=== PATIENT | male | born 1985 | race Caucasian/White ===

== ENCOUNTER 2018-07-01 16:31 | Inpatient (IN) | payer MEDICARE, MEDICAID ==
[~2018-07-01] VITALS: Ht 185.4 cm; Wt 93.9 kg
[~2018-07-01 16:31] MED LIST: /QUET10TA PO; ABIL300I IM; AMOX500T PO; CLON0.5T8 PO; DEPA500T2 OR; GEOD40CA13 PO; INVE234I IM; No Home Medications; RISP1TAB42 PO; RISP2TAB32 PO; TRAZ-160 PO; TRIL600T PO; VITA400T2 PO
[2018-07-01 16:52] LABS: HEMATOCRIT 44.1 % (42.0-52.0); HEMOGLOBIN 15.8 g/dl (13.5-17.5); MEAN CORPUSCULAR HGB CONC 35.8 g/dl (32.0-36.5); MEAN CORPUSCULAR VOLUME 89.3 fl (80.0-96.0); PLATELET COUNT, AUTOMATED 270 10^3/uL (150-450); RED BLOOD COUNT 4.94 10^6/uL (4.30-6.10); WHITE BLOOD COUNT 11.5 10^3/uL (4.0-10.0)
[2018-07-01] MEDS ORDERED: LORazepam 1 MG TAB PO ONE (17:15)
[2018-07-01 17:33] LABS: ACETAMINOPHEN LEVEL < 2.0 UG/ML (10.0-30.0); ALBUMIN 4.3 GM/DL (3.2-5.2); ALT/SGPT 45 U/L (12-78); BILIRUBIN,DIRECT 0.1 MG/DL (0.0-0.2); BILIRUBIN,TOTAL 0.6 MG/DL (0.2-1.0); BLOOD UREA NITROGEN 13 MG/DL (7-18); CALCIUM LEVEL 9.9 MG/DL (8.5-10.1); CARBON DIOXIDE LEVEL 23 MEQ/L (21-32); CHLORIDE LEVEL 104 MEQ/L (98-107); CREATININE FOR GFR 1.02 MG/DL (0.70-1.30); ETHYL ALCOHOL (ETHANOL) < 0.003 % (0.000-0.010); GLOMERULAR FILTRATION RATE > 60.0 (>60); GLUCOSE, FASTING 111 MG/DL (70-100); POTASSIUM SERUM 3.9 MEQ/L (3.5-5.1); SALICYLATE LEVEL < 1.7 MG/DL (5.0-30.0); SODIUM LEVEL 137 MEQ/L (136-145); TOTAL PROTEIN 7.3 GM/DL (6.4-8.2)
[2018-07-01 17:33] LABS: AMPHETAMINES LEVEL URINE NEGATIVE (NEGATIVE); BARBITURATES URINE NEGATIVE (NEGATIVE); BENZODIAZEPINES URINE NEGATIVE (NEGATIVE); CANNABINOIDS URINE NEGATIVE (NEGATIVE); COCAINE METABOLITE URINE NEGATIVE (NEGATIVE); METHADONE URINE NEGATIVE (NEGATIVE); OPIATES URINE NEGATIVE (NEGATIVE); PHENCYCLIDINE URINE NEGATIVE (NEGATIVE)
[2018-07-01] MEDS ORDERED: chlorproMAZINE 25 MG TAB (Q0161) PO ONE (19:30)
[2018-07-01] MEDS ORDERED: HALOPERIDOL 5 MG/ML VIAL (J1630) IM STA (20:44)
[2018-07-01] MEDS ORDERED: diphenhydrAMINE INJ 50MG/ML VIAL (J1200) IM STA (20:44)
[2018-07-01] MEDS ORDERED: HALOPERIDOL 5 MG/ML VIAL (J1630) As Ordered ONE (20:46)
--- NOTE | 2018-07-02 08:39 | ECGEPIP ---
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
[2018-07-02] MEDS ORDERED: ACETAMINOPHEN TAB 650MG DOSE (2X325MG) PO PRN (09:30)
[2018-07-02] MEDS ORDERED: MOM 30ML SUSPENSION UDC PO PRN (09:30)
[2018-07-02] MEDS ORDERED: MAALOX 30 ML SUSP *UDC PO PRN (09:30)
[2018-07-02] MEDS: clonazePAM 1 MG TAB PO SCH ×2 (11:43→21:00)
[2018-07-02] MEDS: OLANZapine ORAL DISINTEGRATING TAB 5MG PO SCH ×2 (11:44→21:00)
--- NOTE | 2018-07-02 13:37 | MHHPEPDOC ---
[facility] History & Physical History and Physical DATE OF ADMISSION: Jul 02, 2018 at 09:20 LEGAL STATUS AT ADMISSION: 9.39 CHIEF COMPLAINT: Patient presented to the ED with NYSP after family reported he was threatening family members HISTORY OF PRESENT ILLNESS: Patient is a 32-year-old male, who has a long standing of psychiatric illness, who was las hospitalized at [facility] in September 2015. he has ah/o bipolar disorder but the initial evaluation mentioned there were questions as of whether he was in the spectrum of ASD. As per ED report: " Pt presented with NYSP on after family called police to the home. Pt was reportedly threatening family members. Pt was found to be manic, highly delusional. Hx of schizophrenia and has been hospitalized here before, last visit was September 2015. Family says pt has been not taking his medication for an unkown amount of time and has become increasingly disorganized, tangential, delusional. Pt says he "Just got back from [place] where I met 11 hot girls and what's a man supposed to do?" Pt saying he got new tatoos in [place] and shows them to staff. Pt's speech is rapid and loud, pressured with FOI. Significant hesitations during interview whenever a question is asked. 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 He is psychotic at this time Personality: To be assessed during his hospital stay PAST PSYCHIATRIC HISTORY: Prior Psychiatric Disorder: History of bipolar disorder Outpatient Treatment: Patient is a poor historian, he is psychotic and at this time, can't provide this information. Suicidal/Self injurious: Denies Psychotropic Medication History: apparently in hte past he received Invega sustenna, that was started in September 2015 but he can't tell me when did he stop using this medication or he is taking other medications "According to his last admission record, September 2015: "The patient had a hospital admission to [facility] 03/08/2014 to 2014, June 14 to 2013, May 22, 2015 to June 09, 2013, May [id number], December [id number]. The patient has [facility]. Previous diagnosis indicated bipolar disorder, as well as cannabis use" ALLERGIES: Please see below. FAMILY PSYCHIATRIC HISTORY: According to previous history (september 2015), his mother has a mood disorder SOCIAL HISTORY: the patient is a poor historian at this time, he is psychotic and very irritable. Apparently he doesn't live with his parents. He receives SSI SUBSTANCE ABUSE HISTORY: Cannabis PAST MEDICAL/SURGICAL HISTORY: Gastric bypass and appendectomy according to previous records (september 2015) VITAL SIGNS: Please see below. MENTAL STATUS EXAMINATION: The patient is a 32 year old male who was seen in his room. This blurb writer asked him to come to the office to be evaluated but he was fixated and angry because he didn't have a shirt. A staff member came in at that oment with the shirt and he put it on. He said he came to the Hospital because "my mother is crazy, she probably has Munchausen's syndrome, she has no business in doing and saying what she says. 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 He goes on and on about his music preferences, and then says "my mother says that I wanted to kill my father but I was not trying to kill my father, I just wanted to punch him in the face". At that moment he makes clear that he wants to punch someone, he comes in front of me with tight fists as if he wants to hit me, I move back and he wants to see my name in my ID BADGE. * Patient is extremely paranoid, he is delusional. His speech is tangential and circumstantial. His mood is irritable/angry. His thought process is disorganized,incoherent. His thought content is positive for delusional thoughts, paranoid type. he denies AV hallucinations but I think he might be responding to internal stimuli. He is restless, agitated, paces up and down in his room. His impulse control, judgment and insight are poor at this time. DIAGNOSES: 1. R/O Schizoaffective disorder bipolar type versus bipolar 1 disorder 2. r/O ASD ASSESSMENT: patient is extremely irritable, labile, angry. He is dangerous to self and others. TW has ordered Zyprexa Zydis 10 mgs PO BID and the same medication, 5 mgs PO TIDP for anxiety, agitation and psychosis. PROBLEM LIST: 1. Poor impulse control 2. Altered thoughts 3. Altered perceptions 4. Anger 5. Risk for harming other people INITIAL TREATMENT PLAN: 1. Patient was admitted on a 9.39 2. Complete history was obtained. 3. With patients permission, family will be contacted and database will be expanded. 4. Patients medication regimen will be reviewed and changed accordingly. 5. Patient will be provided with protected environment. 6. Patient will be treated with individual, group, and milieu therapies. 7. Patient will receive supportive psych-education. 8. Discharge planning will commence immediately. 9. Outpatient follow-up treatment will be strongly recommended. 10. The initial treatment plan will focus initially on: * Depression. * Risk for suicide. * Substance abuse. ESTIMATED LENGTH OF STAY: 5-7 DAYS. TIME SPENT COUNSELING AND COORDINATING INITIAL CARE: 35 minutes. Vital Signs Vital Signs Date Time Temp Pulse Resp B/P (MAP) Pulse Ox O2 Delivery O2 Flow Rate FiO2 07/02/18 09:09 98.3 77 18 110/71 (84) 97 07/02/18 07:50 Room Air Laboratory Data 24H Labs Laboratory Tests 2 07/01/18 16:38: Nucleated Red Blood Cells % (auto) 0.0, Anion Gap 10, Glomerular Filtration Rate > 60.0, Calcium Level 9.9, Aspartate Amino Transf (AST/SGOT) 23, Alanine Aminotransferase (ALT/SGPT) 45, Alkaline Phosphatase 90, Total Bilirubin 0.6, Direct Bilirubin 0.1, Total Protein 7.3, Albumin 4.3, Albumin/Globulin Ratio 1.43, Thyroid Stimulating Hormone (TSH) 1.930, Salicylates Level < 1.7L, Acetaminophen Level < 2.0L, Ethyl Alcohol Level < 0.003 07/01/18 16:56: Urine Amphetamines Screen NEGATIVE, Urine Benzodiazepines Screen NEGATIVE, Urine Opiates Screen NEGATIVE, Urine Methadone Screen NEGATIVE, Urine Barbiturates Screen NEGATIVE, Urine Phencyclidine Screen NEGATIVE, Urine Cocaine Metabolite Screen NEGATIVE, Urine Cannabinoids Screen NEGATIVE CBC/BMP Laboratory Tests 07/01/18 16:38 Red Blood Count 4.94, Mean Corpuscular Volume 89.3, Mean Corpuscular Hemoglobin 32.0, Mean Corpuscular Hemoglobin Concent 35.8, Red Cell Distribution Width 12.6 Medications Unable to Obtain Active Prescriptions or Reported Meds Allergies Coded Allergies: No Known Drug Allergy (Verified Allergy, Unknown, 08/31/12) SANTA CESAR MD Jul 02, 2018 12:48
--- NOTE | 2018-07-02 14:02 | HPEPDOC ---
[facility] Medical History & Physical Date of Admission Jul 02, 2018 History and Physical PCP: [facility] ATTENDING: Dr. Eddie Dean HPI: 32yoM admitted to [facility] for Schizoaffective disorder, being medically examined today. The pt had apparently been brought to the ED as per [facility] after threatening to kill his father and himself. The family had reported he had been off his medication for an unknown amount of time. The pt was noted to be agitated in the ED, pacing, unable to answer questions. The pt states "I feel fine", Pt refuses to participate with history or exam. History is taken from chart. PMHx: Bipolar Disorder Schizophrenia H/O SI/HI psychosis hx of possible seizure. EEG 2012 reported at [facility]. Pt is not on anti convulsant per outpt med list. PSHX: Appendectomy Hx Obesity S/p gastric bypass 2015. BMI 25.4. wisdom teeth extraction SOCHX: Resides in: [facility] Marital Status: Single Kids: none Employment: Unemployed Tobacco use: Denies. ETOH: Denies Illicit Drugs: Denies IV Drug Use: Denies Tattoos done unprofessionally: Denies FAMHX: Pt is unable to provide history at this time. ROS: Pt declines to provide history. PE: Pt declines exam. EKG SINUS RHYTHM WITH MARKED SINUS ARRHYTHMIA INCREASED RATE 10/25/15 Electronically Signed On 07-02-2018 7:21:29 EST by Yamilet Talamantes A&P: 32yoM admitted to [facility] for Schizoaffective disorder 1. Psych. Plan per Psychiatry. EKG on file. 2. Follow up with [facility] at discharge. 3. Leukocytosis. Pt is afebrile. Asymptomatic. Recheck CBC in AM. Possible stress response. 4. Staff member Jose Guadalupe assisted in attempting exam. Vital Signs Vital Signs Date Time Temp Pulse Resp B/P (MAP) Pulse Ox O2 Delivery O2 Flow Rate FiO2 07/02/18 09:09 98.3 77 18 110/71 (84) 97 07/02/18 07:50 Room Air Laboratory Data Labs 24H Laboratory Tests 2 07/01/18 16:38: Nucleated Red Blood Cells % (auto) 0.0, Anion Gap 10, Glomerular Filtration Rate > 60.0, Calcium Level 9.9, Aspartate Amino Transf (AST/SGOT) 23, Alanine Aminotransferase (ALT/SGPT) 45, Alkaline Phosphatase 90, Total Bilirubin 0.6, Direct Bilirubin 0.1, Total Protein 7.3, Albumin 4.3, Albumin/Globulin Ratio 1.43, Thyroid Stimulating Hormone (TSH) 1.930, Salicylates Level < 1.7L, Acetaminophen Level < 2.0L, Ethyl Alcohol Level < 0.003 07/01/18 16:56: Urine Amphetamines Screen NEGATIVE, Urine Benzodiazepines Screen NEGATIVE, Urine Opiates Screen NEGATIVE, Urine Methadone Screen NEGATIVE, Urine Barbiturates Screen NEGATIVE, Urine Phencyclidine Screen NEGATIVE, Urine Cocaine Metabolite Screen NEGATIVE, Urine Cannabinoids Screen NEGATIVE CBC/BMP Laboratory Tests 07/01/18 16:38 Red Blood Count 4.94, Mean Corpuscular Volume 89.3, Mean Corpuscular Hemoglobin 32.0, Mean Corpuscular Hemoglobin Concent 35.8, Red Cell Distribution Width 12.6 Home Medications Unable to Obtain Active Prescriptions or Reported Meds Allergies Coded Allergies: No Known Drug Allergy (Verified Allergy, Unknown, 08/31/12) Slime White Jul 02, 2018 14:02
[2018-07-02 18:00] VITALS: BP 136/82
[2018-07-03 06:43] VITALS: BP 107/57
[2018-07-03] MEDS: clonazePAM 1 MG TAB PO SCH ×2 (10:13→21:39)
[2018-07-03] MEDS: OLANZapine ORAL DISINTEGRATING TAB 5MG PO SCH ×2 (10:14→21:39)
--- NOTE | 2018-07-03 10:52 | MHIPNPDOC ---
[facility] Progress Note Progress Note DATE OF SERVICE: 07/03/18 HISTORY: Per Dr. Buckner: "Patient is a 32-year-old male, who has a long standing of psychiatric illness, who was las hospitalized at [facility] in September 2015. he h as ah/o bipolar disorder but the initial evaluation mentioned there were questions as of whether he was in the spectrum of ASD. As per ED report: "Pt presented with NYSP on . after family called police to the home. Pt was reportedly threatening family members. Pt was found to be manic, highly delusional. Hx of schizophrenia and has been hospitalized here before, last visit was September 2015. Family says pt has been not taking his medication for an unkown amount of time and has become increasingly disorganized, tangential, delusional. Pt says he "Just got back from [place] where I met 11 hot girls and what's a man supposed to do?" Pt saying he got new tatoos in [place] and shows them to staff. Pt's speech is rapid and loud, pressured with FOI. Significant hesitations during interview whenever a question is asked. 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 NEW TEST RESULTS: See below. CURRENT MEDICATIONS: See below. MENTAL STATUS EXAMINATION: Patient is a 32-year old male, who is of stated age, clean, in hospital scrubs Speech: Is impoverished, reg volume Language skills are good Thought processes including: linear/logical, concrete Thought content: denies SI/HI, denies AVH Abstract reasoning, and computation: intact. Description of associations: appropriate Description of abnormal or psychotic thoughts: denies hallucinations, delusions Judgment: poor Insight: poor Orientation: x3 Recent and remote memory: intact Attention span and concentration: fair Language: appropriate, limited Fund of knowledge: average Mood: "ok" Affect: constricted, flat, reactive irritability. DIAGNOSES: 1. R/O Schizoaffective disorder bipolar type versus bipolar 1 disorder 2. r/O ASD ASSESSMENT:Pt seen and states that he's feeling a bit better just tired. States irritability, anxiety, anger is improved. States he slept well last night. Feels he is tolerating his medications and they're beneficial. He denies insomnia, SI/HI, hallucinations, delusions. Pt feels safe here MANAGEMENT PLAN: Continue Dr. Buckner's plan. TIME SPENT: 30 minutes. Vital Signs Vital Signs Date Time Temp Pulse Resp B/P (MAP) Pulse Ox O2 Delivery O2 Flow Rate FiO2 07/03/18 06:43 97.3 56 12 107/57 (74) 07/02/18 09:09 97 07/02/18 07:50 Room Air Current Medications Current Medications Acetaminophen (Tylenol Tab) 650 mg Q6HP PRN PO HEADACHE or DISCOMFORT; Start 07/02/18 at 09:30 Al Hydrox/Mg Hydrox/Simethicone (Mylanta) 30 ml Q4HP PRN PO HEARTBURN/INDIGESTION; Start 07/02/18 at 09:30 Clonazepam (KlonoPIN) 1 mg BID PO Last administered on 07/03/18at 10:13; Start 07/02/18 at 11:30 Diphenhydramine HCl (Benadryl) 25 mg STAT STAT IM Last administered on 07/01/18at 20:53; Start 07/01/18 at 20:44; Stop 07/01/18 at 20:45; Status DC Haloperidol (Haldol) 5 mg STAT STAT IM Last administered on 07/01/18at 20:53; Start 07/01/18 at 20:44; Stop 07/01/18 at 20:51; Status DC Home Med (Med Rec Complete!) ASDIRECTED XX ; Start 07/02/18 at 10:00; Stop 07/02/18 at 10:00; Status DC Magnesium Hydroxide (Milk Of Magnesia) 30 ml DAILYPRN PRN PO CONSTIPATION; Start 07/02/18 at 09:30 Olanzapine (ZyPREXA ZYDIS) 5 mg TIDP PRN PO ANXIETY/AGITATION; Start 07/02/18 at 11:30 Olanzapine (ZyPREXA ZYDIS) 10 mg BID PO Last administered on 07/03/18at 10:14; Start 07/02/18 at 11:30 Trazodone HCl (Desyrel) 50 mg QHSP PRN PO INSOMNIA; Start 07/02/18 at 09:30 Allergies Coded Allergies: No Known Drug Allergy (Verified Allergy, Unknown, 08/31/12) JERE GIBBS DO Jul 03, 2018 10:52 am
[2018-07-03 18:00] VITALS: BP 142/79
[2018-07-04 06:32] VITALS: BP 114/73
--- NOTE | 2018-07-04 09:00 | MHIPNPDOC ---
[facility] Progress Note Progress Note DATE OF SERVICE: 07/04/18 HISTORY: Per Dr. Buckner: "Patient is a 32-year-old male, who has a long standing of psychiatric illness, who was las hospitalized at [facility] in September 2015. he h as ah/o bipolar disorder but the initial evaluation mentioned there were questions as of whether he was in the spectrum of ASD. As per ED report: "Pt presented with NYSP on . after family called police to the home. Pt was reportedly threatening family members. Pt was found to be manic, highly delusional. Hx of schizophrenia and has been hospitalized here before, last visit was September 2015. Family says pt has been not taking his medication for an unkown amount of time and has become increasingly disorganized, tangential, delusional. Pt says he "Just got back from [place] where I met 11 hot girls and what's a man supposed to do?" Pt saying he got new [place]atoos in [place] and shows them to staff. Pt's speech is rapid and loud, pressured with FOI. Significant hesitations during interview whenever a question is asked. 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 NEW TEST RESULTS: See below. CURRENT MEDICATIONS: See below. MENTAL STATUS EXAMINATION: Patient is a 32-year old male, who is of stated age, clean, in hospital scrubs Speech: Is reg rate/rhythm/volume Language skills are good Thought processes including: linear/logical, concrete Thought content: denies SI/HI, denies AVH Abstract reasoning, and computation: intact. Description of associations: appropriate Description of abnormal or psychotic thoughts: denies hallucinations, delusions Judgment: fair Insight: fair Orientation: x3 Recent and remote memory: intact Attention span and concentration: fair Language: appropriate, limited Fund of knowledge: average Mood: "ok" Affect: less constricted, flat, no longer experiencing reactive irritability. DIAGNOSES: 1. R/O Schizoaffective disorder bipolar type versus bipolar 1 disorder 2. r/O ASD ASSESSMENT:Pt seen and states that he's feeling a better and less depressed. States his anxiety is improved and he's find he not "dwelling" on his worrisome thoughts but try be more present and active during the day "move on from them." States he's looking forward to watching the superbowl tonight.. Denies anger and irritability. States he slept well last night. Feels he is tolerating his medications and they're beneficial. He denies insomnia, SI/HI, hallucinations, delusions. Pt feels safe here MANAGEMENT PLAN: Continue Dr. Buckner's plan. TIME SPENT: 30 minutes. Vital Signs Vital Signs Date Time Temp Pulse Resp B/P (MAP) Pulse Ox O2 Delivery O2 Flow Rate FiO2 07/04/18 06:32 97.2 54 12 114/73 (87) 07/02/18 09:09 97 07/02/18 07:50 Room Air Current Medications Current Medications Acetaminophen (Tylenol Tab) 650 mg Q6HP PRN PO HEADACHE or DISCOMFORT; Start 07/02/18 at 09:30 Al Hydrox/Mg Hydrox/Simethicone (Mylanta) 30 ml Q4HP PRN PO HEARTBURN/INDIGESTION; Start 07/02/18 at 09:30 Clonazepam (KlonoPIN) 1 mg BID PO Last administered on 07/03/18at 21:39; Start 07/02/18 at 11:30 Diphenhydramine HCl (Benadryl) 25 mg STAT STAT IM Last administered on 07/01/18at 20:53; Start 07/01/18 at 20:44; Stop 07/01/18 at 20:45; Status DC Haloperidol (Haldol) 5 mg STAT STAT IM Last administered on 07/01/18at 20:53; Start 07/01/18 at 20:44; Stop 07/01/18 at 20:51; Status DC Home Med (Med Rec Complete!) ASDIRECTED XX ; Start 07/02/18 at 10:00; Stop 07/02/18 at 10:00; Status DC Magnesium Hydroxide (Milk Of Magnesia) 30 ml DAILYPRN PRN PO CONSTIPATION; Start 07/02/18 at 09:30 Olanzapine (ZyPREXA ZYDIS) 5 mg TIDP PRN PO ANXIETY/AGITATION; Start 07/02/18 at 11:30 Olanzapine (ZyPREXA ZYDIS) 10 mg BID PO Last administered on 07/03/18at 21:39; Start 07/02/18 at 11:30 Trazodone HCl (Desyrel) 50 mg QHSP PRN PO INSOMNIA; Start 07/02/18 at 09:30 Allergies Coded Allergies: No Known Drug Allergy (Verified Allergy, Unknown, 08/31/12) JERE GIBBS DO Jul 04, 2018 09:00
[2018-07-04] MEDS: clonazePAM 1 MG TAB PO SCH ×2 (09:58→21:02)
[2018-07-04] MEDS: OLANZapine ORAL DISINTEGRATING TAB 5MG PO SCH ×2 (10:01→21:03)
[2018-07-04 18:00] VITALS: BP 112/59
[2018-07-04] MEDS: traZODone 50 MG TAB PO PRN (21:02)
[2018-07-05] MEDS: clonazePAM 1 MG TAB PO SCH ×2 (10:31→22:00)
[2018-07-05] MEDS: OLANZapine ORAL DISINTEGRATING TAB 5MG PO SCH ×2 (10:31→22:01)
--- NOTE | 2018-07-05 15:19 | MHIPNPDOC ---
[facility] Progress Note Progress Note DATE OF SERVICE: 07/05/18 HISTORY: Per Dr. Cesar: "Patient is a 32-year-old male, who has a long standing of psychiatric illness, who was las hospitalized at [facility] [place]. he h as ah/o bipolar disorder but the initial evaluation mentioned there were questions as of whether he was in the spectrum of ASD. As per ED report: "Pt presented with NYSP on 9.41 after family called police to the home. Pt was reportedly threatening family members. Pt was found to be manic, highly delusional. Hx of schizophrenia and has been hospitalized here before, last visit was September 2015. Family says pt has been not taking his medication for an unkown amount of time and has become increasingly disorganized, tangential, delusional. Pt says he "Just got back from [place] where I met 11 hot girls and what's a man supposed to do?" Pt saying he got new tatoos in [place] and shows them to staff. Pt's speech is rapid and loud, pressured with FOI. Significant hesitations during interview whenever a question is asked. 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 NEW TEST RESULTS: See below. CURRENT MEDICATIONS: See below. MENTAL STATUS EXAMINATION: Patient is a 32-year old male, who is of stated age, clean, in hospital scrubs Speech: Is reg rate/rhythm/volume Language skills are good Thought processes including: linear/logical, concrete Thought content: denies SI/HI, denies AVH Abstract reasoning, and computation: intact. Description of associations: appropriate Description of abnormal or psychotic thoughts: denies hallucinations, delusions Judgment: fair Insight: limited, he still blames his parents for his emotional problems Orientation: x3 Recent and remote memory: intact Attention span and concentration: fair Language: appropriate, limited Fund of knowledge: average Mood: "ok" Affect: less constricted, flat, no longer experiencing reactive irritability. DIAGNOSES: 1. R/O Schizoaffective disorder bipolar type versus bipolar 1 disorder 2. r/O ASD ASSESSMENT: patient is feeling better, he is less angry, less irritable. he has been compliant with medications, it was only on 07/02/18 at night that he didn't take his Zyprexa but since 07/03/18 he has been taking it as scheduled. He is still paranoid about his parents, he says both of them want to hurt him. He reports feeling tired, sleepy and he says it's probably getting adjusted again to medications what is making him feel tired. He denies SI?HI, denies AV hallucinations MANAGEMENT PLAN: Continue with the same treatment plan TIME SPENT: 30 minutes. Vital Signs Vital Signs Date Time Temp Pulse Resp B/P (MAP) Pulse Ox O2 Delivery O2 Flow Rate FiO2 07/04/18 18:00 98.0 63 18 112/59 (76) 94 07/02/18 07:50 Room Air Current Medications Current Medications Acetaminophen (Tylenol Tab) 650 mg Q6HP PRN PO HEADACHE or DISCOMFORT; Start 07/02/18 at 09:30 Al Hydrox/Mg Hydrox/Simethicone (Mylanta) 30 ml Q4HP PRN PO HEARTBURN/INDIGESTION; Start 07/02/18 at 09:30 Clonazepam (KlonoPIN) 1 mg BID PO Last administered on 07/05/18at 10:31; Start 07/02/18 at 11:30 Diphenhydramine HCl (Benadryl) 25 mg STAT STAT IM Last administered on 07/01/18at 20:53; Start 07/01/18 at 20:44; Stop 07/01/18 at 20:45; Status DC Haloperidol (Haldol) 5 mg STAT STAT IM Last administered on 07/01/18at 20:53; Start 07/01/18 at 20:44; Stop 07/01/18 at 20:51; Status DC Home Med (Med Rec Complete!) ASDIRECTED XX ; Start 07/02/18 at 10:00; Stop 07/02/18 at 10:00; Status DC Magnesium Hydroxide (Milk Of Magnesia) 30 ml DAILYPRN PRN PO CONSTIPATION; Start 07/02/18 at 09:30 Olanzapine (ZyPREXA ZYDIS) 5 mg TIDP PRN PO ANXIETY/AGITATION; Start 07/02/18 at 11:30 Olanzapine (ZyPREXA ZYDIS) 10 mg BID PO Last administered on 07/05/18at 10:31; Start 07/02/18 at 11:30 Trazodone HCl (Desyrel) 50 mg QHSP PRN PO INSOMNIA Last administered on 07/04/18at 21:02; Start 07/02/18 at 09:30 Allergies Coded Allergies: No Known Drug Allergy (Verified Allergy, Unknown, 08/31/12) SANTA CESAR MD Jul 05, 2018 15:00
[2018-07-05 18:00] VITALS: BP 100/58
[2018-07-05] MEDS: traZODone 50 MG TAB PO PRN (22:00)
[2018-07-06 06:31] VITALS: BP 119/56
[2018-07-06] MEDS: OLANZapine ORAL DISINTEGRATING TAB 5MG PO SCH (12:12)
[2018-07-06] MEDS: clonazePAM 1 MG TAB PO SCH (12:12)
[2018-07-06] MEDS ORDERED: OLANZapine ORAL DISINTEGRATING TAB 5MG PO SCH (21:00)
--- NOTE | 2018-07-06 22:25 | MHIPNPDOC ---
[facility] Progress Note Progress Note DATE OF SERVICE: 07/06/18 HISTORY: Per Dr. Cesar: "Patient is a 32-year-old male, who has a long standing of psychiatric illness, who was las hospitalized at [facility] [place] in September 2015. he h as ah/o bipolar disorder but the initial evaluation mentioned there were questions as of whether he was in the spectrum of ASD. As per ED report: "Pt presented with NYSP on after family called police to the home. Pt was reportedly threatening family members. Pt was found to be manic, highly delusional. Hx of schizophrenia and has been hospitalized here before, last visit was September 2015. Family says pt has been not taking his medication for an unkown amount of time and has become increasingly disorganized, tangential, delusional. Pt says he "Just got back from [place] where I met 11 hot girls and what's a man supposed to do?" Pt saying he got new tatoos in [place] and shows them to staff. Pt's speech is rapid and loud, pressured with FOI. Significant hesitations during interview whenever a question is asked. 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 NEW TEST RESULTS: See below. CURRENT MEDICATIONS: See below. MENTAL STATUS EXAMINATION: Patient is a 32-year old male, who is of stated age, laying in bed, sleeping Speech: Not able to assess, patient was sleeping in his bed, difficult to arouse Language skills they were good when he was evaluated previously but today he was not possible to speak to him because he was very sleepy Thought processes including: Unable to assess Thought content: Unable to assess, please read the above Description of abnormal or psychotic thoughts: Unable to assess, please read above Judgment: Unable to assess Insight: Unable to assess Orientation: Unable to assess Recent and remote memory: Unable to assess Attention span and concentration: Unable to assess Language: Unable to assess Fund of knowledge: Unable to assess Mood: Unable to assess Affect: Unable to assess DIAGNOSES: 1. R/O Schizoaffective disorder bipolar type versus bipolar 1 disorder 2. r/O ASD ASSESSMENT: This principal technical writer attempted to meet with the patient today but he was extremely sleepy and he then wake up when I called his name from his bedroom door. The patient was later seen walking in his underwear to get a shower without any concern for the rest of the patients or staff. Patient is very sleepy, very sedated, I will decrease some of his medications. MANAGEMENT PLAN: We will decrease Zyprexa from 10 mg to 5 mg in the morning but he will continue to take 10 mg by mouth daily at bedtime. Will decrease Klonopin as well TIME SPENT: 30 minutes. Vital Signs Vital Signs Date Time Temp Pulse Resp B/P (MAP) Pulse Ox O2 Delivery O2 Flow Rate FiO2 07/06/18 06:31 96.9 51 14 119/56 (77) 07/04/18 18:00 94 07/02/18 07:50 Room Air Current Medications Current Medications Acetaminophen (Tylenol Tab) 650 mg Q6HP PRN PO HEADACHE or DISCOMFORT; Start 07/02/18 at 09:30 Al Hydrox/Mg Hydrox/Simethicone (Mylanta) 30 ml Q4HP PRN PO HEARTBURN/INDIGESTION; Start 07/02/18 at 09:30 Clonazepam (KlonoPIN) 1 mg BID PO Last administered on 07/06/18at 12:12; Start 07/02/18 at 11:30 Diphenhydramine HCl (Benadryl) 25 mg STAT STAT IM Last administered on 07/01/18at 20:53; Start 07/01/18 at 20:44; Stop 07/01/18 at 20:45; Status DC Haloperidol (Haldol) 5 mg STAT STAT IM Last administered on 07/01/18at 20:53; Start 07/01/18 at 20:44; Stop 07/01/18 at 20:51; Status DC Home Med (Med Rec Complete!) ASDIRECTED XX ; Start 07/02/18 at 10:00; Stop 07/02/18 at 10:00; Status DC Magnesium Hydroxide (Milk Of Magnesia) 30 ml DAILYPRN PRN PO CONSTIPATION; Start 07/02/18 at 09:30 Olanzapine (ZyPREXA ZYDIS) 5 mg TIDP PRN PO ANXIETY/AGITATION; Start 07/02/18 at 11:30 Olanzapine (ZyPREXA ZYDIS) 10 mg BID PO Last administered on 07/06/18at 12:12; Start 07/02/18 at 11:30 Trazodone HCl (Desyrel) 50 mg QHSP PRN PO INSOMNIA Last administered on 07/05/18at 22:00; Start 07/02/18 at 09:30 Allergies Coded Allergies: No Known Drug Allergy (Verified Allergy, Unknown, 08/31/12) SANTA CESAR MD Jul 06, 2018 22:25
[2018-07-06] MEDS ORDERED: PILL CRUSHER/CUTTER 1 EACH XX PRN (22:45)
[2018-07-06] MEDS: clonazePAM 0.5 MG TAB PO SCH (22:46)
[2018-07-07 06:18] VITALS: BP 137/65
[2018-07-07] MEDS ORDERED: OLANZapine 5 MG TAB PO SCH (09:00)
[2018-07-07] MEDS: clonazePAM 0.5 MG TAB PO SCH (09:16)
[2018-07-07 18:00] VITALS: BP 134/84
[2018-07-07] MEDS: traZODone 50 MG TAB PO PRN (21:38)
[2018-07-07] MEDS: clonazePAM 1 MG TAB PO SCH (21:38)
[2018-07-07] MEDS: OLANZapine ORAL DISINTEGRATING TAB 5MG PO SCH (21:39)
[2018-07-08 06:22] VITALS: BP 126/58
[2018-07-08] MEDS ORDERED: QUEtiapine FUMARATE 25 MG TAB PO SCH (09:00)
[2018-07-08] MEDS: OLANZapine ORAL DISINTEGRATING TAB 5MG PO SCH ×2 (09:37→13:12)
[2018-07-08] MEDS: clonazePAM 1 MG TAB PO SCH ×3 (09:37→21:28)
[2018-07-08] MEDS: PALIPERIDONE 6 MG ER TAB (INVEGA) PO SCH (15:05)
[2018-07-08] MEDS: DIVALPROEX 500MG *ER* TAB PO SCH ×2 (15:05→21:28)
[2018-07-08 18:00] VITALS: BP 108/77
--- NOTE | 2018-07-08 18:36 | MHIPNPDOC ---
[facility] Progress Note Progress Note DATE OF SERVICE: 07/07/18 HISTORY: Per Dr. Cesar: "Patient is a 32-year-old male, who has a long standing of psychiatric illness, who was las hospitalized at [facility] [place] in September 2015. he h as ah/o bipolar disorder but the initial evaluation mentioned there were questions as of whether he was in the spectrum of ASD. As per ED report: "Pt presented with NYSP on after family called police to the home. Pt was reportedly threatening family members. Pt was found to be manic, highly delusional. Hx of schizophrenia and has been hospitalized here before, last visit was September 2015. Family says pt has been not taking his medication for an unkown amount of time and has become increasingly disorganized, tangential, delusional. Pt says he "Just got back from [place] where I met 11 hot girls and what's a man supposed to do?" Pt saying he got new tatoos in [place] and shows them to staff. Pt's speech is rapid and loud, pressured with FOI. Significant hesitations during interview whenever a question is asked. 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 NEW TEST RESULTS: See below. CURRENT MEDICATIONS: See below. MENTAL STATUS EXAMINATION: Patient is a 32-year old male, who is of stated age, laying in bed, sleeping Speech: Not able to assess, patient was sleeping in his bed, difficult to arouse Language skills they were good when he was evaluated previously but today he was not possible to speak to him because he was very sleepy Thought processes including: Unable to assess Thought content: Unable to assess, please read the above Description of abnormal or psychotic thoughts: Unable to assess, please read above Judgment: Unable to assess Insight: Unable to assess Orientation: Unable to assess Recent and remote memory: Unable to assess Attention span and concentration: Unable to assess Language: Unable to assess Fund of knowledge: Unable to assess Mood: Unable to assess Affect: Unable to assess DIAGNOSES: 1. R/O Schizoaffective disorder bipolar type versus bipolar 1 disorder 2. 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 He is angry while he talks to me, he seems to be responding to internal stimuli, he rolls his sleeves up and looks at me in an intimidating way, as if he would like to hit me. He seems to be unwilling to involve his family in his discharge and expanding information about him. I'm changing her Zyprexa to 5 mgs PO QID plus Abilify twice/day MANAGEMENT PLAN: We will decrease Zyprexa from 10 mg to 5 mg in the morning but he will continue to take 10 mg by mouth daily at bedtime. Will decrease Klonopin as well TIME SPENT: 30 minutes. Vital Signs Vital Signs Date Time Temp Pulse Resp B/P (MAP) Pulse Ox O2 Delivery O2 Flow Rate FiO2 07/07/18 06:18 97.0 50 14 137/65 (89) 07/04/18 18:00 94 07/02/18 07:50 Room Air Current Medications Current Medications Acetaminophen (Tylenol Tab) 650 mg Q6HP PRN PO HEADACHE or DISCOMFORT; Start 07/02/18 at 09:30 Al Hydrox/Mg Hydrox/Simethicone (Mylanta) 30 ml Q4HP PRN PO HEARTBURN/INDIGESTION; Start 07/02/18 at 09:30 Aripiprazole (AbiLIFY) 2.5 mg QHS PO ; Start 07/07/18 at 21:00 Clonazepam (KlonoPIN) 0.5 mg BID PO Last administered on 07/07/18at 09:16; Start 07/06/18 at 21:00 Clonazepam (KlonoPIN) 1 mg BID PO Last administered on 07/06/18at 12:12; Start 07/02/18 at 11:30; Stop 07/06/18 at 22:29; Status DC Diphenhydramine HCl (Benadryl) 25 mg STAT STAT IM Last administered on 07/01/18at 20:53; Start 07/01/18 at 20:44; Stop 07/01/18 at 20:45; Status DC Haloperidol (Haldol) 5 mg STAT STAT IM Last administered on 07/01/18at 20:53; Start 07/01/18 at 20:44; Stop 07/01/18 at 20:51; Status DC Home Med (Med Rec Complete!) ASDIRECTED XX ; Start 07/02/18 at 10:00; Stop 07/02/18 at 10:00; Status DC Magnesium Hydroxide (Milk Of Magnesia) 30 ml DAILYPRN PRN PO CONSTIPATION; Sta rt 07/02/18 at 09:30 Olanzapine (ZyPREXA ZYDIS) 5 mg TIDP PRN PO ANXIETY/AGITATION; Start 07/02/18 at 11:30 Olanzapine (ZyPREXA ZYDIS) 10 mg BID PO Last administered on 07/06/18at 12:12; Start 07/02/18 at 11:30; Stop 07/06/18 at 22:28; Status DC Olanzapine (ZyPREXA ZYDIS) 10 mg QHS PO Last administered on 07/06/18at 22:46; Start 07/06/18 at 21:00 Olanzapine (ZyPREXA) 5 mg QAM PO Last administered on 07/07/18at 09:16; Start 07/07/18 at 09:00 Trazodone HCl (Desyrel) 50 mg QHSP PRN PO INSOMNIA Last administered on 07/05/18at 22:00; Start 07/02/18 at 09:30 Allergies Coded Allergies: No Known Drug Allergy (Verified Allergy, Unknown, 08/31/12) SANTA CESAR MD Jul 07, 2018 17:24
--- NOTE | 2018-07-08 19:02 | MHIPNPDOC ---
[facility] Progress Note Progress Note DATE OF SERVICE: 07/08/18 HISTORY: Per Dr. Cesar: "Patient is a 32-year-old male, who has a long standing of psychiatric illness, who was las hospitalized at [facility] [place] in September 2015. he h as ah/o bipolar disorder but the initial evaluation mentioned there were questions as of whether he was in the spectrum of ASD. As per ED report: "Pt presented with NYSP on .41 after family called police to the home. Pt was reportedly threatening family members. Pt was found to be manic, highly delusional. Hx of schizophrenia and has been hospitalized here before, last visit was September 2015. Family says pt has been not taking his medication for an unkown amount of time and has become increasingly disorganized, tangential, delusional. Pt says he "Just got back from [place] where I met 11 hot girls and what's a man supposed to do?" Pt saying he got new tatoos in [place] and shows them to staff. Pt's speech is rapid and loud, pressured with FOI. Significant hesitations during interview whenever a question is asked. 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 NEW TEST RESULTS: See below. CURRENT MEDICATIONS: See below. MENTAL STATUS EXAMINATION: Patient is a 32-year old male, who is of laying in bed, half asleep ( he woke up shortly after I came to speak to him), dressed in hospital clothes Speech: spontaneous and fluent, normal rate, tone and volume Language skills fair Thought processes including: irrational Thought content: Focused on being discharged, going back home. 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 R/O Schizoaffective disorder bipolar type versus bipolar 1 disorder 2. r/O ASD 3. R/O Major Depressive disorder secondary to other medical condition ASSESSMENT: The patient is very talkative with liaison planner. When this inspector automatic typewriter went to see him in his room, he was difficult to arouse, he would not tur n around to talk to me, his eyes were semi closed but then, he turned around, opened his eyes and the first thing he did was to ask me when was he going to be leaving, because he doesn't know what ht is doing at the Hospital. I told him I had to wait to see if the medications he was on were working or not but he thinks he is ready to go home. He doesn't realize how angry he becomes. His demeanor is threatening, angry and he shows it in his face. Account Information Clerk says he spoke with patient's mother and she told him that she doesn't feel patient is ready to go back with her (he doesn't live with her but he is spending some time in there for now). She said that she was very concerned about his angry behavior. The patient has no insight, has extremely poor judgement, he is in denial of having a mental illness. His medications will be changed. I will discontinue Abilify and will start him on Invega 6 mgs PO BID, he will continue on Klonopin 1 mg PO BID. I will discontinue Seroquel and he will be taking Depakote 500 mgs PO BID as a mood stabilizer. I will discontinue Zyprexa but he will remain on Zyprexa 5 mgs PO q6hp for anxiety/agitation MANAGEMENT PLAN: -Discontinue Zyprexa 5 mgs PO qid -Continue Zyprexa 5 mgs PO tidp for anxiety/agitation -Discontinue Abilify -Continue Zyprexa 5 mgs Po q6hp for anxiety/agitation -Discontinue Seroquel -Start Depakote 500 mgs PO BID -Increase Klonopin to 1 mg PO TID -Start Inveta, 6 mgs PO qam and 3 mgs PO QHS TIME SPENT: 30 minutes. Vital Signs Vital Signs Date Time Temp Pulse Resp B/P (MAP) Pulse Ox O2 Delivery O2 Flow Rate FiO2 07/08/18 06:22 97.2 63 14 126/58 (80) 07/04/18 18:00 94 07/02/18 07:50 Room Air Current Medications Current Medications Acetaminophen (Tylenol Tab) 650 mg Q6HP PRN PO HEADACHE or DISCOMFORT; Start 07/02/18 at 09:30 Al Hydrox/Mg Hydrox/Simethicone (Mylanta) 30 ml Q4HP PRN PO HEARTBURN/INDIGESTION Last administered on 07/08/18at 00:03; Start 07/02/18 at 09:30 Aripiprazole (AbiLIFY) 2.5 mg BID PO Last administered on 07/08/18at 09:37; Start 07/07/18 at 21:00; Stop 07/08/18 at 14:49; Status DC Aripiprazole (AbiLIFY) 2.5 mg QHS PO ; Start 07/07/18 at 21:00; Stop 07/07/18 at 21:00; Status DC Clonazepam (KlonoPIN) 0.5 mg BID PO Last administered on 07/07/18at 09:16; Start 07/06/18 at 21:00; Stop 07/07/18 at 17:35; Status DC Clonazepam (KlonoPIN) 1 mg BID PO Last administered on 07/06/18at 12:12; Start 07/02/18 at 11:30; Stop 07/06/18 at 22:29; Status DC Clonazepam (KlonoPIN) 1 mg BID PO Last administered on 07/08/18at 09:37; Start 07/07/18 at 21:00; Stop 07/08/18 at 14:53; Status DC Clonazepam (KlonoPIN) 1 mg TID PO Last administered on 07/08/18at 15:05; Start 07/08/18 at 16:00 Diphenhydramine HCl (Benadryl) 25 mg STAT STAT IM Last administered on 07/01/18at 20:53; Start 07/01/18 at 20:44; Stop 07/01/18 at 20:45; Status DC Divalproex Sodium (Depakote Er) 500 mg BID PO Last administered on 07/08/18at 15:05; Start 07/08/18 at 15:00 Haloperidol (Haldol) 5 mg STAT STAT IM Last administered on 07/01/18at 20:53; Start 07/01/18 at 20:44; Stop 07/01/18 at 20:51; Status DC Home Med (Med Rec Complete!) ASDIRECTED XX ; Start 07/02/18 at 10:00; Stop 07/02/18 at 10:00; Status DC Magnesium Hydroxide (Milk Of Magnesia) 30 ml DAILYPRN PRN PO CONSTIPATION; Start 07/02/18 at 09:30 Olanzapine (ZyPREXA ZYDIS) 5 mg QID PO Last administered on 07/08/18at 13:12; Start 07/07/18 at 21:00; Stop 07/08/18 at 14:53; Status DC Olanzapine (ZyPREXA ZYDIS) 5 mg TIDP PRN PO ANXIETY/AGITATION; Start 07/02/18 at 11:30 Olanzapine (ZyPREXA ZYDIS) 10 mg BID PO Last administered on 07/06/18at 12:12; Start 07/02/18 at 11:30; Stop 07/06/18 at 22:28; Status DC Olanzapine (ZyPREXA ZYDIS) 10 mg QHS PO Last administered on 07/06/18at 22:46; Start 07/06/18 at 21:00; Stop 07/07/18 at 17:25; Status DC Olanzapine (ZyPREXA) 5 mg QAM PO Last administered on 07/07/18at 09:16; Start 07/07/18 at 09:00; Stop 07/07/18 at 17:25; Status DC Paliperidone (Invega) 6 mg DAILY PO Last administered on 07/08/18at 15:05; Start 07/08/18 at 15:00 Paliperidone (Invega) 6 mg QHS PO ; Start 07/08/18 at 21:00 Quetiapine Fumarate (SEROquel) 75 mg BID PO Last administered on 07/08/18at 11:53; Start 07/08/18 at 09:00; Stop 07/08/18 at 14:50; Status DC Trazodone HCl (Desyrel) 50 mg QHSP PRN PO INSOMNIA Last administered on 07/07/18at 21:38; Start 07/02/18 at 09:30 Allergies Coded Allergies: No Known Drug Allergy (Verified Allergy, Unknown, 08/31/12) SANTA CESAR MD Jul 08, 2018 18:52
[2018-07-08] MEDS ORDERED: PALIPERIDONE 3 MG ER TAB (INVEGA) PO SCH (21:00)
[2018-07-08] MEDS: PALIPERIDONE 3 MG ER TAB (INVEGA) PO SCH (21:28)
[2018-07-09 06:41] VITALS: BP 128/58
[2018-07-09] MEDS: PALIPERIDONE 6 MG ER TAB (INVEGA) PO SCH (09:07)
[2018-07-09] MEDS: clonazePAM 1 MG TAB PO SCH ×3 (09:07→20:48)
[2018-07-09] MEDS: DIVALPROEX 500MG *ER* TAB PO SCH ×2 (09:07→20:48)
[2018-07-09 18:00] VITALS: BP 120/80
--- NOTE | 2018-07-09 18:57 | MHIPNPDOC ---
[facility] Progress Note Progress Note DATE OF SERVICE: 07/09/18 HISTORY: Per Dr. Cesar: "Patient is a 32-year-old male, who has a long standing of psychiatric illness, who was las hospitalized at [facility] [place] in September 2015. he h as ah/o bipolar disorder but the initial evaluation mentioned there were questions as of whether he was in the spectrum of ASD. As per ED report: "Pt presented with NYSP on after family called police to the home. Pt was reportedly threatening family members. Pt was found to be manic, highly delusional. Hx of schizophrenia and has been hospitalized here before, last visit was September 2015. Family says pt has been not taking his medication for an unkown amount of time and has become increasingly disorganized, tangential, delusional. Pt says he "Just got back from [place] where I met 11 hot girls and what's a man supposed to do?" Pt saying he got new tatoos in [place] and shows them to staff. Pt's speech is rapid and loud, pressured with FOI. Significant hesitations during interview whenever a question is asked. 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 NEW TEST RESULTS: See below. CURRENT MEDICATIONS: See below. MENTAL STATUS EXAMINATION: Patient was sleeping when i walked inside of his room. He didn't respond to me, he got out of the room, got his lunch tray, came inside of his room and slammed the door behind him. Patient seems to be responding to internal stimuli and seems very paranoid. he doesn't engage with other patients, doesn't come out of his room. DIAGNOSES: 1. R/O Schizoaffective disorder bipolar type versus bipolar 1 disorder 2. r/O ASD 3. R/O Major Depressive disorder secondary to other medical condition ASSESSMENT: The patient has not changed his hostile demeanor towards tw. I walked inside his bedroom and woke him up. His breakfast tray was on the floor. He was dressed in his hospital [facility]. he didn't respond to me. I asked him if that was his breakfast or lunch tray, if had something to eat. Next, he picked up his tray and walked out of his room. Brusher Machine Del, was with me, we moved to the hallway where he went to drop his breakfast tray and got his lunch tray. He didn't talk to me and slammed the door when he went back into his room. Patient's mood and affect are angry/irritable, he continues to be paranoid. MANAGEMENT PLAN: -Discontinue Zyprexa 5 mgs PO qid -Continue Zyprexa 5 mgs PO tidp for anxiety/agitation -Discontinue Abilify -Continue Zyprexa 5 mgs Po q6hp for anxiety/agitation -Discontinue Seroquel -Start Depakote 500 mgs PO BID -Increase Klonopin to 1 mg PO TID -Start Inveta, 6 mgs PO qam and 3 mgs PO QHS TIME SPENT: 15 minutes. Vital Signs Vital Signs Date Time Temp Pulse Resp B/P (MAP) Pulse Ox O2 Delivery O2 Flow Rate FiO2 07/09/18 06:41 97.6 79 16 128/58 (81) 07/04/18 18:00 94 Current Medications Current Medications Acetaminophen (Tylenol Tab) 650 mg Q6HP PRN PO HEADACHE or DISCOMFORT; Start 07/02/18 at 09:30 Al Hydrox/Mg Hydrox/Simethicone (Mylanta) 30 ml Q4HP PRN PO HEARTBURN/INDIGESTION Last administered on 07/08/18at 00:03; Start 07/02/18 at 09:30 Aripiprazole (AbiLIFY) 2.5 mg BID PO Last administered on 07/08/18at 09:37; Start 07/07/18 at 21:00; Stop 07/08/18 at 14:49; Status DC Aripiprazole (AbiLIFY) 2.5 mg QHS PO ; Start 07/07/18 at 21:00; Stop 07/07/18 at 21:00; Status DC Clonazepam (KlonoPIN) 0.5 mg BID PO Last administered on 07/07/18at 09:16; Start 07/06/18 at 21:00; Stop 07/07/18 at 17:35; Status DC Clonazepam (KlonoPIN) 1 mg BID PO Last administered on 07/06/18at 12:12; Start 07/02/18 at 11:30; Stop 07/06/18 at 22:29; Status DC Clonazepam (KlonoPIN) 1 mg BID PO Last administered on 07/08/18at 09:37; Start 07/07/18 at 21:00; Stop 07/08/18 at 14:53; Status DC Clonazepam (KlonoPIN) 1 mg TID PO Last administered on 07/09/18at 15:09; Start 07/08/18 at 16:00 Diphenhydramine HCl (Benadryl) 25 mg STAT STAT IM Last administered on 07/01/18at 20:53; Start 07/01/18 at 20:44; Stop 07/01/18 at 20:45; Status DC Divalproex Sodium (Depakote Er) 500 mg BID PO Last administered on 07/09/18at 09:07; Start 07/08/18 at 15:00 Haloperidol (Haldol) 5 mg STAT STAT IM Last administered on 07/01/18at 20:53; Start 07/01/18 at 20:44; Stop 07/01/18 at 20:51; Status DC Home Med (Med Rec Complete!) ASDIRECTED XX ; Start 07/02/18 at 10:00; Stop 07/02/18 at 10:00; Status DC Magnesium Hydroxide (Milk Of Magnesia) 30 ml DAILYPRN PRN PO CONSTIPATION; Start 07/02/18 at 09:30 Olanzapine (ZyPREXA ZYDIS) 5 mg QID PO Last administered on 07/08/18at 13:12; Start 07/07/18 at 21:00; Stop 07/08/18 at 14:53; Status DC Olanzapine (ZyPREXA ZYDIS) 5 mg TIDP PRN PO ANXIETY/AGITATION; Start 07/02/18 at 11:30 Olanzapine (ZyPREXA ZYDIS) 10 mg BID PO Last administered on 07/06/18at 12:12; Start 07/02/18 at 11:30; Stop 07/06/18 at 22:28; Status DC Olanzapine (ZyPREXA ZYDIS) 10 mg QHS PO Last administered on 07/06/18at 22:46; Start 07/06/18 at 21:00; Stop 07/07/18 at 17:25; Status DC Olanzapine (ZyPREXA) 5 mg QAM PO Last administered on 07/07/18 09:16; Start 07/07/18 at 09:00; Stop 07/07/18 at 17:25; Status DC Paliperidone (Invega) 3 mg QHS PO Last administered on 07/08/18 21:28; Start 07/08/18 at 21:00 Paliperidone (Invega) 6 mg DAILY PO Last administered on 07/09/18at 09:07; Start 07/08/18 at 15:00 Paliperidone (Invega) 6 mg QHS PO ; Start 07/08/18 at 21:00; Stop 07/08/18 at 21:00; Status DC Quetiapine Fumarate (SEROquel) 75 mg BID PO Last administered on 07/08/18at 11:53; Start 07/08/18 at 09:00; Stop 07/08/18 at 14:50; Status DC Trazodone HCl (Desyrel) 50 mg QHSP PRN PO INSOMNIA Last administered on 07/07/18at 21:38; Start 07/02/18 at 09:30 Allergies Coded Allergies: No Known Drug Allergy (Verified Allergy, Unknown, 08/31/12) SANTA CESAR MD Jul 09, 2018 18:57
[2018-07-09] MEDS: PALIPERIDONE 3 MG ER TAB (INVEGA) PO SCH (20:48)
[2018-07-09] MEDS: traZODone 50 MG TAB PO PRN (20:48)
[2018-07-10 06:00] VITALS: BP 130/61
[2018-07-10] MEDS: PALIPERIDONE 6 MG ER TAB (INVEGA) PO SCH (08:59)
[2018-07-10] MEDS: clonazePAM 1 MG TAB PO SCH ×3 (08:59→21:21)
[2018-07-10] MEDS: DIVALPROEX 500MG *ER* TAB PO SCH ×2 (08:59→21:21)
[2018-07-10 18:00] VITALS: BP 112/56
[2018-07-10] MEDS: PALIPERIDONE 3 MG ER TAB (INVEGA) PO SCH (21:21)
[2018-07-10] MEDS: traZODone 50 MG TAB PO PRN (22:35)
[2018-07-10] MEDS: OLANZapine ORAL DISINTEGRATING TAB 5MG PO PRN (22:36)
[2018-07-11 06:00] VITALS: BP 119/56
[2018-07-11] MEDS: clonazePAM 1 MG TAB PO SCH ×3 (09:18→21:12)
[2018-07-11] MEDS: DIVALPROEX 500MG *ER* TAB PO SCH ×2 (09:18→21:12)
[2018-07-11] MEDS: PALIPERIDONE 6 MG ER TAB (INVEGA) PO SCH (09:18)
[2018-07-11 18:00] VITALS: BP 121/75
[2018-07-11] MEDS: traZODone 50 MG TAB PO PRN (21:12)
[2018-07-11] MEDS: PALIPERIDONE 3 MG ER TAB (INVEGA) PO SCH (21:12)
[2018-07-11] MEDS: OLANZapine ORAL DISINTEGRATING TAB 5MG PO PRN (21:12)
[2018-07-12] MEDS ORDERED: traZODone 50 MG TAB PO ONE (01:00)
[2018-07-12 06:25] VITALS: BP 131/61
[2018-07-12] MEDS: DIVALPROEX 500MG *ER* TAB PO SCH ×2 (09:42→20:53)
[2018-07-12] MEDS: clonazePAM 1 MG TAB PO SCH ×3 (09:42→20:53)
[2018-07-12] MEDS: PALIPERIDONE 6 MG ER TAB (INVEGA) PO SCH (09:42)
[2018-07-12 18:00] VITALS: BP 122/66
--- NOTE | 2018-07-12 20:23 | MHIPNPDOC ---
[facility] Progress Note Progress Note DATE OF SERVICE: 07/12/18 HISTORY: "Patient is a 32-year-old male, who has a long standing of psychiatric illness, who was las hospitalized at [facility] in September 2015. he has ah/o bipolar disorder but the initial evaluation mentioned there were questions as of whether he was in the spectrum of ASD. As per ED report: "Pt presented with NYSP on . after family called police to the home. Pt was reportedly threatening family mem bers. Pt was found to be manic, highly delusional. Hx of schizophrenia and has been hospitalized here before, last visit was September 2015. Family says pt has been not taking his medication for an unkown amount of time and has become increasingly disorganized, tangential, delusional. Pt says he "Just got back from [place] where I met 11 hot girls and what's a man supposed to do?" Pt saying he got new tatoos in [place] and shows them to staff. Pt's speech is rapid and loud, pressured with FOI. Significant hesitations during interview whenever a question is asked. 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 NEW TEST RESULTS: See below. CURRENT MEDICATIONS: See below. MENTAL STATUS EXAMINATION: Patient was sleepy, laying in bed, covered with his blankets as I walked inside of his room to speak with him but he answered several of my questions without getting agitated or angry. The patient speech was impoverished, he gave short, brief responses. Tone and volume were normal. His mood is not irritable, not angry today. His affect is constricted. He denies feeling suicidal or homicidal. Denies thoughts of harming himself. Denies auditory/visual hallucinations and denies thought delusions but patient has been very paranoid when he has met with me previously, he has been seen responding to internal stimuli, while he was in my office and has made intimidating gestures almost indicating that he could beat me up. 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 Patient's insight and judgment are very poor. DIAGNOSES: 1. R/O Schizoaffective disorder bipolar type versus bipolar 1 disorder 2. r/O ASD 3. R/O Major Depressive disorder secondary to other medical condition ASSESSMENT:The patient's medications were increased last Thursday because he is paranoid, he responds to internal stimuli, he is angry, he is impulsive, he has poor judgment, poor insight and seems he would be physically aggressive. Will continue to monitor patient. MANAGEMENT PLAN: -Continue Zyprexa 5 mgs PO tidp for anxiety/agitation -Start Depakote 500 mgs PO BID -Increase Klonopin to 1 mg PO TID -Start Invega, 6 mgs PO qam and 3 mgs PO QHS TIME SPENT: 15 minutes. Vital Signs Vital Signs Date Time Temp Pulse Resp B/P (MAP) Pulse Ox O2 Delivery O2 Flow Rate FiO2 07/12/18 18:00 98.1 104 18 122/66 (84) Current Medications Current Medications Acetaminophen (Tylenol Tab) 650 mg Q6HP PRN PO HEADACHE or DISCOMFORT; Start 07/02/18 at 09:30 Al Hydrox/Mg Hydrox/Simethicone (Mylanta) 30 ml Q4HP PRN PO HEARTBURN/INDIGESTION Last administered on 07/08/18at 00:03; Start 07/02/18 at 09:30 Aripiprazole (AbiLIFY) 2.5 mg BID PO Last administered on 07/08/18at 09:37; Start 07/07/18 at 21:00; Stop 07/08/18 at 14:49; Status DC Aripiprazole (AbiLIFY) 2.5 mg QHS PO ; Start 07/07/18 at 21:00; Stop 07/07/18 at 21:00; Status DC Clonazepam (KlonoPIN) 0.5 mg BID PO Last administered on 07/07/18at 09:16; Start 07/06/18 at 21:00; Stop 07/07/18 at 17:35; Status DC Clonazepam (KlonoPIN) 1 mg BID PO Last administered on 07/06/18at 12:12; Start 07/02/18 at 11:30; Stop 07/06/18 at 22:29; Status DC Clonazepam (KlonoPIN) 1 mg BID PO Last administered on 07/08/18at 09:37; Start 07/07/18 at 21:00; Stop 07/08/18 at 14:53; Status DC Clonazepam (KlonoPIN) 1 mg TID PO Last administered on 07/12/18at 16:27; Start 07/08/18 at 16:00 Diphenhydramine HCl (Benadryl) 25 mg STAT STAT IM Last administered on 07/01/18at 20:53; Start 07/01/18 at 20:44; Stop 07/01/18 at 20:45; Status DC Divalproex Sodium (Depakote Er) 500 mg BID PO Last administered on 07/12/18at 09:42; Start 07/08/18 at 15:00 Haloperidol (Haldol) 5 mg STAT STAT IM Last administered on 07/01/18at 20:53; Start 07/01/18 at 20:44; Stop 07/01/18 at 20:51; Status DC Home Med (Med Rec Complete!) ASDIRECTED XX ; Start 07/02/18 at 10:00; Stop 07/02/18 at 10:00; Status DC Magnesium Hydroxide (Milk Of Magnesia) 30 ml DAILYPRN PRN PO CONSTIPATION; Start 07/02/18 at 09:30 Olanzapine (ZyPREXA ZYDIS) 5 mg QID PO Last administered on 07/08/18at 13:12; Start 07/07/18 at 21:00; Stop 07/08/18 at 14:53; Status DC Olanzapine (ZyPREXA ZYDIS) 5 mg TIDP PRN PO ANXIETY/AGITATION Last administered on 07/11/18at 21:12; Start 07/02/18 at 11:30 Olanzapine (ZyPREXA ZYDIS) 10 mg BID PO Last administered on 07/06/18at 12:12; Start 07/02/18 at 11:30; Stop 07/06/18 at 22:28; Status DC Olanzapine (ZyPREXA ZYDIS) 10 mg QHS PO Last administered on 07/06/18at 22:46; Start 07/06/18 at 21:00; Stop 07/07/18 at 17:25; Status DC Olanzapine (ZyPREXA) 5 mg QAM PO Last administered on 2/6/19at 09:16; Start 07/07/18 at 09:00; Stop 07/07/18 at 17:25; Status DC Paliperidone (Invega) 3 mg QHS PO Last administered on 07/11/18at 21:12; Start 07/08/18 at 21:00 Paliperidone (Invega) 6 mg DAILY PO Last administered on 07/12/18at 09:42; Start 07/08/18 at 15:00 Paliperidone (Invega) 6 mg QHS PO ; Start 07/08/18 at 21:00; Stop 07/08/18 at 21:00; Status DC Quetiapine Fumarate (SEROquel) 75 mg BID PO Last administered on 07/08/18at 11:53; Start 07/08/18 at 09:00; Stop 07/08/18 at 14:50; Status DC Trazodone HCl (Desyrel) 50 mg QHSP PRN PO INSOMNIA Last administered on 07/11/18at 21:12; Start 07/02/18 at 09:30 Allergies Coded Allergies: No Known Drug Allergy (Verified Allergy, Unknown, 08/31/12) SANTA CESAR MD Jul 12, 2018 20:02
[2018-07-12] MEDS: PALIPERIDONE 3 MG ER TAB (INVEGA) PO SCH (20:53)
[2018-07-12] MEDS: traZODone 50 MG TAB PO PRN (22:48)
[2018-07-13 06:45] VITALS: BP 122/62
[2018-07-13] MEDS ORDERED: PALIPERIDONE PALMITATE 234 MG/1.5 ML INJ (INVEGA SUSTENNA)(J2426) IM SCH (09:00)
[2018-07-13] MEDS: DIVALPROEX 500MG *ER* TAB PO SCH ×3 (09:30→22:37)
[2018-07-13] MEDS: clonazePAM 1 MG TAB PO SCH ×3 (09:31→22:37)
[2018-07-13] MEDS: PALIPERIDONE 6 MG ER TAB (INVEGA) PO SCH (09:31)
[2018-07-13 18:00] VITALS: BP 132/93
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
[2018-07-13] MEDS ORDERED: OLANZapine 10 MG TAB PO SCH (21:00)
[2018-07-14 06:45] VITALS: BP 117/65
[2018-07-14] MEDS: clonazePAM 1 MG TAB PO SCH (10:24)
[2018-07-14] MEDS: DIVALPROEX 500MG *ER* TAB PO SCH (10:24)
[2018-07-14] MEDS ORDERED: TRAZO50TA PO (13:33)
[2018-07-14] MEDS ORDERED: INVE234I IM ×2 (13:33→13:35)
[2018-07-14] MEDS ORDERED: DEPA500T2 PO (13:33)
[2018-07-14] MEDS ORDERED: BENA25CA4 PO (13:33)
[2018-07-14] MEDS ORDERED: CLON1TAB8 PO (13:33)
[2018-07-14] MEDS ORDERED: OLAN10TA2 PO (13:33)
[2018-07-14] MEDS ORDERED: CLON0.25 PO (13:55)
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
== END 2018-07-14 14:30 | disposition home or self-care (01) | DRG 885 ==
LOC: M ED 16:31 → M ED INP 07-02 09:20 → M PSY 07-02 10:25
PROVIDERS: ADMIT Psychiatry & Neurology Psychiatry; ATTEND Psychiatry & Neurology Psychiatry
DX: F25.0 Schizoaffective disorder, bipolar type (principal); Z98.84 Bariatric surgery status; F84.0 Autistic disorder; Z87.820 Personal history of traumatic brain injury

== ENCOUNTER 2018-07-22 14:12 | Inpatient (IN) | payer MEDICARE, MEDICAID ==
[~2018-07-22] VITALS: Ht 182.9 cm; Wt 95.2 kg
[~2018-07-22 14:12] MED LIST changes: +BENA25CA4 PO; +CLON0.25 PO; +CLON1TAB8 PO; +DEPA500T2 PO; +OLAN10TA2 PO; +TRAZO50TA PO
[2018-07-22] MEDS ORDERED: LORazepam 1 MG TAB PO STA (14:57)
[2018-07-22 15:30] LABS: HEMATOCRIT 40.1 % (42.0-52.0); HEMOGLOBIN 13.8 g/dl (13.5-17.5); MEAN CORPUSCULAR HEMOGLOBIN 31.3 pg (27.0-33.0); MEAN CORPUSCULAR HGB CONC 34.4 g/dl (32.0-36.5); MEAN CORPUSCULAR VOLUME 90.9 fl (80.0-96.0); PLATELET COUNT, AUTOMATED 237 10^3/uL (150-450); RED BLOOD COUNT 4.41 10^6/uL (4.30-6.10); WHITE BLOOD COUNT 7.8 10^3/uL (4.0-10.0)
[2018-07-22 15:53] LABS: AMPHETAMINES LEVEL URINE NEGATIVE (NEGATIVE); BARBITURATES URINE NEGATIVE (NEGATIVE); BENZODIAZEPINES URINE NEGATIVE (NEGATIVE); CANNABINOIDS URINE NEGATIVE (NEGATIVE); COCAINE METABOLITE URINE NEGATIVE (NEGATIVE); METHADONE URINE NEGATIVE (NEGATIVE); OPIATES URINE NEGATIVE (NEGATIVE); PHENCYCLIDINE URINE NEGATIVE (NEGATIVE)
[2018-07-22 16:06] LABS: ALBUMIN 4.3 GM/DL (3.2-5.2); ALT/SGPT 31 U/L (12-78); BILIRUBIN,DIRECT 0.1 MG/DL (0.0-0.2); BILIRUBIN,TOTAL 0.4 MG/DL (0.2-1.0); BLOOD UREA NITROGEN 12 MG/DL (7-18); CALCIUM LEVEL 9.2 MG/DL (8.5-10.1); CARBON DIOXIDE LEVEL 25 MEQ/L (21-32); CHLORIDE LEVEL 107 MEQ/L (98-107); CREATININE FOR GFR 0.92 MG/DL (0.70-1.30); ETHYL ALCOHOL (ETHANOL) < 0.003 % (0.000-0.010); GLOMERULAR FILTRATION RATE > 60.0 (>60); GLUCOSE, FASTING 102 MG/DL (70-100); POTASSIUM SERUM 3.9 MEQ/L (3.5-5.1); SALICYLATE LEVEL < 1.7 MG/DL (5.0-30.0); SODIUM LEVEL 140 MEQ/L (136-145); TOTAL PROTEIN 7.4 GM/DL (6.4-8.2)
[2018-07-22 16:07] LABS: ACETAMINOPHEN LEVEL < 2.0 UG/ML (10.0-30.0); VALPROIC ACID (DEPAKOTE) 7.2 UG/ML (50.0-100.0)
[2018-07-22] MEDS ORDERED: MAALOX 30 ML SUSP *UDC PO PRN (17:15)
[2018-07-22] MEDS ORDERED: ACETAMINOPHEN TAB 650MG DOSE (2X325MG) PO PRN (17:15)
[2018-07-22] MEDS ORDERED: MOM 30ML SUSPENSION UDC PO PRN (17:15)
[2018-07-22] MEDS ORDERED: OLANZapine ORAL DISINTEGRATING TAB 5MG PO PRN (17:15)
[2018-07-22] MEDS ORDERED: INVE234I IM (18:44)
[2018-07-22] MEDS ORDERED: BENA25CA4 PO (18:44)
[2018-07-22] MEDS ORDERED: TRAZ-186 PO (18:44)
[2018-07-22] MEDS ORDERED: DEPA500T2 PO (18:44)
[2018-07-22] MEDS ORDERED: CLON0.25 PO (18:44)
[2018-07-22] MEDS ORDERED: OLAN10TA2 PO (18:44)
[2018-07-22] MEDS ORDERED: PATIENT COMMENTS (18:48)
[2018-07-23 06:45] VITALS: BP 139/87
[2018-07-23] MEDS ORDERED: clonazePAM 1 MG TAB PO STA (15:41)
[2018-07-23] MEDS ORDERED: OLANZapine ORAL DISINTEGRATING TAB 5MG PO STA (15:41)
[2018-07-23] MEDS: DIVALPROEX 500 MG TAB PO SCH ×2 (16:00→21:00)
[2018-07-23] MEDS: clonazePAM 1 MG TAB PO SCH (21:00)
[2018-07-23] MEDS: OLANZapine ORAL DISINTEGRATING TAB 5MG PO SCH (21:00)
--- NOTE | 2018-07-23 21:25 | MHHPEPDOC ---
[facility] History & Physical History and Physical DATE OF ADMISSION: Jul 22, 2018 at 17:01 LEGAL STATUS AT ADMISSION: 9.39 CHIEF COMPLAINT: Pt was staying in the [facility] and his stay had . Pt would not leave or answer the door. Police were called and transported to [facility] for MHE. HISTORY OF PRESENT ILLNESS: Pt was tranported to [facility] per [facility]. Pt was staying at the [facility] where his stay had . Pt would not vacate the room or answer the door. Pt was transported to [facility] for MHE. Upon interview pt began talking about how he "accidently flew to [place] and got 9 girlfriends." Pt also stated he has ran all the way to [place] and got involved with "some wackass dangerous welfare women". When asked what day it was pt would not answer. Pt does not know why he is here and begins talking about irrelevant subjects." PSYCHIATRIC REVIEW OF SYSTEMS: Patient is psychotic at this time, it's not possible to obtain more information because he is angry, paranoid, circumstantial, tangential Affective: Patient is angry Anxiety: He says he is anxious because "I don't know why my crazy mother sent me here" Trauma: Denies Psychosis: Patient has a history of bipolar disorder. He is psychotic at this time Personality: To be assessed during his hospital stay PAST PSYCHIATRIC HISTORY: Prior Psychiatric Disorder: History of bipolar disorder Outpatient Treatment: Patient is a poor historian, he is psychotic and at this time, can't provide this information. Suicidal/Self injurious: Denies Psychotropic Medication History: apparently in the past he received Invega Sustenna, that was started in September 2015 but he can't tell me when did he stop using this medication or he is taking other medications "According to his last admission record, September 2015: "The patient had a hospital admission to [facility] 03/08/2014 to 2014, June 14 to 2013, May 22, 2015 to June 09, 2013, May [id number], December [id number]. The patient has been [facility] psychiatric center before. Previous diagnosis indicated bipolar disorder, as well as cannabis use" Patient was discharged one week ago and he didn't take any medications ALLERGIES: Please see below. FAMILY PSYCHIATRIC HISTORY: According to previous history (september 2015), his mother has a mood disorder SOCIAL HISTORY: Patient is a poor historian, he has a hard time to keep on track with one subject. He gets easily irritated. He didn't sign a TAMELA for his parents (last hospitalization, one week ago, he did). Patient's parents are supportive. His mother recently paid for his stay at the [facility] and his father is backing him up. His parents are scared of his anger. Apparently he doesn't live with his parents. He receives SSI SUBSTANCE ABUSE HISTORY: Cannabis PAST MEDICAL/SURGICAL HISTORY: Gastric bypass and appendectomy according to previous records (september 2015) VITAL SIGNS: Please see below. MENTAL STATUS EXAMINATION: The patient is a 32 year old male who was seen in his room while he was speaking to his Recapper, Ajith Beckford. Patient is a 32 year old male, who is alert, sitting on his bed, dressed in personal clothes, guarded and very irritable. Speech: Is loud, normal tone, normal rate, spontaneous and fluent but nonsensica l, tangential and circumstantial Language skills are poor, as a result of his mental illness Thought processes including: tangential, circumstantial, disorganized, concrete Thought content: delusional, he is paranoid and is he is redundant about some 5 girls that he met in a plane when he was going to [facility] and then, he says that he was recently involved with three girls from [place] and speaks very poorly of them. He expresses paranoid thoughts about his mother and says she is crazy and she sent him to the hospital.. Abstract reasoning, and computation:impaired. Description of associations: loose. Description of abnormal or psychotic thoughts: paranoid delusions, bizarre delusions. Judgment: Very poor Insight: very poor. Orientation: place, person, situation but not oriented to date and time. Recent and remote memory: poor, he couldn't remember me and he was just discharged last week Attention span and concentration: very poor Language: impoverished. Fund of knowledge: below average. Mood: irritable, angryAffect: congruent with mood DIAGNOSES: 1. Schizoaffective disorder bipolar type 2. r/O ASD ASSESSMENT: Patient is extremely irritable and he is refusing to take medications. He didn't take medications recently, when he was on his own. He is psychotic. He was brought to the hospital by the police because he refused to vacte the room in the [facility], that his mother had paid for him to stay bu t it was time for him to leave and he didn't. In his delusional mind, he thinks it was his mother who called the Police to pick him up. He has not signed TAMELA's for his parents. PROBLEM LIST: 1. Poor impulse control 2. Altered thoughts 3. Altered perceptions 4. Anger 5. Risk for harming other people INITIAL TREATMENT PLAN: 1. Patient was admitted on a 2. Complete history was obtained. 3. With patients permission, family will be contacted and database will be expanded. 4. Patients medication regimen will be reviewed and changed accordingly. 5. Patient will be provided with protected environment. 6. Patient will be treated with individual, group, and milieu therapies. 7. Patient will receive supportive psych-education. 8. Discharge planning will commence immediately. 9. Outpatient follow-up treatment will be strongly recommended. 10. The initial treatment plan will focus initially on: * Depression. * Risk for suicide. * Substance abuse. ESTIMATED LENGTH OF STAY: 5-7 DAYS. TIME SPENT COUNSELING AND COORDINATING INITIAL CARE: 45 minutes.. Vital Signs Vital Signs Date Time Temp Pulse Resp B/P (MAP) Pulse Ox O2 Delivery O2 Flow Rate FiO2 07/23/18 08:50 Room Air 07/23/18 06:45 98.1 67 18 139/87 (104) 07/22/18 18:29 99 Medications Scheduled Diphenhydramine HCl (Benadryl Allergy) 25 Mg Cap, 50 MG PO BID, (Reported) Divalproex Sodium (Depakote ER) 500 Mg Tab, 500 MG PO TID, (Reported) Olanzapine (Olanzapine) 10 Mg Tab, 10 MG PO QHS, (Reported) Paliperidone Palmitate (Invega Sustenna) 234 Mg/1.5 Ml Inj, 234 MG IM Q30D, (Reported) NEXT INJECTION DUE 08/10/2018 Scheduled PRN Clonazepam (Clonazepam Odt) 0.25 Mg Tab, 0.25 MG PO BID PRN for ANXIETY/AGITATION, (Reported) Trazodone HCl (Trazodone Hydrochloride) 50 Mg Tab, 50 MG PO QHS PRN for INSOMNIA, (Reported) Miscellaneous Medications [Patient Comments] , (Reported) PATIENT STATES HE IS ONLY TAKING HIS INVEGA INJECTIONS Allergies Coded Allergies: No Known Drug Allergy (Verified Allergy, Unknown, 08/31/12) SANTA CESAR MD Jul 23, 2018 15:37
[2018-07-24] MEDS: OLANZapine ORAL DISINTEGRATING TAB 5MG PO SCH ×2 (09:00→21:00)
[2018-07-24] MEDS: clonazePAM 1 MG TAB PO SCH ×3 (09:00→21:00)
[2018-07-24] MEDS: DIVALPROEX 500 MG TAB PO SCH ×3 (09:00→21:00)
--- NOTE | 2018-07-24 09:36 | MHIPNPDOC ---
[facility] Progress Note Progress Note DATE OF SERVICE: 07/24/18 HISTORY: Per Dr. Buckner "Pt was staying in the [facility] and his stay had . Pt would not leave or answer the door. Police were called and transported to [facility] for MHE. Pt was transported to [facility] per [facility]. Pt was staying at the [facility] where his stay had . Pt would not vacate the room or answer the door. Pt was transported to [facility] for MHE. Upon interview pt began talking about how he "accidently flew to [facility] and got 9 girlfriends." Pt also stated he has ran all the way to [place] and got involved with "some jackass dangerous welfare women". When asked what day it was pt would not answer. Pt does not know why he is here and begins talking about irrelevant subjects." VITAL SIGNS: See below. NEW TEST RESULTS:See below. CURRENT MEDICATIONS: See below. MENTAL STATUS EXAMINATION: The patient is a 32 year old male who was seen in his room while he was speaking to his Live In Housekeeper, Ajith Beckford. Patient is a 32 year old male, who is in bed head in covers refusing to get up, irritable Speech: Is normal tone, normal rate, spontaneous and fluent but nonsensical, tangential and circumstantial Language skills are poor, as a result of his mental illness Thought processes including: tangential, circumstantial, disorganized, concrete Thought content: delusional, he is paranoid and is he is redundant about some 5 girls that he met in a plane when he was going to [facility] and then, he says that he was recently involved with three girls from [place] and speaks very poorly of them. He expresses paranoid thoughts about his mother and says she is crazy and she sent him to the hospital. Also states today "I'm trying to figure out how to get to [place]." Abstract reasoning, and computation:impaired. Description of associations: loose. Description of abnormal or psychotic thoughts: paranoid delusions, bizarre delusions. Judgment: Very poor Insight: very poor. Orientation: place, person, situation but not oriented to date and time. Recent and remote memory: poor, he couldn't remember me and he was just discharged last week Attention span and concentration: very poor Language: impoverished. Fund of knowledge: below average. Mood: irritable, angryAffect: congruent with mood DIAGNOSES: 1. Schizoaffective disorder bipolar type 2. r/O ASD ASSESSMENT: Patient is irritable and refusing the participate with interview, get out of bed. States he's fine and trying to figure out how to get to [place]. States he took his medication today but per med rec he refused them all. Denies SI "fuck no." MANAGEMENT PLAN: Continue per Dr. Buckner. TIME SPENT: 30 minutes. Vital Signs Vital Signs Date Time Temp Pulse Resp B/P (MAP) Pulse Ox O2 Delivery O2 Flow Rate FiO2 07/23/18 08:50 Room Air 07/23/18 06:45 98.1 67 18 139/87 (104) 07/22/18 18:29 99 Current Medications Current Medications Acetaminophen (Tylenol Tab) 650 mg Q6HP PRN PO HEADACHE or DISCOMFORT; Start 07/22/18 at 17:15 Al Hydrox/Mg Hydrox/Simethicone (Mylanta) 30 ml Q4HP PRN PO HEARTBURN/INDIGESTION; Start 07/22/18 at 17:15 Clonazepam (KlonoPIN) 1 mg STAT STAT PO ; Start 07/23/18 at 15:41; Stop 07/23/18 at 15:47; Status DC Clonazepam (KlonoPIN) 1 mg TID PO ; Start 07/23/18 at 21:00 Divalproex Sodium (Depakote) 500 mg TID PO ; Start 07/23/18 at 16:00 Home Med (Med Rec Complete!) ASDIRECTED XX ; Start 07/22/18 at 19:00; Stop 07/22/18 at 19:00; Status DC Lorazepam (Ativan) 1 mg STAT STAT PO Last administered on 07/22/18at 16:05; Start 07/22/18 at 14:57; Stop 07/22/18 at 14:59; Status DC Magnesium Hydroxide (Milk Of Magnesia) 30 ml DAILYPRN PRN PO CONSTIPATION; Start 07/22/18 at 17:15 Olanzapine (ZyPREXA ZYDIS) 5 mg Q4HP PRN PO AGITATION/ANXIETY; Start 07/22/18 at 17:15 Olanzapine (ZyPREXA ZYDIS) 10 mg BID PO ; Start 07/23/18 at 21:00 Olanzapine (ZyPREXA ZYDIS) 10 mg STAT STAT PO ; Start 07/23/18 at 15:41; Stop 07/23/18 at 15:43; Status DC Trazodone HCl (Desyrel) 50 mg QHSP PRN PO INSOMNIA; Start 07/22/18 at 17:15 Allergies Coded Allergies: No Known Drug Allergy (Verified Allergy, Unknown, 08/31/12) JERE GIBBS DO Jul 24, 2018 09:36
--- NOTE | 2018-07-24 11:39 | HPE ---
DATE OF ADMISSION: 07/22/2018 HISTORY OF PRESENT ILLNESS: Please refer to the psychiatric history and evaluation for further details on this admission. This examination and history is intended for medical issues which may need treatment, followup or consultation on this 32-year-old male. PRIMARY CARE PROVIDER: [facility]. ALLERGIES: No known allergies. SOCIAL HISTORY: Gotten from the older record. He has recently been discharged on the 14 of July. He resides in [facility]. Marital status: Single. He does not smoke cigarettes. He does not drink alcohol. He does not use recreational drugs. PAST MEDICAL HISTORY: Bipolar disorder. Schizophrenia. Suicidal ideation. Homicidal ideation. Psychosis. History of possible seizures. EEG 2004, 2012. Reported as within normal limits. PAST SURGICAL HISTORY: Appendectomy. History of obesity, status post gastric bypass 2015. Teeth extraction. FAMILY HISTORY: Noncontributory. Patient declines exam. Patient declines to provide history. Patient declines to participate in review of systems. LABORATORY DATA: White count 7.8, hemoglobin 13.8, hematocrit 40.1. Platelets 237. Electrolytes are normal. BUN 12, creatinine 0.92. Urine for toxicology: Valproic acid was 7.2. MEDICATIONS: - Benadryl 50 mg by mouth twice a day - Depakote ER 500 mg by mouth three times a day - olanzapine 10 mg by mouth at bedtime - Invega Sustenna 234 mg IM every 30 days - trazodone 50 mg by mouth at bedtime - clonazepam 0.25 mg by mouth twice a day as needed for anxiety or agitation PHYSICAL EXAMINATION: Height 72 inches, weight 91.8, BMI 27.4. Vital signs noted in the record. Blood pressure 139/87, pulse 67, respirations 18, temperature 98.1. Oxygen saturation 99% on room air. Patient declines exam. EKG on file shows sinus rhythm with marked sinus arhythmia. IMPRESSION AND PLAN: 1. Psychiatric: Plan per psychiatry. 2. Followup with [facility] at discharge. 3. Patient is afebrile. 4. Declined exam. Unable to provide history.
[2018-07-25 06:11] VITALS: BP 115/61
[2018-07-25] MEDS: DIVALPROEX 500 MG TAB PO SCH ×3 (09:00→21:00)
[2018-07-25] MEDS: clonazePAM 1 MG TAB PO SCH ×3 (09:00→21:00)
[2018-07-25] MEDS: OLANZapine ORAL DISINTEGRATING TAB 5MG PO SCH ×2 (09:00→21:00)
--- NOTE | 2018-07-25 09:41 | MHIPNPDOC ---
[facility] Progress Note Progress Note DATE OF SERVICE: 07/25/18 HISTORY: Per Dr. Buckner "Pt was staying in the [facility] and his stay had . Pt would not leave or answer the door. Police were called and transported to [facility] for MHE. Pt was transported to [facility] per [facility]. Pt was staying at the [facility] where his stay had . Pt would not vacate the room or answer the door. Pt was transported to [facility] for MHE. Upon interview pt began talking about how he "accidently flew to [facility] and got 9 girlfriends." Pt also stated he has ran all the way to [place] and got involved with "some jackass dangerous welfare women". When asked what day it was pt would not answer. Pt does not know why he is here and begins talking about irrelevant subjects." VITAL SIGNS: See below. NEW TEST RESULTS:See below. CURRENT MEDICATIONS: See below. MENTAL STATUS EXAMINATION: The patient is a 32 year old male who was seen in his room while he was speaking to his Sort Line, Ajith Beckford. Patient is a 32 year old male, who is in bed head in covers refusing to get up, irritable Speech: mute Language skills are poor, as a result of his mental illness Thought processes including: unable to assess Thought content: unable to asses. Per Dr. Buckner "delusional, he is paranoid and is he is redundant about some 5 girls that he met in a plane when he was going to [facility] and then, he says that he was recently involved with three girls from [place] and speaks very poorly of them. He expresses paranoid thoughts about his mother and says she is crazy and she sent him to the [facility]." Also states today "I'm trying to figure out how to get to [place]." Abstract reasoning, and computation:impaired. Description of associations: unable to assess Description of abnormal or psychotic thoughts: unable to assess. Per Dr. Buckner "paranoid delusions, bizarre delusions." Judgment: Very poor Insight: very poor. Orientation: place, person, situation but not oriented to date and time. Recent and remote memory: poor, he couldn't remember me and he was just discharged last week Attention span and concentration: very poor Language: impoverished. Fund of knowledge: below average. Mood: ignoring everyone Affect: flat, constricted DIAGNOSES: 1. Schizoaffective disorder bipolar type 2. r/O ASD ASSESSMENT: Patient is ignoring me, refusing to open his eyes or talk, just nodded his head stating he was ok. Continues to refuse to participate with treatment or take meds. Denies SI. MANAGEMENT PLAN: Continue per Dr. Buckner. TIME SPENT: 30 minutes. Vital Signs Vital Signs Date Time Temp Pulse Resp B/P (MAP) Pulse Ox O2 Delivery O2 Flow Rate FiO2 07/25/18 06:11 99.0 63 20 115/61 (79) 07/23/18 08:50 Room Air 07/22/18 18:29 99 Current Medications Current Medications Acetaminophen (Tylenol Tab) 650 mg Q6HP PRN PO HEADACHE or DISCOMFORT; Start 07/22/18 at 17:15 Al Hydrox/Mg Hydrox/Simethicone (Mylanta) 30 ml Q4HP PRN PO HEARTBURN/INDIGESTION; Start 07/22/18 at 17:15 Clonazepam (KlonoPIN) 1 mg STAT STAT PO ; Start 07/23/18 at 15:41; Stop 07/23/18 at 15:47; Status DC Clonazepam (KlonoPIN) 1 mg TID PO ; Start 07/23/18 at 21:00 Divalproex Sodium (Depakote) 500 mg TID PO ; Start 07/23/18 at 16:00 Home Med (Med Rec Complete!) ASDIRECTED XX ; Start 07/22/18 at 19:00; Stop 07/22/18 at 19:00; Status DC Lorazepam (Ativan) 1 mg STAT STAT PO Last administered on 07/22/18at 16:05; Start 07/22/18 at 14:57; Stop 07/22/18 at 14:59; Status DC Magnesium Hydroxide (Milk Of Magnesia) 30 ml DAILYPRN PRN PO CONSTIPATION; Start 07/22/18 at 17:15 Olanzapine (ZyPREXA ZYDIS) 5 mg Q4HP PRN PO AGITATION/ANXIETY; Start 07/22/18 at 17:15 Olanzapine (ZyPREXA ZYDIS) 10 mg BID PO ; Start 07/23/18 at 21:00 Olanzapine (ZyPREXA ZYDIS) 10 mg STAT STAT PO ; Start 07/23/18 at 15:41; Stop 07/23/18 at 15:43; Status DC Trazodone HCl (Desyrel) 50 mg QHSP PRN PO INSOMNIA; Start 07/22/18 at 17:15 Allergies Coded Allergies: No Known Drug Allergy (Verified Allergy, Unknown, 08/31/12) JERE GIBBS DO Jul 25, 2018 09:41
[2018-07-26 06:00] VITALS: BP 148/88
[2018-07-26] MEDS: clonazePAM 1 MG TAB PO SCH ×3 (09:00→21:00)
[2018-07-26] MEDS: OLANZapine ORAL DISINTEGRATING TAB 5MG PO SCH ×2 (09:00→21:00)
[2018-07-26] MEDS: DIVALPROEX 500 MG TAB PO SCH ×3 (09:00→21:00)
[2018-07-26 18:10] VITALS: BP 141/86
--- NOTE | 2018-07-26 19:38 | MHIPNPDOC ---
[facility] Progress Note Progress Note DATE OF SERVICE: 07/26/18 HISTORY: As per ED report: "Pt was tranported to [facility] per [facility]. Pt was staying at the [facility] where his stay had . Pt would not vacate the room or answer the door. Pt was transported to [facility] for MHE. Upon interview pt began talking about how he "accidently flew to [place] and got 9 girlfriends." Pt also stated he has ran all the way to [place] and got involved with "some wackass dangerous welfare women". When asked what day it was pt would not answer. Pt does not know why he is here and begins talking about irrelevant subjects". VITAL SIGNS: See below. NEW TEST RESULTS:See below. CURRENT MEDICATIONS: See below. MENTAL STATUS EXAMINATION: The patient is a 32 year old male who was seen sleeping initially. TW tried to wake him up but he didn't until I came later Patient is a 32 year old male, who was laying in bed, angry, irritable Speech: mute Language skills are poor, as a result of his mental illness Thought processes including: unable to assess Thought content: continues to exhibit paranoid delusions, he seems to be responding to internal stimuli Abstract reasoning, and computation: unable to assess, patient became angry and exasperated Description of associations: loose Description of abnormal or psychotic thoughts: paranoid and bizarre delusions, he might be responding to internal stimuli Judgment: Very poor Insight: very poor. Orientation: place, person, situation but not oriented to date and time. Recent and remote memory: poor, he couldn't remember me and he was just discharged last week Attention span and concentration: very poor Language: impoverished. Fund of knowledge: below average. Mood: angry/irritable Affect: congruent with mood, irritable DIAGNOSES: 1. Schizoaffective disorder bipolar type 2. r/O ASD ASSESSMENT: Patient continues to refuse medications, he says there's no reason for him to be at the hospital. He is not a bit insightful, continues to deny brothers ving a psychiatric problem, blames it all on his parents. Fixated on going [place] playing [place]. MANAGEMENT PLAN: Will encourage him to take medications, telling him it is the only way he can leave the hospital. TIME SPENT: 30 minutes. Vital Signs Vital Signs Date Time Temp Pulse Resp B/P (MAP) Pulse Ox O2 Delivery O2 Flow Rate FiO2 07/26/18 18:10 98.0 71 18 141/86 (104) 07/23/18 08:50 Room Air 07/22/18 18:29 99 Laboratory Data 24H Labs Laboratory Tests 2 07/26/18 08:22: HIV Antigen/Antibody Combo Qual NEGATIVE Current Medications Current Medications Acetaminophen (Tylenol Tab) 650 mg Q6HP PRN PO HEADACHE or DISCOMFORT; Start 07/22/18 at 17:15 Al Hydrox/Mg Hydrox/Simethicone (Mylanta) 30 ml Q4HP PRN PO HEARTBURN/INDIGESTION; Start 07/22/18 at 17:15 Clonazepam (KlonoPIN) 1 mg STAT STAT PO ; Start 07/23/18 at 15:41; Stop at 15:47; Status DC Clonazepam (KlonoPIN) 1 mg TID PO ; Start 07/23/18 at 21:00 Divalproex Sodium (Depakote) 500 mg TID PO ; Start 07/23/18 at 16:00 Home Med (Med Rec Complete!) ASDIRECTED XX ; Start 07/22/18 at 19:00; Stop 07/22/18 at 19:00; Status DC Lorazepam (Ativan) 1 mg STAT STAT PO Last administered on 07/22/18at 16:05; Start 07/22/18 at 14:57; Stop 07/22/18 at 14:59; Status DC Magnesium Hydroxide (Milk Of Magnesia) 30 ml DAILYPRN PRN PO CONSTIPATION; Start 07/22/18 at 17:15 Olanzapine (ZyPREXA ZYDIS) 5 mg Q4HP PRN PO AGITATION/ANXIETY; Start 07/22/18 at 17:15 Olanzapine (ZyPREXA ZYDIS) 10 mg BID PO ; Start 07/23/18 at 21:00 Olanzapine (ZyPREXA ZYDIS) 10 mg STAT STAT PO ; Start 07/23/18 at 15:41; Stop 07/23/18 at 15:43; Status DC Trazodone HCl (Desyrel) 50 mg QHSP PRN PO INSOMNIA; Start 07/22/18 at 17:15 Allergies Coded Allergies: No Known Drug Allergy (Verified Allergy, Unknown, 08/31/12) SANTA CESAR MD Jul 26, 2018 19:38
[2018-07-27] MEDS: OLANZapine ORAL DISINTEGRATING TAB 5MG PO SCH ×2 (09:00→21:00)
[2018-07-27] MEDS: clonazePAM 1 MG TAB PO SCH ×3 (09:00→21:00)
[2018-07-27] MEDS: DIVALPROEX 500 MG TAB PO SCH ×3 (09:00→21:00)
[2018-07-27] MEDS ORDERED: OLANZapine ORAL DISINTEGRATING TAB 5MG PO STA (14:28)
[2018-07-27] MEDS ORDERED: clonazePAM 1 MG TAB PO STA (14:28)
--- NOTE | 2018-07-27 22:01 | MHIPNPDOC ---
[facility] Progress Note Progress Note DATE OF SERVICE: 07/27/18 HISTORY: As per ED report: "Pt was tranported to [facility] per [facility]. Pt was staying at the [facility] where his stay had . Pt would not vacate the room or answer the door. Pt was transported to [facility] for MHE. Upon interview pt began talking about how he "accidently flew to [place] and got 9 girlfriends." Pt also stated he has ran all the way to [place] and got involved with "some wackass dangerous welfare women". When asked what day it was pt would not answer. Pt does not know why he is here and begins talking about irrelevant subjects". VITAL SIGNS: See below. NEW TEST RESULTS:See below. CURRENT MEDICATIONS: See below. MENTAL STATUS EXAMINATION: The patient is a 32 year old male who was seen sleeping initially. TW tried to wake him up but he didn't until I came later Patient is a 32 year old male, who was laying in bed, angry, irritable Speech: mute Language skills are poor, as a result of his mental illness Thought processes including: unable to assess Thought content: continues to exhibit paranoid delusions, he seems to be responding to internal stimuli Description of associations: loose Description of abnormal or psychotic thoughts: paranoid and bizarre delusions, he might be responding to internal stimuli Judgment: Very poor Insight: very poor. Orientation: place, person, situation but not oriented to date and time. Recent and remote memory: poor, he couldn't remember me and he was just discharged last week Attention span and concentration: very poor Language: impoverished. Fund of knowledge: below average. Mood: angry/irritable Affect: congruent with mood, irritable DIAGNOSES: 1. Schizoaffective disorder bipolar type 2. r/O ASD ASSESSMENT: Patient is extremely irritable, exhibits verbally abusive/aggressive behavior, he is not insightful about his mental illness not about the need to comply with medications. he tries to justify not taking his medications with some bizarre delusional statements, he looks at Medication Nurse, Security Aides and me with rage and at times he makes movements with his arms and his legs and he looks as if he is boxing, trying to intimidate us, but the truth is, he is delusional and he is responding to internal stimuli, even when he denies it, because he says theres's nothing wrong with him. He accepted a STAT order of Zyprexa and Klonopin because I told him that if he doesn't take his medications, he won't be able to leave the hospital. He refused his medications at night. MANAGEMENT PLAN: Will encourage him to take medications, telling him it is the only way he can leave the hospital. TIME SPENT: 30 minutes. Vital Signs Vital Signs Date Time Temp Pulse Resp B/P (MAP) Pulse Ox O2 Delivery O2 Flow Rate FiO2 07/26/18 18:10 98.0 71 18 141/86 (104) 07/23/18 08:50 Room Air 07/22/18 18:29 99 Current Medications Current Medications Acetaminophen (Tylenol Tab) 650 mg Q6HP PRN PO HEADACHE or DISCOMFORT; Start 07/22/18 at 17:15 Al Hydrox/Mg Hydrox/Simethicone (Mylanta) 30 ml Q4HP PRN PO HEARTBURN/INDIGESTION; Start 07/22/18 at 17:15 Clonazepam (KlonoPIN) 1 mg STAT STAT PO ; Start 07/23/18 at 15:41; Stop 07/23/18 at 15:47; Status DC Clonazepam (KlonoPIN) 1 mg STAT STAT PO Last administered on 07/27/18at 14:40; Start 07/27/18 at 14:28; Stop 07/27/18 at 14:30; Status DC Clonazepam (KlonoPIN) 1 mg TID PO ; Start 07/23/18 at 21:00 Divalproex Sodium (Depakote) 500 mg TID PO ; Start 07/23/18 at 16:00 Home Med (Med Rec Complete!) ASDIRECTED XX ; Start 07/22/18 at 19:00; Stop 07/22/18 at 19:00; Status DC Lorazepam (Ativan) 1 mg STAT STAT PO Last administered on 07/22/18at 16:05; Start 07/22/18 at 14:57; Stop 07/22/18 at 14:59; Status DC Magnesium Hydroxide (Milk Of Magnesia) 30 ml DAILYPRN PRN PO CONSTIPATION; Start 07/22/18 at 17:15 Olanzapine (ZyPREXA ZYDIS) 5 mg Q4HP PRN PO AGITATION/ANXIETY; Start 07/22/18 at 17:15 Olanzapine (ZyPREXA ZYDIS) 10 mg BID PO ; Start 07/23/18 at 21:00 Olanzapine (ZyPREXA ZYDIS) 10 mg STAT STAT PO ; Start 07/23/18 at 15:41; S top 07/23/18 at 15:43; Status DC Olanzapine (ZyPREXA ZYDIS) 10 mg STAT STAT PO Last administered on 07/27/18at 14:40; Start 07/27/18 at 14:28; Stop 07/27/18 at 14:30; Status DC Trazodone HCl (Desyrel) 50 mg QHSP PRN PO INSOMNIA; Start 07/22/18 at 17:15 Allergies Coded Allergies: No Known Drug Allergy (Verified Allergy, Unknown, 08/31/12) SANTA CESAR MD Jul 27, 2018 22:01
[2018-07-28 06:00] VITALS: BP 140/74
[2018-07-28] MEDS: DIVALPROEX 500 MG TAB PO SCH ×3 (09:00→21:00)
[2018-07-28] MEDS: clonazePAM 1 MG TAB PO SCH ×3 (09:29→21:00)
[2018-07-28] MEDS: OLANZapine ORAL DISINTEGRATING TAB 5MG PO SCH ×2 (09:30→21:00)
[2018-07-29] MEDS: DIVALPROEX 500 MG TAB PO SCH ×2 (10:08→16:22)
[2018-07-29] MEDS: clonazePAM 1 MG TAB PO SCH ×2 (10:08→16:21)
[2018-07-29] MEDS: OLANZapine ORAL DISINTEGRATING TAB 5MG PO SCH (10:08)
[2018-07-29 18:00] VITALS: BP 121/70
[2018-07-30] MEDS: clonazePAM 1 MG TAB PO SCH ×4 (00:01→22:37)
[2018-07-30] MEDS: OLANZapine ORAL DISINTEGRATING TAB 5MG PO SCH ×3 (00:02→22:38)
[2018-07-30] MEDS: DIVALPROEX 500 MG TAB PO SCH ×4 (00:03→22:38)
--- NOTE | 2018-07-30 13:08 | MHIPNPDOC ---
[facility] Progress Note Progress Note DATE OF SERVICE: 07/28/18 HISTORY: As per ED report: "Pt was tranported to [facility] per [facility]. Pt was staying at the [facility] where his stay had . Pt would not vacate the room or answer the door. Pt was transported to [facility] for MHE. Upon interview pt began talking about how he "accidently flew to [place] and got 9 girlfriends." Pt also stated he has ran all the way to [place] and got involved with "some wackass dangerous welfare women". When asked what day it was pt would not answer. Pt does not know why he is here and begins talking about irrelevant subjects". VITAL SIGNS: See below. NEW TEST RESULTS:See below. CURRENT MEDICATIONS: See below. MENTAL STATUS EXAMINATION: The patient is a 32 year old male who was seen sleeping initially. TW tried to wake him up but he didn't until I came later Patient is a 32 year old male, who was laying in bed, angry, irritable Speech: mute Language skills are poor, as a result of his mental illness Thought processes including: unable to assess Thought content: continues to exhibit paranoid delusions, he seems to be responding to internal stimuli Description of associations: loose Description of abnormal or psychotic thoughts: paranoid and bizarre delusions, he might be responding to internal stimuli Judgment: Very poor Insight: very poor. Orientation: place, person, situation but not oriented to date and time. Recent and remote memory: poor, he couldn't remember me and he was just discharged last week Attention span and concentration: very poor Language: impoverished. Fund of knowledge: below average. Mood: angry/irritable Affect: congruent with mood, irritable DIAGNOSES: 1. Schizoaffective disorder bipolar type 2. r/O ASD ASSESSMENT: Patient was seen today and he was demanding to be discharged, very angry, with a threatening demeanor, has no insight, he is erratically [id number] medications MANAGEMENT PLAN: Will encourage him to take medications, telling him it is the only way he can leave the hospital. Vital Signs Vital Signs Date Time Temp Pulse Resp B/P (MAP) Pulse Ox O2 Delivery O2 Flow Rate FiO2 07/28/18 06:00 97.3 54 16 140/74 (96) 07/23/18 08:50 Room Air 07/22/18 18:29 99 Current Medications Current Medications Acetaminophen (Tylenol Tab) 650 mg Q6HP PRN PO HEADACHE or DISCOMFORT; Start 07/22/18 at 17:15 Al Hydrox/Mg Hydrox/Simethicone (Mylanta) 30 ml Q4HP PRN PO HEARTBURN/INDIGESTION; Start 07/22/18 at 17:15 Clonazepam (KlonoPIN) 1 mg STAT STAT PO ; Start 07/23/18 at 15:41; Stop 07/23/18 at 15:47; Status DC Clonazepam (KlonoPIN) 1 mg STAT STAT PO Last administered on 07/27/18at 14:40; Start 07/27/18 at 14:28; Stop 07/27/18 at 14:30; Status DC Clonazepam (KlonoPIN) 1 mg TID PO Last administered on 07/28/18at 15:14; Start 07/23/18 at 21:00 Divalproex Sodium (Depakote) 500 mg TID PO ; Start 07/23/18 at 16:00 Home Med (Med Rec Complete!) ASDIRECTED XX ; Start 07/22/18 at 19:00; Stop 07/22/18 at 19:00; Status DC Lorazepam (Ativan) 1 mg STAT STAT PO Last administered on 07/22/18at 16:05; Start 07/22/18 at 14:57; Stop 07/22/18 at 14:59; Status DC Magnesium Hydroxide (Milk Of Magnesia) 30 ml DAILYPRN PRN PO CONSTIPATION; Start 07/22/18 at 17:15 Olanzapine (ZyPREXA ZYDIS) 5 mg Q4HP PRN PO AGITATION/ANXIETY; Start 07/22/18 at 17:15 Olanzapine (ZyPREXA ZYDIS) 10 mg BID PO Last administered on 07/28/18at 09:30; Start 07/23/18 at 21:00 Olanzapine (ZyPREXA ZYDIS) 10 mg STAT STAT PO ; Start 07/23/18 at 15:41; Stop 07/23/18 at 15:43; Status DC Olanzapine (ZyPREXA ZYDIS) 10 mg STAT STAT PO Last administered on 07/27/18at 14:40; Start 07/27/18 at 14:28; Stop 07/27/18 at 14:30; Status DC Trazodone HCl (Desyrel) 50 mg QHSP PRN PO INSOMNIA; Start 07/22/18 at 17:15 Allergies Coded Allergies: No Known Drug Allergy (Verified Allergy, Unknown, 08/31/12) SANTA CESAR MD Jul 28, 2018 15:24
[2018-07-30] MEDS ORDERED: TUBERCULIN PPD 5 UNITS/0.1 ML ID ONE (13:15)
[2018-07-30] MEDS: **PENDING PPD ENTRY XX SCH (15:20)
[2018-07-30] MEDS ORDERED: clonazePAM 1 MG TAB PO STA (15:30)
[2018-07-30] MEDS ORDERED: diphenhydrAMINE 50 MG CAP PO STA ×2 (15:30→15:39)
[2018-07-30] MEDS ORDERED: OLANZapine ORAL DISINTEGRATING TAB 5MG PO STA (15:30)
--- NOTE | 2018-07-30 15:48 | MHIPNPDOC ---
[facility] Progress Note Progress Note DATE OF SERVICE: 07/30/18 HISTORY: As per ED report: "Pt was tranported to [facility] per [facility]. Pt was staying at the [facility] where his stay had . Pt would not vacate the room or answer the door. Pt was transported to [facility] for MHE. Upon interview pt began talking about how he "accidently flew to [place] and got 9 girlfriends." Pt also stated he has ran all the way to [place] and got involved with "some wackass dangerous welfare women". When asked what day it was pt would not answer. Pt does not know why he is here and begins talking about irrelevant subjects". VITAL SIGNS: See below. NEW TEST RESULTS:See below. CURRENT MEDICATIONS: See below. MENTAL STATUS EXAMINATION: The patient is a 32 year old male who was agitated, pacing the hallways asking about the color artist and this person to discuss his discharge Patient is a 32 year old male, who was pacing the hallways, angry, irritable, de manding to be discharged, loud Speech: loud, rapid, normal tone. Thought processes including: tangential, circumstantial, irrational, disorganized Thought content: continues to exhibit paranoid delusions, angry, aggressive, threatening behavior Description of associations: loose Description of abnormal or psychotic thoughts: paranoid and bizarre delusions. he might be responding to internal stimuli Judgment: Very poor Insight: very poor. Orientation: place, person, situation but not oriented to date and time. Recent and remote memory: short term memory is limited because of the psychotic episode Attention span and concentration: very poor Language: impoverished. Fund of knowledge: below average. Mood: angry/irritable Affect: congruent with mood, irritable DIAGNOSES: 1. Schizoaffective disorder bipolar type 2. r/O ASD ASSESSMENT: He is very angry, demanding to see vacation planner or myself, while I was seeing another patient. he is demanding to be discharged. he can't comprehend why he is at the Hospital and immediately he says he has 6 months of college ahead of him. He denies being psychotic, repeatedly he says "there's nothing wrong with me". TW told him he is not going anywhere until he takes his medications and he immediately says he has been taking them, when he only has taken them 2 or 3 times because he doesn't think he needs them. He is loud, he yells in the middle of the hallway. Other staff members are present while we talk and I had to tell him to keep his distance from me because he usually comes up very close in a very intimidating way. TW told him that he has a different way of thinking of perceiving things, that he is very paranoid and needs to be treated. He was told that he was brought in here because he failed to vacate the motel where he was staying, he over extended his stay and his mother had paid only for a couple of nights for him to stay there, since he could not go back home because they feel threatened by him. He knows he is going to [facility], this proposal lead writer told him about it. He said he was going to call his lawye and he did several phone calls. Contacted Dr. marshall to run a consult of him to r/o other possible medical condition. MANAGEMENT PLAN: Will keep encouraging him to take his medications. Vital Signs Vital Signs Date Time Temp Pulse Resp B/P (MAP) Pulse Ox O2 Delivery O2 Flow Rate FiO2 07/29/18 18:00 98.4 89 16 121/70 (87) Current Medications Current Medications Acetaminophen (Tylenol Tab) 650 mg Q6HP PRN PO HEADACHE or DISCOMFORT; Start 07/22/18 at 17:15 Al Hydrox/Mg Hydrox/Simethicone (Mylanta) 30 ml Q4HP PRN PO HEARTBURN/INDIGESTION; Start 07/22/18 at 17:15 Clonazepam (KlonoPIN) 1 mg STAT STAT PO ; Start 07/23/18 at 15:41; Stop 07/23/18 at 15:47; Status DC Clonazepam (KlonoPIN) 1 mg STAT STAT PO Last administered on 07/27/18at 14:40; Start 07/27/18 at 14:28; Stop 07/27/18 at 14:30; Status DC Clonazepam (KlonoPIN) 1 mg TID PO Last administered on 07/30/18at 00:01; Start 07/23/18 at 21:00 Divalproex Sodium (Depakote) 500 mg TID PO Last administered on 07/30/18at 00:03; Start 07/23/18 at 16:00 Home Med (Med Rec Complete!) ASDIRECTED XX ; Start 07/22/18 at 19:00; Stop 07/22/18 at 19:00; Status DC Lorazepam (Ativan) 1 mg STAT STAT PO Last administered on 07/22/18at 16:05; Start 07/22/18 at 14:57; Stop 07/22/18 at 14:59; Status DC Magnesium Hydroxide (Milk Of Magnesia) 30 ml DAILYPRN PRN PO CONSTIPATION; Start 07/22/18 at 17:15 Miscellaneous (Unresolved Clarification Entry) SEE LABEL COMMENTS DAILY XX ; Start 07/30/18 at 09:00 Non-Formulary Medication ( See Comment Field Below ) SEE COMMENTS SECTION 1T@10 XX ; Start 08/01/18 at 10:00; Stop 08/02/18 at 09:59; Status UNV Olanzapine (ZyPREXA ZYDIS) 5 mg Q4HP PRN PO AGITATION/ANXIETY; Start 07/22/18 at 17:15 Olanzapine (ZyPREXA ZYDIS) 10 mg BID PO Last administered on 07/30/18at 00:02; Start 07/23/18 at 21:00 Olanzapine (ZyPREXA ZYDIS) 10 mg STAT STAT PO ; Start 07/23/18 at 15:41; Stop 07/23/18 at 15:43; Status DC Olanzapine (ZyPREXA ZYDIS) 10 mg STAT STAT PO Last administered on 07/27/18at 14:40; Start 07/27/18 at 14:28; Stop 07/27/18 at 14:30; Status DC Trazodone HCl (Desyrel) 50 mg QHSP PRN PO INSOMNIA; Start 07/22/18 at 17:15 Allergies Coded Allergies: No Known Drug Allergy (Verified Allergy, Unknown, 08/31/12) SANTA CESAR MD Jul 30, 2018 13:13
[2018-07-30 18:00] VITALS: BP 126/58
[2018-07-31 06:00] VITALS: BP 124/64
[2018-07-31] MEDS: DIVALPROEX 500 MG TAB PO SCH ×3 (08:25→21:49)
[2018-07-31] MEDS: clonazePAM 1 MG TAB PO SCH ×3 (08:25→21:49)
[2018-07-31] MEDS: OLANZapine ORAL DISINTEGRATING TAB 5MG PO SCH ×2 (08:34→21:49)
[2018-07-31] MEDS: **PENDING PPD ENTRY XX SCH (09:00)
[2018-07-31 18:11] VITALS: BP 128/74
[2018-07-31] MEDS: traZODone 50 MG TAB PO PRN (21:51)
[2018-08-01 06:51] VITALS: BP 103/59
[2018-08-01] MEDS: **PENDING PPD ENTRY XX SCH (09:00)
[2018-08-01] MEDS ORDERED: PPD DOCUMENTATION ENTRY MISC XX SCH (10:00)
[2018-08-01] MEDS: clonazePAM 1 MG TAB PO SCH ×3 (11:32→20:42)
[2018-08-01] MEDS: DIVALPROEX 500 MG TAB PO SCH ×3 (11:32→20:42)
[2018-08-01] MEDS: OLANZapine ORAL DISINTEGRATING TAB 5MG PO SCH ×2 (11:32→20:43)
[2018-08-01 18:11] VITALS: BP 110/64
[2018-08-02] MEDS: clonazePAM 1 MG TAB PO SCH ×3 (09:00→21:51)
[2018-08-02] MEDS: **PENDING PPD ENTRY XX SCH (09:00)
[2018-08-02] MEDS: DIVALPROEX 500 MG TAB PO SCH ×3 (09:00→21:52)
[2018-08-02] MEDS: OLANZapine ORAL DISINTEGRATING TAB 5MG PO SCH ×2 (09:00→21:52)
--- NOTE | 2018-08-02 15:09 | REP ---
MRI brain without contrast: History: Personality changes. . Comparison study: Comparison brain MRI study is from June 03, 2013. Technique: Axial and sagittal imaging planes are utilized for T1 and T2-weighted scans. Sequences include spin-echo, fast spin echo, FLAIR, and diffusion weighted sequences. MRI findings: No bony calvarial lesion is seen. Craniocervical junction and upper cervical cord are normal in appearance. There is no MR evidence of significant paranasal sinus disease. No intraorbital abnormality is seen. The lateral, third, and fourth ventricles are normal in size and position. Henriquez-white differentiation pattern is intact above and below the tentorium. There is no evidence of intracranial hemorrhage. No mass, infarction, extra-axial fluid collection or midline shift is seen. No abnormal white matter lesion is seen. Impression: Negative noncontrast brain MRI study. Electronically Signed by Medhat Aggarwal MD 08/02/2018 03:00 P
--- NOTE | 2018-08-02 16:57 | MHIPNPDOC ---
[facility] Progress Note Progress Note DATE OF SERVICE: 08/02/18 HISTORY: As per ED report: "Pt was tranported to [facility] per [facility]. Pt was staying at the [facility] where his stay had . Pt would not vacate the room or answer the door. Pt was transported to [facility] for MHE. Upon interview pt began talking about how he "accidently flew to [place] and got 9 girlfriends." Pt also stated he has ran all the way to [place] and got involved with "some wackass dangerous welfare women". When asked what day it was pt would not answer. Pt does not know why he is here and begins talking about irrelevant subjects". VITAL SIGNS: See below. NEW TEST RESULTS:See below. CURRENT MEDICATIONS: See below. MENTAL STATUS EXAMINATION: The patient is a 32 year old male who was agitated, pacing the hallways asking about the victims advocate clerk/specialist and this person to discuss his discharge Patient is a 32 year old male, who was pacing the hallways, angry, irritable, d emanding to be discharged, loud Speech: loud, rapid, normal tone. Thought processes including: tangential, circumstantial, irrational, disorganized Thought content: continues to exhibit paranoid delusions, angry, aggressive, threatening behavior Description of associations: loose Description of abnormal or psychotic thoughts: paranoid and bizarre delusions. he might be responding to internal stimuli Judgment: Very poor Insight: very poor. Orientation: place, person, situation but not oriented to date and time. Recent and remote memory: short term memory is limited because of the psychotic episode Attention span and concentration: very poor Language: impoverished. Fund of knowledge: below average. Mood: angry/irritable Affect: congruent with mood, irritable DIAGNOSES: 1. Schizoaffective disorder bipolar type 2. r/O ASD ASSESSMENT: He continues to say that he doesn't want to go to [place], but he told his victims advocate clerk/specialist that if he would have not stayed at that room at the [facility], he probably wouldn't have being brought here. he continues to be psychotic, he is still very paranoid, he becomes easily irritated. MANAGEMENT PLAN: Will keep encouraging him to take his medications. Planning for him being transferred to [facility]. Possibly will have an Administrative hearing this week. Vital Signs Vital Signs Date Time Temp Pulse Resp B/P (MAP) Pulse Ox O2 Delivery O2 Flow Rate FiO2 08/01/18 18:11 98.7 60 18 110/64 (79) Current Medications Current Medications Acetaminophen (Tylenol Tab) 650 mg Q6HP PRN PO HEADACHE or DISCOMFORT Last administered on 07/31/18 15:57; Start 07/22/18 at 17:15 Al Hydrox/Mg Hydrox/Simethicone (Mylanta) 30 ml Q4HP PRN PO HEARTBURN/INDIGESTION Last administered on 07/31/18 15:57; Start 07/22/18 at 17:15 Clonazepam (KlonoPIN) 1 mg STAT STAT PO ; Start 07/23/18 at 15:41; Stop 07/23/18 at 15:47; Status DC Clonazepam (KlonoPIN) 1 mg STAT STAT PO Last administered on 07/27/18at 14:40; Start 07/27/18 at 14:28; Stop 07/27/18 at 14:30; Status DC Clonazepam (KlonoPIN) 1 mg STAT STAT PO Last administered on 07/30/18at 15:41; Start 07/30/18 at 15:30; Stop 07/30/18 at 15:33; Status DC Clonazepam (KlonoPIN) 1 mg TID PO Last administered on 08/01/18 20:42; Start 07/23/18 at 21:00 Diphenhydramine HCl (Benadryl) 50 mg STAT STAT PO Last administered on 07/30/18 15:43; Start 07/30/18 at 15:39; Stop 07/30/18 at 15:41; Status DC Diphenhydramine HCl (Benadryl) 75 mg STAT STAT PO ; Start 07/30/18 at 15:30; Stop 07/30/18 at 15:40; Status DC Divalproex Sodium (Depakote) 500 mg TID PO Last administered on 08/01/18at 20:42; Start 07/23/18 at 16:00 Home Med (Med Rec Complete!) ASDIRECTED XX ; Start 07/22/18 at 19:00; Stop 07/22/18 at 19:00; Status DC Lorazepam (Ativan) 1 mg STAT STAT PO Last administered on 07/22/18at 16:05; Start 07/22/18 at 14:57; Stop 07/22/18 at 14:59; Status DC Magnesium Hydroxide (Milk Of Magnesia) 30 ml DAILYPRN PRN PO CONSTIPATION; Start 07/22/18 at 17:15 Miscellaneous (Unresolved Clarification Entry) SEE LABEL COMMENTS DAILY XX ; Start 07/30/18 at 09:00; Stop 07/30/18 at 15:24; Status DC Non-Formulary Medication ( See Comment Field Below ) SEE COMMENTS SECTION 1T@10 XX ; Start 08/01/18 at 10:00; Stop 08/01/18 at 10:00; Status DC Non-Formulary Medication ( See Comment Field Below ) SEE LABEL COMMENTS DAILY XX ; Start 07/30/18 at 09:00 Olanzapine (ZyPREXA ZYDIS) 5 mg Q4HP PRN PO AGITATION/ANXIETY; Start 07/22/18 at 17:15 Olanzapine (ZyPREXA ZYDIS) 10 mg BID PO Last administered on 08/01/18at 20:43; Start 07/23/18 at 21:00 Olanzapine (ZyPREXA ZYDIS) 10 mg STAT STAT PO ; Start 07/23/18 at 15:41; Stop 07/23/18 at 15:43; Status DC Olanzapine (ZyPREXA ZYDIS) 10 mg STAT STAT PO Last administered on 07/27/18at 14:40; Start 07/27/18 at 14:28; Stop 07/27/18 at 14:30; Status DC Olanzapine (ZyPREXA ZYDIS) 10 mg STAT STAT PO Last administered on 07/30/18at 15:41; Start 07/30/18 at 15:30; Stop 07/30/18 at 15:33; Status DC Trazodone HCl (Desyrel) 50 mg QHSP PRN PO INSOMNIA Last administered on 07/31/18 t 21:51; Start 07/22/18 at 17:15 Allergies Coded Allergies: No Known Drug Allergy (Verified Allergy, Unknown, 08/31/12) SANTA CESAR MD Aug 02, 2018 12:56
[2018-08-02 18:00] VITALS: BP 138/81
[2018-08-02] MEDS: traZODone 50 MG TAB PO PRN (21:53)
[2018-08-03 06:36] VITALS: BP 93/56
[2018-08-03] MEDS: **PENDING PPD ENTRY XX SCH (09:00)
[2018-08-03] MEDS: OLANZapine ORAL DISINTEGRATING TAB 5MG PO SCH ×2 (09:27→20:12)
[2018-08-03] MEDS: clonazePAM 1 MG TAB PO SCH ×3 (09:27→20:12)
[2018-08-03] MEDS: DIVALPROEX 500 MG TAB PO SCH ×3 (09:28→20:12)
[2018-08-04] MEDS: traZODone 50 MG TAB PO PRN (00:22)
[2018-08-04 06:15] VITALS: BP 114/56
[2018-08-04] MEDS: **PENDING PPD ENTRY XX SCH (09:00)
[2018-08-04] MEDS: clonazePAM 1 MG TAB PO SCH ×3 (09:29→20:51)
[2018-08-04] MEDS: OLANZapine ORAL DISINTEGRATING TAB 5MG PO SCH ×2 (09:30→20:52)
[2018-08-04] MEDS: DIVALPROEX 500 MG TAB PO SCH ×3 (09:30→20:51)
--- NOTE | 2018-08-04 13:54 | MHIPNPDOC ---
[facility] Progress Note Progress Note DATE OF SERVICE: 08/03/18 HISTORY: As per ED report: "Pt was tranported to [facility] per [facility]. Pt was staying at the [facility] where his stay had . Pt would not vacate the room or answer the door. Pt was transported to [facility] for MHE. Upon interview pt began talking about how he "accidently flew to [place] and got 9 girlfriends." Pt also stated he has ran all the way to [place] and got involved with "some wackass dangerous welfare women". When asked what day it was pt would not answer. Pt does not know why he is here and begins talking about irrelevant subjects". VITAL SIGNS: See below. NEW TEST RESULTS:See below. CURRENT MEDICATIONS: See below. MENTAL STATUS EXAMINATION: The patient is a 32 year old male who was agitated, pacing the hallways asking about the astrobiologist and this person to discuss his discharge Patient is a 32 year old male, who was pacing the hallways, angry, irritable, de manding to be discharged, loud Speech: loud, rapid, normal tone. Thought processes including: tangential, circumstantial, irrational, disorganized Thought content: continues to exhibit paranoid delusions, angry, aggressive, threatening behavior Description of associations: loose Description of abnormal or psychotic thoughts: paranoid and bizarre delusions. he might be responding to internal stimuli Judgment: Very poor Insight: very poor. Orientation: place, person, situation but not oriented to date and time. Recent and remote memory: short term memory is limited because of the psychotic episode Attention span and concentration: very poor Language: impoverished. Fund of knowledge: below average. Mood: angry/irritable Affect: congruent with mood, irritable DIAGNOSES: 1. Schizoaffective disorder bipolar type 2. r/O ASD ASSESSMENT: Patient briefly met with me, he refuses to go to [place]. He says that he has a plan to go to [place] and then, to go to [place], where he will be able to pay for an apartment and he has the money to pay for four months of rent. He is not insightful, continues to be in denial. He says he is sleeping well, he eats well. He continues to report angry thoughts against his parents, especially his mother because he still thinks she was the person who sent her over here with the Police. Once again I tell him that she had nothing to do with it, that he stayed in his room and refused to vacate and the hotel office manager called the Police who brought him here. At that time he looks a little bit sad and as if he is trying to process this (it's not the first time he hears that from me or from his Reading Intervention Teacher). I tell him he will have a chance to s peak his mind during the Administrative Hearing, where he can explain his side of the story and I get to explain why I think he needs to go to [facility]. Administrative hearing procedure was explained to him. MANAGEMENT PLAN: Will keep encouraging him to take his medications. Planning for him being transferred to [facility]. Possibly will have an Administrative hearing this week. Vital Signs Vital Signs Date Time Temp Pulse Resp B/P (MAP) Pulse Ox O2 Delivery O2 Flow Rate FiO2 08/03/18 06:36 97.1 56 12 93/56 (68) Current Medications Current Medications Acetaminophen (Tylenol Tab) 650 mg Q6HP PRN PO HEADACHE or DISCOMFORT Last administered on 07/31/18 15:57; Start 07/22/18 at 17:15 Al Hydrox/Mg Hydrox/Simethicone (Mylanta) 30 ml Q4HP PRN PO HEARTBURN/INDIGESTION Last administered on 07/31/18 15:57; Start 07/22/18 at 17:15 Clonazepam (KlonoPIN) 1 mg STAT STAT PO ; Start 07/23/18 at 15:41; Stop 07/23/18 at 15:47; Status DC Clonazepam (KlonoPIN) 1 mg STAT STAT PO Last administered on 07/27/18at 14:40; Start 07/27/18 at 14:28; Stop 07/27/18 at 14:30; Status DC Clonazepam (KlonoPIN) 1 mg STAT STAT PO Last administered on 07/30/18 15:41; Start 07/30/18 at 15:30; Stop 07/30/18 at 15:33; Status DC Clonazepam (KlonoPIN) 1 mg TID PO Last administered on 08/03/18 15:21; Start 07/23/18 at 21:00 Diphenhydramine HCl (Benadryl) 50 mg STAT STAT PO Last administered on 3/1/19at 15:43; Start 07/30/18 at 15:39; Stop 07/30/18 at 15:41; Status DC Diphenhydramine HCl (Benadryl) 75 mg STAT STAT PO ; Start 07/30/18 at 15:30; Stop 07/30/18 at 15:40; Status DC Divalproex Sodium (Depakote) 500 mg TID PO Last administered on 08/03/18at 15:21; Start 07/23/18 at 16:00 Home Med (Med Rec Complete!) ASDIRECTED XX ; Start 07/22/18 at 19:00; Stop 07/22/18 at 19:00; Status DC Lorazepam (Ativan) 1 mg STAT STAT PO Last administered on 07/22/18at 16:05; Start 07/22/18 at 14:57; Stop 07/22/18 at 14:59; Status DC Magnesium Hydroxide (Milk Of Magnesia) 30 ml DAILYPRN PRN PO CONSTIPATION; Start 07/22/18 at 17:15 Miscellaneous (Unresolved Clarification Entry) SEE LABEL COMMENTS DAILY XX ; Start 07/30/18 at 09:00; Stop 07/30/18 at 15:24; Status DC Non-Formulary Medication ( See Comment Field Below ) SEE COMMENTS SECTION 1T@10 XX ; Start 08/01/18 at 10:00; Stop 08/01/18 at 10:00; Status DC Non-Formulary Medication ( See Comment Field Below ) SEE LABEL COMMENTS DAILY XX ; Start 07/30/18 at 09:00 Olanzapine (ZyPREXA ZYDIS) 5 mg Q4HP PRN PO AGITATION/ANXIETY; Start 07/22/18 at 17:15 Olanzapine (ZyPREXA ZYDIS) 10 mg BID PO Last administered on 08/03/18at 09:27; Start 07/23/18 at 21:00 Olanzapine (ZyPREXA ZYDIS) 10 mg STAT STAT PO ; Start 07/23/18 at 15:41; Stop 07/23/18 at 15:43; Status DC Olanzapine (ZyPREXA ZYDIS) 10 mg STAT STAT PO Last administered on 07/27/18at 14:40; Start 2/26/19 at 14:28; Stop 07/27/18 at 14:30; Status DC Olanzapine (ZyPREXA ZYDIS) 10 mg STAT STAT PO Last administered on 07/30/18at 15:41; Start 07/30/18 at 15:30; Stop 07/30/18 at 15:33; Status DC Trazodone HCl (Desyrel) 50 mg QHSP PRN PO INSOMNIA Last administered on 08/02/18at 21:53; Start 07/22/18 at 17:15 Allergies Coded Allergies: No Known Drug Allergy (Verified Allergy, Unknown, 08/31/12) SANTA CESAR MD Aug 03, 2018 16:59
--- NOTE | 2018-08-04 17:09 | MHIPNPDOC ---
[facility] Progress Note Progress Note DATE OF SERVICE: 08/04/18 HISTORY: As per ED report: "Pt was tranported to [facility] per [facility]. Pt was staying at the [place] [facility] where his stay had . Pt would not vacate the room or answer the door. Pt was transported to [facility] for MHE. Upon interview pt began talking about how he "accidently flew to [place] and got 9 girlfriends." Pt also stated he has ran all the way to [place] and got involved with "some wackass dangerous welfare women". When asked what day it was pt would not answer. Pt does not know why he is here and begins talking about irrelevant subjects". VITAL SIGNS: See below. NEW TEST RESULTS:See below. CURRENT MEDICATIONS: See below. MENTAL STATUS EXAMINATION: The patient is a 32 year old male who was agitated, pacing the hallways asking about the food technician and this person to discuss his discharge Patient is a 32 year old male, who was pacing the hallways, angry, irritable, de manding to be discharged, loud Speech: loud, rapid, normal tone. Thought processes including: tangential, circumstantial, irrational, disorganized Thought content: continues to exhibit paranoid delusions, angry, aggressive, threatening behavior Description of associations: loose Description of abnormal or psychotic thoughts: paranoid and bizarre delusions. he might be responding to internal stimuli Judgment: Very poor Insight: very poor. Orientation: place, person, situation but not oriented to date and time. Recent and remote memory: short term memory is limited because of the psychotic episode Attention span and concentration: very poor Language: impoverished. Fund of knowledge: below average. Mood: angry/irritable Affect: congruent with mood, irritable DIAGNOSES: 1. Schizoaffective disorder bipolar type 2. r/O ASD ASSESSMENT: Patient spent most of the day sleeping and we met by the end of the dy. He continues to express his frustration regarding his transfer to [facility]. He is still paranoid and he seems to be responding to internal stimuli. His mental status exam has not changed much. MANAGEMENT PLAN: Will keep encouraging him to take his medications. Planning for him being transferred to [facility]. Possibly will have an Administrative hearing this week. Vital Signs Vital Signs Date Time Temp Pulse Resp B/P (MAP) Pulse Ox O2 Delivery O2 Flow Rate FiO2 08/04/18 06:15 97.2 77 18 114/56 (75) Current Medications Current Medications Acetaminophen (Tylenol Tab) 650 mg Q6HP PRN PO HEADACHE or DISCOMFORT Last administered on 07/31/18 15:57; Start 07/22/18 at 17:15 Al Hydrox/Mg Hydrox/Simethicone (Mylanta) 30 ml Q4HP PRN PO HEARTBURN/INDIGESTION Last administered on 07/31/18 15:57; Start 07/22/18 at 17:15 Clonazepam (KlonoPIN) 1 mg STAT STAT PO ; Start 07/23/18 at 15:41; Stop 07/23/18 at 15:47; Status DC Clonazepam (KlonoPIN) 1 mg STAT STAT PO Last administered on 07/27/18at 14:40; Start 07/27/18 at 14:28; Stop 07/27/18 at 14:30; Status DC Clonazepam (KlonoPIN) 1 mg STAT STAT PO Last administered on 07/30/18at 15:41; Start 07/30/18 at 15:30; Stop 07/30/18 at 15:33; Status DC Clonazepam (KlonoPIN) 1 mg TID PO Last administered on 08/04/18at 09:29; Start 07/23/18 at 21:00 Diphenhydramine HCl (Benadryl) 50 mg STAT STAT PO Last administered on 07/30/18at 15:43; Start 07/30/18 at 15:39; Stop 07/30/18 at 15:41; Status DC Diphenhydramine HCl (Benadryl) 75 mg STAT STAT PO ; Start 07/30/18 at 15:30; Stop 07/30/18 at 15:40; Status DC Divalproex Sodium (Depakote) 500 mg TID PO Last administered on 08/04/18at 09:30; Start 07/23/18 at 16:00 Home Med (Med Rec Complete!) ASDIRECTED XX ; Start 07/22/18 at 19:00; Stop 07/22/18 at 19:00; Status DC Lorazepam (Ativan) 1 mg STAT STAT PO Last administered on 07/22/18at 16:05; Start 07/22/18 at 14:57; Stop 07/22/18 at 14:59; Status DC Magnesium Hydroxide (Milk Of Magnesia) 30 ml DAILYPRN PRN PO CONSTIPATION; Start 07/22/18 at 17:15 Miscellaneous (Unresolved Clarification Entry) SEE LABEL COMMENTS DAILY XX ; Start 07/30/18 at 09:00; Stop 07/30/18 at 15:24; Status DC Non-Formulary Medication ( See Comment Field Below ) SEE COMMENTS SECTION 1T@10 XX ; Start 08/01/18 at 10:00; Stop 08/01/18 at 10:00; Status DC Non-Formulary Medication ( See Comment Field Below ) SEE LABEL COMMENTS DAILY XX ; Start 07/30/18 at 09:00 Olanzapine (ZyPREXA ZYDIS) 5 mg Q4HP PRN PO AGITATION/ANXIETY; Start 07/22/18 at 17:15 Olanzapine (ZyPREXA ZYDIS) 10 mg BID PO Last administered on 08/04/18at 09:30; Start 07/23/18 at 21:00 Olanzapine (ZyPREXA ZYDIS) 10 mg STAT STAT PO ; Start 07/23/18 at 15:41; Stop 07/23/18 at 15:43; Status DC Olanzapine (ZyPREXA ZYDIS) 10 mg STAT STAT PO Last administered on 07/27/18at 14:40; Start 07/27/18 at 14:28; Stop 07/27/18 at 14:30; Status DC Olanzapine (ZyPREXA ZYDIS) 10 mg STAT STAT PO Last administered on 07/30/18at 15:41; Start 07/30/18 at 15:30; Stop 07/30/18 at 15:33; Status DC Trazodone HCl (Desyrel) 50 mg QHSP PRN PO INSOMNIA Last administered on 08/04/18at 00:22; Start 07/22/18 at 17:15 Allergies Coded Allergies: No Known Drug Allergy (Verified Allergy, Unknown, 08/31/12) SANTA CESAR MD Aug 04, 2018 14:08
[2018-08-05 06:45] VITALS: BP 113/63
[2018-08-05] MEDS: **PENDING PPD ENTRY XX SCH (09:00)
[2018-08-05] MEDS: DIVALPROEX 500 MG TAB PO SCH ×3 (09:34→20:33)
[2018-08-05] MEDS: clonazePAM 1 MG TAB PO SCH ×3 (09:34→20:33)
[2018-08-05] MEDS: OLANZapine ORAL DISINTEGRATING TAB 5MG PO SCH ×2 (09:34→20:34)
--- NOTE | 2018-08-05 17:58 | MHIPNPDOC ---
[facility] Progress Note Progress Note DATE OF SERVICE: 08/05/18 HISTORY: As per ED report: "Pt was tranported to [facility] per [facility]. [facility] . Pt would not vacate the room or answer the door. Pt was transported to [facility] for MHE. Upon interview pt began talking about how he "accidently flew to [place] and got 9 girlfriends." Pt also stated he has ran all the way to [place] and got involved with "some wackass dangerous welfare women". When asked what day it was pt would not answer. Pt does not know why he is here and begins talking about irrelevant subjects". VITAL SIGNS: See below. NEW TEST RESULTS:See below. CURRENT MEDICATIONS: See below. MENTAL STATUS EXAMINATION: I went to speak with the patient several times but he was asleep. the last time I went inside of his room and woke him up, was 2:30 p.m. He woke up but he didn't speak to me, he looked sleepy. His expression had changed, he didn't look angry, he had shaved, he looked younger. He didn't yell at me, which might point towards a mood improvement. I couldn't assess other aspects of the MSE because we couldn't have a conversation. DIAGNOSES: 1. Schizoaffective disorder bipolar type 2. r/O ASD ASSESSMENT: Patient has been compliant with his medications but unfortunately he is not compliant when he is out of the hospital and that puts him and other people at risk because he can be very violent and aggressive. I couldn't fully evaluate the patient today because I woke him up at 2:30 pm, he was very sleepy and didn't answer my questions. MANAGEMENT PLAN: Will keep encouraging him to take his medications. Planning for him being transferred to [facility]. Possibly will have an Administrative hearing this week. Vital Signs Vital Signs Date Time Temp Pulse Resp B/P (MAP) Pulse Ox O2 Delivery O2 Flow Rate FiO2 08/05/18 06:45 97.2 54 12 113/63 (80) Current Medications Current Medications Acetaminophen (Tylenol Tab) 650 mg Q6HP PRN PO HEADACHE or DISCOMFORT Last administered on 07/31/18at 15:57; Start 07/22/18 at 17:15 Al Hydrox/Mg Hydrox/Simethicone (Mylanta) 30 ml Q4HP PRN PO HEARTBURN/INDIGESTION Last administered on 07/31/18at 15:57; Start 07/22/18 at 17:15 Clonazepam (KlonoPIN) 1 mg STAT STAT PO ; Start 07/23/18 at 15:41; Stop 07/23/18 at 15:47; Status DC Clonazepam (KlonoPIN) 1 mg STAT STAT PO Last administered on 07/27/18at 14:40; Start 07/27/18 at 14:28; Stop 07/27/18 at 14:30; Status DC Clonazepam (KlonoPIN) 1 mg STAT STAT PO Last administered on 07/30/18at 15:41; Start 07/30/18 at 15:30; Stop 07/30/18 at 15:33; Status DC Clonazepam (KlonoPIN) 1 mg TID PO Last administered on 08/05/18at 15:05; Start 07/23/18 at 21:00 Diphenhydramine HCl (Benadryl) 50 mg STAT STAT PO Last administered on 07/30/18at 15:43; Start 07/30/18 at 15:39; Stop 07/30/18 at 15:41; Status DC Diphenhydramine HCl (Benadryl) 75 mg STAT STAT PO ; Start 07/30/18 at 15:30; Stop 07/30/18 at 15:40; Status DC Divalproex Sodium (Depakote) 500 mg TID PO Last administered on 08/05/18at 15:05; Start 07/23/18 at 16:00 Home Med (Med Rec Complete!) ASDIRECTED XX ; Start 07/22/18 at 19:00; Stop 07/22/18 at 19:00; Status DC Lorazepam (Ativan) 1 mg STAT STAT PO Last administered on 07/22/18at 16:05; Start 07/22/18 at 14:57; Stop 07/22/18 at 14:59; Status DC Magnesium Hydroxide (Milk Of Magnesia) 30 ml DAILYPRN PRN PO CONSTIPATION; Start 07/22/18 at 17:15 Miscellaneous (Unresolved Clarification Entry) SEE LABEL COMMENTS DAILY XX ; Start 07/30/18 at 09:00; Stop 07/30/18 at 15:24; Status DC Miscellaneous (Unresolved Clarification Entry) SEE LABEL COMMENTS DAILY XX ; Start 08/05/18 at 09:00 Non-Formulary Medication ( See Comment Field Below ) SEE COMMENTS SECTION 1T@10 XX ; Start 08/01/18 at 10:00; Stop 08/01/18 at 10:00; Status DC Non-Formulary Medication ( See Comment Field Below ) SEE LABEL COMMENTS DAILY XX ; Start 07/30/18 at 09:00 Olanzapine (ZyPREXA ZYDIS) 5 mg Q4HP PRN PO AGITATION/ANXIETY; Start 07/22/18 at 17:15 Olanzapine (ZyPREXA ZYDIS) 10 mg BID PO Last administered on 08/05/18at 09:34; Start 07/23/18 at 21:00 Olanzapine (ZyPREXA ZYDIS) 10 mg STAT STAT PO ; Start 07/23/18 at 15:41; Stop 07/23/18 at 15:43; Status DC Olanzapine (ZyPREXA ZYDIS) 10 mg STAT STAT PO Last administered on 07/27/18at 14:40; Start 07/27/18 at 14:28; Stop 07/27/18 at 14:30; Status DC Olanzapine (ZyPREXA ZYDIS) 10 mg STAT STAT PO Last administered on 07/30/18at 15:41; Start 07/30/18 at 15:30; Stop 07/30/18 at 15:33; Status DC Trazodone HCl (Desyrel) 50 mg QHSP PRN PO INSOMNIA Last administered on 08/04/18at 00:22; Start 07/22/18 at 17:15 Allergies Coded Allergies: No Known Drug Allergy (Verified Allergy, Unknown, 08/31/12) SANTA CESAR MD Aug 05, 2018 17:58
[2018-08-06 06:00] VITALS: BP 117/63
[2018-08-06 07:39] LABS: CHOLESTEROL RISK RATIO 3.272 (<5)
[2018-08-06] MEDS: OLANZapine ORAL DISINTEGRATING TAB 5MG PO SCH ×2 (08:50→21:26)
[2018-08-06] MEDS: clonazePAM 1 MG TAB PO SCH ×2 (08:50→21:25)
[2018-08-06] MEDS: DIVALPROEX 500 MG TAB PO SCH ×3 (08:51→21:25)
[2018-08-06] MEDS: **PENDING PPD ENTRY XX SCH (08:56)
--- NOTE | 2018-08-06 21:09 | MHIPNPDOC ---
[facility] Progress Note Progress Note DATE OF SERVICE: 08/06/18 HISTORY: As per ED report: "Pt was tranported to [facility] per [facility]. Pt was staying at the [facility] where his stay had . Pt would not vacate the room or answer the door. Pt was transported to [facility] for MHE. Upon interview pt began talking about how he "accidently flew to [place] and got 9 girlfriends." Pt also stated he has ran all the way to [place] and got involved with "some wackass dangerous welfare women". When asked what day it was pt would not answer. Pt does not know why he is here and begins talking about irrelevant subjects". VITAL SIGNS: See below. NEW TEST RESULTS:See below. CURRENT MEDICATIONS: See below. 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 He might be responding to internal stimuli Judgment: Very poor Insight: very poor. Orientation: place, person, situation but not oriented to date and time. Recent and remote memory: short term memory is limited because of the psychotic episode Attention span and concentration: very poor Language: impoverished. Fund of knowledge: below average. Mood: anxious, mildly irritable Affect: anxious, mildly irritable DIAGNOSES: 1. Schizoaffective disorder bipolar type 2. r/O ASD ASSESSMENT: Patient was seen this morning during the administrative hearing. He seemed less irritable but there are times, when he gives people very angry looks and if he is standing up, he starts making movements as if he would be boxing, with his fists tight, in a menacing and intimidating fashion. The Administrative Hearing took place and the Journeyman Pressman suggested that cnc machine setter do a research about him being able to go back to school, inquire if he has to pay for his Education thousands of dollars as he just said, inquire if his father would receive him at home or not (I understand not his father, not his mother will receive him because he is threatening to them and they are afraid of him). We will get together once again on 08/12/18 MANAGEMENT PLAN: Will keep encouraging him to take his medications. Planning for him being transferred to [facility]. Next administrative meeting on 08/12/2018 Vital Signs Vital Signs Date Time Temp Pulse Resp B/P (MAP) Pulse Ox O2 Delivery O2 Flow Rate FiO2 08/06/18 06:00 97.3 55 16 117/63 (81) Laboratory Data [facility] Labs Laboratory Tests 2 08/06/18 06:52: Triglycerides Level 51, LDL Cholesterol 65, Total Cholesterol 108, Non-HDL Cholesterol (LDL + VLDL) 75, Total HDL Cholesterol 33L, Cholesterol/HDL Ratio 3.272 Current Medications Current Medications Acetaminophen (Tylenol Tab) 650 mg Q6HP PRN PO HEADACHE or DISCOMFORT Last admi nistered on 07/31/18 15:57; Start 07/22/18 at 17:15 Al Hydrox/Mg Hydrox/Simethicone (Mylanta) 30 ml Q4HP PRN PO HEARTBURN/INDIG ESTION Last administered on 07/31/18 15:57; Start 07/22/18 at 17:15 Clonazepam (KlonoPIN) 1 mg BID PO ; Start 08/06/18 at 21:00 Clonazepam (KlonoPIN) 1 mg STAT STAT PO ; Start 07/23/18 at 15:41; Stop 07/23/18 at 15:47; Status DC Clonazepam (KlonoPIN) 1 mg STAT STAT PO Last administered on 07/27/18at 14:40; Start 07/27/18 at 14:28; Stop 07/27/18 at 14:30; Status DC Clonazepam (KlonoPIN) 1 mg STAT STAT PO Last administered on 07/30/18at 15:41; Start 07/30/18 at 15:30; Stop 07/30/18 at 15:33; Status DC Clonazepam (KlonoPIN) 1 mg TID PO Last administered on 08/06/18at 08:50; Start 07/23/18 at 21:00; Stop 08/06/18 at 10:21; Status DC Diphenhydramine HCl (Benadryl) 50 mg STAT STAT PO Last administered on 07/30/18at 15:43; Start 07/30/18 at 15:39; Stop 07/30/18 at 15:41; Status DC Diphenhydramine HCl (Benadryl) 75 mg STAT STAT PO ; Start 07/30/18 at 15:30; Stop 07/30/18 at 15:40; Status DC Divalproex Sodium (Depakote) 500 mg TID PO Last administered on 08/06/18at 15:01; Start 07/23/18 at 16:00 Home Med (Med Rec Complete!) ASDIRECTED XX ; Start 07/22/18 at 19:00; Stop 07/22/18 at 19:00; Status DC Lorazepam (Ativan) 1 mg STAT STAT PO Last administered on 07/22/18at 16:05; Start 07/22/18 at 14:57; Stop 07/22/18 at 14:59; Status DC Magnesium Hydroxide (Milk Of Magnesia) 30 ml DAILYPRN PRN PO CONSTIPATION; Start 07/22/18 at 17:15 Miscellaneous (Unresolved Clarification Entry) SEE LABEL COMMENTS DAILY XX ; Start 07/30/18 at 09:00; Stop 07/30/18 at 15:24; Status DC Miscellaneous (Unresolved Clarification Entry) SEE LABEL COMMENTS DAILY XX ; Start 08/05/18 at 09:00; Stop 08/06/18 at 07:05; Status DC Miscellaneous (Unresolved Clarification Entry) SEE LABEL COMMENTS DAILY XX ; Start 08/06/18 at 09:00 Non-Formulary Medication ( See Comment Field Below ) SEE COMMENTS SECTION 1T@10 XX ; Start 08/01/18 at 10:00; Stop 08/01/18 at 10:00; Status DC Non-Formulary Medication ( See Comment Field Below ) SEE LABEL COMMENTS DAILY XX ; Start 07/30/18 at 09:00 Olanzapine (ZyPREXA ZYDIS) 5 mg Q4HP PRN PO AGITATION/ANXIETY; Start at 17:15 Olanzapine (ZyPREXA ZYDIS) 10 mg BID PO Last administered on 08/06/18at 08:50; Start 07/23/18 at 21:00 Olanzapine (ZyPREXA ZYDIS) 10 mg STAT STAT PO ; Start 07/23/18 at 15:41; Stop 07/23/18 at 15:43; Status DC Olanzapine (ZyPREXA ZYDIS) 10 mg STAT STAT PO Last administered on 07/27/18at 14:40; Start 07/27/18 at 14:28; Stop 07/27/18 at 14:30; Status DC Olanzapine (ZyPREXA ZYDIS) 10 mg STAT STAT PO Last administered on 07/30/18at 15:41; Start 07/30/18 at 15:30; Stop 07/30/18 at 15:33; Status DC Trazodone HCl (Desyrel) 50 mg QHSP PRN PO INSOMNIA Last administered on 08/04/18at 00:22; Start 07/22/18 at 17:15 Allergies Coded Allergies: No Known Drug Allergy (Verified Allergy, Unknown, 08/31/12) SANTA CESAR MD Aug 06, 2018 21:09
[2018-08-07] MEDS: traZODone 50 MG TAB PO PRN ×2 (02:30→23:35)
[2018-08-07 06:18] VITALS: BP 128/80
[2018-08-07] MEDS: **PENDING PPD ENTRY XX SCH (09:00)
[2018-08-07] MEDS: clonazePAM 1 MG TAB PO SCH ×2 (09:18→23:35)
[2018-08-07] MEDS: OLANZapine ORAL DISINTEGRATING TAB 5MG PO SCH ×2 (09:18→23:37)
[2018-08-07] MEDS: DIVALPROEX 500 MG TAB PO SCH ×3 (09:18→23:35)
[2018-08-08 06:12] VITALS: BP 140/78
[2018-08-08] MEDS: OLANZapine ORAL DISINTEGRATING TAB 5MG PO SCH ×2 (08:33→21:00)
[2018-08-08] MEDS: clonazePAM 1 MG TAB PO SCH ×2 (08:33→21:00)
[2018-08-08] MEDS: **PENDING PPD ENTRY XX SCH (08:34)
[2018-08-08] MEDS: DIVALPROEX 500 MG TAB PO SCH ×3 (08:34→21:00)
[2018-08-08 18:00] VITALS: BP 139/90
[2018-08-09 06:22] VITALS: BP 134/86
[2018-08-09] MEDS: DIVALPROEX 500 MG TAB PO SCH ×3 (08:46→21:37)
[2018-08-09] MEDS: clonazePAM 1 MG TAB PO SCH ×2 (08:46→21:37)
[2018-08-09] MEDS: OLANZapine ORAL DISINTEGRATING TAB 5MG PO SCH ×2 (08:46→21:36)
[2018-08-09] MEDS: **PENDING PPD ENTRY XX SCH (09:00)
[2018-08-09] MEDS ORDERED: TUBERCULIN PPD 5 UNITS/0.1 ML ID ONE (11:00)
--- NOTE | 2018-08-09 22:00 | MHIPNPDOC ---
[facility] Progress Note Progress Note DATE OF SERVICE: 08/09/18 HISTORY: As per ED report: "Pt was tranported to [facility] per [facility]. Pt was staying at the [facility] where his stay had . Pt would not vacate the room or answer the door. Pt was transported to [facility] for MHE. Upon interview pt began talking about how he "accidently flew to [place] and got 9 girlfriends." Pt also stated he has ran all the way to [place] and got involved with "some wackass dangerous welfare women". When asked what day it was pt would not answer. Pt does not know why he is here and begins talking about irrelevant subjects". VITAL SIGNS: See below. NEW TEST RESULTS:See below. CURRENT MEDICATIONS: See below. MENTAL STATUS EXAMINATION: The patient is a 32 year old male who was calmer, a little receptive, dressed in hospital clothes Speech: loud, normal in tone, slow, spontaneous and fluent Thought processes including: tangential, circumstantial, repetitive Thought content: continues to exhibit paranoid thoughts, bizarre thoughts Description of associations: loose Description of abnormal or psychotic thoughts: paranoid and bizarre delusions. He might be responding to internal stimuli Judgment: Very poor Insight: very poor. Orientation: place, person, situation but not oriented to date and time. Recent and remote memory: short term memory is limited because of the psychotic episode Attention span and concentration: very poor Language: impoverished. Fund of knowledge: below average. Mood: anxious, mildly irritable Affect: anxious, mildly irritable DIAGNOSES: 1. Schizoaffective disorder bipolar type 2. r/O ASD ASSESSMENT: Patient was still irritable, although he is less than last week. He says he will go to [place] ( he had said initially that he would go to [place], then to [place], where he would be able to stay for 4 months in an apartment). He still has FOI, he continues to be tangential, circumstantial, his judgement and insight are extremely poor. Patient has been compliant with medications, he is going to receive Invega Sustenna 234 mgs IM tomorrow. MANAGEMENT PLAN: Will keep encouraging him to take his medications. Planning for him being transferred to [facility]. Next administrative meeting on 08/12/2018 Vital Signs Vital Signs Date Time Temp Pulse Resp B/P (MAP) Pulse Ox O2 Delivery O2 Flow Rate FiO2 08/09/18 06:22 97.8 78 20 134/86 (102) Current Medications Current Medications Acetaminophen (Tylenol Tab) 650 mg Q6HP PRN PO HEADACHE or DISCOMFORT Last administered on 07/31/18 15:57; Start 07/22/18 at 17:15 Al Hydrox/Mg Hydrox/Simethicone (Mylanta) 30 ml Q4HP PRN PO HEARTBURN/INDIGESTION Last administered on 07/31/18 15:57; Start 07/22/18 at 17:15 Clonazepam (KlonoPIN) 1 mg BID PO Last administered on 08/09/18 21:37; Start 08/06/18 at 21:00 Clonazepam (KlonoPIN) 1 mg STAT STAT PO ; Start 07/23/18 at 15:41; Stop 07/23/18 at 15:47; Status DC Clonazepam (KlonoPIN) 1 mg STAT STAT PO Last administered on 07/27/18at 14:40; Start 07/27/18 at 14:28; Stop 07/27/18 at 14:30; Status DC Clonazepam (KlonoPIN) 1 mg STAT STAT PO Last administered on 07/30/18at 15:41; Start 07/30/18 at 15:30; Stop 07/30/18 at 15:33; Status DC Clonazepam (KlonoPIN) 1 mg TID PO Last administered on 08/06/18at 08:50; Start 07/23/18 at 21:00; Stop 08/06/18 at 10:21; Status DC Diphenhydramine HCl (Benadryl) 50 mg STAT STAT PO Last administered on 07/30/18at 15:43; Start 07/30/18 at 15:39; Stop 07/30/18 at 15:41; Status DC Diphenhydramine HCl (Benadryl) 75 mg STAT STAT PO ; Start 07/30/18 at 15:30; Stop 07/30/18 at 15:40; Status DC Divalproex Sodium (Depakote) 500 mg TID PO Last administered on 08/09/18at 21:37; Start 07/23/18 at 16:00 Home Med (Med Rec Complete!) ASDIRECTED XX ; Start 07/22/18 at 19:00; Stop 07/22/18 at 19:00; Status DC Lorazepam (Ativan) 1 mg STAT STAT PO Last administered on 07/22/18at 16:05; Start 07/22/18 at 14:57; Stop 07/22/18 at 14:59; Status DC Magnesium Hydroxide (Milk Of Magnesia) 30 ml DAILYPRN PRN PO CONSTIPATION; Start 07/22/18 at 17:15 Miscellaneous (Unresolved Clarification Entry) SEE LABEL COMMENTS DAILY XX ; Start 07/30/18 at 09:00; Stop 07/30/18 at 15:24; Status DC Miscellaneous (Unresolved Clarification Entry) SEE LABEL COMMENTS DAILY XX ; Start 08/05/18 at 09:00; Stop 08/06/18 at 07:05; Status DC Miscellaneous (Unresolved Clarification Entry) SEE LABEL COMMENTS DAILY XX ; Start 08/06/18 at 09:00; Stop 08/07/18 at 10:42; Status DC Non-Formulary Medication ( See Comment Field Below ) SEE COMMENTS SECTION 1T@10 XX ; Start 08/01/18 at 10:00; Stop 08/01/18 at 10:00; Status DC Non-Formulary Medication ( See Comment Field Below ) SEE LABEL COMMENTS DAILY XX ; Start 07/30/18 at 09:00; Stop 08/09/18 at 09:59; Status DC Olanzapine (ZyPREXA ZYDIS) 5 mg Q4HP PRN PO AGITATION/ANXIETY; Start 07/22/18 at 17:15 Olanzapine (ZyPREXA ZYDIS) 10 mg BID PO Last administered on 08/09/18at 21:36; Start 07/23/18 at 21:00 Olanzapine (ZyPREXA ZYDIS) 10 mg STAT STAT PO ; Start 07/23/18 at 15:41; Stop 07/23/18 at 15:43; Status DC Olanzapine (ZyPREXA ZYDIS) 10 mg STAT STAT PO Last administered on 07/27/18at 14:40; Start 07/27/18 at 14:28; Stop 07/27/18 at 14:30; Status DC Olanzapine (ZyPREXA ZYDIS) 10 mg STAT STAT PO Last administered on 07/30/18at 15:41; Start 07/30/18 at 15:30; Stop 07/30/18 at 15:33; Status DC Trazodone HCl (Desyrel) 50 mg QHSP PRN PO INSOMNIA Last administered on 08/07/18at 23:35; Start 07/22/18 at 17:15 Allergies Coded Allergies: No Known Drug Allergy (Verified Allergy, Unknown, 08/31/12) SANTA CESAR MD Aug 09, 2018 21:54
[2018-08-10 06:46] VITALS: BP 137/70
[2018-08-10] MEDS ORDERED: PALIPERIDONE PALMITATE 234 MG/1.5 ML INJ (INVEGA SUSTENNA)(J2426) IM SCH (09:00)
[2018-08-10] MEDS: DIVALPROEX 500 MG TAB PO SCH ×3 (09:27→21:57)
[2018-08-10] MEDS: OLANZapine ORAL DISINTEGRATING TAB 5MG PO SCH ×2 (09:27→21:57)
[2018-08-10] MEDS: clonazePAM 1 MG TAB PO SCH ×2 (09:27→21:56)
[2018-08-10 18:00] VITALS: BP 114/71
--- NOTE | 2018-08-10 21:05 | MHIPNPDOC ---
[facility] Progress Note Progress Note DATE OF SERVICE: 08/10/18 HISTORY: As per ED report: "Pt was tranported to [facility] per [facility]. Pt was staying at the [facility] where his stay had . Pt would not vacate the room or answer the door. Pt was transported to [facility] for MHE. Upon interview pt began talking about how he "accidently flew to [place] and got 9 girlfriends." Pt also stated he has ran all the way to [place] and got involved with "some wackass dangerous welfare women". When asked what day it was pt would not answer. Pt does not know why he is here and begins talking about irrelevant subjects". VITAL SIGNS: See below. NEW TEST RESULTS:See below. CURRENT MEDICATIONS: See below. MENTAL STATUS EXAMINATION: The patient is a 32 year old male who was calmer, a little receptive, dressed in hospital clothes Speech: loud, normal in tone, slow, spontaneous and fluent Thought processes including: tangential, circumstantial, repetitive Thought content: continues to exhibit some FOI, bizarre and paranoid thoughts Description of associations: loose Description of abnormal or psychotic thoughts: he still has some bizarre delusions but he is less paranoid Judgment: poor Insight: poor Orientation: place, person, situation but not oriented to date and time. Recent and remote memory: short term memory is limited because of the psychotic episode Attention span and concentration: improving Language: impoverished. Fund of knowledge: below average. Mood: euthymic Affect: congruent with mood DIAGNOSES: 1. Schizoaffective disorder bipolar type 2. r/O ASD ASSESSMENT: Patient was pleasant, cooperative today. He had a rational conversation with me about his compliance with medications and about having a safety discharge for him. He says he has $3,000.00 and he will be able to pay for a hotel like the [facility] that would be a little bit nicer than the place he stayed previously. He says that he could also rent an apartment for $400.00/month. 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 The patient agreed to have his Invega Sustenna injection (234 mgs) IM today. The patient has been improving, he has been compliant with medications and he is showing obvious improvement, his hygiene has improved, he has shaved, he is goal orientated. MANAGEMENT PLAN: Will keep encouraging him to take his medications. Planning for him being transferred to [facility]. Next administrative meeting on 08/12/2018 Vital Signs Vital Signs Date Time Temp Pulse Resp B/P (MAP) Pulse Ox O2 Delivery O2 Flow Rate FiO2 08/10/18 18:00 97.9 101 18 114/71 (85) Current Medications Current Medications Acetaminophen (Tylenol Tab) 650 mg Q6HP PRN PO HEADACHE or DISCOMFORT Last administered on 07/31/18 15:57; Start 07/22/18 at 17:15 Al Hydrox/Mg Hydrox/Simethicone (Mylanta) 30 ml Q4HP PRN PO HEARTBURN /INDIGESTION Last administered on 07/31/18 15:57; Start 07/22/18 at 17:15 Clonazepam (KlonoPIN) 1 mg BID PO Last administered on 08/10/18at 09:27; Start 08/06/18 at 21:00 Clonazepam (KlonoPIN) 1 mg STAT STAT PO ; Start 07/23/18 at 15:41; Stop 07/23/18 at 15:47; Status DC Clonazepam (KlonoPIN) 1 mg STAT STAT PO Last administered on 07/27/18at 14:40; Start 07/27/18 at 14:28; Stop 07/27/18 at 14:30; Status DC Clonazepam (KlonoPIN) 1 mg STAT STAT PO Last administered on 07/30/18at 15:41; Start 07/30/18 at 15:30; Stop 07/30/18 at 15:33; Status DC Clonazepam (KlonoPIN) 1 mg TID PO Last administered on 08/06/18at 08:50; Start 07/23/18 at 21:00; Stop 08/06/18 at 10:21; Status DC Diphenhydramine HCl (Benadryl) 50 mg STAT STAT PO Last administered on 07/30/18at 15:43; Start 07/30/18 at 15:39; Stop 07/30/18 at 15:41; Status DC Diphenhydramine HCl (Benadryl) 75 mg STAT STAT PO ; Start 07/30/18 at 15:30; Stop 07/30/18 at 15:40; Status DC Divalproex Sodium (Depakote) 500 mg TID PO Last administered on 08/10/18at 15:09; Start 07/23/18 at 16:00 Home Med (Med Rec Complete!) ASDIRECTED XX ; Start 07/22/18 at 19:00; Stop 07/22/18 at 19:00; Status DC Lorazepam (Ativan) 1 mg STAT STAT PO Last administered on 07/22/18at 16:05; Start 07/22/18 at 14:57; Stop 07/22/18 at 14:59; Status DC Magnesium Hydroxide (Milk Of Magnesia) 30 ml DAILYPRN PRN PO CONSTIPATION; Start 07/22/18 at 17:15 Miscellaneous (Unresolved Clarification Entry) SEE LABEL COMMENTS DAILY XX ; Start 07/30/18 at 09:00; Stop 07/30/18 at 15:24; Status DC Miscellaneous (Unresolved Clarification Entry) SEE LABEL COMMENTS DAILY XX ; Start 08/05/18 at 09:00; Stop 08/06/18 at 07:05; Status DC Miscellaneous (Unresolved Clarification Entry) SEE LABEL COMMENTS DAILY XX ; Start 08/06/18 at 09:00; Stop 08/07/18 at 10:42; Status DC Non-Formulary Medication ( See Comment Field Below ) SEE COMMENTS SECTION 1T@10 XX ; Start 08/01/18 at 10:00; Stop 08/01/18 at 10:00; Status DC Non-Formulary Medication ( See Comment Field Below ) SEE LABEL COMMENTS DAILY XX ; Start 07/30/18 at 09:00; Stop 08/09/18 at 09:59; Status DC Olanzapine (ZyPREXA ZYDIS) 5 mg Q4HP PRN PO AGITATION/ANXIETY; Start 07/22/18 at 17:15 Olanzapine (ZyPREXA ZYDIS) 10 mg BID PO Last administered on 08/10/18at 09:27; Start 07/23/18 at 21:00 Olanzapine (ZyPREXA ZYDIS) 10 mg STAT STAT PO ; Start 07/23/18 at 15:41; Stop 07/23/18 at 15:43; Status DC Olanzapine (ZyPREXA ZYDIS) 10 mg STAT STAT PO Last administered on 07/27/18at 14:40; Start 07/27/18 at 14:28; Stop 07/27/18 at 14:30; Status DC Olanzapine (ZyPREXA ZYDIS) 10 mg STAT STAT PO Last administered on 07/30/18at 15:41; Start 07/30/18 at 15:30; Stop 07/30/18 at 15:33; Status DC Paliperidone Palmitate (Invega Sustenna) 234 mg Q30D IM Last administered on 08/10/18at 14:39; Start 08/10/18 at 09:00 Trazodone HCl (Desyrel) 50 mg QHSP PRN PO INSOMNIA Last administered on 08/07/18at 23:35; Start 07/22/18 at 17:15 Allergies Coded Allergies: No Known Drug Allergy (Verified Allergy, Unknown, 08/31/12) SANTA CESAR MD Aug 10, 2018 21:05
[2018-08-10] MEDS: traZODone 50 MG TAB PO PRN (21:57)
[2018-08-11 06:00] VITALS: BP 101/53
[2018-08-11] MEDS: OLANZapine ORAL DISINTEGRATING TAB 5MG PO SCH (08:48)
[2018-08-11] MEDS: clonazePAM 1 MG TAB PO SCH (08:48)
[2018-08-11] MEDS: DIVALPROEX 500 MG TAB PO SCH ×3 (08:48→21:00)
[2018-08-11] MEDS ORDERED: PPD DOCUMENTATION ENTRY MISC XX ONE (11:00)
[2018-08-11 18:19] VITALS: BP 136/90
--- NOTE | 2018-08-11 21:01 | MHIPNPDOC ---
[facility] Progress Note Progress Note DATE OF SERVICE: 08/11/18 HISTORY: As per ED report: "Pt was tranported to [facility] per [facility]. Pt was staying at the [facility] where his stay had . Pt would not vacate the room or answer the door. Pt was transported to [facility] for MHE. Upon interview pt began talking about how he "accidently flew to [place] and got 9 girlfriends." Pt also stated he has ran all the way to [place] and got involved with "some wackass dangerous welfare women". When asked what day it was pt would not answer. Pt does not know why he is here and begins talking about irrelevant subjects". VITAL SIGNS: See below. NEW TEST RESULTS:See below. CURRENT MEDICATIONS: See below. MENTAL STATUS EXAMINATION: The patient is a 32 year old male who was calmer, a little receptive, dressed in hospital clothes Speech: loud, normal in tone, slow, spontaneous and fluent Thought processes including: tangential, circumstantial, repetitive Thought content: continues to exhibit some FOI, bizarre and paranoid thoughts Description of associations: loose Description of abnormal or psychotic thoughts: he still has some bizarre delusions but he is less paranoid Judgment: poor Insight: poor Orientation: place, person, situation but not oriented to date and time. Recent and remote memory: short term memory is limited because of the psychotic episode Attention span and concentration: improving Language: impoverished. Fund of knowledge: below average. Mood: euthymic Affect: congruent with mood DIAGNOSES: 1. Schizoaffective disorder bipolar type 2. r/O ASD ASSESSMENT: Patient was pleasant, cooperative today too. His MSE has not changed from yesterday, he is happy because he is not going to [facility]. He is future orientated, he wants to rent an apartment, he said he found one in [place] that is in a nice area. MANAGEMENT PLAN: Will keep encouraging him to take his medications. He is being discharged , not going to [facility] Vital Signs Vital Signs Date Time Temp Pulse Resp B/P (MAP) Pulse Ox O2 Delivery O2 Flow Rate FiO2 08/11/18 18:19 98.5 96 18 136/90 (105) Current Medications Current Medications Acetaminophen (Tylenol Tab) 650 mg Q6HP PRN PO HEADACHE or DISCOMFORT Last administered on 07/31/18at 15:57; Start 07/22/18 at 17:15 Al Hydrox/Mg Hydrox/Simethicone (Mylanta) 30 ml Q4HP PRN PO HEARTBURN/INDIGESTION Last administered on 07/31/18at 15:57; Start 07/22/18 at 17:15 Clonazepam (KlonoPIN) 1 mg BID PO Last administered on 08/11/18at 08:48; Start 08/06/18 at 21:00 Clonazepam (KlonoPIN) 1 mg STAT STAT PO ; Start 07/23/18 at 15:41; Stop 07/23/18 at 15:47; Status DC Clonazepam (KlonoPIN) 1 mg STAT STAT PO Last administered on 07/27/18at 14:40; Start 07/27/18 at 14:28; Stop 07/27/18 at 14:30; Status DC Clonazepam (KlonoPIN) 1 mg STAT STAT PO Last administered on 07/30/18at 15:41; Start 07/30/18 at 15:30; Stop 07/30/18 at 15:33; Status DC Clonazepam (KlonoPIN) 1 mg TID PO Last administered on 08/06/18at 08:50; Start 07/23/18 at 21:00; Stop 08/06/18 at 10:21; Status DC Diphenhydramine HCl (Benadryl) 50 mg STAT STAT PO Last administered on 07/30/18at 15:43; Start 07/30/18 at 15:39; Stop 07/30/18 at 15:41; Status DC Diphenhydramine HCl (Benadryl) 75 mg STAT STAT PO ; Start 07/30/18 at 15:30; Stop 07/30/18 at 15:40; Status DC Divalproex Sodium (Depakote) 500 mg TID PO Last administered on 08/11/18at 15:07; Start 07/23/18 at 16:00 Home Med (Med Rec Complete!) ASDIRECTED XX ; Start 07/22/18 at 19:00; Stop 07/22/18 at 19:00; Status DC Lorazepam (Ativan) 1 mg STAT STAT PO Last administered on 07/22/18at 16:05; Start 07/22/18 at 14:57; Stop 07/22/18 at 14:59; Status DC Magnesium Hydroxide (Milk Of Magnesia) 30 ml DAILYPRN PRN PO CONSTIPATION; Start 07/22/18 at 17:15 Miscellaneous (Unresolved Clarification Entry) SEE LABEL COMMENTS DAILY XX ; Start 07/30/18 at 09:00; Stop 07/30/18 at 15:24; Status DC Miscellaneous (Unresolved Clarification Entry) SEE LABEL COMMENTS DAILY XX ; Start 08/05/18 at 09:00; Stop 08/06/18 at 07:05; Status DC Miscellaneous (Unresolved Clarification Entry) SEE LABEL COMMENTS DAILY XX ; Start 08/06/18 at 09:00; Stop 08/07/18 at 10:42; Status DC Non-Formulary Medication ( See Comment Field Below ) SEE COMMENTS SECTION 1T@10 XX ; Start 08/01/18 at 10:00; Stop 08/01/18 at 10:00; Status DC Non-Formulary Medication ( See Comment Field Below ) SEE LABEL COMMENTS DAILY XX ; Start 07/30/18 at 09:00; Stop 08/09/18 at 09:59; Status DC Olanzapine (ZyPREXA ZYDIS) 5 mg Q4HP PRN PO AGITATION/ANXIETY; Start 07/22/18 at 17:15 Olanzapine (ZyPREXA ZYDIS) 10 mg BID PO Last administered on 08/11/18at 08:48; Start 07/23/18 at 21:00 Olanzapine (ZyPREXA ZYDIS) 10 mg STAT STAT PO ; Start 07/23/18 at 15:41; Stop 07/23/18 at 15:43; Status DC Olanzapine (ZyPREXA ZYDIS) 10 mg STAT STAT PO Last administered on 07/27/18at 14:40; Start 07/27/18 at 14:28; Stop 07/27/18 at 14:30; Status DC Olanzapine (ZyPREXA ZYDIS) 10 mg STAT STAT PO Last administered on 07/30/18at 15:41; Start 07/30/18 at 15:30; Stop 07/30/18 at 15:33; Status DC Paliperidone Palmitate (Invega Sustenna) 234 mg Q30D IM Last administered on 08/10/18at 14:39; Start 08/10/18 at 09:00 Trazodone HCl (Desyrel) 50 mg QHSP PRN PO INSOMNIA Last administered on 08/10/18at 21:57; Start 07/22/18 at 17:15 Allergies Coded Allergies: No Known Drug Allergy (Verified Allergy, Unknown, 08/31/12) SANTA CESAR MD Aug 11, 2018 21:01
[2018-08-12] MEDS: traZODone 50 MG TAB PO PRN (02:20)
[2018-08-12] MEDS: clonazePAM 1 MG TAB PO SCH ×2 (02:20→09:06)
[2018-08-12] MEDS: OLANZapine ORAL DISINTEGRATING TAB 5MG PO SCH ×2 (02:21→09:06)
[2018-08-12] MEDS: DIVALPROEX 500 MG TAB PO SCH (09:06)
[2018-08-12] MEDS ORDERED: OLAN10TA2 PO (09:16)
[2018-08-12] MEDS ORDERED: BENA25CA4 PO (09:16)
[2018-08-12] MEDS ORDERED: DEPA500T2 PO (09:16)
[2018-08-12] MEDS ORDERED: INVE234I IM (09:16)
[2018-08-12] MEDS ORDERED: CLON1TAB8 PO (09:16)
[2018-08-12] MEDS ORDERED: TRAZ-186 PO (09:16)
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
== END 2018-08-12 10:55 | disposition home or self-care (01) | DRG 885 ==
LOC: M ED 14:12 → M ED INP 17:01 → M PSY 19:30
PROVIDERS: ADMIT Psychiatry & Neurology Psychiatry; ATTEND Psychiatry & Neurology Psychiatry
DX: F25.0 Schizoaffective disorder, bipolar type (principal); Z98.84 Bariatric surgery status; Z90.49 Acquired absence of other specified parts of digestive tract; Z91.14 Patient's other noncompliance with medication regimen; Z79.899 Other long term (current) drug therapy

== ENCOUNTER 2020-07-08 13:05 | Inpatient (IN) | payer MEDICAID, MEDICARE ==
[~2020-07-08] VITALS: Ht 182.9 cm; Wt 110.0 kg
[2020-07-08] MEDS: NICOTINE 21MG/24HR 1 EA TRANSDERMAL TD SCH (09:00)
[~2020-07-08 13:05] MED LIST changes: -/QUET10TA PO; +CLON0.5T2 PO; -CLON0.5T8 PO; +PATIENT COMMENTS; +SERO1TAB PO; -TRAZ-160 PO; +TRAZ-186 PO; +TRAZ-252 PO; +TRAZ1TAB10 PO; -TRAZO50TA PO
[2020-07-08 14:10] LABS: HEMATOCRIT 38.8 % (42.0-52.0); MEAN CORPUSCULAR HEMOGLOBIN 30.4 pg (27.0-33.0); MEAN CORPUSCULAR HGB CONC 33.5 g/dl (32.0-36.5); MEAN CORPUSCULAR VOLUME 90.7 fl (80.0-96.0); PLATELET COUNT, AUTOMATED 185 10^3/uL (150-450); RED BLOOD COUNT 4.28 10^6/uL (4.30-6.10); WHITE BLOOD COUNT 6.3 10^3/uL (4.0-10.0)
[2020-07-08 14:33] LABS: AMPHETAMINES LEVEL URINE NEGATIVE (NEGATIVE); BARBITURATES URINE NEGATIVE (NEGATIVE); BENZODIAZEPINES URINE NEGATIVE (NEGATIVE); CANNABINOIDS URINE NEGATIVE (NEGATIVE); COCAINE METABOLITE URINE NEGATIVE (NEGATIVE); METHADONE URINE NEGATIVE (NEGATIVE); OPIATES URINE NEGATIVE (NEGATIVE); PHENCYCLIDINE URINE NEGATIVE (NEGATIVE)
[2020-07-08 14:50] LABS: ACETAMINOPHEN LEVEL < 2.0 UG/ML (10.0-30.0); ALBUMIN 3.7 GM/DL (3.2-5.2); ALT/SGPT 26 U/L (12-78); BILIRUBIN,DIRECT 0.1 MG/DL (0.0-0.2); BILIRUBIN,TOTAL 0.4 MG/DL (0.2-1.0); BLOOD UREA NITROGEN 9 MG/DL (7-18); CALCIUM LEVEL 9.3 MG/DL (8.5-10.1); CARBON DIOXIDE LEVEL 29 MEQ/L (21-32); CHLORIDE LEVEL 107 MEQ/L (98-107); CREATININE FOR GFR 0.95 MG/DL (0.70-1.30); ETHYL ALCOHOL (ETHANOL) < 0.003 % (0.000-0.010); GLOMERULAR FILTRATION RATE > 60.0 (>60); GLUCOSE, FASTING 90 MG/DL (70-100); POTASSIUM SERUM 4.8 MEQ/L (3.5-5.1); SALICYLATE LEVEL < 1.7 MG/DL (5.0-30.0); SODIUM LEVEL 142 MEQ/L (136-145); TOTAL PROTEIN 6.5 GM/DL (6.4-8.2)
[2020-07-08 16:59] LABS: RSV AMPLIFICATION NEGATIVE (NEGATIVE)
[2020-07-08] MEDS ORDERED: MOM 30ML SUSPENSION UDC PO PRN (17:15)
[2020-07-08] MEDS ORDERED: traZODone 50 MG TAB PO PRN (17:15)
[2020-07-08] MEDS ORDERED: MAALOX 30 ML SUSP *UDC PO PRN (17:15)
[2020-07-08] MEDS ORDERED: OLANZapine 5 MG TAB PO PRN (17:15)
[2020-07-08 20:16] VITALS: BP 113/74
[2020-07-09 06:39] VITALS: BP 156/86
[2020-07-09] MEDS: NICOTINE 21MG/24HR 1 EA TRANSDERMAL TD SCH (09:00)
[2020-07-09] MEDS ORDERED: hydrOXYzine 50 MG TAB PO PRN (15:00)
--- NOTE | 2020-07-09 16:30 | HPEPDOC ---
[facility] Medical History & Physical Date of Admission Jul 08, 2020 Date of Service: Jul 09, 2020 History and Physical Chief complaint: Patient presented to the hospital with suicidal ideation History of present illness: Patient is a 34-year-old male with no significant past medical history who presented to the hospital with complaints of suicidal ideation. Patient has recently [place] from out of state and presented to the emergency room directly. .Patient was admitted to the inpatient mental health unit under the care of psychiatry and hospitalist service was consulted for medical screening evaluation. Currently patient denies any headache, nausea, vomiting, chest pain, short of breath, palpitations, abdominal pain consultation, diarrhea, or urinary discomfort. Patient reports that his appetite is fairly normal and denies any changes in his weight. Past Medical History: Denies any prior medical history Past Surgical History: Denies any prior surgical history Allergies: See below Medications: Family History: - No history of malignancies Social History: - Denies the use of alcohol, tobacco or illicit drugs - Denies recent travel or sick contacts - Lives with friend - Occupation; currently on SSI Review of Systems: 10 point review of systems complete, all negative otherwise stated in HPI Physical exam: - Vitals: BP [113/74], HR [70], RR [18], Sat [99%RA], Temp [97.7F] - General: Lying in bed, No acute distress, Speaking in full sentences, AAOx3 - HEENT: NC, AT, EOMI - CVS: RRR, +S1S2 - Lungs: Fair air entry bilaterally, No wheezing / rales / rhonchi - Abdomen: Soft, Non-distended, Non-tender - Extremities: No lower extremity edema, No calf tenderness - Neuro: No focal motor or sensory deficit - Skin: No visible rashes Labs: Imaging: EKG: Assessment and Plan: Suicidal ideation - Patient has been admitted to the inpatient mental health unit under the care of psychiatry - Currently being managed by psychiatry No significant past medical history DVT prophylaxis - Will continue with early ambulation Female clam bed laborer was present throughout the duration of his history and physical examination Thank you for this consultation; hospitalist service will now sign off, please reconsult as needed Vital Signs Vital Signs Date Time Temp Pulse Resp B/P (MAP) Pulse Ox O2 Delivery O2 Flow Rate FiO2 07/09/20 06:39 97.1 68 18 156/86 (109) 99 07/08/20 16:50 Room Air Home Medications No Active Prescriptions or Reported Meds Allergies Coded Allergies: No Known Allergies (Verified Allergy, Unknown, 07/08/20) A-FIB/CHADSVASC A-FIB History Current/History of A-Fib/PAF?: No EDEN MENDENHALL MD Jul 09, 2020 16:30
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
[2020-07-09] MEDS: OLANZapine 5 MG TAB PO SCH (21:13)
[2020-07-10] MEDS: NICOTINE 21MG/24HR 1 EA TRANSDERMAL TD SCH (08:43)
[2020-07-10] MEDS: OLANZapine 5 MG TAB PO SCH ×2 (08:43→22:19)
[2020-07-11] MEDS: OLANZapine 5 MG TAB PO SCH ×2 (08:26→21:50)
[2020-07-11] MEDS: NICOTINE 21MG/24HR 1 EA TRANSDERMAL TD SCH (08:27)
--- NOTE | 2020-07-11 15:46 | MHIPN ---
[facility] PROGRESS NOTE DATE: 07/10/2020 I am assigned to his care today. Staff informed me that he has declined to see me, and he suggested that he may do so perhaps tomorrow. Meanwhile, we will continue with current care.
[2020-07-11 18:20] VITALS: BP 144/78
[2020-07-12 06:12] VITALS: BP 131/73
[2020-07-12] MEDS: NICOTINE 21MG/24HR 1 EA TRANSDERMAL TD SCH (08:43)
[2020-07-12] MEDS: OLANZapine 5 MG TAB PO SCH ×2 (08:43→21:00)
[2020-07-12 16:23] VITALS: BP 139/67
[2020-07-13 06:40] VITALS: BP 127/59
[2020-07-13] MEDS: NICOTINE 21MG/24HR 1 EA TRANSDERMAL TD SCH (08:42)
[2020-07-13] MEDS: OLANZapine 5 MG TAB PO SCH ×2 (08:42→21:00)
--- NOTE | 2020-07-13 15:52 | MHIPN ---
[facility] PROGRESS NOTE DATE: 07/11/2020 VITAL SIGNS: Blood pressure 156/86, pulse 68, temperature 97. This has not been updated. We will inquire about that. CHIEF COMPLAINT: Says feels tired. SUBJECTIVE: He did not initially want to see me. Indicated felt tired. He had been seen on video because of the pandemic, and then the video was taken to him. He agreed to talk to me for a brief while. Was lying down. Says felt tired and that he had slept at night. Had eaten lunch. Wanted his medicines adjusted so he could leave. He says was in hospital in [place] for a short while before he came here. Says when he came to [place] had felt tired. When he leaves, plans to go to a friend's place in [place], [place], and says friend is aware. When he left [place] says they did not give him a prescription. He suggested they forgot to do so. Says was put on Abilify and Zoloft. He was in [place] in a hospital there for about a week, from what we understand. MENTAL STATUS EXAMINATION: He is lying in bed, cooperative but somewhat reluctantly so. No agitation. Gives brief, 1-word answers. Denies any thoughts of harming himself or anyone else. Affect is restricted in range. He is alert, oriented to place and person but not fully to time. He thought it was 07/05/2020. Attention and concentration good. Judgment and insight are impaired. ASSESSMENT: Schizoaffective disorder, bipolar type. PLAN: Continue olanzapine at 5 mg twice a day. Encourage participation in activities as indicated. We will look at obtaining collateral information as well. Further recommendations will need to be made depending on the clinical picture.
[2020-07-13 19:20] VITALS: BP 140/83
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
[2020-07-14 06:47] VITALS: BP 142/72
[2020-07-14] MEDS: OLANZapine 5 MG TAB PO SCH ×2 (08:56→20:47)
[2020-07-14] MEDS: NICOTINE 21MG/24HR 1 EA TRANSDERMAL TD SCH (08:58)
[2020-07-14 18:42] VITALS: BP 140/80
[2020-07-15 06:34] VITALS: BP 118/59
[2020-07-15] MEDS: NICOTINE 21MG/24HR 1 EA TRANSDERMAL TD SCH (08:15)
[2020-07-15] MEDS: OLANZapine 5 MG TAB PO SCH ×2 (08:57→20:49)
[2020-07-15 17:14] VITALS: BP 125/78
--- NOTE | 2020-07-15 20:34 | MHIPN ---
[facility] PROGRESS NOTE DATE: 07/12/2020 VITAL SIGNS: Blood pressure 139/67, pulse 79, temperature 97.9. This is a video assessment, he is aware of it, we are doing this because of the pandemic. CHIEF COMPLAINT: Says feels okay. SUBJECTIVE: He is seen for followup. He is lying in bed, says feels okay, indicates did not get out of bed much, but that he was up for breakfast and lunch. Says had acute pain, but is vague on this. MENTAL STATUS EXAMINATION: He is lying in bed, cooperative, but somewhat superficially so. He is coherent, in that he answers questions briefly, logically. Affect restricted in range. Denies any thoughts of harming himself or anyone else. Cognition grossly intact. Judgment and insight remain compromised. ASSESSMENT: Schizoaffective disorder. PLAN: Continue current care, will look at increasing the olanzapine, gradually, to help address his current state. He is to be encouraged to participate in activities in the unit. Further recommendations will be made depending on the clinical picture.
[2020-07-16] MEDS: NICOTINE 21MG/24HR 1 EA TRANSDERMAL TD SCH (09:00)
[2020-07-16] MEDS: OLANZapine 5 MG TAB PO SCH (09:06)
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
[2020-07-16 16:59] VITALS: BP 125/82
[2020-07-16] MEDS: IBUPROFEN 400MG TAB PO PRN (17:09)
[2020-07-16] MEDS: OLANZapine 10 MG TAB PO SCH (21:00)
[2020-07-17] MEDS: IBUPROFEN 400MG TAB PO PRN (08:30)
[2020-07-17] MEDS: OLANZapine 5 MG TAB PO SCH (08:30)
[2020-07-17] MEDS: NICOTINE 21MG/24HR 1 EA TRANSDERMAL TD SCH (09:00)
[2020-07-17 16:28] VITALS: BP 134/88
[2020-07-17] MEDS: OLANZapine 10 MG TAB PO SCH (21:00)
[2020-07-18 06:39] VITALS: BP 146/89
[2020-07-18] MEDS: OLANZapine 5 MG TAB PO SCH (08:52)
[2020-07-18] MEDS: NICOTINE 21MG/24HR 1 EA TRANSDERMAL TD SCH (08:53)
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
[2020-07-18] MEDS: IBUPROFEN 400MG TAB PO PRN (16:35)
[2020-07-18] MEDS: OLANZapine 10 MG TAB PO SCH (21:18)
[2020-07-19 06:42] VITALS: BP 108/60
[2020-07-19] MEDS: NICOTINE 21MG/24HR 1 EA TRANSDERMAL TD SCH (08:37)
[2020-07-19] MEDS: OLANZapine 5 MG TAB PO SCH (08:40)
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
[2020-07-19 19:16] VITALS: BP 139/79
[2020-07-19] MEDS: OLANZapine 10 MG TAB PO SCH (21:02)
[2020-07-20 06:43] VITALS: BP 118/77
[2020-07-20] MEDS: NICOTINE 21MG/24HR 1 EA TRANSDERMAL TD SCH (09:00)
[2020-07-20] MEDS: OLANZapine 10 MG TAB PO SCH ×2 (09:09→20:28)
--- NOTE | 2020-07-20 15:11 | MHIPNPDOC ---
[facility] Progress Note Progress Note DATE OF SERVICE: 07/20/20 HISTORY: 34-year-old with apparent chronic schizophrenia who was well traveled but admitted himself. Numerous grandiose and paranoid delusions plans to live in [place], or nearby area. VITAL SIGNS: See below. NEW TEST RESULTS: None . CURRENT MEDICATIONS: See below. MENTAL STATUS EXAMINATION: Patient is a 34-year old male, who is improved state today. Speech: Is normal. Language skills are. No disturbance. Thought processes including: Focused on discharge. Thought content: Focused on discharge. Abstract reasoning, and computation:. Poor abstraction able to compute. Description of associations: No loose association. Description of abnormal or psychotic thoughts:, Grandiose and paranoid delusions. Judgment:, Poor. Insight:, Poor. Orientation: 3. Recent and remote memory: Intact. Attention span and concentration: Intact. Language:. No disturbance. Fund of knowledge: Full Mood: Irritable. Affect: Neutral. DIAGNOSES: 1. Chronic schizophrenia. 2. None. 3. None . ASSESSMENT: 34-year-old male with planning chronic schizophrenia. Today agreed that follow-up was part of the condition of his discharge. He agreed to follow- up appointments with possible Medicaid transportation MANAGEMENT PLAN: Discharge is possible, but I am pessimistic that this young man looked proper follow-up and will continue his pattern of moving from place to place without proper care. TIME SPENT: 35 minutes. Vital Signs Vital Signs Date Time Temp Pulse Resp B/P (MAP) Pulse Ox O2 Delivery O2 Flow Rate FiO2 07/20/20 06:43 97.7 60 14 118/77 (91) 98 Room Air Current Medications Current Medications Medications (Trade) Dose Ordered Sig/Aleksey Route PRN Reason Start Time Stop Time Status Last Admin Dose Admin Al Hydrox/Mg Hydrox/Simethicone (Mylanta) 30 ml Q4HP PRN PO HEARTBURN/INDIGESTION 07/08/20 17:15 Home Med (Med Rec Complete!) ASDIRECTED XX 07/08/20 17:15 07/08/20 17:42 DC Hydroxyzine HCl (Atarax) 50 mg Q6HP PRN PO ANXIETY 07/09/20 15:00 Ibuprofen (Advil) 400 mg Q6HP PRN PO PAIN 07/08/20 17:15 07/18/20 16:35 Magnesium Hydroxide (Milk Of Magnesia) 30 ml DAILYPRN PRN PO CONSTIPATION 07/08/20 17:15 Nicotine (Nicoderm Cq 21mg) 1 patch DAILY TD 07/08/20 09:00 Olanzapine (ZyPREXA) 5 mg BID PO 07/09/20 21:00 07/16/20 16:51 DC 07/16/20 09:06 Olanzapine (ZyPREXA) 5 mg Q4HP PRN PO ANXIETY/AGITATION 07/08/20 17:15 Olanzapine (ZyPREXA) 5 mg QAM PO 07/17/20 09:00 07/19/20 15:29 DC 07/19/20 08:40 Olanzapine (ZyPREXA) 10 mg BID PO 07/19/20 21:00 07/20/20 09:09 Olanzapine (ZyPREXA) 10 mg QHS PO 07/16/20 21:00 07/19/20 15:29 DC 07/18/20 21:18 Trazodone HCl (Desyrel) 50 mg QHSP PRN PO INSOMNIA 07/08/20 17:15 Allergies Coded Allergies: No Known Allergies (Verified Allergy, Unknown, 07/08/20) TYLER GIRON MD Jul 20, 2020 15:11
[2020-07-21 07:11] VITALS: BP 121/57
[2020-07-21] MEDS: OLANZapine 10 MG TAB PO SCH ×2 (08:05→20:50)
[2020-07-21] MEDS: NICOTINE 21MG/24HR 1 EA TRANSDERMAL TD SCH (08:06)
[2020-07-21] MEDS: IBUPROFEN 400MG TAB PO PRN (16:34)
[2020-07-22] MEDS: OLANZapine 10 MG TAB PO SCH ×2 (08:55→19:58)
[2020-07-22] MEDS: NICOTINE 21MG/24HR 1 EA TRANSDERMAL TD SCH (09:00)
[2020-07-22] MEDS: IBUPROFEN 400MG TAB PO PRN (19:58)
[2020-07-23] MEDS: NICOTINE 21MG/24HR 1 EA TRANSDERMAL TD SCH (08:26)
[2020-07-23] MEDS: OLANZapine 10 MG TAB PO SCH ×2 (09:50→21:00)
--- NOTE | 2020-07-23 13:12 | MHIPNPDOC ---
[facility] Progress Note Progress Note DATE OF SERVICE: 07/23/20 HISTORY: 34-year-old with chronic schizoaffective disorder. VITAL SIGNS: See below. NEW TEST RESULTS:. No new test results. CURRENT MEDICATIONS: See below. MENTAL STATUS EXAMINATION: Patient is a 34-year old male, who is, well traveled with grandiose ideas and plans. Discharge was delayed until patient came up with realistic outpatient treatment plan. Speech: Is. Normal. Language skills are normal. Thought processes including: Wanting to be discharged. Thought content: Focused on discharge. Abstract reasoning, and computation: Limited. Description of associations:. No loose association. Description of abnormal or psychotic thoughts: Grandiose and paranoid delusions. Judgment:, Poor. Insight:, Limited. Orientation: 3. Recent and remote memory: Intact. Attention span and concentration: Intact. Language:. No disturbance. Fund of knowledge: Full Mood: Euthymic. Affect:, Congruent. DIAGNOSES: 1., Chronic schizoaffective disorder. 2. None. 3. None. ASSESSMENT: Patient has grandiose and unrealistic plans. In addition to plans to use legal system. None of these are realistic and may result in more difficulties for this patient in the community MANAGEMENT PLAN:. He plans to live with a friend and outpatient treatment will be planned, but I am suspicious. The patient will not be compliant. TIME SPENT: 35 minutes. Vital Signs Vital Signs Date Time Temp Pulse Resp B/P (MAP) Pulse Ox O2 Delivery O2 Flow Rate FiO2 07/21/20 07:11 97.4 51 20 121/57 (78) 97 Room Air Current Medications Current Medications Medications (Trade) Dose Ordered Sig/Aleksey Route PRN Reason Start Time Stop Time Status Last Admin Dose Admin Al Hydrox/Mg Hydrox/Simethicone (Mylanta) 30 ml Q4HP PRN PO HEARTBURN/INDIGESTION 07/08/20 17:15 Home Med (Med Rec Complete!) ASDIRECTED XX 07/08/20 17:15 07/08/20 17:42 DC Hydroxyzine HCl (Atarax) 50 mg Q6HP PRN PO ANXIETY 07/09/20 15:00 Ibuprofen (Advil) 400 mg Q6HP PRN PO PAIN 07/08/20 17:15 07/22/20 19:58 Magnesium Hydroxide (Milk Of Magnesia) 30 ml DAILYPRN PRN PO CONSTIPATION 07/08/20 17:15 Nicotine (Nicoderm Cq 21mg) 1 patch DAILY TD 07/08/20 09:00 Olanzapine (ZyPREXA) 5 mg BID PO 07/09/20 21:00 07/16/20 16:51 DC 07/16/20 09:06 Olanzapine (ZyPREXA) 5 mg Q4HP PRN PO ANXIETY/AGITATION 07/08/20 17:15 Olanzapine (ZyPREXA) 5 mg QAM PO 07/17/20 09:00 07/19/20 15:29 DC 07/19/20 08:40 Olanzapine (ZyPREXA) 10 mg BID PO 07/19/20 21:00 07/23/20 09:50 Olanzapine (ZyPREXA) 10 mg QHS PO 07/16/20 21:00 07/19/20 15:29 DC 07/18/20 21:18 Trazodone HCl (Desyrel) 50 mg QHSP PRN PO INSOMNIA 07/08/20 17:15 Allergies Coded Allergies: No Known Allergies (Verified Allergy, Unknown, 07/08/20) TYLER GIRON MD Jul 23, 2020 13:12
[2020-07-23] MEDS: IBUPROFEN 400MG TAB PO PRN (16:54)
[2020-07-23 18:19] VITALS: BP 139/63
[2020-07-24] MEDS: NICOTINE 21MG/24HR 1 EA TRANSDERMAL TD SCH (09:00)
[2020-07-24] MEDS: OLANZapine 10 MG TAB PO SCH (09:39)
[2020-07-24] MEDS ORDERED: OLAN10TA2 PO (10:45)
--- NOTE | 2020-07-24 11:28 | MHIPNPDOC ---
[facility] Progress Note Progress Note DATE OF SERVICE: 07/24/20 HISTORY: 34-year-old male with long history of psychosis who has done extensive traveling, but chooses to live with a friend here in [place]. He has a tende ncy to self admit. When he goes to different towns. He has had sporadic to No follow-up. VITAL SIGNS: See below. NEW TEST RESULTS: None. CURRENT MEDICATIONS: See below. MENTAL STATUS EXAMINATION: Patient is a 34-year old male, who is planning to build a bus and travel, Planning to start extensive lawsuits in [place]. Speech: Is choppy. Language skills are attack. Thought processes including: Grandiose and paranoid ideation. Thought content:, Grandiose and paranoid ideation. Apparently of a chronic nature. Abstract reasoning, and computation: Able to abstract. Description of associations: Loose association. Description of abnormal or psychotic thoughts:. Chronic delusional, grandiose and paranoid. Thought. Judgment: Poor. Insight:, Poor. Orientation: 3. Recent and remote memory: Intact. Attention span and concentration: Intact. Language:. No disturbance. Fund of knowledge:. Full. Mood: Euthymic. Affect:, Suspicious. DIAGNOSES: 1. Chronic paranoid schizophrenia. .. ASSESSMENT: This 34-year-old most likely has repetitive admissions where he self admits he. He has chronic paranoid and grandiose delusions, and has been seen repetitively. He will be referred to outpatient care., But based on his past history and behavior. Most likely he will be noncompliant and did not follow-up MANAGEMENT PLAN: Referred to outpatient care. Prognosis poor, but patient is not a danger to self or others TIME SPENT:, 35 minutes. Vital Signs Vital Signs Date Time Temp Pulse Resp B/P (MAP) Pulse Ox O2 Delivery O2 Flow Rate FiO2 07/23/20 18:19 97.1 94 18 139/63 (88) 07/21/20 07:11 97 Room Air Current Medications Current Medications Medications (Trade) Dose Ordered Sig/Aleksey Route PRN Reason Start Time Stop Time Status Last Admin Dose Admin Al Hydrox/Mg Hydrox/Simethicone (Mylanta) 30 ml Q4HP PRN PO HEARTBURN/INDIGESTION 07/08/20 17:15 Home Med (Med Rec Complete!) ASDIRECTED XX 07/08/20 17:15 2/7/21 17:42 DC Hydroxyzine HCl (Atarax) 50 mg Q6HP PRN PO ANXIETY 07/09/20 15:00 Ibuprofen (Advil) 400 mg Q6HP PRN PO PAIN 07/08/20 17:15 07/23/20 16:54 Magnesium Hydroxide (Milk Of Magnesia) 30 ml DAILYPRN PRN PO CONSTIPATION 07/08/20 17:15 Nicotine (Nicoderm Cq 21mg) 1 patch DAILY TD 07/08/20 09:00 Olanzapine (ZyPREXA) 5 mg BID PO 07/09/20 21:00 07/16/20 16:51 DC 07/16/20 09:06 Olanzapine (ZyPREXA) 5 mg Q4HP PRN PO ANXIETY/AGITATION 07/08/20 17:15 Olanzapine (ZyPREXA) 5 mg QAM PO 07/17/20 09:00 07/19/20 15:29 DC 07/19/20 08:40 Olanzapine (ZyPREXA) 10 mg BID PO 07/19/20 21:00 07/24/20 09:39 Olanzapine (ZyPREXA) 10 mg QHS PO 07/16/20 21:00 07/19/20 15:29 DC 07/18/20 21:18 Trazodone HCl (Desyrel) 50 mg QHSP PRN PO INSOMNIA 07/08/20 17:15 Allergies Coded Allergies: No Known Allergies (Verified Allergy, Unknown, 07/08/20) TYLER GIRON MD Jul 24, 2020 11:28
--- NOTE | 2020-07-24 11:46 | MHIPNPDOC ---
[facility] Progress Note Progress Note DATE OF SERVICE: 07/24/20 HISTORY: Note that last progress note was a discharge note VITAL SIGNS: See below. NEW TEST RESULTS: . CURRENT MEDICATIONS: See below. MENTAL STATUS EXAMINATION: Patient is a -year old male, who is . Speech: Is . Language skills are . Thought processes including: . Thought content: . Abstract reasoning, and computation: . Description of associations: . Description of abnormal or psychotic thoughts: . Judgment: . Insight: [very limited, good, fair. poor]. Orientation: . Recent and remote memory: . Attention span and concentration: . Language: . Fund of knowledge: . Mood: . Affect: . DIAGNOSES: 1. . 2. . 3. . ASSESSMENT: MANAGEMENT PLAN: . TIME SPENT: minutes. Vital Signs Vital Signs Date Time Temp Pulse Resp B/P (MAP) Pulse Ox O2 Delivery O2 Flow Rate FiO2 07/23/20 18:19 97.1 94 18 139/63 (88) 07/21/20 07:11 97 Room Air Current Medications Current Medications Medications (Trade) Dose Ordered Sig/Aleksey Route PRN Reason Start Time Stop Time Status Last Admin Dose Admin Al Hydrox/Mg Hydrox/Simethicone (Mylanta) 30 ml Q4HP PRN PO HEARTBURN/INDIGESTION 07/08/20 17:15 Home Med (Med Rec Complete!) ASDIRECTED XX 07/08/20 17:15 07/08/20 17:42 DC Hydroxyzine HCl (Atarax) 50 mg Q6HP PRN PO ANXIETY 07/09/20 15:00 Ibuprofen (Advil) 400 mg Q6HP PRN PO PAIN 07/08/20 17:15 07/23/20 16:54 Magnesium Hydroxide (Milk Of Magnesia) 30 ml DAILYPRN PRN PO CONSTIPATION 07/08/20 17:15 Nicotine (Nicoderm Cq 21mg) 1 patch DAILY TD 07/08/20 09:00 Olanzapine (ZyPREXA) 5 mg BID PO 07/09/20 21:00 07/16/20 16:51 DC 07/16/20 09:06 Olanzapine (ZyPREXA) 5 mg Q4HP PRN PO ANXIETY/AGITATION 07/08/20 17:15 Olanzapine (ZyPREXA) 5 mg QAM PO 07/17/20 09:00 07/19/20 15:29 DC 07/19/20 08:40 Olanzapine (ZyPREXA) 10 mg BID PO 07/19/20 21:00 07/24/20 09:39 Olanzapine (ZyPREXA) 10 mg QHS PO 07/16/20 21:00 07/19/20 15:29 DC 07/18/20 21:18 Trazodone HCl (Desyrel) 50 mg QHSP PRN PO INSOMNIA 07/08/20 17:15 Allergies Coded Allergies: No Known Allergies (Verified Allergy, Unknown, 07/08/20) TYLER GIRON MD Jul 24, 2020 11:46
== END 2020-07-24 12:15 | disposition home or self-care (01) | DRG 885 ==
LOC: M ED 13:05 → M ED INP 17:02 → M PSY 20:14
PROVIDERS: ADMIT Psychiatry & Neurology Psychiatry; ATTEND Psychiatry & Neurology Child & Adolescent Psychiatry
DX: F20.0 Paranoid schizophrenia (principal)

== ENCOUNTER 2020-07-26 01:46 | Inpatient (IN) | payer MEDICARE ==
[~2020-07-26] VITALS: Ht 182.9 cm; Wt 111.9 kg
--- OUTSIDE RECORDS SUMMARY | 2020-07-26 01:51 | CCD ---
Author Author [facility] Organization [facility] Address Unknown Phone Unavailable Support Name Relationship Address Phone DISABLED Next Of Kin Unknown Unavailable LEONARDO KEENE Next Of Kin [address] [place] [address] UNEMPLOYED Next Of Kin Unknown Unavailable GENI KEENE Next Of Kin [address] [facility] [address] [place] [id number] UE Next Of Kin Unknown Unavailable IVON KEENE Next Of Kin [address] [place] [address] KEENEKODI RAMACHANDRAN ECON [address] [place] [address] Unavailable Re-disclosure Warning The records that you are about to access may contain information from federally-assisted alcohol or drug abuse programs. If such information is present, then the following federally mandated warning applies: This information has been disclosed to you from records protected by federal confidentiality rules (42 CFR part 2). The federal rules prohibit you from making any further disclosure of this information unless further disclosure is expressly permitted by the written consent of the person to whom it pertains or as otherwise permitted by 42 CFR part 2. A general authorization for the release of medical or other information is NOT sufficient for this purpose. The Federal rules restrict any use of the information to criminally investigate or prosecute any alcohol or drug abuse patient.The records that you are about to access may contain highly sensitive health information, the redisclosure of which is protected by Article 27-F of the [place] Public Health law. If you continue you may have access to information: Regarding HIV / AIDS; Provided by facilities licensed or operated by the [place] Office of Mental Health; or Provided by the [place] Office for People With Developmental Disabilities. If such information is present, then the following [place] mandated warning applies: This information has been disclosed to you from confidential records which are protected by state law. State law prohibits you from making any further disclosure of this information without the specific written consent of the person to whom it pertains, or as otherwise permitted by law. Any unauthorized further disclosure in violation of state law may result in a fine or nursing home sentence or both. A general authorization for the release of medical or other information is NOT sufficient authorization for further disc losure. Family History Family Member Name Family Member Gender Family Member Status Date o f Status Description Data Source(s) Unknown Unknown Problem [facility] ([facility] Insurance Providers Payer name Policy type / Coverage type Policy ID Covered alliance party ID Covered alliance party's relationship to olson Policy Olson Plan Information MEDICARE [id number] SP [id number] [id number] EMEDNY [id number] SP [id number] MEDICARE [id number] SP [id number] A MEDICARE A [id number] Self [id number] A MEDICAID M [id number] Self [id number] MEDICAID [id number] SP [id number] BCBS [place] HMO [id number] SP [id number] SELF PAY UNAVAILABLE FA2 UNAVAILA BLE Medicare P [id number] S [id number] Medicaid S [id number] S [id number] Medicaid Medicaid [id number] Self [id number] Medicare Medicare Primary [id number] Self 12 [id number] MEDICAID [id number] SP [id number] BLUE CROSS HERNANDEZ PLAN [id number] SP [id number] MEDICARE -CLINIC [id number] 18 [id number] MEDICAID -CLINIC [id number] 18 [id number] MEDICAID -O/P [id number] 18 [id number] MEDICARE -O/P [id number] 18 [id number] [facility] I [id number] Self [id number] MEDICAID CLINIC-PHYSICIAN [id number] 18 [id number] MEDICAID M [id number] Self [id number] [facility] I [id number] Self [id number] COMMERCIAL GENERIC U [id number] Self [id number] [facility] O [id number] S [id number] MEDICAID W [id number] S [id number] BLUE CHOICE OPTION O [id number] S [id number] BLUE CROSS HERNANDEZ PLAN [id number] SP [id number] BLUE CHOICE OPTIONS 7 [id number] 1 [id number] BLUE CHOICE OPTIONS 7 [id number] 1 [id number] SELFPAY 5 UNAVAILABLE 1 UNAVAILA BLE MEDICAID 3 [id number] 1 [id number] [facility] -CLINIC [id number] 18 [id number] EXCELLUS BCBS P [id number] C VYT [id number] W UNAVAILABLE UNAVAILA BLE Results ID Date Data Source [id number] 07/08/2020 04:15:00 PM EST [facility] Name Value Range Interpretation Code Description Data Mayra rce(s) Supporting Document(s) SARS coronavirus 2 RNA [Presence] in Res piratory specimen by ALMA with probe detection NEGATIVE [facility] This lab was ordered by [facility] a nd reported by [facility]. ID Date Data Source [id number] 04/25/2020 07:10:00 PM EST [facility] Name Value Range Interpretation Code Description Data Mayra rce(s) Supporting Document(s) SARS-COV-2 [facility] This lab was ordered by Pete rodriguez and reported by [facility]. ID Date Data Source [id number] 04/17/2020 08:54:00 PM EST [facility] Name Value Range Interpretation Code Description Data Mayra rce(s) Supporting Document(s) SARS-COV-2 [facility] This lab was ordered by Pete rodriguez and reported by [facility]. ID Date Data Source [id number] 04/17/2020 12:00:00 AM EST [facility] Name Value Range Interpretation Code Description Data Mayra rce(s) Supporting Document(s) SARS-CoV-2 (COVID-19) [facility] This lab was ordered by [facility] and reported by [employer]. ID Date Data Source [id number] 04/10/2020 06:03:00 PM EST [facility] Name Value Range Interpretation Code Description Data Mayra rce(s) Supporting Document(s) SARS-CoV-2 (COVID-19) RNA panel - Unspec ified specimen by ALMA with probe detection [facility] This lab was ordered by [facility] COLL[facility] and reported by [facility]. ID Date Data Source [id number] 04/10/2020 12:00:00 AM EST [facility] Name Value Range Interpretation Code Description Data Mayra rce(s) Supporting Document(s) 2019-nCoV RNA XXX ALMA+probe-Imp [facility] This lab was ordered by [facility] and reported by [facility] Public [facility] Lab. Procedure
[2020-07-26] MEDS ORDERED: HALOPERIDOL 5MG/ML VIAL (J1630 PER 1) IM ONE (01:55)
[2020-07-26] MEDS ORDERED: diphenhydrAMINE 50MG/ML VIAL (J1200) IM ONE (01:55)
[2020-07-26] MEDS ORDERED: LORazepam 2 MG/ML VIAL IM ONE (01:55)
[2020-07-26 02:44] LABS: HEMATOCRIT 42.1 % (42.0-52.0); HEMOGLOBIN 13.7 g/dl (13.5-17.5); MEAN CORPUSCULAR HEMOGLOBIN 29.7 pg (27.0-33.0); MEAN CORPUSCULAR HGB CONC 32.5 g/dl (32.0-36.5); MEAN CORPUSCULAR VOLUME 91.3 fl (80.0-96.0); PLATELET COUNT, AUTOMATED 221 10^3/uL (150-450); RED BLOOD COUNT 4.61 10^6/uL (4.30-6.10); WHITE BLOOD COUNT 17.4 10^3/uL (4.0-10.0)
[2020-07-26 03:25] LABS: ACETAMINOPHEN LEVEL < 2.0 UG/ML (10.0-30.0); ALT/SGPT 56 U/L (12-78); BILIRUBIN,DIRECT < 0.1 MG/DL (0.0-0.2); BILIRUBIN,TOTAL 0.3 MG/DL (0.2-1.0); BLOOD UREA NITROGEN 17 MG/DL (7-18); CALCIUM LEVEL 8.9 MG/DL (8.5-10.1); CARBON DIOXIDE LEVEL 25 MEQ/L (21-32); CHLORIDE LEVEL 104 MEQ/L (98-107); CPK CREATINE PHOSPHOKINASE 495 U/L (39-308); CREATININE FOR GFR 1.13 MG/DL (0.70-1.30); ETHYL ALCOHOL (ETHANOL) < 0.003 % (0.000-0.010); GLOMERULAR FILTRATION RATE > 60.0 (>60); GLUCOSE, FASTING 256 MG/DL (70-100); POTASSIUM SERUM 3.2 MEQ/L (3.5-5.1); SALICYLATE LEVEL < 1.7 MG/DL (5.0-30.0); SODIUM LEVEL 139 MEQ/L (136-145)
--- OUTSIDE RECORDS SUMMARY | 2020-07-26 04:04 | CCD ---
Author Author [facility] Organization [facility] Address Unknown Phone Unavailable Support Name Relationship Address Phone DISABLED Next Of Kin Unknown Unavailable LEONARDO KEENE Next Of Kin [address] [place] [address] UNEMPLOYED Next Of Kin Unknown Unavailable GENI KEENE Next Of Kin [address] [facility] [address] [place] [id number] UE Next Of Kin Unknown Unavailable IVON KEENE Next Of Kin [address] [place] [address] KEENEKODI RAMACHANDRAN ECON [address] [place] [address] Unavailable Re-disclosure Warning The records that you [...] is protected by Article 27-F of the [facility] Public Health law. If you continue you may have access to information: Regarding HIV / AIDS; Provided by facilities licensed or operated by the [facility] Office of Mental Health; or Provided by the [facility] Office for People With Developmental Disabilities. If such information is present, then the following [facility] mandated warning applies: This information has been [...] law may result in a fine or snf sentence or both. A general authorization for [...] to olson Policy Olson Plan Information MEDICARE [id number] SP [id number] H85 EMEDNY [id number] SP [id number] MEDICARE [id number] SP [id number] A MEDICARE A [id number] Self [id number] A MEDICAID M [id number] Self [id number] MEDICAID [id number] SP [id number] BCBS [place] H[place] [id number] SP [id number] SELF PAY UNAVAILABLE FA2 UNAVAILA BLE Medicare P [id number] S [id number] Medicaid S [id number] S [id number] Medicaid Medicaid [id number] Self [id number] Medicare Medicare Primary [id number] Self 12 [id number] MEDICAID [id number] SP [id number] BLUE CROSS HERNANDEZ PLAN [id number] SP [id number] MEDICARE -CLINIC [id number] 18 [id number] MEDICAID -CLINIC [id number] 18 [id number] MEDICAID -O/P [id number] 18 [id number] MEDICARE -O/P [id number] 18 [id number] [facility] I [id number] Self [id number] MEDICAID CLINIC-PHYSICIAN [id number] 18 [id number] MEDICAID M [id number] Self [id number] [facility] I [id number] Self [id number] COMMERCIAL GENERIC U [id number] Self [id number] [facility] O [id number] S [id number] MEDICAID W [id number] S [id number] BLUE CHOICE OPTION O [id number] S [id number] BLUE CROSS HERNANDEZ PLAN [id number] SP [id number] BLUE CHOICE OPTIONS 7 [id number] 1 [id number] BLUE CHOICE OPTIONS 7 [id number] 1 [id number] SELFPAY 5 UNAVAILABLE 1 UNAVAILA BLE MEDICAID 3 [id number] 1 [id number] [facility]IC [id number] 18 [id number] EXCELLUS BCBS P [id number] C VYT [id number] W UNAVAILABLE UNAVAILA BLE Results ID Date Data Source [id number] 07/08/2020 04:15:00 PM EST [facility] Name Value Range Interpretation Code Description Data Mayra rce(s) Supporting Document(s) SARS coronavirus 2 RNA [Presence] in Res piratory specimen by ALMA with probe detection NEGATIVE [facility] This lab was ordered by [facility] a nd reported by [facility]. ID Date Data Source [id number] 04/25/2020 07:10:00 PM EST [facility] Name Value Range Interpretation Code Description Data Mayra rce(s) Supporting Document(s) SARS-COV-2 [facility] This lab was ordered by Pete rodriguez and reported by [facility]. ID Date Data Source [id number] 04/17/2020 08:54:00 PM EST [facility] Name Value Range Interpretation Code Description Data Mayra rce(s) Supporting Document(s) SARS-COV-2 [facility] This lab was ordered by Pete rodriguez and reported by [facility]. ID Date Data Source [id number] 04/17/2020 12:00:00 AM EST [facility] Name Value Range Interpretation Code Description Data Mayra rce(s) Supporting Document(s) SARS-CoV-2 (COVID-19) [facility] This lab was ordered by [facility] and reported by [employer]. ID Date Data Source [id number] 04/10/2020 06:03:00 PM EST [facility] Name Value Range Interpretation Code Description Data Mayra rce(s) Supporting Document(s) SARS-CoV-2 (COVID-19) RNA panel - Unspec ified specimen by ALMA with probe detection [facility] This lab was ordered by [facility] COLL[facility] and reported by [facility]. ID Date Data Source [id number] 04/10/2020 12:00:00 AM EST [facility] Name Value Range Interpretation Code Description Data Mayra rce(s) Supporting Document(s) 2019-nCoV RNA XXX ALMA+probe-Imp [facility] This lab was ordered by Department of [facility] and reported by [facility] Public Health Lab. Procedure
[2020-07-26] MEDS ORDERED: LORazepam 2 MG/ML VIAL IV STA (04:50)
--- NOTE | 2020-07-26 06:57 | REPVR ---
PROCEDURE INFORMATION: Exam: XR Chest Exam date and time: 07/26/2020 3:43 AM Age: 34 years old Clinical indication: Other: Hypothermia TECHNIQUE: Imaging protocol: XR of the chest Views: 1 view. COMPARISON: No relevant prior studies available. FINDINGS: Lungs: No consolidation. Pleural spaces: No pleural effusion. No pneumothorax. Heart/Mediastinum: No cardiomegaly. Bones/joints: Unremarkable. IMPRESSION: 1. No evidence of active pulmonary disease. 2. A followup PA and lateral radiograph is recommended when the patient is clinically able. Electronically signed by: Shaun Ospina On 07/26/2020 06:57:36 AM
[2020-07-26 08:37] LABS: AMPHETAMINES LEVEL URINE NEGATIVE (NEGATIVE); BARBITURATES URINE NEGATIVE (NEGATIVE); BENZODIAZEPINES URINE NEGATIVE (NEGATIVE); CANNABINOIDS URINE POSITIVE (NEGATIVE); COCAINE METABOLITE URINE NEGATIVE (NEGATIVE); METHADONE URINE NEGATIVE (NEGATIVE); OPIATES URINE NEGATIVE (NEGATIVE); PHENCYCLIDINE URINE NEGATIVE (NEGATIVE)
[2020-07-26 09:26] LABS: RSV AMPLIFICATION NEGATIVE (NEGATIVE)
[2020-07-26] MEDS ORDERED: MAALOX 30 ML SUSP *UDC PO PRN (12:20)
[2020-07-26] MEDS ORDERED: MOM 30ML SUSPENSION UDC PO PRN (12:20)
[2020-07-26] MEDS ORDERED: ACETAMINOPHEN TAB 650MG DOSE (2X325MG) PO PRN (12:20)
--- OUTSIDE RECORDS SUMMARY | 2020-07-26 13:20 | CCD ---
Author Author [facility] Organization [facility] Address Unknown Phone Unavailable Support Name Relationship Address Phone DISABLED Next Of Kin Unknown Unavailable LEONARDO KEENE Next Of Kin [address] [place] [address] UNEMPLOYED Next Of Kin Unknown Unavailable GENI KEENE Next Of Kin [address] [facility] [address] [place] [id number] UE Next Of Kin Unknown Unavailable IVON KEENE Next Of Kin [address] [place] [address] KEENEKODI RAMACHANDRAN ECON [address] [place] [address] Unavailable Re-disclosure Warning The records that you [...] is protected by Article 27-F of the [facility] Public Health law. If you continue you may have access to information: Regarding HIV / AIDS; Provided by facilities licensed or operated by the [facility] Office of Mental Health; or Provided by the [facility] Office for People With Developmental Disabilities. If such information is present, then the following [facility] mandated warning applies: This information has been [...] law may result in a fine or skilled nursing sentence or both. A general authorization for [...] to olson Policy Olson Plan Information MEDICARE [id number] SP [id number] H85 EMEDNY [id number] SP [id number] MEDICARE [id number] SP [id number] A MEDICARE A [id number] Self [id number] A MEDICAID M [id number] Self [id number] MEDICAID [id number] SP [id number] BCBS [place] H[place] [id number] SP [id number] SELF PAY UNAVAILABLE FA2 UNAVAILA BLE Medicare P [id number] S [id number] Medicaid S [id number] S [id number] Medicaid Medicaid [id number] Self [id number] Medicare Medicare Primary [id number] Self 12 [id number] MEDICAID [id number] SP [id number] BLUE CROSS HERNANDEZ PLAN [id number] SP [id number] MEDICARE -CLINIC [id number] 18 [id number] MEDICAID -CLINIC [id number] 18 [id number] MEDICAID -O/P [id number] MEDICARE -O/P [id number] 18 [id number] [facility] I [id number] Self [id number] MEDICAID CLINIC-PHYSICIAN [id number] 18 [id number] MEDICAID M [id number] Self [id number] [facility] I [id number] Self [id number] COMMERCIAL GENERIC U [id number] Self [id number] [facility] O [id number] S [id number] MEDICAID W [id number] S [id number] BLUE CHOICE OPTION O [id number] S [id number] BLUE CROSS HERNANDEZ PLAN [id number] SP [id number] BLUE CHOICE OPTIONS 7 [id number] 1 [id number] BLUE CHOICE OPTIONS 7 [id number] 1 [id number] SELFPAY 5 UNAVAILABLE 1 UNAVAILA BLE MEDICAID 3 [id number] [facility]INIC [id number] 18 [id number] EXCELLUS BCBS P [id number] C VYT [id number] W UNAVAILABLE UNAVAILA BLE Results ID Date Data Source [id number] 07/08/2020 04:15:00 PM EST [facility] Name Value Range Interpretation Code Description Data Mayra rce(s) Supporting Document(s) SARS coronavirus 2 RNA [Presence] in Res piratory specimen by ALMA with probe detection NEGATIVE [facility] This lab was ordered by [facility] a nd reported by [facility]. ID Date Data Source [id number] 04/25/2020 07:10:00 PM EST [facility] Name Value Range Interpretation Code Description Data Mayra rce(s) Supporting Document(s) SARS-COV-2 [facility] This lab was ordered by Pete rodriguez and reported by [facility]. ID Date Data Source [id number] 04/17/2020 08:54:00 PM EST [facility] Name Value Range Interpretation Code Description Data Mayra rce(s) Supporting Document(s) SARS-COV-2 [facility] This lab was ordered by Pete rodriguez and reported by [facility]. ID Date Data Source [id number] 04/17/2020 12:00:00 AM EST [facility] Name Value Range Interpretation Code Description Data Mayra rce(s) Supporting Document(s) SARS-CoV-2 (COVID-19) [facility] This lab was ordered by [facility] and reported by [employer]. ID Date Data Source [id number] 04/10/2020 06:03:00 PM EST [facility] Name Value Range Interpretation Code Description Data Mayra rce(s) Supporting Document(s) SARS-CoV-2 (COVID-19) RNA panel - Unspec ified specimen by ALMA with probe detection [facility] This lab was ordered by [facility] COLLINS and reported by [facility]. ID Date Data Source [id number] 04/10/2020 12:00:00 AM EST [facility] Name Value Range Interpretation Code Description Data Mayra rce(s) Supporting Document(s) 2019-nCoV RNA XXX [facility]-Imp [facility] This lab was ordered by [facility] of [facility] and reported by [facility] Public Health Lab. Procedure
[2020-07-26] MEDS: traZODone 50 MG TAB PO PRN (20:32)
[2020-07-27 06:15] VITALS: BP 105/57
[2020-07-27] MEDS: OLANZapine 5 MG TAB PO SCH ×2 (09:48→21:11)
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
[2020-07-27 17:28] VITALS: BP 140/75
[2020-07-28] MEDS: OLANZapine 5 MG TAB PO SCH ×2 (09:46→21:20)
[2020-07-28 10:04] LABS: BASO % 0.4 % (0.0-1.0); EOS # 0.3 10^3/uL (0.0-0.5); EOS % 5.6 % (0.0-3.0); HEMATOCRIT 38.7 % (42.0-52.0); HEMOGLOBIN 12.5 g/dl (13.5-17.5); LYMPH # 1.7 10^3/uL (1.5-5.0); LYMPH % 32.1 % (24.0-44.0); MEAN CORPUSCULAR HEMOGLOBIN 30.1 pg (27.0-33.0); MEAN CORPUSCULAR HGB CONC 32.3 g/dl (32.0-36.5); MEAN CORPUSCULAR VOLUME 93.3 fl (80.0-96.0); MONO # 0.4 10^3/uL (0.0-0.8); MONO % 7.1 % (2.0-8.0); NEUTROPHILS # 2.8 10^3/uL (1.5-8.5); NEUTROPHILS % 54.6 % (36.0-66.0); PLATELET COUNT, AUTOMATED 165 10^3/uL (150-450); RED BLOOD COUNT 4.15 10^6/uL (4.30-6.10); WHITE BLOOD COUNT 5.2 10^3/uL (4.0-10.0)
[2020-07-28 13:08] LABS: BLOOD UREA NITROGEN 10 MG/DL (7-18); CALCIUM LEVEL 8.9 MG/DL (8.5-10.1); CARBON DIOXIDE LEVEL 31 MEQ/L (21-32); CHLORIDE LEVEL 109 MEQ/L (98-107); CREATININE FOR GFR 1.09 MG/DL (0.70-1.30); GLOMERULAR FILTRATION RATE > 60.0 (>60); GLUCOSE, FASTING 117 MG/DL (70-100); POTASSIUM SERUM 4.1 MEQ/L (3.5-5.1); SODIUM LEVEL 144 MEQ/L (136-145)
--- NOTE | 2020-07-28 14:51 | HPEPDOC ---
General Date of Admission Jul 26, 2020 at 12:18 Date of Service: Jul 28, 2020 Chief Complaint The patient is a 34-year-old male admitted with a reason for visit of Unspecified Psychotic Disorder. Source: Patient, RN/MD History of Present Illness 34 year old male admitted to [facility] for unspecified Psychosis. He is being medically examined today. Today he complained of left great toe pain. denied any other complains . Pain was about 4/10 and dull aching in nature no radiation and no difficulty in moving the toe. Home Medications No Active Prescriptions or Reported Meds Allergies Coded Allergies: No Known Allergies (Verified Allergy, Unknown, 07/08/20) Past Medical History Medical History Substance abuse Bipolar Disorder Schizophrenia psychosis Depression with suicidal ideas Head trauma x 4 Surgical History Appendectomy Hx Obesity S/p gastric bypass 2015. wisdom teeth extraction Family History Discussed with shwetha does not know about any family medical history Social History * Smoker: Denies Alcohol: Denies Drugs: marijuana A-FIB/CHADSVASC A-FIB History Current/History of A-Fib/PAF?: No Review of Systems Constitutional: Denies: Chills, Fever, Night Sweats Eyes: Denies: Pain, Vision change ENT: Denies: Head Aches, Ear Pain, Dysphagia Skin: Denies: Rash, Lesions, Breakdown Pulmonary: Denies: Dyspnea, Cough Cardiovascular: Denies: Chest Pain, Palpitations, Orthopnea, Paroxysmal Noc. Dyspnea, Lt Headedness Gastrointestinal: Denies: Nausea, Vomiting, Abdominal Pain, Diarrhea Genitourinary: Denies: Dysuria, Frequency, Incontinence, Retention Hematologic: Denies: Bruising, Bleeding Excessively Musculoskeletal: Denies: Neck Pain, Back Pain, Muscle Pain, Spasms Neurological: Denies: Weakness, Numbness, Change in speech, Confusion Physical Examination General Exam: Positive: Alert, Cooperative, No Acute Distress Eye Exam: Positive: PERRLA, Conjunctiva & lids normal, EOMI; Negative: Sclera icteric ENT Exam: Positive: Atraumatic, Mucous membr. moist/pink, Pharynx Normal Neck Exam: Positive: Supple; Negative: JVD, thyromegaly Chest Exam: Positive: Clear to auscultation, Normal air movement Heart Exam: Positive: Rate Normal, Regular Rhythm, Normal S1, Normal S2; Negative: Murmurs, Rubs Telemetry: Positive: No significant arrhythmia Abdomen Exam: Positive: Normal bowel sounds, Soft; Negative: Tenderness, Hepatospenomegaly Extremity Exam: Positive: Normal pulses; Negative: Clubbing, Cyanosis, Edema Skin Exam: Positive: Nl turgor and temperature; Negative: Breakdown, Lesion Neuro Exam: Positive: Normal Gait, Normal Speech, Cranial Nerves 3-12 NL, Reflexes 2+ Psych Exam: Positive: Oriented x 3 Vital Signs Vital Signs Date Time Temp Pulse Resp B/P (MAP) Pulse Ox O2 Delivery O2 Flow Rate FiO2 07/27/20 17:28 98.4 97 16 140/75 (96) 07/27/20 10:30 Room Air 07/27/20 06:15 96 Assessment/Plan 34 year old male admitted to [facility] for unspecified Psychosis. He is being medically examined today. Toe pain no swelling, or inflammation, no difficulty in active or passive movements tylenol prn Psychiatric issues As per psychiatry. Plan / VTE VTE Prophylaxis Ordered?: No YARI ROBISON MD Jul 28, 2020 08:58
[2020-07-28 16:50] VITALS: BP 126/61
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
[2020-07-29] MEDS: OLANZapine 5 MG TAB PO SCH ×2 (09:37→21:50)
--- NOTE | 2020-07-29 16:50 | MHIPNPDOC ---
[facility] Progress Note Progress Note DATE OF SERVICE: 07/29/20 HISTORY: 34-year-old extensively traveled male with schizophrenia. Recently discharged to pursue medication ended up being picked up by police when he was laying in the snow VITAL SIGNS: See below. NEW TEST RESULTS: None. CURRENT MEDICATIONS: See below. MENTAL STATUS EXAMINATION: Patient is a 34-year old male, who is, significantly clearer today. Speech: Is intact. Language skills are. No gross abnormalities. Thought processes including: Realistic possibility of going back to school. Thought content:. No gross abnormality. Abstract reasoning, and computation: Able to abstract. Description of associations:. No loose associations. Description of abnormal or psychotic thoughts: No psychotic thought. Today. Judgment:, Improved. Insight: Fair. Orientation: 3. Recent and remote memory: Intact. Attention span and concentration: Intact. Language: No gross abnormality. Fund of knowledge: Reasonable. Mood: Euthymic. Affect:, Congruent. DIAGNOSES: 1. Chronic schizophrenia. 2. Drug abuse 3. None. ASSESSMENT:, Significantly improved, even over the last admission MANAGEMENT PLAN:. Will discuss with staff and once again try an outpatient plan. TIME SPENT: 30 minutes. Vital Signs Vital Signs Date Time Temp Pulse Resp B/P (MAP) Pulse Ox O2 Delivery O2 Flow Rate FiO2 07/29/20 09:00 Room Air 07/28/20 16:50 98.0 64 20 126/61 (82) 07/27/20 06:15 96 Current Medications Current Medications Medications (Trade) Dose Ordered Sig/Aleksey Route PRN Reason Start Time Stop Time Status Last Admin Dose Admin Acetaminophen (Tylenol Tab) 650 mg Q6HP PRN PO HEADACHE or DISCOMFORT 07/26/20 12:20 07/26/20 20:32 Al Hydrox/Mg Hydrox/Simethicone (Mylanta) 30 ml Q4HP PRN PO HEARTBURN/INDIGESTION 07/26/20 12:20 Home Med (Med Rec Complete!) ASDIRECTED XX 07/26/20 12:25 07/26/20 12:27 DC Lorazepam (Ativan) 2 mg STAT STAT IV 07/26/20 04:50 07/26/20 04:51 DC 07/26/20 05:26 Magnesium Hydroxide (Milk Of Magnesia) 30 ml DAILYPRN PRN PO CONSTIPATION 07/26/20 12:20 Olanzapine (ZyPREXA) 5 mg BID PO 07/27/20 09:00 07/29/20 09:37 Trazodone HCl (Desyrel) 50 mg QHSP PRN PO INSOMNIA 07/26/20 12:20 07/26/20 20:32 Allergies Coded Allergies: No Known Allergies (Verified Allergy, Unknown, 07/08/20) TYLER GIRON MD Jul 29, 2020 16:50
[2020-07-29 18:38] VITALS: BP 145/89
[2020-07-30 06:52] VITALS: BP 102/51
[2020-07-30] MEDS: OLANZapine 5 MG TAB PO SCH ×2 (09:38→21:56)
--- NOTE | 2020-07-30 14:46 | MHIPNPDOC ---
[facility] Progress Note Progress Note DATE OF SERVICE: 07/30/20 HISTORY: Recently discharged with schizophrenia and numerous paranoid and grandiose delusions readmitted 2 days later after found wandering in the snow. Post drug use. VITAL SIGNS: See below. NEW TEST RESULTS:. None. CURRENT MEDICATIONS: See below. MENTAL STATUS EXAMINATION: Patient is a 34-year old male, who is stating he is sick today, has a sore throat and is not getting out of bed. Speech: Is. Speech as of yesterday was improved with a smoother rhythm. Language skills are. No gross disturbances. Thought processes including: Continue changing of discharge plans by patient. Thought content: As above. Abstract reasoning, and computation: Able to abstract. Description of associations:. No loose association. Description of abnormal or psychotic thoughts: Continued grandiose delusions and unrealistic plans. Always changing. Judgment: Poor Insight:., Poor Orientation: 3. Recent and remote memory: Variable. Attention span and concentration: Intact. Language:. No gross disturbance. Fund of knowledge: Full. Mood:, Euthymic. Affect:, Serious at times suspicious. DIAGNOSES: 1., Schizophrenia. 2., Drug abuse. 3., None. ASSESSMENT: As above MANAGEMENT PLAN:. Continue to observe prior to any possibility of discharge. prognosis continues poor. TIME SPENT: 30 minutes. Vital Signs Vital Signs Date Time Temp Pulse Resp B/P (MAP) Pulse Ox O2 Delivery O2 Flow Rate FiO2 07/30/20 06:52 97.5 51 20 102/51 (68) 07/29/20 09:00 Room Air 07/27/20 06:15 96 Current Medications Current Medications Medications (Trade) Dose Ordered Sig/Aleksey Route PRN Reason Start Time Stop Time Status Last Admin Dose Admin Acetaminophen (Tylenol Tab) 650 mg Q6HP PRN PO HEADACHE or DISCOMFORT 07/26/20 12:20 07/26/20 20:32 Al Hydrox/Mg Hydrox/Simethicone (Mylanta) 30 ml Q4HP PRN PO HEARTBURN/INDIGESTION 07/26/20 12:20 Home Med (Med Rec Complete!) ASDIRECTED XX 07/26/20 12:25 07/26/20 12:27 DC Lorazepam (Ativan) 2 mg STAT STAT IV 07/26/20 04:50 07/26/20 04:51 DC 07/26/20 05:26 Magnesium Hydroxide (Milk Of Magnesia) 30 ml DAILYPRN PRN PO CONSTIPATION 07/26/20 12:20 Olanzapine (ZyPREXA) 5 mg BID PO 07/27/20 09:00 07/30/20 09:38 Trazodone HCl (Desyrel) 50 mg QHSP PRN PO INSOMNIA 07/26/20 12:20 07/26/20 20:32 Allergies Coded Allergies: No Known Allergies (Verified Allergy, Unknown, 07/08/20) TYLER GIRON MD Jul 30, 2020 14:46
[2020-07-31] MEDS: OLANZapine 5 MG TAB PO SCH ×2 (10:01→21:11)
--- NOTE | 2020-07-31 15:10 | MHIPNPDOC ---
[facility] Progress Note Progress Note DATE OF SERVICE: 07/31/20 HISTORY: 34-year-old male, [place], though he seemed to still have paranoid and grandiose some grandiose delusions and was then readmitted after using drugs and being found laying in the snow. VITAL SIGNS: See below. NEW TEST RESULTS: None. CURRENT MEDICATIONS: See below. 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 He states he will take his medication but states he will now get restraining orders against 13 people including grandfather, stepmother and others. He is no longer worried about the lawsuits he was planning. His plans change daily. Speech: Is characterized by sudden stops and hesitation of answers which may be thought blocking, though he does not seem to be responding to internal stimuli but might be. Language skills are no gross disturbance. Thought processes including: Include paranoia and grandiose delusions Thought content: As above. Abstract reasoning, and computation: [place]. D escription of associations: O loose association. Description of abnormal or psychotic thoughts:. Paranoid delusions and grandiose delusions. Judgment: Poor Insight:, Poor. Orientation: 3. Recent and remote memory: Intact. Attention span and concentration: Intact. Language: No gross disturbance. Fund of knowledge: Full. Mood:, Euthymic. Affect: Flat. DIAGNOSES: 1. Paranoid schizophrenia. 2., Drug abuse. 3., None. ASSESSMENT: As above MANAGEMENT PLAN: Continue to observe and plan for discharge. Again. TIME SPENT:, 35 minutes. Vital Signs Vital Signs Date Time Temp Pulse Resp B/P (MAP) Pulse Ox O2 Delivery O2 Flow Rate FiO2 07/30/20 06:52 97.5 51 20 102/51 (68) 07/29/20 09:00 Room Air 07/27/20 06:15 96 Current Medications Current Medications Medications (Trade) Dose Ordered Sig/Aleksey Route PRN Reason Start Time Stop Time Status Last Admin Dose Admin Acetaminophen (Tylenol Tab) 650 mg Q6HP PRN PO HEADACHE or DISCOMFORT 07/26/20 12:20 07/26/20 20:32 Al Hydrox/Mg Hydrox/Simethicone (Mylanta) 30 ml Q4HP PRN PO HEARTBURN/INDIGESTION 2/25/21 12:20 Home Med (Med Rec Complete!) ASDIRECTED XX 07/26/20 12:25 07/26/20 12:27 DC Lorazepam (Ativan) 2 mg STAT STAT IV 07/26/20 04:50 07/26/20 04:51 DC 07/26/20 05:26 Magnesium Hydroxide (Milk Of Magnesia) 30 ml DAILYPRN PRN PO CONSTIPATION 07/26/20 12:20 Olanzapine (ZyPREXA) 5 mg BID PO 07/27/20 09:00 07/31/20 10:01 Trazodone HCl (Desyrel) 50 mg QHSP PRN PO INSOMNIA 07/26/20 12:20 07/26/20 20:32 Allergies Coded Allergies: No Known Allergies (Verified Allergy, Unknown, 07/08/20) TYLER GIRON MD Jul 31, 2020 15:10
[2020-07-31 16:48] VITALS: BP 134/87
[2020-07-31] MEDS: traZODone 50 MG TAB PO PRN (21:11)
[2020-08-01] MEDS: OLANZapine 5 MG TAB PO SCH ×2 (09:25→22:08)
[2020-08-02] MEDS: OLANZapine 5 MG TAB PO SCH ×2 (09:10→21:38)
--- NOTE | 2020-08-02 16:19 | MHIPNPDOC ---
[facility] Progress Note Progress Note DATE OF SERVICE: 08/02/20 HISTORY: 34-year-old male with schizoaffective disorder readmitted after using drugs significantly improved in affect, but certainly indications that he still responding to internal stimuli. 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 VITAL SIGNS: See below. NEW TEST RESULTS: None. CURRENT MEDICATIONS: See below. MENTAL STATUS EXAMINATION: Patient is a 34-year old male, who is feeling well and appears less suspicious, still plans to put restraining orders on 13 people and is previously plans to take them to court and represent himself. Speech: Is normal. Language skills are. No gross disturbance. Thought processes including: As far as he expresses himself. There is no disturbance in his thought process, but his facial expressions, and hesitation in his speech at times makes this concerned that he is having internal stimuli. Thought content:. No gross disturbance. Abstract reasoning, and computation: [place]. Description of associations:. No loose association. Description of abnormal or psychotic thoughts:. No obvious psychotic thought much grandiosity in his history. Judgment:, Poor. Insight:, Limited. Orientation: 3. Recent and remote memory: Intact. Attention span and concentration: Poor. Language: No gross disturbance. Fund of knowledge: Full. Mood:, Euthymic. Affect:, Congruent. DIAGNOSES: 1. Schizoaffective disorder. 2.. Drug abuse. 3. None. ASSESSMENT: As above MANAGEMENT PLAN: Plan. Discharge. TIME SPENT: 35 minutes. Vital Signs Vital Signs Date Time Temp Pulse Resp B/P (MAP) Pulse Ox O2 Delivery O2 Flow Rate FiO2 07/31/20 16:48 97.5 84 18 134/87 (103) 98 Room Air Current Medications Current Medications Medications (Trade) Dose Ordered Sig/Aleksey Route PRN Reason Start Time Stop Time Status Last Admin Dose Admin Acetaminophen (Tylenol Tab) 650 mg Q6HP PRN PO HEADACHE or DISCOMFORT 07/26/20 12:20 07/26/20 20:32 Al Hydrox/Mg Hydrox/Simethicone (Mylanta) 30 ml Q4HP PRN PO HEARTBURN/INDIGESTION 07/26/20 12:20 Home Med (Med Rec Complete!) ASDIRECTED XX 07/26/20 12:25 07/26/20 12:27 DC Lorazepam (Ativan) 2 mg STAT STAT IV 07/26/20 04:50 07/26/20 04:51 DC 07/26/20 05:26 Magnesium Hydroxide (Milk Of Magnesia) 30 ml DAILYPRN PRN PO CONSTIPATION 07/26/20 12:20 Olanzapine (ZyPREXA) 5 mg BID PO 07/27/20 09:00 08/02/20 09:10 Trazodone HCl (Desyrel) 50 mg QHSP PRN PO INSOMNIA 07/26/20 12:20 07/31/20 21:11 Allergies Coded Allergies: No Known Allergies (Verified Allergy, Unknown, 07/08/20) TYLER GIRON MD Aug 02, 2020 16:19
[2020-08-02 17:21] VITALS: BP 151/82
[2020-08-03] MEDS: OLANZapine 5 MG TAB PO SCH ×2 (09:16→21:28)
--- NOTE | 2020-08-03 16:16 | MHIPNPDOC ---
[facility] Progress Note Progress Note DATE OF SERVICE: 08/03/20 HISTORY: 34-year-old with chronic schizophrenia, VITAL SIGNS: See below. NEW TEST RESULTS: None. CURRENT MEDICATIONS: See below. MENTAL STATUS EXAMINATION: Patient is a 33-year old male, who is, still delusional. Speech: Is, intact. Language skills are intact Thought processes including: Desired to file restraining orders and 13 people. Thought content: As above. Abstract reasoning, and computation: Able to abstract. Description of associations: Looseness associations. Description of abnormal or psychotic thoughts: Continues to have quiet psychotic thoughts. Judgment:, Poor. Insight:, Poor. Orientation: 3. Recent and remote memory: Poor. Memory. Attention span and concentration: No difficulties. Language:. No gross abnormalities. Fund of knowledge:, Reasonable. Mood: Euthymic. Affect:, Flat. DIAGNOSES: 1. Chronic schizophrenia. 2., Drug abuse. 3., None. ASSESSMENT: As above MANAGEMENT PLAN: May need intramuscular injection. TIME SPENT: 35 minutes. Vital Signs Vital Signs Date Time Temp Pulse Resp B/P (MAP) Pulse Ox O2 Delivery O2 Flow Rate FiO2 08/02/20 17:21 98.1 85 18 151/82 (105) 07/31/20 16:48 98 Room Air Current Medications Current Medications Medications (Trade) Dose Ordered Sig/Aleksey Route PRN Reason Start Time Stop Time Status Last Admin Dose Admin Acetaminophen (Tylenol Tab) 650 mg Q6HP PRN PO HEADACHE or DISCOMFORT 07/26/20 12:20 07/26/20 20:32 Al Hydrox/Mg Hydrox/Simethicone (Mylanta) 30 ml Q4HP PRN PO HEARTBURN/INDIGESTION 07/26/20 12:20 Home Med (Med Rec Complete!) ASDIRECTED XX 07/26/20 12:25 07/26/20 12:27 DC Lorazepam (Ativan) 2 mg STAT STAT IV 07/26/20 04:50 07/26/20 04:51 DC 07/26/20 05:26 Magnesium Hydroxide (Milk Of Magnesia) 30 ml DAILYPRN PRN PO CONSTIPATION 07/26/20 12:20 Olanzapine (ZyPREXA) 5 mg BID PO 07/27/20 09:00 08/03/20 09:16 Trazodone HCl (Desyrel) 50 mg QHSP PRN PO INSOMNIA 07/26/20 12:20 07/31/20 21:11 Allergies Coded Allergies: No Known Allergies (Verified Allergy, Unknown, 07/08/20) TYLER GIRON MD Aug 03, 2020 16:16
[2020-08-03] MEDS: traZODone 50 MG TAB PO PRN (23:11)
[2020-08-04 06:34] VITALS: BP 121/58
[2020-08-04] MEDS: OLANZapine 5 MG TAB PO SCH ×2 (09:46→21:38)
[2020-08-05] MEDS: OLANZapine 5 MG TAB PO SCH ×2 (09:11→21:41)
[2020-08-05] MEDS: traZODone 50 MG TAB PO PRN (22:33)
[2020-08-06] MEDS ORDERED: OLAN5TAB PO (08:04)
[2020-08-06] MEDS ORDERED: TRAZ-252 PO (08:04)
[2020-08-06] MEDS: OLANZapine 5 MG TAB PO SCH (09:00)
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
== END 2020-08-06 14:57 | disposition home or self-care (01) | DRG 885 ==
LOC: M ED 01:46 → M ED INP 12:18 → M PSY 14:44
PROVIDERS: ADMIT Psychiatry & Neurology Child & Adolescent Psychiatry; ATTEND Psychiatry & Neurology Child & Adolescent Psychiatry
DX: F25.9 Schizoaffective disorder, unspecified (principal); Z98.84 Bariatric surgery status; F16.10 Hallucinogen abuse, uncomplicated

== ENCOUNTER 2020-08-14 01:00 | Emergency (ER) | payer MEDICARE ==
[~2020-08-14] VITALS: Ht 182.9 cm; Wt 112.0 kg
[~2020-08-14 01:00] MED LIST changes: +OLAN5TAB PO
--- NOTE | 2020-08-14 08:03 | REP ---
INDICATION: Left lower leg pain. COMPARISON: None. TECHNIQUE: Four views of the left calf are provided. FINDINGS: Four views of the left tib fib demonstrate 2 dystrophic calcifications in the anterior calf soft tissues. Bones, joints and soft tissues are otherwise unremarkable. There is Achilles calcaneal spurring.. No fracture or subluxation is seen. No opaque foreign body noted. IMPRESSION: No acute bony abnormality. Achilles heel spur. Soft tissue calcifications.. <Electronically signed by Serg Aggarwal > 08/14/20 0752
[2020-08-14] MEDS ORDERED: ACETAMINOPHEN 500 MG TAB PO ONE (08:05)
--- NOTE | 2020-08-14 08:48 | REP ---
INDICATION: left lower leg lateral area, tender nodule noted. COMPARISON: None. TECHNIQUE: Multiple ultrasonographic images of the left lower leg are performed over the area of the palpable lump anterolaterally. FINDINGS: In the location of the palpable lump there is an echogenic structure with stromal acoustic shadowing suggesting this is a solid structure. It is approximately 1.4 mm deep to the skin surface underlying the transducer. There is compression of the soft tissues by the transducer. The echogenic structure measures 6 x 6 x 5 mm. IMPRESSION: Focal 6 x 6 x 5 mm echogenic structure corresponding to the palpable nodule, approximately 1.4 mm from the skin surface with strong acoustic shadowing. This could represent a foreign body or a calcification. <Electronically signed by Yasmany Jacob > 08/14/20 2109
[2020-08-14 09:28] VITALS: BP 111/59
[2020-08-14] MEDS ORDERED: ZYPR10TA PO (23:34)
[2020-08-14] MEDS ORDERED: TRAZ-186 PO (23:34)
== END 2020-08-14 09:30 | disposition home or self-care (01) ==
LOC: M ED 01:00
DX: R22.42 Localized swelling, mass and lump, left lower limb (principal); I10 Essential (primary) hypertension; F31.9 Bipolar disorder, unspecified; Z79.899 Other long term (current) drug therapy; Z98.84 Bariatric surgery status; F17.210 Nicotine dependence, cigarettes, uncomplicated

== ENCOUNTER 2020-08-14 20:20 | Inpatient (IN) | payer MEDICARE ==
[~2020-08-14] VITALS: Ht 182.9 cm; Wt 114.7 kg
[2020-08-14 21:33] LABS: HEMATOCRIT 39.4 % (42.0-52.0); HEMOGLOBIN 13.2 g/dl (13.5-17.5); MEAN CORPUSCULAR HEMOGLOBIN 30.4 pg (27.0-33.0); MEAN CORPUSCULAR HGB CONC 33.5 g/dl (32.0-36.5); MEAN CORPUSCULAR VOLUME 90.8 fl (80.0-96.0); PLATELET COUNT, AUTOMATED 202 10^3/uL (150-450); RED BLOOD COUNT 4.34 10^6/uL (4.30-6.10); WHITE BLOOD COUNT 4.6 10^3/uL (4.0-10.0)
[2020-08-14 22:09] LABS: AMPHETAMINES LEVEL URINE NEGATIVE (NEGATIVE); BARBITURATES URINE NEGATIVE (NEGATIVE); BENZODIAZEPINES URINE NEGATIVE (NEGATIVE); CANNABINOIDS URINE POSITIVE (NEGATIVE); COCAINE METABOLITE URINE NEGATIVE (NEGATIVE); METHADONE URINE NEGATIVE (NEGATIVE); OPIATES URINE NEGATIVE (NEGATIVE); PHENCYCLIDINE URINE NEGATIVE (NEGATIVE)
[2020-08-14 22:20] LABS: ACETAMINOPHEN LEVEL < 2.0 UG/ML (10.0-30.0); ALBUMIN 3.7 GM/DL (3.2-5.2); ALT/SGPT 26 U/L (12-78); BILIRUBIN,DIRECT 0.1 MG/DL (0.0-0.2); BILIRUBIN,TOTAL 0.3 MG/DL (0.2-1.0); BLOOD UREA NITROGEN 7 MG/DL (7-18); CALCIUM LEVEL 8.8 MG/DL (8.5-10.1); CARBON DIOXIDE LEVEL 30 MEQ/L (21-32); CHLORIDE LEVEL 109 MEQ/L (98-107); CREATININE FOR GFR 0.98 MG/DL (0.70-1.30); ETHYL ALCOHOL (ETHANOL) < 0.003 % (0.000-0.010); GLOMERULAR FILTRATION RATE > 60.0 (>60); GLUCOSE, FASTING 123 MG/DL (70-100); POTASSIUM SERUM 4.1 MEQ/L (3.5-5.1); SALICYLATE LEVEL < 1.7 MG/DL (5.0-30.0); SODIUM LEVEL 141 MEQ/L (136-145); THYROID STIMULATING HORMONE 0.792 uIU/ML (0.358-3.740); TOTAL PROTEIN 6.3 GM/DL (6.4-8.2)
[2020-08-14 22:50] LABS: RSV AMPLIFICATION NEGATIVE (NEGATIVE)
[2020-08-14] MEDS ORDERED: MOM 30ML SUSPENSION UDC PO PRN (23:25)
[2020-08-14] MEDS ORDERED: MAALOX 30 ML SUSP *UDC PO PRN (23:25)
[2020-08-14] MEDS ORDERED: traZODone 50 MG TAB PO PRN (23:25)
[2020-08-14] MEDS ORDERED: ZYPR10TA PO (23:34)
[2020-08-14] MEDS ORDERED: TRAZ-186 PO (23:34)
[2020-08-14] MEDS ORDERED: OLANZapine 5 MG TAB PO PRN (23:35)
[2020-08-15 00:06] VITALS: BP 132/78
[2020-08-15 00:43] VITALS: BP 147/87
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
[2020-08-15] MEDS ORDERED: PALIPERIDONE PALMITATE 234MG/1.5ML INJ (INVEGA)(FREE PSY INPT ONLY) IM ONE (09:00)
--- NOTE | 2020-08-15 09:41 | ECGEPIP ---
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
[2020-08-15 16:42] VITALS: BP 127/90
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
[2020-08-16] MEDS ORDERED: DIVALPROEX 250 MG TAB PO SCH (09:00)
[2020-08-16] MEDS ORDERED: PALIPERIDONE PALMITATE 156MG/1ML INJ(INVEGA)(FREE PSY INPT ONLY) IM ONE (09:00)
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
[2020-08-16 18:48] VITALS: BP 142/75
[2020-08-16] MEDS ORDERED: DIVALPROEX 500 MG TAB PO SCH (21:00)
[2020-08-17 06:00] VITALS: BP 114/71
[2020-08-17 07:05] LABS: BASO % 0.5 % (0.0-1.0); EOS # 0.3 10^3/uL (0.0-0.5); EOS % 3.9 % (0.0-3.0); HEMATOCRIT 39.8 % (42.0-52.0); HEMOGLOBIN 13.4 g/dl (13.5-17.5); LYMPH % 30.8 % (24.0-44.0); MEAN CORPUSCULAR HEMOGLOBIN 30.9 pg (27.0-33.0); MEAN CORPUSCULAR HGB CONC 33.7 g/dl (32.0-36.5); MEAN CORPUSCULAR VOLUME 91.7 fl (80.0-96.0); MONO # 0.4 10^3/uL (0.0-0.8); MONO % 6.4 % (2.0-8.0); NEUTROPHILS # 3.7 10^3/uL (1.5-8.5); NEUTROPHILS % 58.1 % (36.0-66.0); PLATELET COUNT, AUTOMATED 192 10^3/uL (150-450); RED BLOOD COUNT 4.34 10^6/uL (4.30-6.10); WHITE BLOOD COUNT 6.4 10^3/uL (4.0-10.0)
[2020-08-17 07:51] LABS: PERCENT SATURATION 9.5 % (19.7-50.0)
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
[2020-08-17 09:41] LABS: FOLATE 11.3 NG/ML (>5.4)
[2020-08-17] MEDS ORDERED: TUBERCULIN PPD 5 UNITS/0.1 ML ID ONE ×3 (09:50→10:00)
[2020-08-18] MEDS ORDERED: PALIPERIDONE PALMITATE 156MG/1ML INJ(INVEGA)(FREE PSY INPT ONLY) IM ONE ×2 (09:00→11:20)
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
[2020-08-18] MEDS: ACETAMINOPHEN TAB 650MG DOSE (2X325MG) PO PRN (22:11)
[2020-08-19] MEDS ORDERED: PPD DOCUMENTATION ENTRY MISC XX ONE (10:00)
[2020-08-19] MEDS: ACETAMINOPHEN TAB 650MG DOSE (2X325MG) PO PRN (19:57)
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
[2020-08-20 18:23] VITALS: BP 123/58
[2020-08-20] MEDS: ACETAMINOPHEN TAB 650MG DOSE (2X325MG) PO PRN (18:51)
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
[2020-08-21 16:58] VITALS: BP 131/69
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
[2020-08-22 17:31] VITALS: BP 114/77
[2020-08-22] MEDS: ACETAMINOPHEN TAB 650MG DOSE (2X325MG) PO PRN (19:36)
[2020-08-23 06:49] VITALS: BP 113/63
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
[2020-08-23 18:29] VITALS: BP 150/72
[2020-08-23 18:30] VITALS: BP 148/72
[2020-08-23] MEDS: ACETAMINOPHEN TAB 650MG DOSE (2X325MG) PO PRN (19:51)
[2020-08-24 06:25] VITALS: BP 116/62
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
[2020-08-25 18:36] VITALS: BP 130/75
[2020-08-26] MEDS: ACETAMINOPHEN TAB 650MG DOSE (2X325MG) PO PRN (00:22)
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
[2020-08-26 17:31] VITALS: BP 147/90
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
[2020-08-28 06:35] VITALS: BP 106/53
--- NOTE | 2020-08-28 18:00 | MHIPN ---
[facility] PROGRESS NOTE DATE: 08/28/2020 SUBJECTIVE: "I want to go to [facility]. My medical social worker is working on it." OBJECTIVE: Patient was admitted because of bizarre behavior, making grandiose statements. Currently he is improving on mood stabilizers. The patient has a history of traumatic brain injury (TBI), has history of personality change, had multiple psychiatric hospitalizations. MENTAL STATUS EXAMINATION: He is casually dressed. Makes good eye contact. Cooperative. Speech, rate, rhythm, volume are good. Mood is euthymic, somewhat anxious. Affect is full range. Thought process goal directed. Thought content: Denied any suicidal or homicidal ideas. Patient denies any auditory or visual hallucinations. He is alert and oriented to time, place, and person. Memory remote and recent are good. Insight and judgment are fair. VITAL SIGNS: Temperature 97.4, pulse is 50, respiratory rate is 18, blood pressure is 106/53, pulse oximetry 97. ASSESSMENT: Schizoaffective disorder, bipolar type. PLAN: Continue current medications. Continue individual, group, and milieu therapy. ESTIMATED LENGTH OF STAY: 2-3 days. TIME SPENT: 25 minutes.
[2020-08-29 06:50] VITALS: BP 113/75
--- NOTE | 2020-08-29 16:25 | MHIPN ---
[facility] PROGRESS NOTE DATE: 08/29/2020 SUBJECTIVE: Insisting upon going to [place]. Reports he slept well. OBJECTIVE: Patient was admitted because of bizarre behavior. He is grandiose, making statements which are grandiose. Currently improving on mood stabilizer. Patient has a history of traumatic brain injury. He has multiple psychiatric hospitalizations. MENTAL STATUS EXAMINATION: Casually dressed. Cooperative. Seen walking in the hallway, interacting with peers and the staff. Speech rate, rhythm, volume are good. Mood is euthymic. Affect is full range. Thought process goal directed. Thought content: Denied suicidal or homicidal ideas. Patient denied any auditory or visual hallucinations. He is alert and oriented to time, place, and person. Memory, remote and recent, is good. Insight and judgment are good. VITAL SIGNS: Temperature 97.2, pulse 52, respiratory rate 18, blood pressure 113/75, pulse oximetry 98. DIAGNOSES: 1. Mood disorder, not otherwise specified. 2. Traumatic brain injury. PLAN: Continue current medication and plan on his discharge. TIME SPENT ON THE PATIENT: 25 minutes.
[2020-08-30 06:45] VITALS: BP 113/52
--- NOTE | 2020-08-30 13:04 | MHIPNPDOC ---
[facility] Progress Note Progress Note DATE OF SERVICE: 08/30/20 SUBJECTIVE: Insisting upon going to [place]. Reports he slept well.He is excited about it. OBJECTIVE: Patient was admitted because of bizarre behavior. He is grandiose, making statements which are grandiose. Currently improving on mood stabilizer. Patient has a history of traumatic brain injury. He has multiple psychiatric hospitalizations.Pt improving. MENTAL STATUS EXAMINATION: Casually dressed. Cooperative. Seen walking in the hallway, interacting with peers and the staff. Speech rate, rhythm, volume are good. Mood is euthymic. Affect is full range. Thought process goal directed. Thought content: Denied suicidal or homicidal ideas. Patient denied any auditory or visual hallucinations. He is alert and oriented to time, place, and person. Memory, remote and recent, is good. Insight and judgment are good. DIAGNOSES: 1. Mood disorder, not otherwise specified. 2. Traumatic brain injury. PLAN: Continue current medication and plan on his discharge. TIME SPENT ON THE PATIENT: 25 minutes. Vital Signs Vital Signs Date Time Temp Pulse Resp B/P (MAP) Pulse Ox O2 Delivery O2 Flow Rate FiO2 08/30/20 06:45 97.1 50 16 113/52 (72) 97 Room Air Current Medications Current Medications Medications (Trade) Dose Ordered Sig/Aleksey Route PRN Reason Start Time Stop Time Status Last Admin Dose Admin Acetaminophen (Tylenol Tab) 650 mg Q6HP PRN PO HEADACHE or DISCOMFORT 08/14/20 23:25 08/26/20 00:22 Al Hydrox/Mg Hydrox/Simethicone (Mylanta) 30 ml Q4HP PRN PO HEARTBURN/INDIGESTION 08/14/20 23:25 Divalproex Sodium (Depakote) 250 mg DAILY PO 08/16/20 09:00 08/17/20 08:17 DC Divalproex Sodium (Depakote) 500 mg QHS PO 08/16/20 21:00 08/17/20 08:17 DC Home Med (Med Rec Complete!) ASDIRECTED XX 08/14/20 23:35 08/15/20 00:23 DC Magnesium Hydroxide (Milk Of Magnesia) 30 ml DAILYPRN PRN PO CONSTIPATION 08/14/20 23:25 Olanzapine (ZyPREXA) 5 mg Q6HP PRN PO Anxiety/Agitation 08/14/20 23:35 Trazodone HCl (Desyrel) 50 mg QHSP PRN PO INSOMNIA 08/14/20 23:25 Allergies Coded Allergies: No Known Allergies (Verified Allergy, Unknown, 07/08/20) GARRICK MAYS MD Aug 30, 2020 13:04
[2020-08-30] MEDS: ACETAMINOPHEN TAB 650MG DOSE (2X325MG) PO PRN ×2 (15:01→22:43)
[2020-08-31 06:00] VITALS: BP 140/81
--- NOTE | 2020-08-31 15:14 | MHIPNPDOC ---
[facility] Progress Note Progress Note DATE OF SERVICE: 08/31/20 SUBJECTIVE: Insisting upon going to [place]. Reports he slept well.He is excited about it.Reports he slept well. OBJECTIVE: Patient was admitted because of bizarre behavior. He is grandiose, making statements which are grandiose. Currently improving on mood stabilizer. Patient has a history of traumatic brain injury. He has multiple psychiatric hospitalizations.Pt improving.interactig well with the staff. MENTAL STATUS EXAMINATION: Casually dressed. Cooperative. Seen walking in the hallway, interacting with peers and the staff. Speech rate, rhythm, volume are good. Mood is euthymic. Affect is full range. Thought process goal directed. Thought content: Denied suicidal or homicidal ideas. Patient denied any auditory or visual hallucinations. He is alert and oriented to time, place, and person. Memory, remote and recent, is good. Insight and judgment are good. DIAGNOSES: 1. Mood disorder, not otherwise specified. 2. Traumatic brain injury. PLAN: Continue current medication and plan on his discharge. TIME SPENT ON THE PATIENT: 25 minutes. Vital Signs Vital Signs Date Time Temp Pulse Resp B/P (MAP) Pulse Ox O2 Delivery O2 Flow Rate FiO2 08/31/20 06:00 98.4 51 18 140/81 (100) 98 08/30/20 06:45 Room Air Current Medications Current Medications Medications (Trade) Dose Ordered Sig/Aleksey Route PRN Reason Start Time Stop Time Status Last Admin Dose Admin Acetaminophen (Tylenol Tab) 650 mg Q6HP PRN PO HEADACHE or DISCOMFORT 08/14/20 23:25 08/30/20 22:43 Al Hydrox/Mg Hydrox/Simethicone (Mylanta) 30 ml Q4HP PRN PO HEARTBURN/INDIGESTION 08/14/20 23:25 Divalproex Sodium (Depakote) 250 mg DAILY PO 08/16/20 09:00 08/17/20 08:17 DC Divalproex Sodium (Depakote) 500 mg QHS PO 08/16/20 21:00 08/17/20 08:17 DC Home Med (Med Rec Complete!) ASDIRECTED XX 08/14/20 23:35 08/15/20 00:23 DC Magnesium Hydroxide (Milk Of Magnesia) 30 ml DAILYPRN PRN PO CONSTIPATION 08/14/20 23:25 Olanzapine (ZyPREXA) 5 mg Q6HP PRN PO Anxiety/Agitation 08/14/20 23:35 Trazodone HCl (Desyrel) 50 mg QHSP PRN PO INSOMNIA 08/14/20 23:25 Allergies Coded Allergies: No Known Allergies (Verified Allergy, Unknown, 07/08/20) GARRICK MAYS MD Aug 31, 2020 15:14
[2020-08-31] MEDS: ACETAMINOPHEN TAB 650MG DOSE (2X325MG) PO PRN (21:20)
[2020-09-01] MEDS: ACETAMINOPHEN TAB 650MG DOSE (2X325MG) PO PRN (21:38)
[2020-09-02] MEDS: ACETAMINOPHEN TAB 650MG DOSE (2X325MG) PO PRN (19:21)
[2020-09-03 06:00] VITALS: BP 130/84
--- NOTE | 2020-09-03 15:53 | MHIPNPDOC ---
[facility] Progress Note Progress Note DATE OF SERVICE: 09/03/20 SUBJECTIVE: Reports he slept well.He is excited about it.Reports he is planning to find a place. OBJECTIVE: Patient was admitted because of bizarre behavior. He is grandiose, making statements which are grandiose. Currently improving on mood stabilizer. Patient has a history of traumatic brain injury. He has multiple psychiatric hospitalizations.Pt improving.interacting well with the staff.Some times loud . No behavioral issues MENTAL STATUS EXAMINATION: Casually dressed. Cooperative. Seen walking in the hallway, interacting with peers and the staff. Speech rate, rhythm, volume are good. Mood is euthymic. Affect is full range. Thought process goal directed. Thought content: Denied suicidal or homicidal ideas. Patient denied any auditory or visual hallucinations. He is alert and oriented to time, place, and person. Memory, remote and recent, is good. Insight and judgment are good. DIAGNOSES: 1. Mood disorder, not otherwise specified. 2. Traumatic brain injury. PLAN: Continue current medication and plan on his discharge. TIME SPENT ON THE PATIENT: 25 minutes. Vital Signs Vital Signs Date Time Temp Pulse Resp B/P (MAP) Pulse Ox O2 Delivery O2 Flow Rate FiO2 09/03/20 06:00 97.8 64 20 130/84 (99) 98 08/30/20 06:45 Room Air Current Medications Current Medications Medications (Trade) Dose Ordered Sig/Aleksey Route PRN Reason Start Time Stop Time Status Last Admin Dose Admin Acetaminophen (Tylenol Tab) 650 mg Q6HP PRN PO HEADACHE or DISCOMFORT 08/14/20 23:25 09/02/20 19:21 Al Hydrox/Mg Hydrox/Simethicone (Mylanta) 30 ml Q4HP PRN PO HEARTBURN/INDIGESTION 08/14/20 23:25 Divalproex Sodium (Depakote) 250 mg DAILY PO 08/16/20 09:00 08/17/20 08:17 DC Divalproex Sodium (Depakote) 500 mg QHS PO 08/16/20 21:00 08/17/20 08:17 DC Home Med (Med Rec Complete!) ASDIRECTED XX 08/14/20 23:35 08/15/20 00:23 DC Magnesium Hydroxide (Milk Of Magnesia) 30 ml DAILYPRN PRN PO CONSTIPATION 08/14/20 23:25 Olanzapine (ZyPREXA) 5 mg Q6HP PRN PO Anxiety/Agitation 08/14/20 23:35 Trazodone HCl (Desyrel) 50 mg QHSP PRN PO INSOMNIA 08/14/20 23:25 Allergies Coded Allergies: No Known Allergies (Verified Allergy, Unknown, 07/08/20) GARRICK MAYS MD Sep 03, 2020 15:53
[2020-09-03 18:56] VITALS: BP 125/63
--- NOTE | 2020-09-04 16:08 | MHIPNPDOC ---
[facility] Progress Note Progress Note DATE OF SERVICE: 09/04/20 SUBJECTIVE: Reports he slept well.He is excited about it.Reports he is planning to find a place.I will go through [facility] for placement OBJECTIVE: Patient was admitted because of bizarre behavior. He is grandiose, making statements which are grandiose. Currently improving on mood stabilizer. Patient has a history of traumatic brain injury. He has multiple psychiatric hospitalizations.Pt improving.interacting well with the staff.Some times loud . No behavioral issues Can be discharged tomorrow. MENTAL STATUS EXAMINATION: Casually dressed. Cooperative. Seen walking in the hallway, interacting with peers and the staff. Speech rate, rhythm, volume are good. Mood is euthymic. Affect is full range. Thought process goal directed. Thought content: Denied suicidal or homicidal ideas. Patient denied any auditory or visual hallucinations. He is alert and oriented to time, place, and person. Memory, remote and recent, is good. Insight and judgment are good. DIAGNOSES: 1. Mood disorder, not otherwise specified. 2. Traumatic brain injury. PLAN: Continue current medication and plan on his discharge. TIME SPENT ON THE PATIENT: 25 minutes. Vital Signs Vital Signs Date Time Temp Pulse Resp B/P (MAP) Pulse Ox O2 Delivery O2 Flow Rate FiO2 09/03/20 18:56 98.3 67 18 125/63 (83) 09/03/20 06:00 98 08/30/20 06:45 Room Air Current Medications Current Medications Medications (Trade) Dose Ordered Sig/Aleksey Route PRN Reason Start Time Stop Time Status Last Admin Dose Admin Acetaminophen (Tylenol Tab) 650 mg Q6HP PRN PO HEADACHE or DISCOMFORT 08/14/20 23:25 09/02/20 19:21 Al Hydrox/Mg Hydrox/Simethicone (Mylanta) 30 ml Q4HP PRN PO HEARTBURN/INDIGESTION 08/14/20 23:25 Divalproex Sodium (Depakote) 250 mg DAILY PO 08/16/20 09:00 08/17/20 08:17 DC Divalproex Sodium (Depakote) 500 mg QHS PO 08/16/20 21:00 08/17/20 08:17 DC Home Med (Med Rec Complete!) ASDIRECTED XX 08/14/20 23:35 08/15/20 00:23 DC Magnesium Hydroxide (Milk Of Magnesia) 30 ml DAILYPRN PRN PO CONSTIPATION 08/14/20 23:25 Olanzapine (ZyPREXA) 5 mg Q6HP PRN PO Anxiety/Agitation 08/14/20 23:35 Trazodone HCl (Desyrel) 50 mg QHSP PRN PO INSOMNIA 08/14/20 23:25 Allergies Coded Allergies: No Known Allergies (Verified Allergy, Unknown, 07/08/20) GARRICK MAYS MD Sep 04, 2020 16:08
[2020-09-04] MEDS ORDERED: INVE156I IM (17:31)
[2020-09-04 18:10] VITALS: BP 148/88
--- NOTE | 2020-09-05 11:37 | MHDS ---
DISCHARGE SUMMARY DATE OF ADMISSION: 08/14/2020 DATE OF DISCHARGE: 09/05/2020 DIAGNOSES: 1. Mood disorder, unspecified. 2. Traumatic brain injury. IDENTIFYING DATA: This is a 34-year-old male who was admitted because of bazaar behaviors, grandiose, making bazaar statements. Currently on mood stabilizer getting stabilized. He has a history of multiple psychiatric hospitalizations. For details of HPI, past psychiatric history, personal history, substance abuse history and social history, please refer to the initial evaluation. HOSPITAL COURSE: The patient initially was bazaar and not compliant with the directions. He was placed on Invega Sustenna injection and he was continued with individual group and milieu therapy. The patient slowly started improving. His bazaar behavior became less; however, continued to have some of the personality issues that he has carried after the traumatic injury to his head. He had no behavioral issues on the unit. He has not been a danger to self or others. His sleep improved. He started interacting with peers and staff well. Denied any side effect of the medications. He denied any suicidal or homicidal ideas. VITAL SIGNS: Temperature 97.6, pulse 67, respiratory rate 18, blood pressure 148/88. LABORATORY DATA: CBC and CMP within normal limits. Toxicology positive for cannabis at the time of admission. DISCHARGE PLAN: Send him to [facility] for placement and he will be followed up at [facility]. DISCHARGE MEDICATION: Invega Sustenna 156 mg IM every four weeks.
== END 2020-09-05 12:39 | disposition home or self-care (01) | DRG 885 ==
LOC: M ED 20:20 → M ED INP 20:21 → M ED 23:53 → M PSY 08-15
PROVIDERS: ADMIT Psychiatry & Neurology Child & Adolescent Psychiatry; ATTEND Psychiatry & Neurology Psychiatry
DX: F39 Unspecified mood [affective] disorder (principal); F20.9 Schizophrenia, unspecified; Z20.822 Contact with and (suspected) exposure to COVID-19; Z79.899 Other long term (current) drug therapy; D64.9 Anemia, unspecified; Z98.84 Bariatric surgery status; Z91.19 Patient's noncompliance with other medical treatment and regimen; Z87.820 Personal history of traumatic brain injury; F12.10 Cannabis abuse, uncomplicated

== ENCOUNTER 2020-12-14 07:35 | Emergency (ER) | payer MEDICARE, BC, MEDICAID ==
[~2020-12-14 07:35] MED LIST changes: +INVE156I IM; -OLAN10TA2 PO; +OLAN1TAB16 PO; +OLAN1TAB20 PO; -OLAN5TAB PO; +ZYPR10TA PO
[2020-12-14 08:05] LABS: HEMATOCRIT 38.2 % (42.0-52.0); HEMOGLOBIN 13.1 g/dl (13.5-17.5); MEAN CORPUSCULAR HGB CONC 34.3 g/dl (32.0-36.5); MEAN CORPUSCULAR VOLUME 87.4 fl (80.0-96.0); PLATELET COUNT, AUTOMATED 213 10^3/uL (150-450); RED BLOOD COUNT 4.37 10^6/uL (4.30-6.10)
[2020-12-14 08:27] LABS: ACETAMINOPHEN LEVEL < 2.0 UG/ML (10.0-30.0); ALBUMIN 3.8 GM/DL (3.2-5.2); ALT/SGPT 43 U/L (12-78); AMPHETAMINES LEVEL URINE NEGATIVE (NEGATIVE); BARBITURATES URINE NEGATIVE (NEGATIVE); BENZODIAZEPINES URINE NEGATIVE (NEGATIVE); BILIRUBIN,DIRECT < 0.1 MG/DL (0.0-0.2); BILIRUBIN,TOTAL 0.2 MG/DL (0.2-1.0); BLOOD UREA NITROGEN 7 MG/DL (7-18); CANNABINOIDS URINE POSITIVE (NEGATIVE); CARBON DIOXIDE LEVEL 24 MEQ/L (21-32); CHLORIDE LEVEL 109 MEQ/L (98-107); COCAINE METABOLITE URINE NEGATIVE (NEGATIVE); CREATININE FOR GFR 0.88 MG/DL (0.70-1.30); ETHYL ALCOHOL (ETHANOL) 0.003 % (0.000-0.010); GLOMERULAR FILTRATION RATE > 60.0 (>60); GLUCOSE, FASTING 95 MG/DL (70-100); METHADONE URINE NEGATIVE (NEGATIVE); OPIATES URINE NEGATIVE (NEGATIVE); PHENCYCLIDINE URINE NEGATIVE (NEGATIVE); SALICYLATE LEVEL < 1.7 MG/DL (5.0-30.0); SODIUM LEVEL 141 MEQ/L (136-145); TOTAL PROTEIN 6.9 GM/DL (6.4-8.2)
[2020-12-14 20:52] LABS: RSV AMPLIFICATION NEGATIVE (NEGATIVE)
[2020-12-15] MEDS ORDERED: PENICILLIN V POTASSIUM 500 MG TAB PO ONE (09:00)
--- NOTE | 2020-12-15 10:56 | ECGEPIP ---
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
[2020-12-15 11:03] VITALS: BP 134/60
== END 2020-12-15 11:06 ==
LOC: M ED 07:35
DX: R45.851 Suicidal ideations (principal); F31.9 Bipolar disorder, unspecified; F20.9 Schizophrenia, unspecified; F15.10 Other stimulant abuse, uncomplicated; Z79.899 Other long term (current) drug therapy; Z98.84 Bariatric surgery status

== ENCOUNTER 2020-12-14 07:42 | Emergency (ER) | payer MEDICARE, BC, MEDICAID | END 2020-12-14 08:28 | disposition home or self-care (01) | LOC: M ED 07:42 | DX: Z53.29 Procedure and treatment not carried out because of patient's decision for other reasons (principal) ==

== ENCOUNTER 2021-01-08 09:08 | Emergency (ER) | payer MEDICARE, MEDICAID ==
[~2021-01-08] VITALS: Ht 180.3 cm; Wt 113.6 kg
[2021-01-08] MEDS ORDERED: OLAN1TAB20 PO (09:16)
[2021-01-08] MEDS ORDERED: SERT50TA29 PO (09:16)
[2021-01-08] MEDS ORDERED: TRAZ-252 PO (09:16)
[2021-01-08 09:33] LABS: HEMATOCRIT 40.3 % (42.0-52.0); HEMOGLOBIN 13.7 g/dl (13.5-17.5); MEAN CORPUSCULAR HEMOGLOBIN 29.6 pg (27.0-33.0); PLATELET COUNT, AUTOMATED 249 10^3/uL (150-450); RED BLOOD COUNT 4.63 10^6/uL (4.30-6.10); WHITE BLOOD COUNT 7.5 10^3/uL (4.0-10.0)
[2021-01-08 09:53] LABS: AMPHETAMINES LEVEL URINE NEGATIVE (NEGATIVE); BARBITURATES URINE NEGATIVE (NEGATIVE); BENZODIAZEPINES URINE NEGATIVE (NEGATIVE); CANNABINOIDS URINE POSITIVE (NEGATIVE); COCAINE METABOLITE URINE NEGATIVE (NEGATIVE); METHADONE URINE NEGATIVE (NEGATIVE); OPIATES URINE NEGATIVE (NEGATIVE); PHENCYCLIDINE URINE NEGATIVE (NEGATIVE)
[2021-01-08 09:58] LABS: ACETAMINOPHEN LEVEL < 2.0 UG/ML (10.0-30.0); ALBUMIN 4.1 GM/DL (3.2-5.2); ALT/SGPT 27 U/L (12-78); BILIRUBIN,DIRECT 0.1 MG/DL (0.0-0.2); BILIRUBIN,TOTAL 0.3 MG/DL (0.2-1.0); BLOOD UREA NITROGEN 9 MG/DL (7-18); CALCIUM LEVEL 9.3 MG/DL (8.5-10.1); CARBON DIOXIDE LEVEL 26 MEQ/L (21-32); CHLORIDE LEVEL 107 MEQ/L (98-107); CREATININE FOR GFR 0.91 MG/DL (0.70-1.30); ETHYL ALCOHOL (ETHANOL) < 0.003 % (0.000-0.010); GLOMERULAR FILTRATION RATE > 60.0 (>60); GLUCOSE, FASTING 97 MG/DL (70-100); POTASSIUM SERUM 4.2 MEQ/L (3.5-5.1); SALICYLATE LEVEL 2.6 MG/DL (5.0-30.0); SODIUM LEVEL 139 MEQ/L (136-145); TOTAL PROTEIN 7.4 GM/DL (6.4-8.2)
[2021-01-08] MEDS ORDERED: SERTRALINE HCL 50 MG TAB PO ONE (10:30)
[2021-01-08] MEDS ORDERED: OLANZapine 10 MG TAB PO ONE (10:30)
[2021-01-08] MEDS ORDERED: HOME MED LIST COMPLETE! XX SCH (10:55)
[2021-01-09 04:26] LABS: RSV AMPLIFICATION NEGATIVE (NEGATIVE)
--- NOTE | 2021-01-09 07:11 | ECGEPIP ---
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
[2021-01-09 11:00] VITALS: BP 123/73
== END 2021-01-09 11:03 ==
LOC: M ED 09:08
DX: R45.851 Suicidal ideations (principal); F31.9 Bipolar disorder, unspecified; F20.9 Schizophrenia, unspecified; F15.10 Other stimulant abuse, uncomplicated; Z98.84 Bariatric surgery status; Z79.899 Other long term (current) drug therapy

== ENCOUNTER 2021-01-23 13:37 | Inpatient (IN) | payer MEDICARE, MEDICAID ==
[~2021-01-23] VITALS: Ht 180.3 cm; Wt 119.1 kg
[~2021-01-23 13:37] MED LIST changes: +SERT50TA29 PO
[2021-01-23 14:15] LABS: HEMATOCRIT 39.8 % (42.0-52.0); HEMOGLOBIN 13.6 g/dl (13.5-17.5); MEAN CORPUSCULAR HGB CONC 34.2 g/dl (32.0-36.5); MEAN CORPUSCULAR VOLUME 87.7 fl (80.0-96.0); PLATELET COUNT, AUTOMATED 215 10^3/uL (150-450); RED BLOOD COUNT 4.54 10^6/uL (4.30-6.10); WHITE BLOOD COUNT 6.7 10^3/uL (4.0-10.0)
[2021-01-23 14:46] LABS: ACETAMINOPHEN LEVEL < 2.0 UG/ML (10.0-30.0); ALT/SGPT 29 U/L (12-78); BILIRUBIN,DIRECT 0.1 MG/DL (0.0-0.2); BILIRUBIN,TOTAL 0.4 MG/DL (0.2-1.0); BLOOD UREA NITROGEN 10 MG/DL (7-18); CALCIUM LEVEL 9.8 MG/DL (8.5-10.1); CARBON DIOXIDE LEVEL 24 MEQ/L (21-32); CHLORIDE LEVEL 111 MEQ/L (98-107); CREATININE FOR GFR 1.05 MG/DL (0.70-1.30); ETHYL ALCOHOL (ETHANOL) < 0.003 % (0.000-0.010); GLOMERULAR FILTRATION RATE > 60.0 (>60); GLUCOSE, FASTING 93 MG/DL (70-100); SODIUM LEVEL 141 MEQ/L (136-145); TOTAL PROTEIN 7.2 GM/DL (6.4-8.2)
[2021-01-23 14:55] LABS: AMPHETAMINES LEVEL URINE NEGATIVE (NEGATIVE); BARBITURATES URINE NEGATIVE (NEGATIVE); BENZODIAZEPINES URINE NEGATIVE (NEGATIVE); CANNABINOIDS URINE POSITIVE (NEGATIVE); COCAINE METABOLITE URINE NEGATIVE (NEGATIVE); METHADONE URINE NEGATIVE (NEGATIVE); OPIATES URINE NEGATIVE (NEGATIVE); PHENCYCLIDINE URINE NEGATIVE (NEGATIVE)
[2021-01-23] MEDS ORDERED: VITMTA PO (18:49)
[2021-01-23] MEDS ORDERED: SERT25TA21 PO (18:49)
[2021-01-23] MEDS ORDERED: OLAN1TAB16 PO (18:49)
[2021-01-23] MEDS ORDERED: HOME MED LIST COMPLETE! XX SCH (18:50)
[2021-01-23] MEDS ORDERED: OLANZapine 10 MG TAB PO ONE (19:55)
[2021-01-24 01:19] LABS: RSV AMPLIFICATION NEGATIVE (NEGATIVE)
[2021-01-24] MEDS ORDERED: MOM 30ML SUSPENSION UDC PO PRN (05:05)
[2021-01-24] MEDS ORDERED: ACETAMINOPHEN TAB 650MG DOSE (2X325MG) PO PRN (05:05)
[2021-01-24] MEDS ORDERED: traZODone 50 MG TAB PO PRN (05:05)
[2021-01-24 05:47] VITALS: BP 118/70
[2021-01-24] MEDS: SERTRALINE HCL 25 MG TABLET PO SCH (09:24)
[2021-01-24 17:13] VITALS: BP 127/70
[2021-01-24] MEDS: OLANZapine 5 MG TAB PO SCH (20:25)
[2021-01-25 05:33] VITALS: BP 143/77
[2021-01-25] MEDS: SERTRALINE HCL 25 MG TABLET PO SCH (09:53)
[2021-01-25 18:17] VITALS: BP 143/81
[2021-01-25] MEDS: OLANZapine 5 MG TAB PO SCH (21:22)
[2021-01-26 06:37] VITALS: BP 110/73
[2021-01-26] MEDS: SERTRALINE HCL 25 MG TABLET PO SCH (08:43)
[2021-01-26 16:19] VITALS: BP 141/65
[2021-01-26] MEDS: OLANZapine 5 MG TAB PO SCH (21:13)
[2021-01-27 06:45] VITALS: BP 108/68
[2021-01-27] MEDS: SERTRALINE HCL 25 MG TABLET PO SCH (09:28)
[2021-01-27 19:02] VITALS: BP 138/72
[2021-01-27] MEDS: OLANZapine 5 MG TAB PO SCH (20:59)
[2021-01-27] MEDS: PILL CUTTER 1 EACH XX PRN (20:59)
[2021-01-28 06:14] VITALS: BP 110/65
[2021-01-28] MEDS: SERTRALINE HCL 25 MG TABLET PO SCH (09:36)
[2021-01-28] MEDS: MAALOX 30 ML SUSP *UDC PO PRN (15:45)
[2021-01-28 16:29] VITALS: BP 118/78
[2021-01-28] MEDS: PILL CUTTER 1 EACH XX PRN (21:30)
[2021-01-28] MEDS: OLANZapine 5 MG TAB PO SCH (21:30)
[2021-01-29 05:47] VITALS: BP 109/60
[2021-01-29] MEDS: SERTRALINE HCL 25 MG TABLET PO SCH (10:11)
[2021-01-29] MEDS: MAALOX 30 ML SUSP *UDC PO PRN (13:37)
[2021-01-29 18:55] VITALS: BP 134/92
[2021-01-29] MEDS: OLANZapine 5 MG TAB PO SCH (20:39)
[2021-01-30 06:05] VITALS: BP 100/56
[2021-01-30] MEDS: SERTRALINE HCL 25 MG TABLET PO SCH (09:17)
[2021-01-30] MEDS ORDERED: OLAN1TAB16 PO (10:22)
[2021-01-30] MEDS ORDERED: SERT25TA21 PO (10:22)
== END 2021-01-30 11:42 | disposition home or self-care (01) | DRG 885 ==
LOC: EDBD 13:37 → M ED 13:37 → M ED INP 13:38 → M PSY 01-24 05:32
PROVIDERS: ADMIT Student in an Organized Health Care Education/Training Program; ATTEND Psychiatry & Neurology Psychiatry
DX: F39 Unspecified mood [affective] disorder (principal); R45.851 Suicidal ideations; F12.10 Cannabis abuse, uncomplicated; Z98.84 Bariatric surgery status; Z59.0 Homelessness; Z87.820 Personal history of traumatic brain injury; Z20.822 Contact with and (suspected) exposure to COVID-19; Z79.899 Other long term (current) drug therapy

== ENCOUNTER 2021-03-17 15:21 | Emergency (ER) | payer MEDICAID, MEDICARE ==
[~2021-03-17] VITALS: Ht 182.9 cm; Wt 115.9 kg
[~2021-03-17 15:21] MED LIST changes: +SERT25TA21 PO; +VITMTA PO
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
[2021-03-17] MEDS ORDERED: DIVA500T94 PO (15:34)
[2021-03-17] MEDS ORDERED: ARIP1TAB43 PO (15:34)
[2021-03-17 16:14] LABS: HEMATOCRIT 36.6 % (42.0-52.0); MEAN CORPUSCULAR HEMOGLOBIN 29.6 pg (27.0-33.0); MEAN CORPUSCULAR HGB CONC 32.8 g/dl (32.0-36.5); MEAN CORPUSCULAR VOLUME 90.4 fl (80.0-96.0); PLATELET COUNT, AUTOMATED 174 10^3/uL (150-450); RED BLOOD COUNT 4.05 10^6/uL (4.30-6.10); WHITE BLOOD COUNT 5.9 10^3/uL (4.0-10.0)
[2021-03-17 16:34] LABS: AMPHETAMINES LEVEL URINE NEGATIVE (NEGATIVE); BARBITURATES URINE NEGATIVE (NEGATIVE); BENZODIAZEPINES URINE NEGATIVE (NEGATIVE); CANNABINOIDS URINE NEGATIVE (NEGATIVE); COCAINE METABOLITE URINE NEGATIVE (NEGATIVE); METHADONE URINE NEGATIVE (NEGATIVE); OPIATES URINE NEGATIVE (NEGATIVE); PHENCYCLIDINE URINE NEGATIVE (NEGATIVE)
[2021-03-17 16:44] LABS: ACETAMINOPHEN LEVEL < 2.0 UG/ML (10.0-30.0); ALBUMIN 3.1 GM/DL (3.2-5.2); ALT/SGPT 25 U/L (12-78); BILIRUBIN,DIRECT < 0.1 MG/DL (0.0-0.2); BILIRUBIN,TOTAL 0.2 MG/DL (0.2-1.0); BLOOD UREA NITROGEN 9 MG/DL (7-18); CALCIUM LEVEL 8.4 MG/DL (8.5-10.1); CARBON DIOXIDE LEVEL 26 MEQ/L (21-32); CHLORIDE LEVEL 111 MEQ/L (98-107); CREATININE FOR GFR 0.77 MG/DL (0.70-1.30); ETHYL ALCOHOL (ETHANOL) 0.007 % (0.000-0.010); GLOMERULAR FILTRATION RATE > 60.0 (>60); GLUCOSE, FASTING 85 MG/DL (70-100); POTASSIUM SERUM 3.9 MEQ/L (3.5-5.1); SALICYLATE LEVEL 1.8 MG/DL (5.0-30.0); SODIUM LEVEL 141 MEQ/L (136-145); VALPROIC ACID (DEPAKOTE) < 3.0 UG/ML (50.0-100.0)
[2021-03-17] MEDS ORDERED: HOME MED LIST COMPLETE! XX SCH (19:00)
--- NOTE | 2021-03-17 20:08 | ECGEPIP ---
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
[2021-03-17 23:50] LABS: RSV AMPLIFICATION NEGATIVE (NEGATIVE)
[2021-03-18 09:13] VITALS: BP 107/60
== END 2021-03-18 09:15 ==
LOC: M ED 15:21
DX: R45.851 Suicidal ideations (principal); F31.9 Bipolar disorder, unspecified; F20.9 Schizophrenia, unspecified; F19.10 Other psychoactive substance abuse, uncomplicated; Z98.84 Bariatric surgery status; F17.210 Nicotine dependence, cigarettes, uncomplicated; Z79.899 Other long term (current) drug therapy

== ENCOUNTER 2021-04-10 01:16 | Inpatient (IN) | payer MEDICARE ==
[~2021-04-10] VITALS: Ht 182.9 cm; Wt 116.0 kg
[~2021-04-10 01:16] MED LIST changes: +ARIP1TAB43 PO; +DIVA500T94 PO
[2021-04-10 02:21] LABS: HEMATOCRIT 39.5 % (42.0-52.0); HEMOGLOBIN 12.9 g/dl (13.5-17.5); MEAN CORPUSCULAR HEMOGLOBIN 29.6 pg (27.0-33.0); MEAN CORPUSCULAR HGB CONC 32.7 g/dl (32.0-36.5); MEAN CORPUSCULAR VOLUME 90.6 fl (80.0-96.0); PLATELET COUNT, AUTOMATED 206 10^3/uL (150-450); RED BLOOD COUNT 4.36 10^6/uL (4.30-6.10); WHITE BLOOD COUNT 8.9 10^3/uL (4.0-10.0)
[2021-04-10 02:42] LABS: AMPHETAMINES LEVEL URINE NEGATIVE (NEGATIVE); BARBITURATES URINE NEGATIVE (NEGATIVE); BENZODIAZEPINES URINE NEGATIVE (NEGATIVE); CANNABINOIDS URINE POSITIVE (NEGATIVE); COCAINE METABOLITE URINE NEGATIVE (NEGATIVE); METHADONE URINE NEGATIVE (NEGATIVE); OPIATES URINE NEGATIVE (NEGATIVE); PHENCYCLIDINE URINE NEGATIVE (NEGATIVE)
[2021-04-10 02:49] LABS: ACETAMINOPHEN LEVEL < 2.0 UG/ML (10.0-30.0); ALBUMIN 3.4 GM/DL (3.2-5.2); ALT/SGPT 23 U/L (12-78); BILIRUBIN,DIRECT < 0.1 MG/DL (0.0-0.2); BILIRUBIN,TOTAL 0.2 MG/DL (0.2-1.0); BLOOD UREA NITROGEN 15 MG/DL (7-18); CALCIUM LEVEL 8.6 MG/DL (8.5-10.1); CARBON DIOXIDE LEVEL 23 MEQ/L (21-32); CHLORIDE LEVEL 111 MEQ/L (98-107); CREATININE FOR GFR 1.01 MG/DL (0.70-1.30); ETHYL ALCOHOL (ETHANOL) < 0.003 % (0.000-0.010); GLOMERULAR FILTRATION RATE > 60.0 (>60); GLUCOSE, FASTING 149 MG/DL (70-100); POTASSIUM SERUM 3.5 MEQ/L (3.5-5.1); SALICYLATE LEVEL 2.7 MG/DL (5.0-30.0); SODIUM LEVEL 143 MEQ/L (136-145); TOTAL PROTEIN 6.5 GM/DL (6.4-8.2)
[2021-04-10] MEDS ORDERED: LORazepam 1 MG TAB PO PRN (03:55)
[2021-04-10] MEDS ORDERED: MOM 30ML SUSPENSION UDC PO PRN (03:55)
[2021-04-10] MEDS ORDERED: NICOTINE 21MG/24HR 1 EA TRANSDERMAL TD PRN (03:55)
[2021-04-10] MEDS ORDERED: traZODone 50 MG TAB PO PRN (03:55)
[2021-04-10] MEDS ORDERED: ZYPR5TAB2 PO (04:49)
[2021-04-10] MEDS ORDERED: OLAN20TA14 PO (04:49)
[2021-04-10] MEDS ORDERED: ZOLO100T PO (04:49)
[2021-04-10] MEDS ORDERED: HOME MED LIST COMPLETE! XX SCH (04:50)
[2021-04-10 05:03] LABS: RSV AMPLIFICATION NEGATIVE (NEGATIVE)
[2021-04-10 05:34] VITALS: BP 111/69
[2021-04-10 06:37] VITALS: BP 103/55
[2021-04-10] MEDS ORDERED: DIVALPROEX 500 MG TAB PO SCH (09:00)
[2021-04-10] MEDS ORDERED: ARIPiprazole 10 MG TAB PO ONE (09:00)
[2021-04-10] MEDS ORDERED: DIVALPROEX 500 MG TAB PO ONE (09:00)
[2021-04-10] MEDS ORDERED: ARIPiprazole 10 MG TAB PO SCH (09:00)
[2021-04-10] MEDS: OLANZapine 5 MG TAB PO SCH (12:19)
[2021-04-10] MEDS: SERTRALINE 100 MG TAB PO SCH (12:19)
[2021-04-10] MEDS ORDERED: OLANZapine 10 MG TAB PO SCH (21:00)
[2021-04-11 06:53] VITALS: BP 108/53
[2021-04-11] MEDS ORDERED: INFLUENZA QUADRIVALENT PF VACCINE 0.5ML SYRINGE IM ONE (09:00)
[2021-04-11] MEDS: OLANZapine 5 MG TAB PO SCH (09:32)
[2021-04-11] MEDS: SERTRALINE 100 MG TAB PO SCH (09:32)
[2021-04-11 18:43] VITALS: BP 99/51
[2021-04-12 06:27] VITALS: BP 115/61
[2021-04-12] MEDS: SERTRALINE 100 MG TAB PO SCH (10:04)
[2021-04-12] MEDS: OLANZapine 5 MG TAB PO SCH (10:05)
[2021-04-12 18:31] VITALS: BP 125/86
[2021-04-13 06:19] VITALS: BP 99/61
[2021-04-13] MEDS: SERTRALINE HCL 50 MG TAB PO SCH (10:00)
[2021-04-13] MEDS: OLANZapine 5 MG TAB PO SCH (10:00)
[2021-04-13] MEDS: ACETAMINOPHEN TAB 650MG DOSE (2X325MG) PO PRN (21:27)
[2021-04-14 06:36] VITALS: BP 116/62
[2021-04-14] MEDS: OLANZapine 5 MG TAB PO SCH (07:49)
[2021-04-14] MEDS: SERTRALINE HCL 50 MG TAB PO SCH (07:49)
[2021-04-14] MEDS: ACETAMINOPHEN TAB 650MG DOSE (2X325MG) PO PRN (21:48)
[2021-04-15 06:30] VITALS: BP 116/68
[2021-04-15] MEDS: SERTRALINE HCL 50 MG TAB PO SCH (09:35)
[2021-04-15] MEDS: OLANZapine 5 MG TAB PO SCH (09:35)
[2021-04-15 19:15] VITALS: BP 133/83
[2021-04-15] MEDS: ACETAMINOPHEN TAB 650MG DOSE (2X325MG) PO PRN (20:58)
[2021-04-16 06:29] VITALS: BP 124/63
[2021-04-16] MEDS: ACETAMINOPHEN TAB 650MG DOSE (2X325MG) PO PRN ×2 (07:00→18:41)
[2021-04-16] MEDS: SERTRALINE HCL 50 MG TAB PO SCH (09:26)
[2021-04-16] MEDS: OLANZapine 5 MG TAB PO SCH (09:26)
[2021-04-16] MEDS: hydrOXYzine 50 MG TAB PO PRN (09:28)
[2021-04-16 18:45] VITALS: BP 158/82
[2021-04-17 06:00] VITALS: BP 114/61
[2021-04-17] MEDS: SERTRALINE HCL 50 MG TAB PO SCH (09:53)
[2021-04-17] MEDS: OLANZapine 5 MG TAB PO SCH (09:53)
[2021-04-17] MEDS: hydrOXYzine 50 MG TAB PO PRN (09:54)
[2021-04-17 17:53] VITALS: BP 134/60
[2021-04-17] MEDS: ACETAMINOPHEN TAB 650MG DOSE (2X325MG) PO PRN (22:06)
[2021-04-18 06:51] VITALS: BP 110/56
[2021-04-18] MEDS: SERTRALINE HCL 50 MG TAB PO SCH (09:24)
[2021-04-18] MEDS: OLANZapine 5 MG TAB PO SCH (09:25)
[2021-04-18 17:32] VITALS: BP 132/63
[2021-04-18] MEDS: ACETAMINOPHEN TAB 650MG DOSE (2X325MG) PO PRN (21:38)
[2021-04-19 06:44] VITALS: BP 117/70
[2021-04-19] MEDS: OLANZapine 5 MG TAB PO SCH (09:16)
[2021-04-19] MEDS: SERTRALINE HCL 50 MG TAB PO SCH (09:16)
[2021-04-19] MEDS: ACETAMINOPHEN TAB 650MG DOSE (2X325MG) PO PRN ×2 (12:04→21:53)
[2021-04-19 17:54] VITALS: BP 140/88
[2021-04-20 06:32] VITALS: BP 122/77
[2021-04-20] MEDS: OLANZapine 5 MG TAB PO SCH (09:03)
[2021-04-20] MEDS: SERTRALINE HCL 50 MG TAB PO SCH (09:03)
[2021-04-20] MEDS: MAALOX 30 ML SUSP *UDC PO PRN (09:39)
[2021-04-20 19:05] VITALS: BP 142/80
[2021-04-20] MEDS: ACETAMINOPHEN TAB 650MG DOSE (2X325MG) PO PRN (20:51)
[2021-04-21 06:44] VITALS: BP 107/75
[2021-04-21] MEDS: ACETAMINOPHEN TAB 650MG DOSE (2X325MG) PO PRN (08:43)
[2021-04-21] MEDS: SERTRALINE HCL 50 MG TAB PO SCH (08:43)
[2021-04-21] MEDS: OLANZapine 5 MG TAB PO SCH (08:43)
[2021-04-21 18:47] VITALS: BP 101/62
[2021-04-22 06:33] VITALS: BP 116/77
[2021-04-22] MEDS: OLANZapine 5 MG TAB PO SCH (09:36)
[2021-04-22] MEDS: SERTRALINE HCL 50 MG TAB PO SCH (09:36)
[2021-04-22] MEDS: MAALOX 30 ML SUSP *UDC PO PRN (12:16)
[2021-04-22] MEDS: hydrOXYzine 50 MG TAB PO PRN (21:02)
[2021-04-22] MEDS: ACETAMINOPHEN TAB 650MG DOSE (2X325MG) PO PRN (21:02)
[2021-04-22] MEDS: OLANZapine 2.5MG TABLET PO SCH (21:02)
[2021-04-23 06:17] VITALS: BP 135/79
[2021-04-23] MEDS: SERTRALINE 100 MG TAB PO SCH (09:26)
[2021-04-23] MEDS: ACETAMINOPHEN TAB 650MG DOSE (2X325MG) PO PRN ×2 (14:15→21:42)
[2021-04-23 15:18] VITALS: BP 125/88
[2021-04-23 17:14] VITALS: BP 141/81
[2021-04-23] MEDS: OLANZapine 2.5MG TABLET PO SCH (21:43)
[2021-04-24 06:36] VITALS: BP 114/57
[2021-04-24] MEDS ORDERED: OLAN2.5T25 PO (08:19)
[2021-04-24] MEDS ORDERED: NICO21PAT TD (08:19)
[2021-04-24] MEDS ORDERED: HYDR50TA70 PO (08:19)
[2021-04-24] MEDS ORDERED: ZOLO100T PO (08:19)
[2021-04-24] MEDS: SERTRALINE 100 MG TAB PO SCH (09:09)
== END 2021-04-24 11:03 | disposition home or self-care (01) | DRG 885 ==
LOC: M ED 01:16 → M ED INP 03:51 → M PSY 05:11
PROVIDERS: ADMIT Psychiatry & Neurology Psychiatry; ATTEND Psychiatry & Neurology Psychiatry
DX: F25.0 Schizoaffective disorder, bipolar type (principal); R45.851 Suicidal ideations; F12.10 Cannabis abuse, uncomplicated; Z20.822 Contact with and (suspected) exposure to COVID-19; Z79.899 Other long term (current) drug therapy; F17.210 Nicotine dependence, cigarettes, uncomplicated; G47.429 Narcolepsy in conditions classified elsewhere without cataplexy; Z87.820 Personal history of traumatic brain injury; Z91.14 Patient's other noncompliance with medication regimen; Z91.19 Patient's noncompliance with other medical treatment and regimen

== ENCOUNTER 2021-11-21 05:40 | Inpatient (IN) | payer BC, MEDICAID, MEDICARE ==
[~2021-11-21] VITALS: Ht 182.9 cm; Wt 102.0 kg
[~2021-11-21 05:40] MED LIST changes: +HYDR50TA70 PO; +NICO21PAT TD; +OLAN2.5T25 PO; +OLAN20TA14 PO; +ZOLO100T PO; +ZYPR5TAB2 PO
[2021-11-21 07:12] LABS: BASO % 0.6 % (0.0-1.0); EOS # 0.3 10^3/uL (0.0-0.5); EOS % 3.6 % (0.0-3.0); HEMATOCRIT 42.2 % (42.0-52.0); HEMOGLOBIN 13.8 g/dl (13.5-17.5); LYMPH # 1.8 10^3/uL (1.5-5.0); LYMPH % 25.3 % (24.0-44.0); MEAN CORPUSCULAR HEMOGLOBIN 28.2 pg (27.0-33.0); MEAN CORPUSCULAR HGB CONC 32.7 g/dl (32.0-36.5); MEAN CORPUSCULAR VOLUME 86.3 fl (80.0-96.0); MONO # 0.5 10^3/uL (0.0-0.8); MONO % 6.2 % (2.0-8.0); NEUTROPHILS # 4.7 10^3/uL (1.5-8.5); PLATELET COUNT, AUTOMATED 212 10^3/uL (150-450); RED BLOOD COUNT 4.89 10^6/uL (4.30-6.10); WHITE BLOOD COUNT 7.3 10^3/uL (4.0-10.0)
[2021-11-21 07:28] LABS: BLOOD UREA NITROGEN 10 MG/DL (7-18); CALCIUM LEVEL 9.3 MG/DL (8.5-10.1); CARBON DIOXIDE LEVEL 28 MEQ/L (21-32); CHLORIDE LEVEL 106 MEQ/L (98-107); CREATININE FOR GFR 0.99 MG/DL (0.70-1.30); GLOMERULAR FILTRATION RATE > 60.0 (>60); GLUCOSE, FASTING 83 MG/DL (70-100); POTASSIUM SERUM 4.6 MEQ/L (3.5-5.1); SODIUM LEVEL 137 MEQ/L (136-145)
[2021-11-21 07:47] LABS: ERYTHROCYTE SEDIMENTATION RATE 4 mm/hr (0-15)
[2021-11-21] MEDS: NICOTINE 21MG/24HR 1 EA TRANSDERMAL TD SCH (09:00)
[2021-11-21 09:04] LABS: ALBUMIN 3.7 GM/DL (3.2-5.2); ALT/SGPT 22 U/L (12-78); BILIRUBIN,DIRECT < 0.1 MG/DL (0.0-0.2); BILIRUBIN,TOTAL 0.2 MG/DL (0.2-1.0); ETHYL ALCOHOL (ETHANOL) < 0.003 % (0.000-0.010); SALICYLATE LEVEL < 1.7 MG/DL (5.0-30.0); TOTAL PROTEIN 6.8 GM/DL (6.4-8.2)
[2021-11-21 10:57] LABS: AMPHETAMINES LEVEL URINE NEGATIVE (NEGATIVE); BARBITURATES URINE NEGATIVE (NEGATIVE); BENZODIAZEPINES URINE NEGATIVE (NEGATIVE); CANNABINOIDS URINE NEGATIVE (NEGATIVE); COCAINE METABOLITE URINE NEGATIVE (NEGATIVE); METHADONE URINE NEGATIVE (NEGATIVE); OPIATES URINE NEGATIVE (NEGATIVE); PHENCYCLIDINE URINE NEGATIVE (NEGATIVE)
[2021-11-21 10:58] LABS: ACETAMINOPHEN LEVEL < 2.0 UG/ML (0.0-30.0)
[2021-11-21] MEDS ORDERED: IBUPROFEN 400MG TAB PO PRN (14:20)
[2021-11-21] MEDS ORDERED: traZODone 50 MG TAB PO PRN (14:20)
[2021-11-21] MEDS ORDERED: MOM 30ML SUSPENSION UDC PO PRN (14:20)
[2021-11-21] MEDS ORDERED: diphenhydrAMINE 25MG CAP PO PRN (14:20)
[2021-11-21] MEDS ORDERED: MAALOX 30 ML SUSP *UDC PO PRN (14:20)
[2021-11-21] MEDS ORDERED: OLAN1TAB20 PO (14:40)
[2021-11-21] MEDS ORDERED: OLAN20TA14 PO (14:40)
[2021-11-21] MEDS ORDERED: BUPR300T92 PO (14:40)
[2021-11-21] MEDS ORDERED: DIVA500T9 PO (14:40)
[2021-11-21] MEDS ORDERED: BENZ-52 PO (14:40)
[2021-11-21] MEDS ORDERED: OXCA600T8 PO (14:40)
[2021-11-21] MEDS ORDERED: MIRT-10 PO (14:40)
[2021-11-21] MEDS ORDERED: HOME MED LIST COMPLETE! XX SCH (15:20)
[2021-11-21 15:25] LABS: RSV AMPLIFICATION NEGATIVE (NEGATIVE)
[2021-11-22 06:19] VITALS: BP 149/90
[2021-11-22] MEDS: NICOTINE 21MG/24HR 1 EA TRANSDERMAL TD SCH (09:00)
[2021-11-22] MEDS: SERTRALINE HCL 50 MG TAB PO SCH (12:24)
[2021-11-22 14:01] LABS: CHOLESTEROL LEVEL 147 MG/DL (<200); CHOLESTEROL RISK RATIO 3.418 (<5); HDL CHOLESTEROL 43 MG/DL (>40); LDL CHOLESTEROL 92 MG/DL (<100); NON-HDL-C 104 MG/DL; TRIGLYCERIDES LEVEL 62 MG/DL (<150)
[2021-11-22 16:59] VITALS: BP 141/58
[2021-11-22] MEDS ORDERED: MIRTAZAPINE 15 MG TAB PO SCH (21:00)
[2021-11-22] MEDS ORDERED: DIVALPROEX 500MG *ER* TAB PO SCH (21:00)
[2021-11-22] MEDS: OLANZapine 10 MG TAB PO SCH (21:44)
[2021-11-23 06:20] VITALS: BP 138/74
[2021-11-23] MEDS: NICOTINE 21MG/24HR 1 EA TRANSDERMAL TD SCH (09:00)
[2021-11-23] MEDS: SERTRALINE HCL 50 MG TAB PO SCH (09:20)
[2021-11-23] MEDS: OLANZapine 10 MG TAB PO SCH (20:46)
[2021-11-24 06:33] VITALS: BP 131/81
[2021-11-24] MEDS: NICOTINE 21MG/24HR 1 EA TRANSDERMAL TD SCH (09:00)
[2021-11-24] MEDS: SERTRALINE HCL 50 MG TAB PO SCH (09:18)
[2021-11-24] MEDS: OLANZapine 10 MG TAB PO SCH (21:52)
[2021-11-25 07:15] VITALS: BP 136/66
[2021-11-25] MEDS: NICOTINE 21MG/24HR 1 EA TRANSDERMAL TD SCH (09:00)
[2021-11-25] MEDS: SERTRALINE HCL 50 MG TAB PO SCH (09:02)
[2021-11-25] MEDS ORDERED: SERT50TA29 PO (09:54)
[2021-11-25] MEDS ORDERED: OLAN1TAB20 PO (09:54)
== END 2021-11-25 11:06 | disposition home or self-care (01) | DRG 885 ==
LOC: M ED 05:40 → M ED INP 14:16 → M PSY 16:40
PROVIDERS: ADMIT Psychiatry & Neurology Psychiatry; ATTEND Psychiatry & Neurology Psychiatry
DX: F25.0 Schizoaffective disorder, bipolar type (principal); R45.851 Suicidal ideations; Z87.820 Personal history of traumatic brain injury; F12.10 Cannabis abuse, uncomplicated; Z79.899 Other long term (current) drug therapy

== ENCOUNTER 2021-12-06 23:30 | Inpatient (IN) | payer MEDICARE ==
[~2021-12-06] VITALS: Ht 182.9 cm; Wt 102.0 kg
[~2021-12-06 23:30] MED LIST changes: +BENZ-52 PO; +BUPR300T92 PO; +DIVA500T9 PO; +MIRT-10 PO; +OXCA600T8 PO
[2021-12-07 00:38] LABS: HEMATOCRIT 37.7 % (42.0-52.0); HEMOGLOBIN 12.3 g/dl (13.5-17.5); MEAN CORPUSCULAR HEMOGLOBIN 28.6 pg (27.0-33.0); MEAN CORPUSCULAR HGB CONC 32.6 g/dl (32.0-36.5); MEAN CORPUSCULAR VOLUME 87.7 fl (80.0-96.0); PLATELET COUNT, AUTOMATED 202 10^3/uL (150-450); WHITE BLOOD COUNT 6.7 10^3/uL (4.0-10.0)
[2021-12-07 01:14] LABS: AMPHETAMINES LEVEL URINE NEGATIVE (NEGATIVE); BARBITURATES URINE NEGATIVE (NEGATIVE); BENZODIAZEPINES URINE NEGATIVE (NEGATIVE); CANNABINOIDS URINE NEGATIVE (NEGATIVE); COCAINE METABOLITE URINE NEGATIVE (NEGATIVE); METHADONE URINE NEGATIVE (NEGATIVE); OPIATES URINE NEGATIVE (NEGATIVE); PHENCYCLIDINE URINE NEGATIVE (NEGATIVE)
[2021-12-07 01:26] LABS: ACETAMINOPHEN LEVEL < 2.0 UG/ML (10.0-30.0); ALBUMIN 3.5 GM/DL (3.2-5.2); ALT/SGPT 19 U/L (12-78); BILIRUBIN,DIRECT 0.2 MG/DL (0.0-0.2); BILIRUBIN,TOTAL 0.2 MG/DL (0.2-1.0); BLOOD UREA NITROGEN 12 MG/DL (7-18); CALCIUM LEVEL 8.9 MG/DL (8.5-10.1); CARBON DIOXIDE LEVEL 28 MEQ/L (21-32); CHLORIDE LEVEL 111 MEQ/L (98-107); CREATININE FOR GFR 1.04 MG/DL (0.70-1.30); ETHYL ALCOHOL (ETHANOL) < 0.003 % (0.000-0.010); GLOMERULAR FILTRATION RATE > 60.0 (>60); GLUCOSE, FASTING 90 MG/DL (70-100); POTASSIUM SERUM 4.1 MEQ/L (3.5-5.1); SODIUM LEVEL 141 MEQ/L (136-145); TOTAL PROTEIN 6.3 GM/DL (6.4-8.2)
[2021-12-07 03:19] LABS: RSV AMPLIFICATION NEGATIVE (NEGATIVE)
[2021-12-07] MEDS ORDERED: SERT50TA29 PO (08:15)
[2021-12-07] MEDS ORDERED: OLAN1TAB20 PO (08:15)
[2021-12-07] MEDS ORDERED: MOM 30ML SUSPENSION UDC PO PRN (10:55)
[2021-12-07] MEDS ORDERED: traZODone 50 MG TAB PO PRN (10:55)
[2021-12-07] MEDS ORDERED: diphenhydrAMINE 25MG CAP PO PRN (10:55)
[2021-12-07] MEDS ORDERED: OLANZapine ORAL DISINTEGRATING TAB 5MG PO PRN (10:55)
[2021-12-07] MEDS ORDERED: MAALOX 30 ML SUSP *UDC PO PRN (10:55)
[2021-12-07] MEDS ORDERED: HOME MED LIST COMPLETE! XX SCH (11:35)
[2021-12-07 15:03] VITALS: BP 117/64
[2021-12-07] MEDS: NICOTINE 21MG/24HR 1 EA TRANSDERMAL TD SCH (16:23)
[2021-12-07] MEDS: risperiDONE 2 MG TAB PO SCH ×2 (16:23→22:02)
[2021-12-08 06:47] VITALS: BP 133/72
[2021-12-08] MEDS: NICOTINE 21MG/24HR 1 EA TRANSDERMAL TD SCH (09:00)
[2021-12-08] MEDS: risperiDONE 2 MG TAB PO SCH ×2 (09:05→21:58)
[2021-12-08 16:51] VITALS: BP 133/83
[2021-12-08] MEDS: IBUPROFEN 400MG TAB PO PRN (21:59)
[2021-12-09 06:51] VITALS: BP 122/62
[2021-12-09] MEDS: IBUPROFEN 400MG TAB PO PRN ×2 (06:58→22:36)
[2021-12-09 07:34] LABS: CHOLESTEROL RISK RATIO 3.224 (<5)
[2021-12-09] MEDS: risperiDONE 2 MG TAB PO SCH ×2 (07:37→20:15)
[2021-12-09] MEDS: NICOTINE 21MG/24HR 1 EA TRANSDERMAL TD SCH (07:41)
[2021-12-09] MEDS: SERTRALINE HCL 50 MG TAB PO SCH (12:04)
[2021-12-09] MEDS ORDERED: PALIPERIDONE PALMITATE 234MG/1.5ML INJ (INVEGA)(FREE PSY INPT ONLY) IM ONE (14:00)
[2021-12-09 18:18] VITALS: BP 135/66
[2021-12-10 06:36] VITALS: BP 135/87
[2021-12-10] MEDS: SERTRALINE HCL 50 MG TAB PO SCH (07:41)
[2021-12-10] MEDS: risperiDONE 2 MG TAB PO SCH (07:41)
[2021-12-10] MEDS: NICOTINE 21MG/24HR 1 EA TRANSDERMAL TD SCH (07:41)
[2021-12-10] MEDS: IBUPROFEN 400MG TAB PO PRN (07:46)
[2021-12-10 18:15] VITALS: BP 131/90
[2021-12-11 06:43] VITALS: BP 138/88
[2021-12-11] MEDS: NICOTINE 21MG/24HR 1 EA TRANSDERMAL TD SCH (08:56)
[2021-12-11] MEDS: SERTRALINE HCL 50 MG TAB PO SCH (09:52)
[2021-12-11] MEDS: IBUPROFEN 400MG TAB PO PRN (21:14)
[2021-12-12 06:39] VITALS: BP 131/87
[2021-12-12] MEDS: SERTRALINE HCL 50 MG TAB PO SCH (08:14)
[2021-12-12] MEDS: IBUPROFEN 400MG TAB PO PRN ×2 (08:15→20:40)
[2021-12-12 17:50] VITALS: BP 146/71
[2021-12-13 06:45] VITALS: BP 120/76
[2021-12-13] MEDS: SERTRALINE HCL 50 MG TAB PO SCH (08:29)
[2021-12-13] MEDS ORDERED: PALIPERIDONE PALMITATE 156MG/1ML INJ(INVEGA)(FREE PSY INPT ONLY) IM ONE ×2 (10:20→11:00)
[2021-12-13] MEDS ORDERED: TRAZ-252 PO (10:24)
[2021-12-13] MEDS ORDERED: SERT50TA29 PO (10:24)
[2021-12-13] MEDS ORDERED: INVE234I IM (10:28)
== END 2021-12-13 11:58 | disposition home or self-care (01) | DRG 885 ==
LOC: M ED 23:30 → M PSY 12-07 14:51
PROVIDERS: ADMIT Student in an Organized Health Care Education/Training Program; ATTEND Psychiatry & Neurology Psychiatry
DX: F25.1 Schizoaffective disorder, depressive type (principal); U07.1 COVID-19; R45.851 Suicidal ideations; F12.10 Cannabis abuse, uncomplicated; Z87.820 Personal history of traumatic brain injury; Z79.899 Other long term (current) drug therapy; Z98.84 Bariatric surgery status; Z90.49 Acquired absence of other specified parts of digestive tract; Z63.5 Disruption of family by separation and divorce

== ENCOUNTER 2022-01-22 15:57 | Emergency (ER) | payer BC, MEDICAID, MEDICARE ==
[~2022-01-22] VITALS: Ht 182.9 cm; Wt 111.6 kg
[2022-01-22] MEDS ORDERED: SERT25TA21 PO (16:13)
[2022-01-22] MEDS ORDERED: OLAN10TA12 SL (16:13)
[2022-01-22] MEDS ORDERED: CLINDAMYCIN 150MG CAPSULE PO ONE (17:30)
[2022-01-22] MEDS ORDERED: KETOROLAC 60MG 2ML VIAL IM ONE (17:30)
[2022-01-22] MEDS ORDERED: MAGIC MOUTHWASH *ED ONLY* 5ML ORAL SYRINGE SS ONE (17:30)
[2022-01-22] MEDS ORDERED: ZOLO25TA PO (17:42)
[2022-01-22] MEDS ORDERED: MAGICMW SSP (17:42)
[2022-01-22] MEDS ORDERED: CLEO300C2 PO (17:42)
[2022-01-22 17:56] VITALS: BP 138/60
== END 2022-01-22 18:00 | disposition home or self-care (01) ==
LOC: M ED 17:05
DX: K04.7 Periapical abscess without sinus (principal); Z76.0 Encounter for issue of repeat prescription; I10 Essential (primary) hypertension; Z79.899 Other long term (current) drug therapy
CPT/HCPCS: 96372; 99283; J1885

== ENCOUNTER 2022-01-28 16:50 | Emergency (ER) | payer MEDICARE ==
[~2022-01-28] VITALS: Ht 182.9 cm; Wt 110.3 kg
[~2022-01-28 16:50] MED LIST changes: +CLEO300C2 PO; +MAGICMW SSP; +OLAN10TA12 SL; +ZOLO25TA PO
[2022-01-28 17:29] LABS: HEMATOCRIT 38.8 % (42.0-52.0); MEAN CORPUSCULAR HEMOGLOBIN 28.9 pg (27.0-33.0); MEAN CORPUSCULAR HGB CONC 33.5 g/dl (32.0-36.5); MEAN CORPUSCULAR VOLUME 86.2 fl (80.0-96.0); PLATELET COUNT, AUTOMATED 240 10^3/uL (150-450); WHITE BLOOD COUNT 6.8 10^3/uL (4.0-10.0)
[2022-01-28 18:15] LABS: ACETAMINOPHEN LEVEL < 2.0 UG/ML (10.0-30.0); ALBUMIN 3.5 GM/DL (3.2-5.2); ALT/SGPT 48 U/L (12-78); BILIRUBIN,DIRECT < 0.1 MG/DL (0.0-0.2); BILIRUBIN,TOTAL 0.2 MG/DL (0.2-1.0); BLOOD UREA NITROGEN 10 MG/DL (7-18); CALCIUM LEVEL 9.6 MG/DL (8.5-10.1); CARBON DIOXIDE LEVEL 25 MEQ/L (21-32); CHLORIDE LEVEL 112 MEQ/L (98-107); CREATININE FOR GFR 0.98 MG/DL (0.70-1.30); ETHYL ALCOHOL (ETHANOL) < 0.003 % (0.000-0.010); GLOMERULAR FILTRATION RATE > 60.0 (>60); GLUCOSE, FASTING 45 MG/DL (70-100); POTASSIUM SERUM 4.2 MEQ/L (3.5-5.1); SALICYLATE LEVEL < 1.7 MG/DL (5.0-30.0); SODIUM LEVEL 141 MEQ/L (136-145); TOTAL PROTEIN 6.8 GM/DL (6.4-8.2)
[2022-01-28 18:23] LABS: RSV AMPLIFICATION NEGATIVE (NEGATIVE)
[2022-01-28 18:38] LABS: AMPHETAMINES LEVEL URINE NEGATIVE (NEGATIVE); BARBITURATES URINE NEGATIVE (NEGATIVE); BENZODIAZEPINES URINE NEGATIVE (NEGATIVE); CANNABINOIDS URINE NEGATIVE (NEGATIVE); COCAINE METABOLITE URINE NEGATIVE (NEGATIVE); METHADONE URINE NEGATIVE (NEGATIVE); OPIATES URINE NEGATIVE (NEGATIVE); PHENCYCLIDINE URINE NEGATIVE (NEGATIVE)
[2022-01-28 22:36] VITALS: BP 143/88
[2022-01-29] MEDS ORDERED: AMOX875T2 PO (03:06)
[2022-01-29] MEDS ORDERED: MAGICMW SSP (03:06)
== END 2022-01-28 22:48 | disposition home or self-care (01) ==
LOC: M ED 16:50
DX: F43.8 Other reactions to severe stress (principal); R45.851 Suicidal ideations; F32.A Depression, unspecified; I10 Essential (primary) hypertension

== ENCOUNTER 2022-01-28 22:51 | Emergency (ER) | payer MEDICARE ==
[~2022-01-28] VITALS: Ht 182.9 cm; Wt 111.8 kg
[2022-01-29] MEDS ORDERED: AMOX875T2 PO (03:06)
[2022-01-29] MEDS ORDERED: MAGICMW SSP (03:06)
[2022-01-29 03:12] VITALS: BP 138/66
== END 2022-01-29 03:18 | disposition home or self-care (01) ==
LOC: M ED 22:51
DX: Z76.0 Encounter for issue of repeat prescription (principal); K04.7 Periapical abscess without sinus; I10 Essential (primary) hypertension; F43.8 Other reactions to severe stress; R45.851 Suicidal ideations; F32.A Depression, unspecified

== ENCOUNTER 2022-02-04 01:50 | Emergency (ER) | payer MEDICAID, MEDICARE ==
[~2022-02-04] VITALS: Ht 182.9 cm; Wt 111.8 kg
[~2022-02-04 01:50] MED LIST changes: +AMOX875T2 PO
[2022-02-04 03:10] LABS: HEMATOCRIT 36.2 % (42.0-52.0); HEMOGLOBIN 11.8 g/dl (13.5-17.5); MEAN CORPUSCULAR HEMOGLOBIN 28.4 pg (27.0-33.0); MEAN CORPUSCULAR HGB CONC 32.6 g/dl (32.0-36.5); PLATELET COUNT, AUTOMATED 239 10^3/uL (150-450); RED BLOOD COUNT 4.16 10^6/uL (4.30-6.10); WHITE BLOOD COUNT 8.8 10^3/uL (4.0-10.0)
[2022-02-04 03:39] LABS: AMPHETAMINES LEVEL URINE NEGATIVE (NEGATIVE); BARBITURATES URINE NEGATIVE (NEGATIVE); BENZODIAZEPINES URINE NEGATIVE (NEGATIVE); CANNABINOIDS URINE NEGATIVE (NEGATIVE); COCAINE METABOLITE URINE NEGATIVE (NEGATIVE); METHADONE URINE NEGATIVE (NEGATIVE); OPIATES URINE NEGATIVE (NEGATIVE); PHENCYCLIDINE URINE NEGATIVE (NEGATIVE)
[2022-02-04 03:49] LABS: ACETAMINOPHEN LEVEL < 2.0 UG/ML (10.0-30.0); ALBUMIN 3.8 GM/DL (3.2-5.2); ALT/SGPT 25 U/L (12-78); BILIRUBIN,DIRECT 0.1 MG/DL (0.0-0.2); BILIRUBIN,TOTAL 0.3 MG/DL (0.2-1.0); BLOOD UREA NITROGEN 15 MG/DL (7-18); CALCIUM LEVEL 9.6 MG/DL (8.5-10.1); CARBON DIOXIDE LEVEL 26 MEQ/L (21-32); CHLORIDE LEVEL 105 MEQ/L (98-107); CREATININE FOR GFR 1.22 MG/DL (0.70-1.30); ETHYL ALCOHOL (ETHANOL) < 0.003 % (0.000-0.010); GLOMERULAR FILTRATION RATE > 60.0 (>60); GLUCOSE, FASTING 88 MG/DL (70-100); POTASSIUM SERUM 3.8 MEQ/L (3.5-5.1); SALICYLATE LEVEL < 1.7 MG/DL (5.0-30.0); SODIUM LEVEL 137 MEQ/L (136-145); TOTAL PROTEIN 6.3 GM/DL (6.4-8.2)
[2022-02-04 06:52] LABS: RSV AMPLIFICATION NEGATIVE (NEGATIVE)
[2022-02-04] MEDS ORDERED: HOME MED LIST COMPLETE! XX SCH (08:10)
[2022-02-04] MEDS: SERTRALINE HCL 25 MG TABLET PO SCH (08:46)
[2022-02-04] MEDS ORDERED: ACETAMINOPHEN 325 MG TAB PO ONE (19:10)
[2022-02-05] MEDS: SERTRALINE HCL 25 MG TABLET PO SCH (09:02)
[2022-02-06] MEDS: OLANZapine ORAL DISINTEGRATING TAB 5MG SL PRN (02:04)
[2022-02-06] MEDS: SERTRALINE HCL 25 MG TABLET PO SCH (09:48)
[2022-02-07] MEDS: OLANZapine ORAL DISINTEGRATING TAB 5MG SL PRN (03:11)
[2022-02-07] MEDS: SERTRALINE HCL 25 MG TABLET PO SCH (09:00)
[2022-02-07] MEDS ORDERED: PALIPERIDONE 6 MG ER TAB (INVEGA) PO ONE (20:20)
[2022-02-07] MEDS ORDERED: ACETAMINOPHEN TAB 650MG DOSE (2X325MG) PO ONE (22:00)
[2022-02-08] MEDS: PALIPERIDONE 6 MG ER TAB (INVEGA) PO SCH (09:00)
[2022-02-08] MEDS: SERTRALINE HCL 25 MG TABLET PO SCH (09:23)
[2022-02-08] MEDS ORDERED: ACETAMINOPHEN TAB 650MG DOSE (2X325MG) PO ONE (20:45)
[2022-02-09] MEDS: OLANZapine ORAL DISINTEGRATING TAB 5MG SL PRN ×2 (01:37→23:18)
[2022-02-09] MEDS: SERTRALINE HCL 25 MG TABLET PO SCH (09:02)
[2022-02-09] MEDS: PALIPERIDONE 6 MG ER TAB (INVEGA) PO SCH (09:02)
[2022-02-09] MEDS ORDERED: ACETAMINOPHEN 325 MG TAB PO ONE (23:05)
[2022-02-10] MEDS ORDERED: ACETAMINOPHEN TAB 650MG DOSE (2X325MG) PO ONE (10:40)
[2022-02-10] MEDS: PALIPERIDONE 6 MG ER TAB (INVEGA) PO SCH (10:50)
[2022-02-10] MEDS: SERTRALINE HCL 25 MG TABLET PO SCH (10:50)
[2022-02-10] MEDS ORDERED: PALIPERIDONE PALMITATE 234 MG/1.5 ML ONE (13:55)
[2022-02-10] MEDS ORDERED: PALIPERIDONE PAL 234MG/1.5ML INJ (INVEGA)(FREE PSY INPT ONLY) IM ONE (13:55)
[2022-02-10 15:44] VITALS: BP 145/85
== END 2022-02-10 15:46 | disposition home or self-care (01) ==
LOC: M ED 01:50
DX: F25.9 Schizoaffective disorder, unspecified (principal); R45.851 Suicidal ideations; F17.200 Nicotine dependence, unspecified, uncomplicated; Z87.820 Personal history of traumatic brain injury; Z79.899 Other long term (current) drug therapy
CPT/HCPCS: 80048; 80076; 80143; 80307; 82077; 84443; 85027; 87631; 96372; 99285; J2426

== ENCOUNTER 2022-07-16 14:00 | Inpatient (IN) | payer MEDICARE ==
[~2022-07-16] VITALS: Ht 182.9 cm; Wt 105.8 kg
[~2022-07-16 14:00] MED LIST changes: -BENZ-52 PO; +BENZ1TAB5 PO
[2022-07-16 16:56] LABS: HEMOGLOBIN 10.2 g/dl (13.5-17.5); MEAN CORPUSCULAR HEMOGLOBIN 25.6 pg (27.0-33.0); MEAN CORPUSCULAR HGB CONC 30.9 g/dl (32.0-36.5); MEAN CORPUSCULAR VOLUME 82.9 fl (80.0-96.0); PLATELET COUNT, AUTOMATED 222 10^3/uL (150-450); RED BLOOD COUNT 3.98 10^6/uL (4.30-6.10); WHITE BLOOD COUNT 5.2 10^3/uL (4.0-10.0)
[2022-07-16 17:07] LABS: AMPHETAMINES LEVEL URINE NEGATIVE (NEGATIVE)
[2022-07-16 17:08] LABS: BARBITURATES URINE NEGATIVE (NEGATIVE); BENZODIAZEPINES URINE NEGATIVE (NEGATIVE); COCAINE METABOLITE URINE NEGATIVE (NEGATIVE); METHADONE URINE NEGATIVE (NEGATIVE); OPIATES URINE NEGATIVE (NEGATIVE); PHENCYCLIDINE URINE NEGATIVE (NEGATIVE)
[2022-07-16 17:09] LABS: ETHYL ALCOHOL (ETHANOL) < 0.003 % (0.000-0.010)
[2022-07-16 17:10] LABS: ACETAMINOPHEN LEVEL < 2.0 UG/ML (10.0-20.0)
[2022-07-16 17:11] LABS: SALICYLATE LEVEL < 3.0 MG/DL (<30)
[2022-07-16 17:12] LABS: CANNABINOIDS URINE POSITIVE (NEGATIVE)
[2022-07-16 17:17] LABS: ALKALINE PHOSPHATASE 77 U/L (46-116); ALT/SGPT 21 U/L (7.0-40); AST/SGOT 30 U/L (<34); BILIRUBIN,DIRECT 0.1 MG/DL (<0.4); BILIRUBIN,TOTAL 0.3 MG/DL (0.3-1.2); BLOOD UREA NITROGEN 9 MG/DL (9-23); CALCIUM LEVEL 9.2 MG/DL (8.5-10.1); CARBON DIOXIDE LEVEL 28 MMOL/L (20-31); CHLORIDE LEVEL 108 MMOL/L (98-107); GLOMERULAR FILTRATION RATE > 60.0 (>60); GLUCOSE, FASTING 126 MG/DL (60-100); SODIUM LEVEL 141 MMOL/L (136-145)
[2022-07-16 17:36] LABS: THYROID STIMULATING HORMONE 1.036 uIU/ML (0.55-4.78)
[2022-07-16] MEDS ORDERED: SERT50TA29 PO (19:34)
[2022-07-16] MEDS ORDERED: INVE156I IM (19:34)
[2022-07-16] MEDS ORDERED: COMMENTS (19:35)
[2022-07-16 21:06] LABS: TOTAL PROTEIN 5.7 G/DL (5.7-8.2)
[2022-07-16] MEDS ORDERED: ACETAMINOPHEN TAB 650MG DOSE (2X325MG) PO PRN (22:35)
[2022-07-16] MEDS ORDERED: traZODone 50 MG TAB PO PRN (22:35)
[2022-07-16] MEDS ORDERED: OLANZapine ORAL DISINTEGRATING TAB 5MG PO PRN (22:35)
[2022-07-16] MEDS ORDERED: MAALOX 30 ML SUSP *UDC PO PRN (22:35)
[2022-07-16] MEDS ORDERED: MOM 30ML SUSPENSION UDC PO PRN (22:35)
[2022-07-17 00:15] VITALS: BP 122/79
[2022-07-17] MEDS ORDERED: HOME MED LIST COMPLETE! XX SCH (09:10)
[2022-07-17] MEDS: ARIPiprazole 15 MG TAB (AbiLIFY) PO SCH ×2 (13:15→20:39)
[2022-07-17] MEDS: SERTRALINE HCL 25 MG TABLET PO SCH (13:16)
[2022-07-17 18:49] VITALS: BP 134/73
[2022-07-18 06:17] VITALS: BP_SYST 114; BP_SYST 117; BP_DIAS 84
[2022-07-18] MEDS: SERTRALINE HCL 25 MG TABLET PO SCH (09:01)
[2022-07-18] MEDS: ARIPiprazole 15 MG TAB (AbiLIFY) PO SCH (09:01)
[2022-07-18] MEDS ORDERED: PILL CUTTER 1 EACH XX PRN (09:05)
[2022-07-18] MEDS ORDERED: PALIPERIDONE PAL 156MG/1ML INJ(INVEGA)(FREE PSY INPT ONLY) IM ONE (09:30)
[2022-07-19 06:24] VITALS: BP 118/65
[2022-07-19] MEDS: SERTRALINE HCL 25 MG TABLET PO SCH (09:15)
[2022-07-19 16:48] VITALS: BP 130/62
[2022-07-20 06:12] VITALS: BP 123/58
[2022-07-20] MEDS: SERTRALINE HCL 25 MG TABLET PO SCH (09:21)
[2022-07-21 06:41] VITALS: BP 108/58
[2022-07-21] MEDS ORDERED: INVE156I IM (09:10)
[2022-07-21] MEDS ORDERED: SERT25TA21 PO (09:10)
[2022-07-21] MEDS ORDERED: TRAZ-252 PO (09:10)
[2022-07-21] MEDS: SERTRALINE HCL 25 MG TABLET PO SCH (09:30)
[2022-07-22] MEDS ORDERED: TRAZ-186 PO (23:38)
[2022-07-22] MEDS ORDERED: INVE156I IM (23:38)
[2022-07-22] MEDS ORDERED: SERT25TA21 PO (23:38)
== END 2022-07-21 11:37 | disposition home or self-care (01) | DRG 885 ==
LOC: M ED 14:00 → M ED INP 22:31 → M PSY 07-17 00:08
PROVIDERS: ADMIT Student in an Organized Health Care Education/Training Program; ATTEND Student in an Organized Health Care Education/Training Program
DX: F25.0 Schizoaffective disorder, bipolar type (principal); R45.851 Suicidal ideations; Z87.820 Personal history of traumatic brain injury; Z56.0 Unemployment, unspecified; Z59.01 Sheltered homelessness; F12.10 Cannabis abuse, uncomplicated; Z79.899 Other long term (current) drug therapy

== ENCOUNTER 2022-07-22 21:11 | Inpatient (IN) | payer MEDICARE ==
[~2022-07-22] VITALS: Ht 182.9 cm; Wt 106.8 kg
[~2022-07-22 21:11] MED LIST changes: +COMMENTS
[2022-07-22 22:30] LABS: HEMATOCRIT 35.7 % (42.0-52.0); MEAN CORPUSCULAR HGB CONC 30.8 g/dl (32.0-36.5); MEAN CORPUSCULAR VOLUME 84.4 fl (80.0-96.0); PLATELET COUNT, AUTOMATED 262 10^3/uL (150-450); RED BLOOD COUNT 4.23 10^6/uL (4.30-6.10); WHITE BLOOD COUNT 5.3 10^3/uL (4.0-10.0)
[2022-07-22 22:50] LABS: BARBITURATES URINE NEGATIVE (NEGATIVE); BENZODIAZEPINES URINE NEGATIVE (NEGATIVE); CANNABINOIDS URINE NEGATIVE (NEGATIVE); COCAINE METABOLITE URINE NEGATIVE (NEGATIVE); METHADONE URINE NEGATIVE (NEGATIVE); OPIATES URINE NEGATIVE (NEGATIVE); PHENCYCLIDINE URINE NEGATIVE (NEGATIVE)
[2022-07-22 23:10] LABS: AMPHETAMINES LEVEL URINE NEGATIVE (NEGATIVE)
[2022-07-22 23:26] LABS: ETHYL ALCOHOL (ETHANOL) < 0.003 % (0.000-0.010)
[2022-07-22 23:28] LABS: ACETAMINOPHEN LEVEL < 2.0 UG/ML (10.0-20.0); SALICYLATE LEVEL < 3.0 MG/DL (<30)
[2022-07-22 23:32] LABS: ALBUMIN 3.6 G/DL (3.2-5.2); ALKALINE PHOSPHATASE 75 U/L (46-116); ALT/SGPT 19 U/L (7.0-40); AST/SGOT 23 U/L (<34); BILIRUBIN,DIRECT < 0.1 MG/DL (<0.4); BILIRUBIN,TOTAL 0.3 MG/DL (0.3-1.2); BLOOD UREA NITROGEN 13 MG/DL (9-23); CALCIUM LEVEL 9.4 MG/DL (8.5-10.1); CARBON DIOXIDE LEVEL 28 MMOL/L (20-31); CHLORIDE LEVEL 106 MMOL/L (98-107); CREATININE FOR GFR 0.89 MG/DL (0.70-1.30); GLOMERULAR FILTRATION RATE > 60.0 (>60); GLUCOSE, FASTING 144 MG/DL (60-100); POTASSIUM SERUM 4.4 MMOL/L (3.5-5.1); SODIUM LEVEL 140 MMOL/L (136-145); THYROID STIMULATING HORMONE 2.753 uIU/ML (0.55-4.78); TOTAL PROTEIN 6.3 G/DL (5.7-8.2)
[2022-07-22] MEDS ORDERED: SERT25TA21 PO (23:38)
[2022-07-22] MEDS ORDERED: TRAZ-186 PO (23:38)
[2022-07-22] MEDS ORDERED: INVE156I IM (23:38)
[2022-07-22] MEDS ORDERED: HOME MED LIST COMPLETE! XX SCH (23:40)
[2022-07-23] MEDS: NICOTINE 21MG/24HR 1 EA TRANSDERMAL TD SCH (09:00)
[2022-07-23] MEDS: SERTRALINE HCL 25 MG TABLET PO SCH (09:13)
[2022-07-23] MEDS ORDERED: traZODone 50 MG TAB PO PRN ×2 (10:45)
[2022-07-23] MEDS ORDERED: IBUPROFEN 400MG TAB PO PRN (10:45)
[2022-07-23] MEDS ORDERED: MOM 30ML SUSPENSION UDC PO PRN (10:45)
[2022-07-23] MEDS ORDERED: MAALOX 30 ML SUSP *UDC PO PRN (10:45)
[2022-07-23] MEDS ORDERED: diphenhydrAMINE 25MG CAP PO PRN (10:45)
[2022-07-23 13:20] VITALS: BP 148/90
[2022-07-23 15:18] VITALS: BP 125/57
[2022-07-24 06:33] VITALS: BP 105/51
[2022-07-24] MEDS: SERTRALINE HCL 25 MG TABLET PO SCH (08:49)
[2022-07-24] MEDS: NICOTINE 21MG/24HR 1 EA TRANSDERMAL TD SCH (08:49)
[2022-07-24] MEDS: PALIPERIDONE 6MG ER TAB (INVEGA) PO SCH (12:05)
[2022-07-24] MEDS: PROPRANOLOL 10 MG TAB PO SCH ×2 (12:07→20:00)
[2022-07-24 18:04] VITALS: BP 132/85
[2022-07-25 06:36] VITALS: BP 133/84
[2022-07-25] MEDS: NICOTINE 21MG/24HR 1 EA TRANSDERMAL TD SCH (09:00)
[2022-07-25] MEDS: PALIPERIDONE 6MG ER TAB (INVEGA) PO SCH (09:56)
[2022-07-25] MEDS: PROPRANOLOL 10 MG TAB PO SCH ×2 (09:56→23:25)
[2022-07-25] MEDS: SERTRALINE HCL 25 MG TABLET PO SCH (09:56)
[2022-07-25 18:43] VITALS: BP 128/73
[2022-07-25] MEDS: LITHIUM CARBONATE 300 MG **CR** TAB PO SCH (23:24)
[2022-07-26 06:09] VITALS: BP 110/53
[2022-07-26] MEDS: PALIPERIDONE 6MG ER TAB (INVEGA) PO SCH (09:57)
[2022-07-26] MEDS: SERTRALINE HCL 25 MG TABLET PO SCH (10:00)
[2022-07-26] MEDS: PROPRANOLOL 10 MG TAB PO SCH ×2 (10:00→21:23)
[2022-07-26 18:35] VITALS: BP 139/69
[2022-07-26] MEDS: LITHIUM CARBONATE 300 MG **CR** TAB PO SCH (21:21)
[2022-07-27 06:29] VITALS: BP 113/65
[2022-07-27] MEDS: SERTRALINE HCL 25 MG TABLET PO SCH (10:16)
[2022-07-27] MEDS: PALIPERIDONE 6MG ER TAB (INVEGA) PO SCH (10:16)
[2022-07-27] MEDS: PROPRANOLOL 10 MG TAB PO SCH ×2 (10:16→21:52)
[2022-07-27 18:23] VITALS: BP 121/57
[2022-07-27] MEDS: LITHIUM CARBONATE 300 MG **CR** TAB PO SCH (21:53)
[2022-07-28 06:30] VITALS: BP 104/50
[2022-07-28] MEDS ORDERED: SERT25TA21 PO (09:53)
[2022-07-28] MEDS ORDERED: INVE156I IM (09:53)
[2022-07-28] MEDS ORDERED: LITH1TAB PO (09:53)
[2022-07-28] MEDS ORDERED: PROP10TA56 PO (09:53)
[2022-07-28] MEDS ORDERED: PALI1TAB3 PO (09:53)
[2022-07-28 09:57] VITALS: BP 121/73
[2022-07-28] MEDS: PALIPERIDONE 6MG ER TAB (INVEGA) PO SCH (09:57)
[2022-07-28] MEDS: PROPRANOLOL 10 MG TAB PO SCH (09:57)
[2022-07-28] MEDS: SERTRALINE HCL 25 MG TABLET PO SCH (09:57)
== END 2022-07-28 14:58 | disposition home or self-care (01) | DRG 885 ==
LOC: M ED 21:11 → M ED INP 07-23 10:41 → M PSY 07-23 10:41 → UNDOADMIN 07-23 10:41 → M ED INP 07-23 15:44 → M PSY 07-23 15:51
PROVIDERS: ADMIT Student in an Organized Health Care Education/Training Program; ATTEND Student in an Organized Health Care Education/Training Program
DX: F25.0 Schizoaffective disorder, bipolar type (principal); R45.851 Suicidal ideations; F12.10 Cannabis abuse, uncomplicated; Z59.02 Unsheltered homelessness; Z56.0 Unemployment, unspecified; Z87.820 Personal history of traumatic brain injury; Z79.899 Other long term (current) drug therapy; Z98.84 Bariatric surgery status

== ENCOUNTER 2022-10-25 03:42 | Inpatient (IN) | payer MEDICARE ==
[~2022-10-25] VITALS: Ht 182.9 cm; Wt 106.8 kg
[~2022-10-25 03:42] MED LIST changes: +LITH1TAB PO; +PALI1TAB3 PO; +PROP10TA56 PO
[2022-10-25 04:32] LABS: HEMATOCRIT 36.9 % (42.0-52.0); HEMOGLOBIN 11.7 g/dl (13.5-17.5); MEAN CORPUSCULAR HEMOGLOBIN 25.5 pg (27.0-33.0); MEAN CORPUSCULAR HGB CONC 31.7 g/dl (32.0-36.5); MEAN CORPUSCULAR VOLUME 80.6 fl (80.0-96.0); PLATELET COUNT, AUTOMATED 279 10^3/uL (150-450); RED BLOOD COUNT 4.58 10^6/uL (4.30-6.10)
[2022-10-25 04:44] LABS: AMPHETAMINES LEVEL URINE NEGATIVE (NEGATIVE); BARBITURATES URINE NEGATIVE (NEGATIVE); BENZODIAZEPINES URINE NEGATIVE (NEGATIVE); CANNABINOIDS URINE NEGATIVE (NEGATIVE); COCAINE METABOLITE URINE NEGATIVE (NEGATIVE); METHADONE URINE NEGATIVE (NEGATIVE); OPIATES URINE NEGATIVE (NEGATIVE); PHENCYCLIDINE URINE NEGATIVE (NEGATIVE)
[2022-10-25 04:47] LABS: ETHYL ALCOHOL (ETHANOL) < 0.003 % (0.000-0.010)
[2022-10-25 04:48] LABS: SALICYLATE LEVEL < 3.0 MG/DL (<30)
[2022-10-25 04:49] LABS: ACETAMINOPHEN LEVEL < 2.0 UG/ML (10.0-20.0); ALKALINE PHOSPHATASE 101 U/L (46-116); ALT/SGPT 25 U/L (7.0-40); AST/SGOT 22 U/L (<34); BILIRUBIN,DIRECT < 0.1 MG/DL (<0.4); BILIRUBIN,TOTAL 0.2 MG/DL (0.3-1.2); BLOOD UREA NITROGEN 14 MG/DL (9-23); CALCIUM LEVEL 9.6 MG/DL (8.5-10.1); CARBON DIOXIDE LEVEL 26 MMOL/L (20-31); CHLORIDE LEVEL 104 MMOL/L (98-107); CREATININE FOR GFR 0.95 MG/DL (0.70-1.30); GLOMERULAR FILTRATION RATE > 60.0 (>60); GLUCOSE, FASTING 98 MG/DL (60-100); POTASSIUM SERUM 3.9 MMOL/L (3.5-5.1); SODIUM LEVEL 138 MMOL/L (136-145); TOTAL PROTEIN 6.9 G/DL (5.7-8.2)
[2022-10-25] MEDS ORDERED: ACETAMINOPHEN TAB 650MG DOSE (2X325MG) PO PRN (09:40)
[2022-10-25] MEDS ORDERED: MOM 30ML SUSPENSION UDC PO PRN (09:40)
[2022-10-25] MEDS ORDERED: NICOTINE 21MG/24HR 1 EA TRANSDERMAL TD PRN (09:40)
[2022-10-25] MEDS ORDERED: diphenhydrAMINE 25MG CAP PO PRN (09:40)
[2022-10-25] MEDS ORDERED: IBUPROFEN 400MG TAB PO PRN (09:40)
[2022-10-25] MEDS ORDERED: MAALOX 30 ML SUSP *UDC PO PRN (09:40)
[2022-10-25 10:28] VITALS: BP 112/70
[2022-10-25] MEDS ORDERED: NICO2LOZ8 MT (10:55)
[2022-10-25] MEDS ORDERED: HALO5TAB33 PO (10:55)
[2022-10-25] MEDS ORDERED: VENL37.598 PO (10:55)
[2022-10-25] MEDS ORDERED: INVE234I IM (10:55)
[2022-10-25] MEDS ORDERED: HOME MED LIST COMPLETE! XX SCH (11:00)
[2022-10-25] MEDS: VENLAFAXINE **XR** 75MG CAPSULE PO SCH (12:19)
[2022-10-25 16:46] VITALS: BP 120/61
[2022-10-25] MEDS ORDERED: LITHIUM CARBONATE 300 MG **CR** TAB PO SCH (21:00)
[2022-10-25] MEDS ORDERED: PROPRANOLOL 10 MG TAB PO SCH (21:00)
[2022-10-26 06:31] VITALS: BP 111/61
[2022-10-26] MEDS ORDERED: PALIPERIDONE 6MG ER TAB (INVEGA) PO SCH (09:00)
[2022-10-26] MEDS ORDERED: SERTRALINE HCL 25 MG TABLET PO SCH (09:00)
[2022-10-26] MEDS: VENLAFAXINE **XR** 75MG CAPSULE PO SCH (09:26)
[2022-10-27 06:46] VITALS: BP 113/72
[2022-10-27] MEDS: VENLAFAXINE **XR** 75MG CAPSULE PO SCH (09:54)
[2022-10-27 18:00] VITALS: BP 144/81
[2022-10-27] MEDS: traZODone 50 MG TAB PO PRN (23:49)
[2022-10-28 06:32] VITALS: BP 142/87
[2022-10-28] MEDS: VENLAFAXINE **XR** 75MG CAPSULE PO SCH (09:05)
[2022-10-28] MEDS ORDERED: HALO5TAB33 PO (12:55)
[2022-10-28] MEDS ORDERED: VENL75CA47 PO (12:55)
[2022-10-28] MEDS ORDERED: TRAZ-252 PO (12:55)
[2022-10-28 16:25] VITALS: BP 155/107
[2022-10-28] MEDS: traZODone 50 MG TAB PO PRN (21:44)
[2022-10-29 06:47] VITALS: BP 113/65
[2022-10-29] MEDS: VENLAFAXINE **XR** 75MG CAPSULE PO SCH (08:17)
== END 2022-10-29 12:42 | disposition home or self-care (01) | DRG 885 ==
LOC: EDBD 03:42 → M ED 03:42 → M ED INP 09:39 → M PSY 10:38
PROVIDERS: ADMIT Psychiatry & Neurology Psychiatry; ATTEND Student in an Organized Health Care Education/Training Program
DX: F25.0 Schizoaffective disorder, bipolar type (principal); R45.851 Suicidal ideations; Z59.00 Homelessness unspecified; Z87.820 Personal history of traumatic brain injury; Z91.51 Personal history of suicidal behavior; Z56.0 Unemployment, unspecified; Z79.899 Other long term (current) drug therapy; F12.10 Cannabis abuse, uncomplicated; Z81.8 Family history of other mental and behavioral disorders; F17.200 Nicotine dependence, unspecified, uncomplicated

== ENCOUNTER 2022-11-20 22:56 | Inpatient (IN) | payer MEDICARE ==
[~2022-11-20] VITALS: Ht 193 cm; Wt 109.0 kg
[~2022-11-20 22:56] MED LIST changes: +HALO5TAB33 PO; +NICO2LOZ8 MT; +VENL37.598 PO; +VENL75CA47 PO
[2022-11-21 00:30] LABS: AMPHETAMINES LEVEL URINE NEGATIVE (NEGATIVE); BARBITURATES URINE NEGATIVE (NEGATIVE); BENZODIAZEPINES URINE NEGATIVE (NEGATIVE); CANNABINOIDS URINE NEGATIVE (NEGATIVE); COCAINE METABOLITE URINE NEGATIVE (NEGATIVE); METHADONE URINE NEGATIVE (NEGATIVE); OPIATES URINE NEGATIVE (NEGATIVE); PHENCYCLIDINE URINE NEGATIVE (NEGATIVE)
[2022-11-21 00:32] LABS: ETHYL ALCOHOL (ETHANOL) < 0.003 % (0.000-0.010)
[2022-11-21 00:34] LABS: ACETAMINOPHEN LEVEL < 2.0 UG/ML (10.0-20.0); ALBUMIN 3.5 G/DL (3.2-5.2); ALKALINE PHOSPHATASE 80 U/L (46-116); ALT/SGPT 30 U/L (7.0-40); AST/SGOT 16 U/L (<34); BILIRUBIN,DIRECT < 0.1 MG/DL (<0.4); BILIRUBIN,TOTAL 0.2 MG/DL (0.3-1.2); BLOOD UREA NITROGEN 10 MG/DL (9-23); CALCIUM LEVEL 8.9 MG/DL (8.5-10.1); CARBON DIOXIDE LEVEL 27 MMOL/L (20-31); CHLORIDE LEVEL 106 MMOL/L (98-107); CREATININE FOR GFR 0.95 MG/DL (0.70-1.30); GLOMERULAR FILTRATION RATE > 60.0 (>60); GLUCOSE, FASTING 120 MG/DL (60-100); POTASSIUM SERUM 4.1 MMOL/L (3.5-5.1); SALICYLATE LEVEL < 3.0 MG/DL (<30); SODIUM LEVEL 137 MMOL/L (136-145); TOTAL PROTEIN 5.9 G/DL (5.7-8.2)
[2022-11-21 00:37] LABS: THYROID STIMULATING HORMONE 3.081 uIU/ML (0.55-4.78)
[2022-11-21 00:44] LABS: HEMATOCRIT 34.1 % (42.0-52.0); HEMOGLOBIN 10.7 g/dl (13.5-17.5); MEAN CORPUSCULAR HEMOGLOBIN 25.7 pg (27.0-33.0); MEAN CORPUSCULAR HGB CONC 31.4 g/dl (32.0-36.5); PLATELET COUNT, AUTOMATED 240 10^3/uL (150-450); RED BLOOD COUNT 4.16 10^6/uL (4.30-6.10); WHITE BLOOD COUNT 5.8 10^3/uL (4.0-10.0)
[2022-11-21] MEDS ORDERED: MAALOX 30 ML SUSP *UDC PO PRN (05:40)
[2022-11-21] MEDS ORDERED: ACETAMINOPHEN TAB 650MG DOSE (2X325MG) PO PRN (05:40)
[2022-11-21] MEDS ORDERED: IBUPROFEN 400MG TAB PO PRN (05:40)
[2022-11-21] MEDS ORDERED: diphenhydrAMINE 25MG CAP PO PRN (05:40)
[2022-11-21] MEDS ORDERED: traZODone 50 MG TAB PO PRN (05:40)
[2022-11-21] MEDS ORDERED: MOM 30ML SUSPENSION UDC PO PRN (05:40)
[2022-11-21] MEDS ORDERED: BENZ1TAB5 PO (07:40)
[2022-11-21] MEDS ORDERED: HALO5TAB33 PO (07:40)
[2022-11-21] MEDS ORDERED: TRAZ-186 PO (07:42)
[2022-11-21] MEDS ORDERED: VENL37.52 PO (07:42)
[2022-11-21] MEDS ORDERED: HALD100I2 IM (07:48)
[2022-11-21] MEDS ORDERED: HOME MED LIST COMPLETE! XX SCH (07:55)
[2022-11-21 10:05] VITALS: BP 153/70; TEMP 97.2; O2SAT 97
[2022-11-21 18:00] VITALS: BP 133/83; TEMP 97.2
[2022-11-22 07:14] VITALS: BP 127/61; TEMP 98.5; O2SAT 98
[2022-11-22] MEDS: VENLAFAXINE **XR** 75MG CAPSULE PO SCH (10:28)
[2022-11-22 17:09] VITALS: BP 133/68; TEMP 98.1; O2SAT 97
[2022-11-23 07:05] VITALS: BP 122/72; TEMP 98; O2SAT 96
[2022-11-23] MEDS: VENLAFAXINE **XR** 75MG CAPSULE PO SCH (09:39)
[2022-11-23 17:07] VITALS: BP 118/66; TEMP 98; O2SAT 100
[2022-11-24 06:53] VITALS: BP 116/69; TEMP 98.9; O2SAT 97
[2022-11-24] MEDS: VENLAFAXINE **XR** 75MG CAPSULE PO SCH (09:09)
[2022-11-24] MEDS ORDERED: HALD100I2 IM (11:11)
[2022-11-24] MEDS ORDERED: VENL75CA47 PO (11:11)
== END 2022-11-24 14:55 | disposition home or self-care (01) | DRG 885 ==
LOC: M ED 22:56 → M ED INP 11-21 05:39 → M PSY 11-21 10:28
PROVIDERS: ADMIT Student in an Organized Health Care Education/Training Program; ATTEND Student in an Organized Health Care Education/Training Program
DX: F25.0 Schizoaffective disorder, bipolar type (principal); R45.851 Suicidal ideations; Z87.820 Personal history of traumatic brain injury; Z91.51 Personal history of suicidal behavior; Z56.0 Unemployment, unspecified; Z79.899 Other long term (current) drug therapy

== ENCOUNTER 2022-12-03 01:43 | Emergency (ER) | payer MEDICARE, OTHER ==
[~2022-12-03] VITALS: Ht 182.9 cm; Wt 109.0 kg
[~2022-12-03 01:43] MED LIST changes: +HALD100I2 IM; +VENL37.52 PO
[2022-12-03 02:57] LABS: HEMATOCRIT 33.8 % (42.0-52.0); HEMOGLOBIN 10.4 g/dl (13.5-17.5); MEAN CORPUSCULAR HEMOGLOBIN 25.2 pg (27.0-33.0); MEAN CORPUSCULAR HGB CONC 30.8 g/dl (32.0-36.5); PLATELET COUNT, AUTOMATED 205 10^3/uL (150-450); RED BLOOD COUNT 4.12 10^6/uL (4.30-6.10); WHITE BLOOD COUNT 6.3 10^3/uL (4.0-10.0)
[2022-12-03 03:04] LABS: AMPHETAMINES LEVEL URINE NEGATIVE (NEGATIVE); BARBITURATES URINE NEGATIVE (NEGATIVE); BENZODIAZEPINES URINE NEGATIVE (NEGATIVE); CANNABINOIDS URINE NEGATIVE (NEGATIVE); COCAINE METABOLITE URINE NEGATIVE (NEGATIVE); METHADONE URINE NEGATIVE (NEGATIVE); OPIATES URINE NEGATIVE (NEGATIVE); PHENCYCLIDINE URINE NEGATIVE (NEGATIVE)
[2022-12-03 03:06] LABS: ETHYL ALCOHOL (ETHANOL) < 0.003 % (0.000-0.010)
[2022-12-03 03:07] LABS: SALICYLATE LEVEL < 3.0 MG/DL (<30)
[2022-12-03 03:08] LABS: ACETAMINOPHEN LEVEL < 2.0 UG/ML (10.0-20.0); ALBUMIN 3.5 G/DL (3.2-5.2); ALKALINE PHOSPHATASE 72 U/L (46-116); ALT/SGPT 12 U/L (7.0-40); AST/SGOT 8 U/L (<34); BILIRUBIN,DIRECT < 0.1 MG/DL (<0.4); BILIRUBIN,TOTAL 0.2 MG/DL (0.3-1.2); BLOOD UREA NITROGEN 16 MG/DL (9-23); CARBON DIOXIDE LEVEL 29 MMOL/L (20-31); CHLORIDE LEVEL 108 MMOL/L (98-107); CREATININE FOR GFR 1.05 MG/DL (0.70-1.30); GLOMERULAR FILTRATION RATE > 60.0 (>60); GLUCOSE, FASTING 82 MG/DL (60-100); POTASSIUM SERUM 4.1 MMOL/L (3.5-5.1); SODIUM LEVEL 142 MMOL/L (136-145); TOTAL PROTEIN 5.9 G/DL (5.7-8.2)
[2022-12-03 03:10] LABS: THYROID STIMULATING HORMONE 4.064 uIU/ML (0.55-4.78)
[2022-12-03] MEDS ORDERED: HALD100I2 IM (06:19)
[2022-12-03] MEDS ORDERED: VENL75CA47 PO (06:19)
[2022-12-03] MEDS ORDERED: HALO5TAB33 PO (06:19)
[2022-12-03] MEDS ORDERED: HOME MED LIST COMPLETE! XX SCH (06:20)
[2022-12-03 09:50] VITALS: BP 121/73; TEMP 97.8; O2SAT 98
[2022-12-03] MEDS ORDERED: VENLAFAXINE **XR** 75MG CAPSULE PO ONE (11:25)
[2022-12-03] MEDS ORDERED: BENZTROPINE 1 MG TAB PO ONE (11:25)
== END 2022-12-03 11:55 | disposition home or self-care (01) ==
LOC: M ED 01:43
DX: F32.A Depression, unspecified (principal); Z79.899 Other long term (current) drug therapy

== ENCOUNTER 2023-01-13 14:02 | Emergency (ER) | payer OTHER ==
[~2023-01-13] VITALS: Ht 182.9 cm; Wt 111.4 kg
[2023-01-13 14:03] VITALS: BP 132/79; TEMP 97.2; O2SAT 98
[2023-01-13] MEDS ORDERED: ACETAMINOPHEN TAB 650MG DOSE (2X325MG) PO ONE (14:35)
[2023-01-13 14:57] LABS: HEMATOCRIT 38.2 % (42.0-52.0); HEMOGLOBIN 12.1 g/dl (13.5-17.5); MEAN CORPUSCULAR HEMOGLOBIN 26.4 pg (27.0-33.0); MEAN CORPUSCULAR HGB CONC 31.7 g/dl (32.0-36.5); MEAN CORPUSCULAR VOLUME 83.2 fl (80.0-96.0); PLATELET COUNT, AUTOMATED 213 10^3/uL (150-450); RED BLOOD COUNT 4.59 10^6/uL (4.30-6.10); WHITE BLOOD COUNT 7.4 10^3/uL (4.0-10.0)
[2023-01-13 15:23] LABS: AMPHETAMINES LEVEL URINE NEGATIVE (NEGATIVE)
[2023-01-13 15:24] LABS: BARBITURATES URINE NEGATIVE (NEGATIVE); BENZODIAZEPINES URINE NEGATIVE (NEGATIVE); COCAINE METABOLITE URINE NEGATIVE (NEGATIVE); METHADONE URINE NEGATIVE (NEGATIVE); OPIATES URINE NEGATIVE (NEGATIVE); PHENCYCLIDINE URINE NEGATIVE (NEGATIVE)
[2023-01-13 15:26] LABS: CANNABINOIDS URINE POSITIVE (NEGATIVE); ETHYL ALCOHOL (ETHANOL) < 0.003 % (0.000-0.010)
[2023-01-13 15:28] LABS: ACETAMINOPHEN LEVEL < 2.0 UG/ML (10.0-20.0); ALBUMIN 3.8 G/DL (3.2-5.2); ALKALINE PHOSPHATASE 99 U/L (46-116); ALT/SGPT 15 U/L (7.0-40); AST/SGOT 11 U/L (<34); BILIRUBIN,DIRECT 0.1 MG/DL (<0.4); BILIRUBIN,TOTAL 0.3 MG/DL (0.3-1.2); BLOOD UREA NITROGEN 10 MG/DL (9-23); CALCIUM LEVEL 9.5 MG/DL (8.5-10.1); CARBON DIOXIDE LEVEL 25 MMOL/L (20-31); CHLORIDE LEVEL 108 MMOL/L (98-107); CREATININE FOR GFR 0.86 MG/DL (0.70-1.30); GLOMERULAR FILTRATION RATE > 60.0 (>60); GLUCOSE, FASTING 137 MG/DL (60-100); SALICYLATE LEVEL < 3.0 MG/DL (<30); SODIUM LEVEL 140 MMOL/L (136-145); TOTAL PROTEIN 6.8 G/DL (5.7-8.2)
[2023-01-13 15:31] LABS: THYROID STIMULATING HORMONE 1.296 uIU/ML (0.55-4.78)
[2023-01-13] MEDS ORDERED: MED REC IN PROGRESS XX SCH (19:00)
[2023-01-13] MEDS ORDERED: HALO10AM IM (19:15)
[2023-01-13] MEDS ORDERED: HOME MED LIST COMPLETE! XX SCH (19:25)
== END 2023-01-13 20:33 | disposition home or self-care (01) ==
LOC: M ED 14:02
DX: R45.851 Suicidal ideations (principal); F32.A Depression, unspecified; Z76.0 Encounter for issue of repeat prescription; Z79.899 Other long term (current) drug therapy

== ENCOUNTER 2023-01-14 21:45 | Emergency (ER) | payer OTHER ==
[~2023-01-14] VITALS: Ht 182.9 cm; Wt 110.5 kg
[~2023-01-14 21:45] MED LIST changes: +HALO10AM IM
[2023-01-14 22:33] LABS: HEMATOCRIT 36.5 % (42.0-52.0); HEMOGLOBIN 11.7 g/dl (13.5-17.5); MEAN CORPUSCULAR HEMOGLOBIN 26.2 pg (27.0-33.0); MEAN CORPUSCULAR HGB CONC 32.1 g/dl (32.0-36.5); MEAN CORPUSCULAR VOLUME 81.7 fl (80.0-96.0); PLATELET COUNT, AUTOMATED 251 10^3/uL (150-450); RED BLOOD COUNT 4.47 10^6/uL (4.30-6.10); WHITE BLOOD COUNT 6.5 10^3/uL (4.0-10.0)
[2023-01-14 22:52] LABS: AMPHETAMINES LEVEL URINE NEGATIVE (NEGATIVE); BARBITURATES URINE NEGATIVE (NEGATIVE); BENZODIAZEPINES URINE NEGATIVE (NEGATIVE); COCAINE METABOLITE URINE NEGATIVE (NEGATIVE); METHADONE URINE NEGATIVE (NEGATIVE); OPIATES URINE NEGATIVE (NEGATIVE); PHENCYCLIDINE URINE NEGATIVE (NEGATIVE)
[2023-01-14 22:53] LABS: CANNABINOIDS URINE POSITIVE (NEGATIVE)
[2023-01-14 22:55] LABS: ETHYL ALCOHOL (ETHANOL) < 0.003 % (0.000-0.010)
[2023-01-14 22:56] LABS: ACETAMINOPHEN LEVEL < 2.0 UG/ML (10.0-20.0)
[2023-01-14 22:57] LABS: ALKALINE PHOSPHATASE 93 U/L (46-116); ALT/SGPT 13 U/L (7.0-40); AST/SGOT 9 U/L (<34); BILIRUBIN,DIRECT < 0.1 MG/DL (<0.4); BILIRUBIN,TOTAL 0.3 MG/DL (0.3-1.2); BLOOD UREA NITROGEN 12 MG/DL (9-23); CALCIUM LEVEL 9.7 MG/DL (8.5-10.1); CARBON DIOXIDE LEVEL 26 MMOL/L (20-31); CHLORIDE LEVEL 108 MMOL/L (98-107); CREATININE FOR GFR 0.92 MG/DL (0.70-1.30); GLOMERULAR FILTRATION RATE > 60.0 (>60); GLUCOSE, FASTING 77 MG/DL (60-100); POTASSIUM SERUM 4.1 MMOL/L (3.5-5.1); SALICYLATE LEVEL < 3.0 MG/DL (<30); SODIUM LEVEL 141 MMOL/L (136-145)
[2023-01-14 22:59] LABS: THYROID STIMULATING HORMONE 2.513 uIU/ML (0.55-4.78)
[2023-01-15] MEDS ORDERED: BENZ1TAB5 PO (01:35)
[2023-01-15] MEDS ORDERED: HOME MED LIST COMPLETE! XX SCH (01:35)
[2023-01-15] MEDS ORDERED: HALO10TA20 PO (01:35)
[2023-01-15] MEDS ORDERED: TRIA0.022 EXT (01:35)
[2023-01-15] MEDS ORDERED: TYLE650T38 PO (01:35)
[2023-01-15 06:36] VITALS: BP 133/80; TEMP 97.4; O2SAT 99
[2023-01-15] MEDS ORDERED: ACETAMINOPHEN TAB 650MG DOSE (2X325MG) PO ONE (06:45)
[2023-01-15] MEDS ORDERED: BENZTROPINE 1 MG TAB PO SCH (09:00)
[2023-01-15] MEDS ORDERED: VENLAFAXINE **XR** 75MG CAPSULE PO SCH (09:00)
[2023-01-15] MEDS ORDERED: VENLAFAXINE **XR** 75MG CAPSULE PO ONE (09:00)
== END 2023-01-15 12:20 | disposition home or self-care (01) ==
LOC: M ED 21:45
DX: F43.9 Reaction to severe stress, unspecified (principal); F41.9 Anxiety disorder, unspecified; F32.A Depression, unspecified; Z79.899 Other long term (current) drug therapy

== ENCOUNTER 2023-01-17 16:47 | Inpatient (IN) | payer OTHER ==
[~2023-01-17] VITALS: Ht 182.9 cm; Wt 111.4 kg
[~2023-01-17 16:47] MED LIST changes: +HALO10TA20 PO; +TRIA0.022 EXT; +TYLE650T38 PO
[2023-01-17] MEDS ORDERED: TRAZ-252 (17:04)
[2023-01-17 17:22] LABS: AMPHETAMINES LEVEL URINE NEGATIVE (NEGATIVE); BARBITURATES URINE NEGATIVE (NEGATIVE); BENZODIAZEPINES URINE NEGATIVE (NEGATIVE); CANNABINOIDS URINE NEGATIVE (NEGATIVE); COCAINE METABOLITE URINE NEGATIVE (NEGATIVE); METHADONE URINE NEGATIVE (NEGATIVE); OPIATES URINE NEGATIVE (NEGATIVE); PHENCYCLIDINE URINE NEGATIVE (NEGATIVE)
[2023-01-17 17:34] LABS: HEMATOCRIT 35.4 % (42.0-52.0); HEMOGLOBIN 11.5 g/dl (13.5-17.5); MEAN CORPUSCULAR HEMOGLOBIN 26.3 pg (27.0-33.0); MEAN CORPUSCULAR HGB CONC 32.5 g/dl (32.0-36.5); PLATELET COUNT, AUTOMATED 227 10^3/uL (150-450); RED BLOOD COUNT 4.37 10^6/uL (4.30-6.10); WHITE BLOOD COUNT 5.6 10^3/uL (4.0-10.0)
[2023-01-17 18:02] LABS: ETHYL ALCOHOL (ETHANOL) < 0.003 % (0.000-0.010)
[2023-01-17 18:03] LABS: ACETAMINOPHEN LEVEL < 2.0 UG/ML (10.0-20.0); ALBUMIN 3.9 G/DL (3.2-5.2); ALKALINE PHOSPHATASE 95 U/L (46-116); ALT/SGPT 14 U/L (7.0-40); AST/SGOT 13 U/L (<34); BILIRUBIN,DIRECT 0.1 MG/DL (<0.4); BILIRUBIN,TOTAL 0.3 MG/DL (0.3-1.2); BLOOD UREA NITROGEN 9 MG/DL (9-23); CALCIUM LEVEL 9.6 MG/DL (8.5-10.1); CARBON DIOXIDE LEVEL 24 MMOL/L (20-31); CHLORIDE LEVEL 107 MMOL/L (98-107); CREATININE FOR GFR 0.92 MG/DL (0.70-1.30); GLOMERULAR FILTRATION RATE > 60.0 (>60); GLUCOSE, FASTING 82 MG/DL (60-100); POTASSIUM SERUM 4.3 MMOL/L (3.5-5.1); SALICYLATE LEVEL < 3.0 MG/DL (<30); SODIUM LEVEL 141 MMOL/L (136-145); TOTAL PROTEIN 6.7 G/DL (5.7-8.2)
[2023-01-17 18:05] LABS: THYROID STIMULATING HORMONE 1.325 uIU/ML (0.55-4.78)
[2023-01-17] MEDS ORDERED: HOME MED LIST COMPLETE! XX SCH (20:40)
[2023-01-17] MEDS: VENLAFAXINE **XR** 75MG CAPSULE PO SCH (23:04)
[2023-01-17] MEDS: BENZTROPINE 1 MG TAB PO SCH (23:04)
[2023-01-18] MEDS ORDERED: HALOPERIDOL DECANOATE 100 MG/ML 1ML VIAL IM SCH (08:55)
[2023-01-18] MEDS ORDERED: BENZTROPINE 1 MG TAB PO SCH (09:00)
[2023-01-18] MEDS ORDERED: VENLAFAXINE 37.5 MG TAB PO SCH (09:00)
[2023-01-18] MEDS ORDERED: TRIAMCINOLONE ACETONIDE 0.025% 80GM CREAM TOP PRN (09:00)
[2023-01-18] MEDS: VENLAFAXINE **XR** 75MG CAPSULE PO SCH ×2 (10:04→20:51)
[2023-01-18] MEDS: BENZTROPINE 1 MG TAB PO SCH ×2 (10:04→20:51)
[2023-01-18] MEDS: ACETAMINOPHEN TAB 650MG DOSE (2X325MG) PO PRN ×2 (17:11→21:07)
[2023-01-18 17:16] LABS: APPEARANCE, URINE CLEAR (CLEAR); BACTERIA, URINE AUTO NEGATIVE (NEGATIVE); BILIRUBIN, URINE AUTO NEGATIVE (NEGATIVE); BLOOD, URINE BLOOD NEGATIVE (NEGATIVE); COLOR, URINE YELLOW (YELLOW); GLUCOSE, URINE (UA) AUTO NEGATIVE (NEGATIVE); KETONE, URINE AUTO NEGATIVE (NEGATIVE); LEUKOCYTE ESTERASE, URINE AUTO NEGATIVE (NEGATIVE); MUCUS, URINE SMALL (NEGATIVE); NITRITE, URINE AUTO NEGATIVE (NEGATIVE); PROTEIN, URINE AUTO NEGATIVE (NEGATIVE); RBC, URINE AUTO 1 /HPF (0-3); SPECIFIC GRAVITY URINE AUTO 1.019 (1.002-1.035); SQUAMOUS EPITHELIAL CELL UR AU 0 /HPF (0-6); UROBILINOGEN, URINE AUTO 0.2 mg/dL (0.0-2.0); WBC, URINE AUTO 1 /HPF (0-3)
[2023-01-19] MEDS ORDERED: ACETAMINOPHEN TAB 650MG DOSE (2X325MG) PO ONE (09:55)
[2023-01-19] MEDS: VENLAFAXINE **XR** 75MG CAPSULE PO SCH ×2 (11:33→21:15)
[2023-01-19] MEDS: BENZTROPINE 1 MG TAB PO SCH ×2 (11:33→21:15)
[2023-01-19] MEDS ORDERED: MAALOX 30 ML SUSP *UDC PO PRN (13:00)
[2023-01-19] MEDS ORDERED: MOM 30ML SUSPENSION UDC PO PRN (13:00)
[2023-01-19] MEDS ORDERED: diphenhydrAMINE 25MG CAP PO PRN (13:00)
[2023-01-19] MEDS: ACETAMINOPHEN TAB 650MG DOSE (2X325MG) PO PRN (21:15)
[2023-01-19] MEDS: traZODone 50 MG TAB PO PRN (23:22)
[2023-01-20 06:20] VITALS: BP 102/56; TEMP 97.3; O2SAT 97
[2023-01-20] MEDS: VENLAFAXINE **XR** 75MG CAPSULE PO SCH ×2 (08:45→21:02)
[2023-01-20] MEDS: BENZTROPINE 1 MG TAB PO SCH ×2 (08:45→21:02)
[2023-01-20] MEDS: IBUPROFEN 400MG TAB PO PRN ×2 (08:45→16:32)
[2023-01-20] MEDS: ACETAMINOPHEN TAB 650MG DOSE (2X325MG) PO PRN ×2 (12:29→21:04)
[2023-01-20 19:23] VITALS: BP 132/82; TEMP 97.1
[2023-01-21 06:24] VITALS: BP 139/75; TEMP 97.5; O2SAT 100
[2023-01-21] MEDS: ACETAMINOPHEN TAB 650MG DOSE (2X325MG) PO PRN ×2 (07:00→15:04)
[2023-01-21] MEDS: BENZTROPINE 1 MG TAB PO SCH ×2 (10:06→20:16)
[2023-01-21] MEDS: VENLAFAXINE **XR** 75MG CAPSULE PO SCH ×2 (10:06→20:16)
[2023-01-21 18:25] VITALS: BP 144/82; TEMP 96.8; O2SAT 100
[2023-01-21] MEDS: IBUPROFEN 400MG TAB PO PRN (20:16)
[2023-01-21] MEDS: traZODone 50 MG TAB PO PRN (21:41)
[2023-01-22] MEDS: VENLAFAXINE **XR** 75MG CAPSULE PO SCH ×2 (07:55→20:25)
[2023-01-22] MEDS: BENZTROPINE 1 MG TAB PO SCH ×2 (07:56→20:25)
[2023-01-22] MEDS: ACETAMINOPHEN TAB 650MG DOSE (2X325MG) PO PRN ×2 (07:56→17:06)
[2023-01-22] MEDS: IBUPROFEN 400MG TAB PO PRN ×2 (12:33→20:25)
[2023-01-22 18:10] VITALS: BP 143/73; TEMP 96.5; O2SAT 99
[2023-01-23 06:22] VITALS: BP 111/65; TEMP 96.7; O2SAT 98
[2023-01-23] MEDS: IBUPROFEN 400MG TAB PO PRN (07:50)
[2023-01-23] MEDS: BENZTROPINE 1 MG TAB PO SCH ×2 (07:50→21:57)
[2023-01-23] MEDS: VENLAFAXINE **XR** 75MG CAPSULE PO SCH ×2 (07:50→21:57)
[2023-01-23] MEDS: ACETAMINOPHEN TAB 650MG DOSE (2X325MG) PO PRN ×2 (12:33→19:32)
[2023-01-23 20:26] VITALS: BP 134/81; TEMP 97
[2023-01-23] MEDS: traZODone 50 MG TAB PO PRN (22:40)
[2023-01-24 06:43] VITALS: BP 125/70; TEMP 97.2; O2SAT 97
[2023-01-24] MEDS: ACETAMINOPHEN TAB 650MG DOSE (2X325MG) PO PRN ×2 (08:52→17:45)
[2023-01-24] MEDS: VENLAFAXINE **XR** 75MG CAPSULE PO SCH ×2 (08:53→20:03)
[2023-01-24] MEDS: BENZTROPINE 1 MG TAB PO SCH ×2 (08:53→20:03)
[2023-01-24 16:08] VITALS: BP 134/78; TEMP 96.9; O2SAT 99
[2023-01-24] MEDS: IBUPROFEN 400MG TAB PO PRN (20:26)
[2023-01-25] MEDS: IBUPROFEN 400MG TAB PO PRN ×2 (05:16→16:13)
[2023-01-25 06:19] VITALS: BP 120/59; TEMP 96.6; O2SAT 100
[2023-01-25] MEDS: VENLAFAXINE **XR** 75MG CAPSULE PO SCH ×2 (10:01→21:00)
[2023-01-25] MEDS: BENZTROPINE 1 MG TAB PO SCH ×2 (10:01→21:00)
[2023-01-25] MEDS: ACETAMINOPHEN TAB 650MG DOSE (2X325MG) PO PRN ×2 (13:49→21:00)
[2023-01-25 17:04] VITALS: BP 117/65; TEMP 97.6; O2SAT 98
[2023-01-25] MEDS: traZODone 50 MG TAB PO PRN (22:51)
[2023-01-26 06:44] VITALS: BP 125/77; TEMP 97.9; O2SAT 98
[2023-01-26] MEDS: BENZTROPINE 1 MG TAB PO SCH (08:32)
[2023-01-26] MEDS: VENLAFAXINE **XR** 75MG CAPSULE PO SCH (08:32)
[2023-01-26] MEDS ORDERED: BENZ1TAB5 PO (10:48)
[2023-01-26] MEDS ORDERED: VENL75CA47 PO (10:48)
[2023-01-26] MEDS ORDERED: HALO10TA20 PO (10:48)
[2023-01-26] MEDS: IBUPROFEN 400MG TAB PO PRN (12:45)
== END 2023-01-26 13:06 | disposition home or self-care (01) | DRG 885 ==
LOC: M ED 16:47 → M ED INP 01-19 12:59 → M PSY 01-19 15:47
PROVIDERS: ADMIT Student in an Organized Health Care Education/Training Program; ATTEND Student in an Organized Health Care Education/Training Program
DX: F25.0 Schizoaffective disorder, bipolar type (principal); R45.851 Suicidal ideations; Z87.820 Personal history of traumatic brain injury; Z56.0 Unemployment, unspecified; Z91.51 Personal history of suicidal behavior; Z79.899 Other long term (current) drug therapy; Z88.8 Allergy status to other drugs, medicaments and biological substances

== ENCOUNTER 2023-02-11 01:44 | Inpatient (IN) | payer OTHER ==
[~2023-02-11] VITALS: Ht 182.9 cm; Wt 111.4 kg
[~2023-02-11 01:44] MED LIST changes: +TRAZ-252
[2023-02-11 02:17] LABS: HEMATOCRIT 37.6 % (42.0-52.0); HEMOGLOBIN 12.2 g/dl (13.5-17.5); MEAN CORPUSCULAR HEMOGLOBIN 26.5 pg (27.0-33.0); MEAN CORPUSCULAR HGB CONC 32.4 g/dl (32.0-36.5); MEAN CORPUSCULAR VOLUME 81.7 fl (80.0-96.0); PLATELET COUNT, AUTOMATED 250 10^3/uL (150-450); WHITE BLOOD COUNT 8.3 10^3/uL (4.0-10.0)
[2023-02-11 02:43] LABS: AMPHETAMINES LEVEL URINE NEGATIVE (NEGATIVE)
[2023-02-11 02:44] LABS: BARBITURATES URINE NEGATIVE (NEGATIVE); BENZODIAZEPINES URINE NEGATIVE (NEGATIVE); CANNABINOIDS URINE NEGATIVE (NEGATIVE); COCAINE METABOLITE URINE NEGATIVE (NEGATIVE); METHADONE URINE NEGATIVE (NEGATIVE); OPIATES URINE NEGATIVE (NEGATIVE); PHENCYCLIDINE URINE NEGATIVE (NEGATIVE)
[2023-02-11 03:01] LABS: ETHYL ALCOHOL (ETHANOL) < 0.003 % (0.000-0.010)
[2023-02-11 03:02] LABS: ACETAMINOPHEN LEVEL < 2.0 UG/ML (10.0-20.0); ALBUMIN 3.9 G/DL (3.2-5.2); ALKALINE PHOSPHATASE 105 U/L (46-116); ALT/SGPT 25 U/L (7.0-40); AST/SGOT 15 U/L (<34); BILIRUBIN,DIRECT < 0.1 MG/DL (<0.4); BILIRUBIN,TOTAL 0.2 MG/DL (0.3-1.2); BLOOD UREA NITROGEN 14 MG/DL (9-23); CALCIUM LEVEL 9.4 MG/DL (8.5-10.1); CARBON DIOXIDE LEVEL 25 MMOL/L (20-31); CHLORIDE LEVEL 107 MMOL/L (98-107); CREATININE FOR GFR 0.98 MG/DL (0.70-1.30); GLOMERULAR FILTRATION RATE > 60.0 (>60); GLUCOSE, FASTING 86 MG/DL (60-100); SALICYLATE LEVEL < 3.0 MG/DL (<30); SODIUM LEVEL 141 MMOL/L (136-145); TOTAL PROTEIN 6.9 G/DL (5.7-8.2)
[2023-02-11 03:04] LABS: THYROID STIMULATING HORMONE 2.746 uIU/ML (0.55-4.78)
[2023-02-11] MEDS ORDERED: VENL75CA2 PO (04:38)
[2023-02-11] MEDS ORDERED: HALO10TA20 PO (04:38)
[2023-02-11] MEDS ORDERED: BENZ1TAB5 PO (04:38)
[2023-02-11] MEDS ORDERED: GABA-282 PO (04:38)
[2023-02-11] MEDS ORDERED: MED REC IN PROGRESS XX SCH (04:40)
[2023-02-11] MEDS ORDERED: HOME MED LIST COMPLETE! XX SCH (08:40)
[2023-02-11] MEDS ORDERED: GABAPENTIN 300 MG CAP PO SCH (09:00)
[2023-02-11] MEDS ORDERED: BENZTROPINE 1 MG TAB PO SCH (09:00)
[2023-02-11] MEDS ORDERED: VENLAFAXINE **XR** 75MG CAPSULE PO SCH (09:00)
[2023-02-11] MEDS ORDERED: MAALOX 30 ML SUSP *UDC PO PRN (13:55)
[2023-02-11] MEDS ORDERED: MOM 30ML SUSPENSION UDC PO PRN (13:55)
[2023-02-11] MEDS ORDERED: diphenhydrAMINE 25MG CAP PO PRN (13:55)
[2023-02-11 17:28] VITALS: BP 122/87; TEMP 96.6; O2SAT 100
[2023-02-11] MEDS: VENLAFAXINE **XR** 75MG CAPSULE PO SCH (21:17)
[2023-02-11] MEDS: GABAPENTIN 300 MG CAP PO SCH (21:17)
[2023-02-11] MEDS: BENZTROPINE 1 MG TAB PO SCH (21:17)
[2023-02-12 06:17] VITALS: BP 107/60; TEMP 98.2; O2SAT 97
[2023-02-12] MEDS: BENZTROPINE 1 MG TAB PO SCH ×2 (09:31→20:36)
[2023-02-12] MEDS: GABAPENTIN 300 MG CAP PO SCH ×2 (09:31→20:36)
[2023-02-12] MEDS: VENLAFAXINE **XR** 75MG CAPSULE PO SCH ×2 (09:31→20:36)
[2023-02-12] MEDS: ACETAMINOPHEN TAB 650MG DOSE (2X325MG) PO PRN (17:09)
[2023-02-12 19:12] VITALS: BP 128/80; TEMP 97.9
[2023-02-12] MEDS: IBUPROFEN 400MG TAB PO PRN (20:36)
[2023-02-13] MEDS: traZODone 50 MG TAB PO PRN (01:23)
[2023-02-13 06:24] VITALS: BP 121/69; TEMP 97.1; O2SAT 97
[2023-02-13] MEDS: VENLAFAXINE **XR** 75MG CAPSULE PO SCH ×2 (08:25→20:04)
[2023-02-13] MEDS: BENZTROPINE 1 MG TAB PO SCH ×2 (08:25→20:04)
[2023-02-13] MEDS: GABAPENTIN 300 MG CAP PO SCH ×2 (08:26→20:04)
[2023-02-13 16:10] VITALS: BP 129/70; TEMP 98.4; O2SAT 100
[2023-02-13] MEDS: ACETAMINOPHEN TAB 650MG DOSE (2X325MG) PO PRN (18:13)
[2023-02-14 06:37] VITALS: BP 123/78; TEMP 98.1; O2SAT 97
[2023-02-14] MEDS: BENZTROPINE 1 MG TAB PO SCH ×2 (09:35→20:11)
[2023-02-14] MEDS: GABAPENTIN 300 MG CAP PO SCH ×2 (09:35→20:11)
[2023-02-14] MEDS: VENLAFAXINE **XR** 75MG CAPSULE PO SCH ×2 (09:35→20:11)
[2023-02-14] MEDS: IBUPROFEN 400MG TAB PO PRN (20:11)
[2023-02-15] MEDS: traZODone 50 MG TAB PO PRN (00:45)
[2023-02-15 06:40] VITALS: BP 117/73; TEMP 96.9; O2SAT 100
[2023-02-15] MEDS: ACETAMINOPHEN TAB 650MG DOSE (2X325MG) PO PRN ×2 (07:18→21:43)
[2023-02-15] MEDS: GABAPENTIN 300 MG CAP PO SCH ×2 (08:57→21:10)
[2023-02-15] MEDS: BENZTROPINE 1 MG TAB PO SCH ×2 (08:57→21:10)
[2023-02-15] MEDS: VENLAFAXINE **XR** 75MG CAPSULE PO SCH ×2 (08:57→21:09)
[2023-02-15 16:06] VITALS: BP 117/64; TEMP 98.4; O2SAT 98
[2023-02-15] MEDS: IBUPROFEN 400MG TAB PO PRN (17:00)
[2023-02-16] MEDS: IBUPROFEN 400MG TAB PO PRN (06:00)
[2023-02-16 06:08] VITALS: BP 120/74; TEMP 97.3; O2SAT 98
[2023-02-16] MEDS: BENZTROPINE 1 MG TAB PO SCH (09:07)
[2023-02-16] MEDS: GABAPENTIN 300 MG CAP PO SCH (09:07)
[2023-02-16] MEDS: VENLAFAXINE **XR** 75MG CAPSULE PO SCH (09:07)
[2023-02-16] MEDS ORDERED: BENZ1TAB5 PO (09:29)
[2023-02-16] MEDS ORDERED: GABA-282 PO (09:29)
[2023-02-16] MEDS ORDERED: HALO10TA20 PO (09:29)
[2023-02-16] MEDS ORDERED: VENL75CA2 PO (09:29)
== END 2023-02-16 12:46 | disposition home or self-care (01) | DRG 885 ==
LOC: M ED 01:44 → M ED INP 13:54 → M PSY 17:29
PROVIDERS: ADMIT Student in an Organized Health Care Education/Training Program; ATTEND Student in an Organized Health Care Education/Training Program
DX: F25.0 Schizoaffective disorder, bipolar type (principal); R45.851 Suicidal ideations; Z87.820 Personal history of traumatic brain injury; Z56.0 Unemployment, unspecified; Z79.899 Other long term (current) drug therapy; Z88.8 Allergy status to other drugs, medicaments and biological substances; Z63.4 Disappearance and death of family member; Z81.8 Family history of other mental and behavioral disorders

== ENCOUNTER 2023-04-24 21:38 | Inpatient (IN) | payer MEDICAID, OTHER ==
[~2023-04-24] VITALS: Ht 182.9 cm; Wt 106.2 kg
[~2023-04-24 21:38] MED LIST changes: +GABA-282 PO; +INVE117I IM; +LEVE10003 PO; +RISP-10 PO; +VENL150C43 PO; +VENL75CA2 PO; +ZOLO50TA PO
[2023-04-24 22:26] LABS: HEMATOCRIT 36.3 % (42.0-52.0); HEMOGLOBIN 11.9 g/dl (13.5-17.5); MEAN CORPUSCULAR HEMOGLOBIN 27.7 pg (27.0-33.0); MEAN CORPUSCULAR HGB CONC 32.8 g/dl (32.0-36.5); MEAN CORPUSCULAR VOLUME 84.6 fl (80.0-96.0); PLATELET COUNT, AUTOMATED 207 10^3/uL (150-450); RED BLOOD COUNT 4.29 10^6/uL (4.30-6.10); WHITE BLOOD COUNT 8.6 10^3/uL (4.0-10.0)
[2023-04-24 22:46] LABS: METHADONE URINE NEGATIVE (NEGATIVE); OPIATES URINE NEGATIVE (NEGATIVE); PHENCYCLIDINE URINE NEGATIVE (NEGATIVE)
[2023-04-24 22:47] LABS: AMPHETAMINES LEVEL URINE NEGATIVE (NEGATIVE); BARBITURATES URINE NEGATIVE (NEGATIVE); BENZODIAZEPINES URINE NEGATIVE (NEGATIVE); COCAINE METABOLITE URINE NEGATIVE (NEGATIVE)
[2023-04-24 22:48] LABS: CANNABINOIDS URINE POSITIVE (NEGATIVE); ETHYL ALCOHOL (ETHANOL) < 0.003 % (0.000-0.010)
[2023-04-24 22:49] LABS: SALICYLATE LEVEL < 3.0 MG/DL (<30)
[2023-04-24 22:50] LABS: ALKALINE PHOSPHATASE 83 U/L (46-116); ALT/SGPT 32 U/L (7.0-40); AST/SGOT 15 U/L (<34); BILIRUBIN,DIRECT 0.1 MG/DL (<0.4); BILIRUBIN,TOTAL 0.3 MG/DL (0.3-1.2); BLOOD UREA NITROGEN 11 MG/DL (9-23); CALCIUM LEVEL 9.4 MG/DL (8.5-10.1); CARBON DIOXIDE LEVEL 22 MMOL/L (20-31); CHLORIDE LEVEL 105 MMOL/L (98-107); CREATININE FOR GFR 0.87 MG/DL (0.70-1.30); GLOMERULAR FILTRATION RATE > 60.0 (>60); GLUCOSE, FASTING 125 MG/DL (60-100); SODIUM LEVEL 138 MMOL/L (136-145); TOTAL PROTEIN 6.5 G/DL (5.7-8.2)
[2023-04-24] MEDS ORDERED: D-50TAB PO (22:50)
[2023-04-24] MEDS ORDERED: BENZ1TAB5 PO (22:50)
[2023-04-24] MEDS ORDERED: WELLTAB38 PO (22:50)
[2023-04-24] MEDS ORDERED: VENL75CA47 PO (22:50)
[2023-04-24] MEDS ORDERED: GABA-282 PO (22:50)
[2023-04-24 22:53] LABS: THYROID STIMULATING HORMONE 0.829 uIU/ML (0.55-4.78)
[2023-04-24] MEDS ORDERED: HOME MED LIST COMPLETE! XX SCH (22:55)
[2023-04-25] MEDS ORDERED: IBUPROFEN 400MG TAB PO PRN (00:35)
[2023-04-25] MEDS ORDERED: ACETAMINOPHEN TAB 650MG DOSE (2X325MG) PO PRN (00:35)
[2023-04-25] MEDS ORDERED: diphenhydrAMINE 25MG CAP PO PRN (00:35)
[2023-04-25] MEDS ORDERED: traZODone 50 MG TAB PO PRN (00:35)
[2023-04-25] MEDS ORDERED: MOM 30ML SUSPENSION UDC PO PRN (00:35)
[2023-04-25] MEDS ORDERED: MAALOX 30 ML SUSP *UDC PO PRN (00:35)
[2023-04-25 03:05] VITALS: BP 127/67; TEMP 97.6; O2SAT 99
[2023-04-25] MEDS: VENLAFAXINE **XR** 75MG CAPSULE PO SCH ×2 (09:47→21:07)
[2023-04-25] MEDS: GABAPENTIN 300 MG CAP PO SCH ×2 (09:47→21:07)
[2023-04-25] MEDS: buPROPion **XL** TABLET 150MG (WELLBUTRIN XL) PO SCH (09:47)
[2023-04-25] MEDS: BENZTROPINE 1 MG TAB PO SCH ×2 (09:47→21:07)
[2023-04-25 10:09] LABS: IRON (FE) 90 UG/DL (65-175); PERCENT SATURATION 26.9 % (19.7-50.0); TOTAL IRON BINDING CAPACITY 335 UG/DL (250-425)
[2023-04-25 10:11] LABS: FERRITIN 85.7 NG/ML (10.5-307.3); FOLATE > 24.00 NG/ML (>5.4); VITAMIN B12 LEVEL 525 PG/ML (211-911)
[2023-04-26 06:39] VITALS: BP 110/51; TEMP 97.2; O2SAT 97
[2023-04-26 07:31] LABS: CHOLESTEROL RISK RATIO 3.6 (<5)
[2023-04-26] MEDS: buPROPion **XL** TABLET 150MG (WELLBUTRIN XL) PO SCH (09:07)
[2023-04-26] MEDS: VENLAFAXINE **XR** 75MG CAPSULE PO SCH ×2 (09:07→21:00)
[2023-04-26] MEDS: BENZTROPINE 1 MG TAB PO SCH ×2 (09:07→21:00)
[2023-04-26] MEDS: GABAPENTIN 300 MG CAP PO SCH ×2 (09:07→21:00)
[2023-04-27 05:21] VITALS: BP 116/71; TEMP 98; O2SAT 97
[2023-04-27] MEDS: BENZTROPINE 1 MG TAB PO SCH ×2 (08:33→20:23)
[2023-04-27] MEDS: GABAPENTIN 300 MG CAP PO SCH ×2 (08:33→20:23)
[2023-04-27] MEDS: buPROPion **XL** TABLET 150MG (WELLBUTRIN XL) PO SCH (08:33)
[2023-04-27] MEDS: VENLAFAXINE **XR** 75MG CAPSULE PO SCH ×2 (08:33→20:23)
[2023-04-27 15:51] VITALS: BP 142/90; TEMP 98.3; O2SAT 98
[2023-04-28 06:38] VITALS: BP 118/65; TEMP 97.8; O2SAT 97
[2023-04-28] MEDS: VENLAFAXINE **XR** 75MG CAPSULE PO SCH (09:06)
[2023-04-28] MEDS: GABAPENTIN 300 MG CAP PO SCH (09:07)
[2023-04-28] MEDS: BENZTROPINE 1 MG TAB PO SCH (09:07)
[2023-04-28] MEDS: buPROPion **XL** TABLET 150MG (WELLBUTRIN XL) PO SCH (09:07)
[2023-04-28] MEDS ORDERED: WELLTAB38 PO (10:55)
[2023-04-28] MEDS ORDERED: TRAZ-252 PO (10:55)
[2023-04-28] MEDS ORDERED: HALO10AM IM ×2 (10:55→12:25)
[2023-04-28] MEDS ORDERED: VENL75CA47 PO (10:55)
[2023-04-28] MEDS ORDERED: HALO5TAB33 PO (10:55)
[2023-04-28] MEDS ORDERED: BENZ1TAB5 PO (10:55)
[2023-04-28] MEDS ORDERED: GABA-282 PO (10:55)
[2023-04-28] MEDS ORDERED: HALOPERIDOL DECANOATE 100 MG/ML 1ML VIAL IM ONE ×2 (12:00→12:10)
== END 2023-04-28 12:30 | disposition home or self-care (01) | DRG 885 ==
LOC: M ED 21:38 → M ED INP 04-25 00:32 → M PSY 04-25 02:22
PROVIDERS: ADMIT Student in an Organized Health Care Education/Training Program; ATTEND Student in an Organized Health Care Education/Training Program
DX: F25.0 Schizoaffective disorder, bipolar type (principal); R45.851 Suicidal ideations; Z87.820 Personal history of traumatic brain injury; Z56.0 Unemployment, unspecified; Z91.51 Personal history of suicidal behavior; Z79.899 Other long term (current) drug therapy; Z88.8 Allergy status to other drugs, medicaments and biological substances

== ENCOUNTER 2023-05-01 18:42 | Inpatient (IN) | payer OTHER ==
[~2023-05-01] VITALS: Ht 182.9 cm; Wt 109.0 kg
[~2023-05-01 18:42] MED LIST changes: +D-50TAB PO; +WELLTAB38 PO
[2023-05-01 19:46] LABS: HEMATOCRIT 38.5 % (42.0-52.0); HEMOGLOBIN 12.7 g/dl (13.5-17.5); MEAN CORPUSCULAR HEMOGLOBIN 28.1 pg (27.0-33.0); MEAN CORPUSCULAR VOLUME 85.2 fl (80.0-96.0); PLATELET COUNT, AUTOMATED 186 10^3/uL (150-450); RED BLOOD COUNT 4.52 10^6/uL (4.30-6.10); WHITE BLOOD COUNT 8.9 10^3/uL (4.0-10.0)
[2023-05-01 20:08] LABS: AMPHETAMINES LEVEL URINE NEGATIVE (NEGATIVE); BARBITURATES URINE NEGATIVE (NEGATIVE); BENZODIAZEPINES URINE NEGATIVE (NEGATIVE); CANNABINOIDS URINE NEGATIVE (NEGATIVE); COCAINE METABOLITE URINE NEGATIVE (NEGATIVE); METHADONE URINE NEGATIVE (NEGATIVE); OPIATES URINE NEGATIVE (NEGATIVE); PHENCYCLIDINE URINE NEGATIVE (NEGATIVE)
[2023-05-01 20:11] LABS: ETHYL ALCOHOL (ETHANOL) 0.005 % (0.000-0.010)
[2023-05-01 20:13] LABS: ALBUMIN 3.8 G/DL (3.2-5.2); ALKALINE PHOSPHATASE 84 U/L (46-116); ALT/SGPT 13 U/L (7.0-40); AST/SGOT 15 U/L (<34); BILIRUBIN,DIRECT < 0.1 MG/DL (<0.4); BILIRUBIN,TOTAL 0.2 MG/DL (0.3-1.2); BLOOD UREA NITROGEN 13 MG/DL (9-23); CALCIUM LEVEL 9.6 MG/DL (8.5-10.1); CARBON DIOXIDE LEVEL 24 MMOL/L (20-31); CHLORIDE LEVEL 105 MMOL/L (98-107); CREATININE FOR GFR 0.84 MG/DL (0.70-1.30); GLOMERULAR FILTRATION RATE > 60.0 (>60); GLUCOSE, FASTING 110 MG/DL (60-100); POTASSIUM SERUM 3.8 MMOL/L (3.5-5.1); SALICYLATE LEVEL < 3.0 MG/DL (<30); SODIUM LEVEL 137 MMOL/L (136-145); TOTAL PROTEIN 6.4 G/DL (5.7-8.2)
[2023-05-01 20:15] LABS: THYROID STIMULATING HORMONE 1.049 uIU/ML (0.55-4.78)
[2023-05-01] MEDS ORDERED: MOM 30ML SUSPENSION UDC PO PRN (22:55)
[2023-05-01] MEDS ORDERED: MAALOX 30 ML SUSP *UDC PO PRN (22:55)
[2023-05-01] MEDS ORDERED: IBUPROFEN 400MG TAB PO PRN (22:55)
[2023-05-01] MEDS ORDERED: diphenhydrAMINE 25MG CAP PO PRN (22:55)
[2023-05-01] MEDS ORDERED: GABA-282 PO (23:57)
[2023-05-01] MEDS ORDERED: CHOL50002 PO (23:57)
[2023-05-01] MEDS ORDERED: BUPR150T12 PO (23:57)
[2023-05-01] MEDS ORDERED: HALO5TAB33 PO (23:57)
[2023-05-01] MEDS ORDERED: BENZ1TAB5 PO (23:57)
[2023-05-01] MEDS ORDERED: TRAZ-252 PO (23:57)
[2023-05-01] MEDS ORDERED: VENL75CA47 PO (23:57)
[2023-05-01 23:58] VITALS: BP 118/84; TEMP 97.2; O2SAT 100
[2023-05-02] MEDS ORDERED: HOME MED LIST COMPLETE! XX SCH
[2023-05-02 06:38] VITALS: BP 112/55; TEMP 98.6; O2SAT 98
[2023-05-02] MEDS: VENLAFAXINE **XR** 75MG CAPSULE PO SCH ×2 (09:19→20:50)
[2023-05-02] MEDS: buPROPion **XL** TABLET 150MG (WELLBUTRIN XL) PO SCH (09:19)
[2023-05-02] MEDS: GABAPENTIN 300 MG CAP PO SCH ×2 (09:19→20:50)
[2023-05-02] MEDS: BENZTROPINE 1 MG TAB PO SCH ×2 (09:19→20:50)
[2023-05-02 16:59] VITALS: BP 120/59; TEMP 97.8
[2023-05-03 05:52] VITALS: BP 115/67; TEMP 97.6; O2SAT 97
[2023-05-03] MEDS: GABAPENTIN 300 MG CAP PO SCH ×2 (09:31→20:27)
[2023-05-03] MEDS: buPROPion **XL** TABLET 150MG (WELLBUTRIN XL) PO SCH (09:31)
[2023-05-03] MEDS: BENZTROPINE 1 MG TAB PO SCH ×2 (09:31→20:27)
[2023-05-03] MEDS: VENLAFAXINE **XR** 75MG CAPSULE PO SCH ×2 (09:31→20:27)
[2023-05-03 18:20] VITALS: BP 132/93; TEMP 97.7
[2023-05-03] MEDS: traZODone 50 MG TAB PO PRN (20:59)
[2023-05-04 06:33] VITALS: BP 151/86; TEMP 97.2; O2SAT 100
[2023-05-04] MEDS: BENZTROPINE 1 MG TAB PO SCH ×2 (08:15→20:48)
[2023-05-04] MEDS: VENLAFAXINE **XR** 75MG CAPSULE PO SCH ×2 (08:15→20:48)
[2023-05-04] MEDS: buPROPion **XL** TABLET 150MG (WELLBUTRIN XL) PO SCH (08:16)
[2023-05-04] MEDS: GABAPENTIN 300 MG CAP PO SCH ×2 (08:16→20:47)
[2023-05-04] MEDS: traZODone 50 MG TAB PO PRN (20:47)
[2023-05-05 06:40] VITALS: BP 104/55; TEMP 97.1; O2SAT 98
[2023-05-05] MEDS: buPROPion **XL** TABLET 150MG (WELLBUTRIN XL) PO SCH (08:55)
[2023-05-05] MEDS: GABAPENTIN 300 MG CAP PO SCH ×2 (08:55→20:43)
[2023-05-05] MEDS: VENLAFAXINE **XR** 75MG CAPSULE PO SCH ×2 (08:55→20:43)
[2023-05-05] MEDS: BENZTROPINE 1 MG TAB PO SCH ×2 (08:55→20:43)
[2023-05-05 16:33] VITALS: BP 127/86; TEMP 98.2; O2SAT 98
[2023-05-05] MEDS: ACETAMINOPHEN TAB 650MG DOSE (2X325MG) PO PRN (16:37)
[2023-05-06 06:46] VITALS: BP 135/79; TEMP 97.1; O2SAT 100
[2023-05-06] MEDS: buPROPion **XL** TABLET 150MG (WELLBUTRIN XL) PO SCH (08:51)
[2023-05-06] MEDS: BENZTROPINE 1 MG TAB PO SCH ×2 (08:51→21:05)
[2023-05-06] MEDS: GABAPENTIN 300 MG CAP PO SCH ×2 (08:51→21:05)
[2023-05-06] MEDS: VENLAFAXINE **XR** 75MG CAPSULE PO SCH ×2 (08:51→21:05)
[2023-05-06] MEDS: diphenhydrAMINE 25MG CAP PO SCH ×3 (10:43→21:05)
[2023-05-06] MEDS: ACETAMINOPHEN TAB 650MG DOSE (2X325MG) PO PRN (16:16)
[2023-05-06 18:34] VITALS: BP 127/78; TEMP 97.3; O2SAT 95
[2023-05-07] MEDS: ACETAMINOPHEN TAB 650MG DOSE (2X325MG) PO PRN (05:56)
[2023-05-07 06:25] VITALS: BP 116/84; TEMP 97; O2SAT 99
[2023-05-07] MEDS: diphenhydrAMINE 25MG CAP PO SCH (09:36)
[2023-05-07] MEDS: VENLAFAXINE **XR** 75MG CAPSULE PO SCH (09:36)
[2023-05-07] MEDS: buPROPion **XL** TABLET 150MG (WELLBUTRIN XL) PO SCH (09:37)
[2023-05-07] MEDS: GABAPENTIN 300 MG CAP PO SCH (09:37)
[2023-05-07] MEDS: BENZTROPINE 1 MG TAB PO SCH (09:37)
== END 2023-05-07 11:58 | disposition home or self-care (01) | DRG 885 ==
LOC: M ED 18:42 → M ED INP 22:53 → M PSY 23:53
PROVIDERS: ADMIT Student in an Organized Health Care Education/Training Program; ATTEND Student in an Organized Health Care Education/Training Program
DX: F25.0 Schizoaffective disorder, bipolar type (principal); R45.851 Suicidal ideations; D64.9 Anemia, unspecified; F41.0 Panic disorder [episodic paroxysmal anxiety]; Z87.820 Personal history of traumatic brain injury; Z56.0 Unemployment, unspecified; Z79.899 Other long term (current) drug therapy; Z98.84 Bariatric surgery status; Z88.8 Allergy status to other drugs, medicaments and biological substances

== ENCOUNTER 2023-06-06 23:29 | Emergency (ER) | payer MEDICARE, MEDICAID ==
[~2023-06-06] VITALS: Ht 182.9 cm; Wt 109.0 kg
[~2023-06-06 23:29] MED LIST changes: +BUPR150T12 PO; +CHOL50002 PO
[2023-06-07 00:17] LABS: HEMATOCRIT 40.4 % (42.0-52.0); HEMOGLOBIN 13.7 g/dl (13.5-17.5); MEAN CORPUSCULAR HEMOGLOBIN 29.2 pg (27.0-33.0); MEAN CORPUSCULAR HGB CONC 33.9 g/dl (32.0-36.5); MEAN CORPUSCULAR VOLUME 86.1 fl (80.0-96.0); PLATELET COUNT, AUTOMATED 201 10^3/uL (150-450); RED BLOOD COUNT 4.69 10^6/uL (4.30-6.10); WHITE BLOOD COUNT 6.4 10^3/uL (4.0-10.0)
[2023-06-07 00:26] LABS: AMPHETAMINES LEVEL URINE NEGATIVE (NEGATIVE)
[2023-06-07 00:27] LABS: BARBITURATES URINE NEGATIVE (NEGATIVE); BENZODIAZEPINES URINE NEGATIVE (NEGATIVE); CANNABINOIDS URINE NEGATIVE (NEGATIVE); COCAINE METABOLITE URINE NEGATIVE (NEGATIVE); METHADONE URINE NEGATIVE (NEGATIVE); OPIATES URINE NEGATIVE (NEGATIVE); PHENCYCLIDINE URINE NEGATIVE (NEGATIVE)
[2023-06-07 00:41] LABS: ETHYL ALCOHOL (ETHANOL) < 0.003 % (0.000-0.010)
[2023-06-07 00:42] LABS: SALICYLATE LEVEL < 3.0 MG/DL (<30)
[2023-06-07 00:43] LABS: ALKALINE PHOSPHATASE 85 U/L (46-116); ALT/SGPT 16 U/L (7.0-40); AST/SGOT 19 U/L (<34); BILIRUBIN,DIRECT 0.1 MG/DL (<0.4); BILIRUBIN,TOTAL 0.3 MG/DL (0.3-1.2); BLOOD UREA NITROGEN 11 MG/DL (9-23); CALCIUM LEVEL 9.2 MG/DL (8.5-10.1); CARBON DIOXIDE LEVEL 26 MMOL/L (20-31); CHLORIDE LEVEL 110 MMOL/L (98-107); CREATININE FOR GFR 0.93 MG/DL (0.70-1.30); GLOMERULAR FILTRATION RATE > 60.0 (>60); GLUCOSE, FASTING 90 MG/DL (60-100); SODIUM LEVEL 142 MMOL/L (136-145); TOTAL PROTEIN 6.3 G/DL (5.7-8.2)
[2023-06-07 00:45] LABS: THYROID STIMULATING HORMONE 0.798 uIU/ML (0.55-4.78)
[2023-06-07] MEDS ORDERED: HOME MED LIST COMPLETE! XX SCH (16:25)
[2023-06-07] MEDS ORDERED: BENZTROPINE 1 MG TAB PO ONE (21:00)
[2023-06-07] MEDS ORDERED: VENLAFAXINE **XR** 75MG CAPSULE PO ONE (21:00)
[2023-06-07] MEDS ORDERED: GABAPENTIN 300 MG CAP PO ONE (21:00)
[2023-06-07] MEDS: GABAPENTIN 300 MG CAP PO SCH (23:51)
[2023-06-07] MEDS: BENZTROPINE 1 MG TAB PO SCH (23:51)
[2023-06-07] MEDS: VENLAFAXINE **XR** 75MG CAPSULE PO SCH (23:52)
[2023-06-08] MEDS: BENZTROPINE 1 MG TAB PO SCH (08:17)
[2023-06-08] MEDS: VENLAFAXINE **XR** 75MG CAPSULE PO SCH (08:17)
[2023-06-08] MEDS: GABAPENTIN 300 MG CAP PO SCH (08:17)
[2023-06-08] MEDS ORDERED: VITAMIN D 1,000 INTERNATIONAL UNITS TABLET PO SCH (09:00)
[2023-06-08 12:02] VITALS: BP 118/62; TEMP 98.6; O2SAT 99
== END 2023-06-08 12:05 | disposition home or self-care (01) ==
LOC: M ED 23:29
DX: F25.9 Schizoaffective disorder, unspecified (principal); F31.9 Bipolar disorder, unspecified; Z88.8 Allergy status to other drugs, medicaments and biological substances; Z79.899 Other long term (current) drug therapy

== ENCOUNTER → 2023-06-16 | Outpatient (CLI) | payer MEDICARE, MEDICAID | LOC: M SOG 07:59 | PROVIDERS: ATTEND Physician Assistant | DX: M79.641 Pain in right hand (principal); M19.041 Primary osteoarthritis, right hand ==

== ENCOUNTER 2023-08-15 19:19 | Emergency (ER) | payer MEDICARE, MEDICAID ==
[~2023-08-15] VITALS: Ht 182.9 cm; Wt 224.0 kg
[~2023-08-15 19:19] MED LIST changes: -RISP-10 PO; +RISP3TAB77 PO
[2023-08-15 20:04] LABS: HEMATOCRIT 39.9 % (42.0-52.0); HEMOGLOBIN 13.9 g/dl (13.5-17.5); MEAN CORPUSCULAR HGB CONC 34.8 g/dl (32.0-36.5); MEAN CORPUSCULAR VOLUME 88.9 fl (80.0-96.0); PLATELET COUNT, AUTOMATED 184 10^3/uL (150-450); RED BLOOD COUNT 4.49 10^6/uL (4.30-6.10); WHITE BLOOD COUNT 7.8 10^3/uL (4.0-10.0)
[2023-08-15 20:26] LABS: AMPHETAMINES LEVEL URINE NEGATIVE (NEGATIVE); BARBITURATES URINE NEGATIVE (NEGATIVE); BENZODIAZEPINES URINE NEGATIVE (NEGATIVE); COCAINE METABOLITE URINE NEGATIVE (NEGATIVE)
[2023-08-15 20:27] LABS: CANNABINOIDS URINE NEGATIVE (NEGATIVE); METHADONE URINE NEGATIVE (NEGATIVE); OPIATES URINE NEGATIVE (NEGATIVE); PHENCYCLIDINE URINE NEGATIVE (NEGATIVE)
[2023-08-15 20:29] LABS: ETHYL ALCOHOL (ETHANOL) < 0.003 % (0.000-0.010)
[2023-08-15 20:30] LABS: SALICYLATE LEVEL < 3.0 MG/DL (<30)
[2023-08-15 20:31] LABS: ALBUMIN 3.9 G/DL (3.2-5.2); ALKALINE PHOSPHATASE 80 U/L (46-116); ALT/SGPT 20 U/L (7.0-40); AST/SGOT 15 U/L (<34); BILIRUBIN,DIRECT 0.1 MG/DL (<0.4); BILIRUBIN,TOTAL 0.3 MG/DL (0.3-1.2); BLOOD UREA NITROGEN 9 MG/DL (9-23); CALCIUM LEVEL 9.5 MG/DL (8.5-10.1); CARBON DIOXIDE LEVEL 28 MMOL/L (20-31); CHLORIDE LEVEL 107 MMOL/L (98-107); CREATININE FOR GFR 0.91 MG/DL (0.70-1.30); GLOMERULAR FILTRATION RATE > 60.0 (>60); GLUCOSE, FASTING 87 MG/DL (60-100); POTASSIUM SERUM 3.9 MMOL/L (3.5-5.1); SODIUM LEVEL 138 MMOL/L (136-145); TOTAL PROTEIN 6.3 G/DL (5.7-8.2)
[2023-08-15 20:33] LABS: THYROID STIMULATING HORMONE 1.311 uIU/ML (0.55-4.78)
[2023-08-15] MEDS ORDERED: LEXA1TAB PO (21:04)
[2023-08-15] MEDS ORDERED: HOME MED LIST COMPLETE! XX SCH (21:05)
[2023-08-16 10:00] VITALS: BP 124/72; TEMP 97; O2SAT 98
== END 2023-08-16 10:58 | disposition home or self-care (01) ==
LOC: M ED 19:19
DX: F32.A Depression, unspecified (principal); R45.851 Suicidal ideations; F12.10 Cannabis abuse, uncomplicated; Z79.899 Other long term (current) drug therapy; Z88.8 Allergy status to other drugs, medicaments and biological substances

== ENCOUNTER 2023-08-29 08:00 | Inpatient (IN) | payer MEDICAID, MEDICARE ==
[~2023-08-29] VITALS: Ht 182.9 cm; Wt 100.6 kg
[~2023-08-29 08:00] MED LIST changes: +LEXA1TAB PO
[2023-08-29] MEDS ORDERED: MED REC IN PROGRESS XX SCH (08:40)
[2023-08-29] MEDS ORDERED: HALO10AM (08:51)
[2023-08-29 09:14] LABS: AMPHETAMINES LEVEL URINE NEGATIVE (NEGATIVE); BARBITURATES URINE NEGATIVE (NEGATIVE); BENZODIAZEPINES URINE NEGATIVE (NEGATIVE); CANNABINOIDS URINE NEGATIVE (NEGATIVE); COCAINE METABOLITE URINE NEGATIVE (NEGATIVE); METHADONE URINE NEGATIVE (NEGATIVE); OPIATES URINE NEGATIVE (NEGATIVE); PHENCYCLIDINE URINE NEGATIVE (NEGATIVE)
[2023-08-29 09:16] LABS: ETHYL ALCOHOL (ETHANOL) 0.004 % (0.000-0.010)
[2023-08-29 09:18] LABS: ALBUMIN 3.5 G/DL (3.2-5.2); ALKALINE PHOSPHATASE 77 U/L (46-116); ALT/SGPT 16 U/L (7.0-40); AST/SGOT 15 U/L (<34); BILIRUBIN,DIRECT 0.1 MG/DL (<0.4); BILIRUBIN,TOTAL 0.2 MG/DL (0.3-1.2); BLOOD UREA NITROGEN 7 MG/DL (9-23); CALCIUM LEVEL 9.3 MG/DL (8.5-10.1); CARBON DIOXIDE LEVEL 26 MMOL/L (20-31); CHLORIDE LEVEL 108 MMOL/L (98-107); GLOMERULAR FILTRATION RATE > 60.0 (>60); GLUCOSE, FASTING 91 MG/DL (60-100); SALICYLATE LEVEL < 3.0 MG/DL (<30); SODIUM LEVEL 137 MMOL/L (136-145)
[2023-08-29 09:20] LABS: THYROID STIMULATING HORMONE 2.435 uIU/ML (0.55-4.78)
[2023-08-29 09:34] LABS: HEMATOCRIT 37.6 % (42.0-52.0); HEMOGLOBIN 13.3 g/dl (13.5-17.5); MEAN CORPUSCULAR VOLUME 89.3 fl (80.0-96.0); RED BLOOD COUNT 4.21 10^6/uL (4.30-6.10); WHITE BLOOD COUNT 6.5 10^3/uL (4.0-10.0)
[2023-08-29 09:35] LABS: MEAN CORPUSCULAR HEMOGLOBIN 31.6 pg (27.0-33.0); MEAN CORPUSCULAR HGB CONC 35.4 g/dl (32.0-36.5); PLATELET COUNT, AUTOMATED 241 10^3/uL (150-450)
[2023-08-29] MEDS ORDERED: HOME MED LIST COMPLETE! XX SCH (12:30)
[2023-08-29] MEDS ORDERED: MAALOX 30 ML SUSP *UDC PO PRN (12:45)
[2023-08-29] MEDS ORDERED: MOM 30ML SUSPENSION UDC PO PRN (12:45)
[2023-08-29] MEDS ORDERED: diphenhydrAMINE 25MG CAP PO PRN (12:45)
[2023-08-29 15:20] VITALS: BP 135/95; TEMP 97; O2SAT 98
[2023-08-30 06:23] VITALS: BP 122/67; TEMP 97.5; O2SAT 98
[2023-08-30] MEDS: buPROPion **XL** TABLET 150MG (WELLBUTRIN XL) PO SCH (09:47)
[2023-08-30] MEDS: ACETAMINOPHEN TAB 650MG DOSE (2X325MG) PO PRN (11:45)
[2023-08-30] MEDS: IBUPROFEN 400MG TAB PO PRN (13:21)
[2023-08-31 06:07] VITALS: BP 120/72; TEMP 97.2; O2SAT 97
[2023-08-31 18:16] VITALS: BP 153/83; TEMP 97
[2023-09-01] MEDS: traZODone 50 MG TAB PO PRN (01:17)
[2023-09-01] MEDS ORDERED: BUPR150T12 PO (09:08)
== END 2023-09-01 11:10 | disposition home or self-care (01) | DRG 885 ==
LOC: M ED 08:00 → M ED INP 12:42 → M PSY 14:51
PROVIDERS: ADMIT Psychiatry & Neurology Psychiatry; ATTEND Student in an Organized Health Care Education/Training Program
DX: F25.0 Schizoaffective disorder, bipolar type (principal); R45.851 Suicidal ideations; Z88.8 Allergy status to other drugs, medicaments and biological substances; Z87.820 Personal history of traumatic brain injury; Z91.51 Personal history of suicidal behavior

== ENCOUNTER 2023-10-02 12:49 | Emergency (ER) | payer MEDICARE, OTHER ==
[~2023-10-02] VITALS: Ht 182.9 cm; Wt 97.7 kg
[~2023-10-02 12:49] MED LIST changes: +BUPR-597 PO; -BUPR300T92 PO; +HALO10AM
[2023-10-02 14:53] LABS: BASO % 0.5 % (0.0-1.0); EOS # 0.2 10^3/uL (0.0-0.5); EOS % 2.2 % (0.0-3.0); HEMATOCRIT 37.9 % (42.0-52.0); HEMOGLOBIN 13.3 g/dl (13.5-17.5); LYMPH # 1.9 10^3/uL (1.5-5.0); LYMPH % 23.2 % (24.0-44.0); MEAN CORPUSCULAR HEMOGLOBIN 31.4 pg (27.0-33.0); MEAN CORPUSCULAR HGB CONC 35.1 g/dl (32.0-36.5); MEAN CORPUSCULAR VOLUME 89.4 fl (80.0-96.0); MONO # 0.4 10^3/uL (0.0-0.8); MONO % 5.2 % (2.0-8.0); NEUTROPHILS # 5.6 10^3/uL (1.5-8.5); NEUTROPHILS % 68.7 % (36.0-66.0); PLATELET COUNT, AUTOMATED 225 10^3/uL (150-450); RED BLOOD COUNT 4.24 10^6/uL (4.30-6.10); WHITE BLOOD COUNT 8.1 10^3/uL (4.0-10.0)
[2023-10-02] MEDS: NS 1,000 ML IV ONE (14:53)
[2023-10-02] MEDS: ONDANSETRON 4MG 2ML VIAL IV ONE (14:53)
[2023-10-02] MEDS ORDERED: HOME MED LIST COMPLETE! XX SCH (15:05)
[2023-10-02 15:12] LABS: APPEARANCE, URINE CLEAR (CLEAR); BACTERIA, URINE AUTO NEGATIVE (NEGATIVE); BILIRUBIN, URINE AUTO NEGATIVE (NEGATIVE); BLOOD, URINE BLOOD NEGATIVE (NEGATIVE); COLOR, URINE YELLOW (YELLOW); GLUCOSE, URINE (UA) AUTO NEGATIVE (NEGATIVE); KETONE, URINE AUTO 1+ mg/dL (NEGATIVE); LEUKOCYTE ESTERASE, URINE AUTO NEGATIVE (NEGATIVE); MUCUS, URINE SMALL (NEGATIVE); NITRITE, URINE AUTO NEGATIVE (NEGATIVE); PROTEIN, URINE AUTO NEGATIVE (NEGATIVE); RBC, URINE AUTO 0 /HPF (0-3); SPECIFIC GRAVITY URINE AUTO 1.017 (1.002-1.035); SQUAMOUS EPITHELIAL CELL UR AU 0 /HPF (0-6); UROBILINOGEN, URINE AUTO 0.2 mg/dL (0.0-2.0); WBC, URINE AUTO 0 /HPF (0-3)
[2023-10-02 15:16] LABS: LIPASE 38 U/L (12-53)
[2023-10-02 15:19] LABS: ALKALINE PHOSPHATASE 88 U/L (46-116); ALT/SGPT 16 U/L (7.0-40); AST/SGOT 17 U/L (<34); BILIRUBIN,DIRECT 0.1 MG/DL (<0.4); BILIRUBIN,TOTAL 0.3 MG/DL (0.3-1.2); BLOOD UREA NITROGEN 10 MG/DL (9-23); CALCIUM LEVEL 9.5 MG/DL (8.5-10.1); CARBON DIOXIDE LEVEL 28 MMOL/L (20-31); CHLORIDE LEVEL 106 MMOL/L (98-107); GLOMERULAR FILTRATION RATE > 60.0 (>60); GLUCOSE, FASTING 93 MG/DL (60-100); POTASSIUM SERUM 4.3 MMOL/L (3.5-5.1); SODIUM LEVEL 141 MMOL/L (136-145); TOTAL PROTEIN 6.5 G/DL (5.7-8.2)
[2023-10-02 21:46] VITALS: BP 136/69; TEMP 98.5; O2SAT 99
== END 2023-10-02 21:49 | disposition home or self-care (01) ==
LOC: M ED 12:49 → EDBD 12:49 → M ED 21:49
DX: M51.26 Other intervertebral disc displacement, lumbar region (principal); M51.36 Other intervertebral disc degeneration, lumbar region; I10 Essential (primary) hypertension; F41.9 Anxiety disorder, unspecified; F32.A Depression, unspecified; F20.9 Schizophrenia, unspecified; Z88.8 Allergy status to other drugs, medicaments and biological substances
CPT/HCPCS: 72148; 80048; 80076; 81001; 83690; 85025; 87486; 87581; 87633; 87798; 96361; 96374; 99284; J2405

== ENCOUNTER 2024-03-11 12:06 | Emergency (ER) | payer MEDICARE, MEDICAID ==
[~2024-03-11] VITALS: Ht 182.9 cm; Wt 97.6 kg
[~2024-03-11 12:06] MED LIST changes: -ARIP1TAB43 PO; +ARIP20TA51 PO; +GABA-1172 PO; -GABA-282 PO; -OLAN2.5T25 PO; +OLAN2.5T53 PO; -OLAN20TA14 PO; +OLAN20TA53 PO
[2024-03-11 12:30] VITALS: BP 133/81; TEMP 97.4; O2SAT 98
== END 2024-03-11 13:13 | disposition left against medical advice (07) ==
LOC: M ED 12:06 → EDBD 12:06 → M ED 13:13
DX: Z53.21 Procedure and treatment not carried out due to patient leaving prior to being seen by health care provider (principal)

== ENCOUNTER → 2024-03-16 | Outpatient (REF) | payer MEDICARE, MEDICAID ==
[~2024-03-16] MED LIST changes: +AMOX500C PO
[2024-03-16 19:09] LABS: BASO % 0.5 % (0.0-1.0); EOS # 0.3 10^3/uL (0.0-0.5); EOS % 5.4 % (0.0-3.0); HEMATOCRIT 44.3 % (42.0-52.0); HEMOGLOBIN 14.5 g/dl (13.5-17.5); LYMPH # 1.1 10^3/uL (1.5-5.0); LYMPH % 19.7 % (24.0-44.0); MEAN CORPUSCULAR HEMOGLOBIN 29.7 pg (27.0-33.0); MEAN CORPUSCULAR HGB CONC 32.7 g/dl (32.0-36.5); MEAN CORPUSCULAR VOLUME 90.6 fl (80.0-96.0); MONO # 0.3 10^3/uL (0.0-0.8); MONO % 5.8 % (2.0-8.0); NEUTROPHILS # 3.9 10^3/uL (1.5-8.5); NEUTROPHILS % 68.3 % (36.0-66.0); PLATELET COUNT, AUTOMATED 231 10^3/uL (150-450); RED BLOOD COUNT 4.89 10^6/uL (4.30-6.10); WHITE BLOOD COUNT 5.7 10^3/uL (4.0-10.0)
[2024-03-16 19:31] LABS: HEMOGLOBIN A1c 5.4 % (4.0-6.0)
[2024-03-16 19:39] LABS: ALKALINE PHOSPHATASE 90 U/L (46-116); ALT/SGPT 26 U/L (7.0-40); AST/SGOT 17 U/L (<34); BILIRUBIN,TOTAL 0.3 MG/DL (0.3-1.2); BLOOD UREA NITROGEN 18 MG/DL (9-23); CALCIUM LEVEL 10.3 MG/DL (8.5-10.1); CARBON DIOXIDE LEVEL 31 MMOL/L (20-31); CHLORIDE LEVEL 108 MMOL/L (98-107); CHOLESTEROL LEVEL 179 MG/DL (<200); CHOLESTEROL RISK RATIO 3.48 (<5); CREATININE FOR GFR 0.86 MG/DL (0.70-1.30); FOLATE 9.5 NG/ML (>5.4); GLOMERULAR FILTRATION RATE > 60.0 (>60); GLUCOSE, FASTING 59 MG/DL (60-100); HDL CHOLESTEROL 51.4 MG/DL (>40); IRON (FE) 32 UG/DL (65-175); LDL CHOLESTEROL 96.2 MG/DL (<100); MAGNESIUM LEVEL 2.1 MG/DL (1.8-2.4); NON-HDL-C 127.6 MG/DL; SODIUM LEVEL 141 MMOL/L (136-145); THYROID STIMULATING HORMONE 1.736 uIU/ML (0.55-4.78); TOTAL 25(OH) VITAMIN D 21.5 NG/ML (20.0-100.0); TOTAL IRON BINDING CAPACITY 454 UG/DL (250-425); TRIGLYCERIDES LEVEL 157 MG/DL (<150)
[2024-03-16 19:40] LABS: VITAMIN B12 LEVEL 581 PG/ML (211-911)
== END ==
LOC: M LAB REF 16:55
PROVIDERS: ATTEND Nurse Practitioner Family
DX: E66.3 Overweight (principal); Z11.9 Encounter for screening for infectious and parasitic diseases, unspecified; E55.9 Vitamin D deficiency, unspecified; Z98.84 Bariatric surgery status; E07.9 Disorder of thyroid, unspecified

== ENCOUNTER 2024-03-19 20:00 | Inpatient (IN) | payer MEDICAID, MEDICARE ==
[~2024-03-19 20:00] MED LIST changes: -AMOX500C PO
[2024-03-19] MEDS ORDERED: AMOX500C PO (21:06)
[2024-03-19 21:08] LABS: HEMOGLOBIN 13.9 g/dl (13.5-17.5); MEAN CORPUSCULAR HGB CONC 33.9 g/dl (32.0-36.5); MEAN CORPUSCULAR VOLUME 88.6 fl (80.0-96.0); PLATELET COUNT, AUTOMATED 234 10^3/uL (150-450); RED BLOOD COUNT 4.63 10^6/uL (4.30-6.10); WHITE BLOOD COUNT 5.7 10^3/uL (4.0-10.0)
[2024-03-19] MEDS ORDERED: HOME MED LIST COMPLETE! XX SCH (21:10)
[2024-03-19 21:34] LABS: AMPHETAMINES LEVEL URINE NEGATIVE (NEGATIVE)
[2024-03-19 21:35] LABS: BARBITURATES URINE NEGATIVE (NEGATIVE); BENZODIAZEPINES URINE NEGATIVE (NEGATIVE); CANNABINOIDS URINE NEGATIVE (NEGATIVE); COCAINE METABOLITE URINE NEGATIVE (NEGATIVE); METHADONE URINE NEGATIVE (NEGATIVE); OPIATES URINE NEGATIVE (NEGATIVE); PHENCYCLIDINE URINE NEGATIVE (NEGATIVE)
[2024-03-19 21:37] LABS: ETHYL ALCOHOL (ETHANOL) < 0.003 % (0.000-0.010)
[2024-03-19 21:39] LABS: ALBUMIN 4.1 G/DL (3.2-5.2); ALKALINE PHOSPHATASE 92 U/L (46-116); ALT/SGPT 28 U/L (7.0-40); AST/SGOT 22 U/L (<34); BILIRUBIN,DIRECT 0.1 MG/DL (<0.4); BILIRUBIN,TOTAL 0.4 MG/DL (0.3-1.2); BLOOD UREA NITROGEN 14 MG/DL (9-23); CALCIUM LEVEL 10.7 MG/DL (8.5-10.1); CARBON DIOXIDE LEVEL 30 MMOL/L (20-31); CHLORIDE LEVEL 109 MMOL/L (98-107); CREATININE FOR GFR 0.98 MG/DL (0.70-1.30); GLOMERULAR FILTRATION RATE > 60.0 (>60); GLUCOSE, FASTING 66 MG/DL (60-100); POTASSIUM SERUM 4.6 MMOL/L (3.5-5.1); SALICYLATE LEVEL < 3.0 MG/DL (<30); SODIUM LEVEL 140 MMOL/L (136-145); THYROID STIMULATING HORMONE 1.637 uIU/ML (0.55-4.78); TOTAL PROTEIN 7.3 G/DL (5.7-8.2)
[2024-03-19] MEDS ORDERED: MOM 30ML SUSPENSION UDC PO PRN (22:40)
[2024-03-19] MEDS ORDERED: diphenhydrAMINE 25MG CAP PO PRN (22:40)
[2024-03-19] MEDS ORDERED: traZODone 50 MG TAB PO PRN (22:40)
[2024-03-19] MEDS ORDERED: MAALOX 30 ML SUSP *UDC PO PRN (22:40)
[2024-03-20 01:09] VITALS: BP 130/86; TEMP 98.2
[2024-03-20] MEDS: IBUPROFEN 400MG TAB PO PRN (11:21)
[2024-03-20] MEDS ORDERED: LORazepam 1 MG TAB PO PRN (11:35)
[2024-03-20] MEDS: ARIPiprazole 10 MG TAB PO SCH (12:04)
[2024-03-20] MEDS: AMOXICILLIN 500 MG CAP PO SCH (15:23)
[2024-03-20 16:33] VITALS: BP 123/70; TEMP 97.8; O2SAT 99
[2024-03-21 14:45] VITALS: BP 124/70; TEMP 97.6; O2SAT 97
[2024-03-22 06:15] VITALS: BP 146/81; TEMP 97.6; O2SAT 98
[2024-03-22] MEDS: SERTRALINE HCL 50 MG TAB PO SCH (08:40)
[2024-03-22 16:57] VITALS: BP 129/77; TEMP 97.3
[2024-03-22] MEDS: ARIPiprazole MONOHYDRATE 400 MG INJ (ABILIFY)(FREE PSY INPT ONLY) IM ONE (17:17)
[2024-03-23] MEDS: ACETAMINOPHEN 325 MG TAB PO PRN (01:44)
[2024-03-23 06:16] VITALS: BP 118/70; TEMP 97.5; O2SAT 96
[2024-03-23] MEDS ORDERED: AMOX500C PO (08:36)
== END 2024-03-23 11:19 | disposition home or self-care (01) | DRG 885 ==
LOC: M ED 20:00 → M ED INP 22:37 → M PSY 03-20 00:37
PROVIDERS: ADMIT Psychiatry & Neurology Psychiatry; ATTEND Psychiatry & Neurology Psychiatry
DX: F25.9 Schizoaffective disorder, unspecified (principal); R45.851 Suicidal ideations; E55.9 Vitamin D deficiency, unspecified; E07.9 Disorder of thyroid, unspecified; F41.9 Anxiety disorder, unspecified; E83.52 Hypercalcemia; K04.7 Periapical abscess without sinus; Z87.820 Personal history of traumatic brain injury; Z91.148 Patient's other noncompliance with medication regimen for other reason; Z11.9 Encounter for screening for infectious and parasitic diseases, unspecified; Z98.84 Bariatric surgery status; Z88.8 Allergy status to other drugs, medicaments and biological substances

== ENCOUNTER 2024-12-16 09:00 | Inpatient (IN) | payer MEDICARE, MEDICAID ==
[~2024-12-16] VITALS: Ht 182.9 cm; Wt 88.4 kg
[~2024-12-16 09:00] MED LIST changes: +ABIL1TAB11 PO; +AMOX500C PO; -BUPR-597 PO; +BUPR-766 PO; +DIVA-41 PO; -DIVA500T94 PO; -GEOD40CA13 PO; +ZIPR40CA27 PO
[2024-12-16 09:52] LABS: PLATELET COUNT, AUTOMATED 232 10^3/uL (150-450)
[2024-12-16] MEDS: ACETAMINOPHEN 500 MG TAB PO ONE (10:00)
[2024-12-16 10:23] LABS: ETHYL ALCOHOL (ETHANOL) < 0.003 % (0.000-0.010)
[2024-12-16 10:24] LABS: SALICYLATE LEVEL < 3.0 MG/DL (<30)
[2024-12-16 10:25] LABS: ALT/SGPT 25 U/L (7.0-40); AST/SGOT 29 U/L (<34); CALCIUM LEVEL 9.8 MG/DL (8.5-10.1); CARBON DIOXIDE LEVEL 26 MMOL/L (20-31); CHLORIDE LEVEL 106 MMOL/L (98-107); CPK CREATINE PHOSPHOKINASE 304 U/L (46-171); CREATININE FOR GFR 0.90 MG/DL (0.70-1.30); GLOMERULAR FILTRATION RATE > 90.0 (>60); POTASSIUM SERUM 4.0 MMOL/L (3.5-5.1); SODIUM LEVEL 143 MMOL/L (136-145)
[2024-12-16 10:57] LABS: CK-MB VALUE MASS 7.5 NG/ML (<3.6); MB/CK RELATIVE INDEX 2.46 (< OR =4)
[2024-12-16 11:00] LABS: AMPHETAMINES LEVEL URINE NEGATIVE (NEGATIVE); BARBITURATES URINE NEGATIVE (NEGATIVE); BENZODIAZEPINES URINE NEGATIVE (NEGATIVE); COCAINE METABOLITE URINE NEGATIVE (NEGATIVE); METHADONE URINE NEGATIVE (NEGATIVE); OPIATES URINE NEGATIVE (NEGATIVE); PHENCYCLIDINE URINE NEGATIVE (NEGATIVE)
[2024-12-16 11:09] LABS: CANNABINOIDS URINE POSITIVE (NEGATIVE)
[2024-12-16 11:54] LABS: CK-MB VALUE MASS 7.5 NG/ML (<3.6)
[2024-12-16 11:55] LABS: CPK CREATINE PHOSPHOKINASE 291 U/L (46-171); MB/CK RELATIVE INDEX 2.57 (< OR =4)
[2024-12-16] MEDS ORDERED: HOME MED LIST COMPLETE! XX SCH (13:10)
[2024-12-16] MEDS ORDERED: traZODone 50 MG TAB PO PRN (16:00)
[2024-12-16] MEDS ORDERED: MOM 30 ML SUSPENSION UDC PO PRN (16:00)
[2024-12-16 18:17] VITALS: BP 135/74; TEMP 97.9; O2SAT 99
[2024-12-17] MEDS: ACETAMINOPHEN 325 MG TAB PO PRN (03:14)
[2024-12-17] MEDS: ESCITALOPRAM OXALATE 5 MG TABLET PO SCH (10:07)
[2024-12-17] MEDS: OLANZapine 5 MG TAB PO SCH (20:26)
[2024-12-18 06:28] VITALS: BP 123/82; TEMP 97.6; O2SAT 98
[2024-12-18 14:30] VITALS: BP 114/58; TEMP 98.1; O2SAT 98
[2024-12-20 06:39] VITALS: BP 116/65; TEMP 97; O2SAT 100
[2024-12-20 15:06] VITALS: BP 146/77; TEMP 97.4; O2SAT 100
[2024-12-21 06:39] VITALS: BP 111/59; TEMP 97; O2SAT 95
[2024-12-21 15:15] VITALS: BP 143/78; TEMP 97; O2SAT 99
[2024-12-22] MEDS: ESCITALOPRAM OXALATE 10 MG TABLET PO SCH (10:13)
[2024-12-23 15:32] VITALS: BP 135/85; TEMP 98.3; O2SAT 98
[2024-12-24 16:03] VITALS: BP 136/86; TEMP 97.9; O2SAT 99
[2024-12-25] MEDS: MAALOX 30 ML SUSP *UDC PO PRN (02:04)
[2024-12-25] MEDS: IBUPROFEN 400 MG TAB PO PRN (02:04)
[2024-12-25 14:41] VITALS: BP 131/64; TEMP 97.7; O2SAT 100
[2024-12-26 06:39] VITALS: BP 145/88; TEMP 97.8; O2SAT 98
[2024-12-26] MEDS: ARIPiprazole MONOHYDRATE 400 MG INJ (FREE PSY INPT ONLY) IM ONE (09:31)
[2024-12-26 18:30] VITALS: BP 128/87; TEMP 98.3
[2024-12-27] MEDS ORDERED: ABIL1INJ2 IM (06:12)
[2024-12-27] MEDS ORDERED: OLAN1TAB16 PO (06:12)
[2024-12-27] MEDS ORDERED: LEXA1TAB PO (06:12)
[2024-12-27 08:11] VITALS: BP 117/71; TEMP 98.1; O2SAT 96
== END 2024-12-27 11:01 | disposition home or self-care (01) | DRG 885 ==
LOC: M ED 09:00 → M ED INP 15:56 → M PSY 18:15
PROVIDERS: ADMIT General Practice; ATTEND Psychiatry & Neurology Psychiatry
DX: F25.9 Schizoaffective disorder, unspecified (principal); R45.851 Suicidal ideations; F41.9 Anxiety disorder, unspecified; F31.9 Bipolar disorder, unspecified; Z91.51 Personal history of suicidal behavior; Z87.820 Personal history of traumatic brain injury; Z63.5 Disruption of family by separation and divorce; F43.21 Adjustment disorder with depressed mood; Z88.8 Allergy status to other drugs, medicaments and biological substances

== ENCOUNTER 2025-01-10 20:56 | Emergency (ER) | payer MEDICARE, MEDICAID ==
[~2025-01-10] VITALS: Ht 182.9 cm; Wt 88.2 kg
[~2025-01-10 20:56] MED LIST changes: +ABIL1INJ2 IM
[2025-01-10 21:44] LABS: PLATELET COUNT, AUTOMATED 438 10^3/uL (150-450)
[2025-01-10 22:10] LABS: ETHYL ALCOHOL (ETHANOL) < 0.003 % (0.000-0.010)
[2025-01-10 22:12] LABS: SALICYLATE LEVEL < 3.0 MG/DL (<30)
[2025-01-10 22:16] LABS: ALT/SGPT 23 U/L (7.0-40); AST/SGOT 22 U/L (<34); CALCIUM LEVEL 8.7 MG/DL (8.5-10.1); CARBON DIOXIDE LEVEL 27 MMOL/L (20-31); CHLORIDE LEVEL 100 MMOL/L (98-107); CREATININE FOR GFR 0.74 MG/DL (0.70-1.30); GLOMERULAR FILTRATION RATE > 90.0 (>60); POTASSIUM SERUM 4.2 MMOL/L (3.5-5.1); SODIUM LEVEL 139 MMOL/L (136-145)
[2025-01-10 22:30] LABS: AMPHETAMINES LEVEL URINE NEGATIVE (NEGATIVE); BARBITURATES URINE NEGATIVE (NEGATIVE); BENZODIAZEPINES URINE NEGATIVE (NEGATIVE); COCAINE METABOLITE URINE NEGATIVE (NEGATIVE); METHADONE URINE NEGATIVE (NEGATIVE); OPIATES URINE NEGATIVE (NEGATIVE); PHENCYCLIDINE URINE NEGATIVE (NEGATIVE)
[2025-01-10 22:31] LABS: CANNABINOIDS URINE POSITIVE (NEGATIVE)
[2025-01-10] MEDS: CEPACOL LOZENGE PO PRN (23:31)
[2025-01-11] MEDS: guaiFENesin SYRUP 200 MG/10 ML UDC PO ONE ×2 (03:45→09:38)
[2025-01-11] MEDS ORDERED: ABIL1INJ2 IM (09:21)
[2025-01-11] MEDS ORDERED: AMOX875T2 PO (09:21)
[2025-01-11] MEDS ORDERED: DOXY100T27 PO (09:21)
[2025-01-11] MEDS ORDERED: HOME MED LIST COMPLETE! XX SCH (09:25)
[2025-01-11 14:33] VITALS: BP 123/65; TEMP 98.5; O2SAT 98
== END 2025-01-11 15:04 | disposition home or self-care (01) ==
LOC: M ED 20:56
DX: F25.9 Schizoaffective disorder, unspecified (principal); Z88.8 Allergy status to other drugs, medicaments and biological substances; Z79.2 Long term (current) use of antibiotics; Z79.899 Other long term (current) drug therapy

== ENCOUNTER 2025-01-13 19:39 | Emergency (ER) | payer MEDICARE, MEDICAID ==
[~2025-01-13] VITALS: Ht 182.9 cm; Wt 88.5 kg
[~2025-01-13 19:39] MED LIST changes: +DOXY100T27 PO
[2025-01-13 19:44] VITALS: BP 131/75; TEMP 98; O2SAT 98
[2025-01-14] MEDS ORDERED: BENZ-18 PO (05:49)
== END 2025-01-13 22:27 | disposition left against medical advice (07) ==
LOC: M ED 19:39
DX: Z53.21 Procedure and treatment not carried out due to patient leaving prior to being seen by health care provider (principal)

== ENCOUNTER 2025-01-14 01:00 | Emergency (ER) | payer MEDICARE, MEDICAID ==
[~2025-01-14] VITALS: Ht 182.9 cm; Wt 90.0 kg
[2025-01-14 01:53] LABS: PLATELET COUNT, AUTOMATED 485 10^3/uL (150-450)
[2025-01-14 02:03] LABS: AMPHETAMINES LEVEL URINE NEGATIVE (NEGATIVE); BARBITURATES URINE NEGATIVE (NEGATIVE); BENZODIAZEPINES URINE NEGATIVE (NEGATIVE); COCAINE METABOLITE URINE NEGATIVE (NEGATIVE); METHADONE URINE NEGATIVE (NEGATIVE); OPIATES URINE NEGATIVE (NEGATIVE); PHENCYCLIDINE URINE NEGATIVE (NEGATIVE)
[2025-01-14 02:07] LABS: ETHYL ALCOHOL (ETHANOL) < 0.003 % (0.000-0.010)
[2025-01-14 02:09] LABS: ALT/SGPT 19 U/L (7.0-40); AST/SGOT 18 U/L (<34); CALCIUM LEVEL 9.6 MG/DL (8.5-10.1); CARBON DIOXIDE LEVEL 25 MMOL/L (20-31); CHLORIDE LEVEL 103 MMOL/L (98-107); CREATININE FOR GFR 0.75 MG/DL (0.70-1.30); GLOMERULAR FILTRATION RATE > 90.0 (>60); POTASSIUM SERUM 4.2 MMOL/L (3.5-5.1); SALICYLATE LEVEL < 3.0 MG/DL (<30); SODIUM LEVEL 140 MMOL/L (136-145)
[2025-01-14 02:12] LABS: CANNABINOIDS URINE POSITIVE (NEGATIVE)
[2025-01-14] MEDS ORDERED: BENZ-18 PO (05:49)
[2025-01-14] MEDS ORDERED: HOME MED LIST COMPLETE! XX SCH (05:50)
[2025-01-14] MEDS: AUGMENTIN 875 MG TAB PO SCH (09:00)
[2025-01-14 10:19] VITALS: BP 144/70
[2025-01-14 14:48] VITALS: TEMP 96.7; O2SAT 98
== END 2025-01-14 15:02 | disposition home or self-care (01) ==
LOC: M ED 01:00
DX: F25.9 Schizoaffective disorder, unspecified (principal); F19.10 Other psychoactive substance abuse, uncomplicated; Z88.8 Allergy status to other drugs, medicaments and biological substances

== ENCOUNTER 2025-01-16 08:43 | Inpatient (IN) | payer MEDICARE, MEDICAID ==
[~2025-01-16] VITALS: Ht 182.9 cm; Wt 85.6 kg
[~2025-01-16 08:43] MED LIST changes: +BENZ-18 PO
[2025-01-16] MEDS: NICOTINE 14 MG/24 HR TRANSDERMAL TD SCH (09:00)
[2025-01-16 09:33] LABS: PLATELET COUNT, AUTOMATED 607 10^3/uL (150-450)
[2025-01-16 09:56] LABS: AMPHETAMINES LEVEL URINE NEGATIVE (NEGATIVE); BARBITURATES URINE NEGATIVE (NEGATIVE); BENZODIAZEPINES URINE NEGATIVE (NEGATIVE); CANNABINOIDS URINE NEGATIVE (NEGATIVE); COCAINE METABOLITE URINE NEGATIVE (NEGATIVE); METHADONE URINE NEGATIVE (NEGATIVE); OPIATES URINE NEGATIVE (NEGATIVE); PHENCYCLIDINE URINE NEGATIVE (NEGATIVE)
[2025-01-16 10:02] LABS: ETHYL ALCOHOL (ETHANOL) < 0.003 % (0.000-0.010)
[2025-01-16 10:03] LABS: SALICYLATE LEVEL < 3.0 MG/DL (<30)
[2025-01-16 10:09] LABS: ALT/SGPT 20 U/L (7.0-40); AST/SGOT 22 U/L (<34); CALCIUM LEVEL 9.2 MG/DL (8.5-10.1); CARBON DIOXIDE LEVEL 28 MMOL/L (20-31); CHLORIDE LEVEL 101 MMOL/L (98-107); CREATININE FOR GFR 0.68 MG/DL (0.70-1.30); GLOMERULAR FILTRATION RATE > 90.0 (>60); POTASSIUM SERUM 4.7 MMOL/L (3.5-5.1); SODIUM LEVEL 141 MMOL/L (136-145)
[2025-01-16] MEDS ORDERED: HOME MED LIST COMPLETE! XX SCH (11:40)
[2025-01-16] MEDS ORDERED: OLANZapine 5 MG TAB PO PRN (13:40)
[2025-01-16] MEDS ORDERED: ACETAMINOPHEN 325 MG TAB PO PRN (13:40)
[2025-01-16] MEDS ORDERED: MOM 30 ML SUSPENSION UDC PO PRN (13:40)
[2025-01-16] MEDS ORDERED: traZODone 50 MG TAB PO PRN (13:40)
[2025-01-16] MEDS ORDERED: LORazepam 1 MG TAB PO PRN (13:40)
[2025-01-16] MEDS ORDERED: HALOPERIDOL 5 MG TAB PO PRN (13:40)
[2025-01-16] MEDS ORDERED: MAALOX 30 ML SUSP *UDC PO PRN (13:40)
[2025-01-16] MEDS ORDERED: IBUPROFEN 400 MG TAB PO PRN (13:40)
[2025-01-16 15:20] VITALS: BP 123/65; TEMP 98.1; O2SAT 98
[2025-01-17 06:30] VITALS: BP 112/65; TEMP 96.8; O2SAT 97
[2025-01-17 15:20] VITALS: BP 105/59; TEMP 97.8; O2SAT 97
[2025-01-17] MEDS ORDERED: AUGMENTIN 500 MG TAB PO SCH (18:40)
[2025-01-17] MEDS: AUGMENTIN 875 MG TAB PO SCH (21:02)
[2025-01-17] MEDS: OLANZapine 5 MG TAB PO SCH (21:04)
[2025-01-18 06:31] VITALS: BP 126/68; TEMP 96.8; O2SAT 99
[2025-01-18 14:41] VITALS: BP 138/75; TEMP 97.2; O2SAT 97
[2025-01-19] MEDS: CEPACOL LOZENGE PO PRN (14:59)
[2025-01-20] MEDS ORDERED: AMOX875T2 PO (08:11)
[2025-01-20] MEDS ORDERED: OLAN1TAB16 PO (08:11)
[2025-01-20] MEDS ORDERED: ABIL1INJ2 IM (08:11)
[2025-01-23] MEDS ORDERED: [UNRECOGNIZED DRUG - OTHER] IM ONE (09:00)
== END 2025-01-20 10:53 | disposition home or self-care (01) | DRG 885 ==
LOC: M ED 08:43 → M ED INP 13:36 → M PSY 15:19
PROVIDERS: ADMIT Internal Medicine; ATTEND Psychiatry & Neurology Psychiatry
DX: F25.0 Schizoaffective disorder, bipolar type (principal); J18.9 Pneumonia, unspecified organism; R45.851 Suicidal ideations; Z59.01 Sheltered homelessness; R45.850 Homicidal ideations; Z91.51 Personal history of suicidal behavior; Z76.5 Malingerer [conscious simulation]; Z88.8 Allergy status to other drugs, medicaments and biological substances; D64.9 Anemia, unspecified; Z87.820 Personal history of traumatic brain injury

== ENCOUNTER 2025-01-23 21:48 | Emergency (ER) | payer MEDICARE, MEDICAID ==
[~2025-01-23] VITALS: Ht 182.9 cm; Wt 77.0 kg
[2025-01-23 22:36] LABS: PLATELET COUNT, AUTOMATED 363 10^3/uL (150-450)
[2025-01-23 22:57] LABS: AMPHETAMINES LEVEL URINE NEGATIVE (NEGATIVE); BARBITURATES URINE NEGATIVE (NEGATIVE); COCAINE METABOLITE URINE NEGATIVE (NEGATIVE)
[2025-01-23 22:58] LABS: BENZODIAZEPINES URINE NEGATIVE (NEGATIVE); CANNABINOIDS URINE NEGATIVE (NEGATIVE); METHADONE URINE NEGATIVE (NEGATIVE); OPIATES URINE NEGATIVE (NEGATIVE); PHENCYCLIDINE URINE NEGATIVE (NEGATIVE)
[2025-01-23 23:00] LABS: ETHYL ALCOHOL (ETHANOL) < 0.003 % (0.000-0.010)
[2025-01-23 23:02] LABS: ALT/SGPT 16 U/L (7.0-40); AST/SGOT 19 U/L (<34); CALCIUM LEVEL 9.7 MG/DL (8.5-10.1); CARBON DIOXIDE LEVEL 28 MMOL/L (20-31); CHLORIDE LEVEL 105 MMOL/L (98-107); CREATININE FOR GFR 0.84 MG/DL (0.70-1.30); GLOMERULAR FILTRATION RATE > 90.0 (>60); POTASSIUM SERUM 4.3 MMOL/L (3.5-5.1); SALICYLATE LEVEL < 3.0 MG/DL (<30); SODIUM LEVEL 142 MMOL/L (136-145)
[2025-01-24 09:10] VITALS: BP 122/63; TEMP 97.8; O2SAT 99
== END 2025-01-24 09:10 | disposition home or self-care (01) ==
LOC: M ED 21:48
DX: F25.9 Schizoaffective disorder, unspecified (principal); Z87.820 Personal history of traumatic brain injury; F32.A Depression, unspecified; F41.9 Anxiety disorder, unspecified; Z88.8 Allergy status to other drugs, medicaments and biological substances; Z79.899 Other long term (current) drug therapy

== ENCOUNTER 2025-02-17 16:07 | Inpatient (IN) | payer MEDICARE, MEDICAID ==
[~2025-02-17] VITALS: Ht 182.9 cm; Wt 87.7 kg
[2025-02-17 17:18] LABS: PLATELET COUNT, AUTOMATED 241 10^3/uL (150-450)
[2025-02-17] MEDS ORDERED: HOME MED LIST COMPLETE! XX SCH ×2 (17:25→17:45)
[2025-02-17 17:29] LABS: ALT/SGPT 27 U/L (7.0-40); AST/SGOT 20 U/L (<34); CALCIUM LEVEL 9.8 MG/DL (8.5-10.1); CARBON DIOXIDE LEVEL 25 MMOL/L (20-31); CHLORIDE LEVEL 109 MMOL/L (98-107); CREATININE FOR GFR 0.87 MG/DL (0.70-1.30); GLOMERULAR FILTRATION RATE > 90.0 (>60); LITHIUM LEVEL < 0.10 MMOL/L (1.0-1.20); POTASSIUM SERUM 4.1 MMOL/L (3.5-5.1); SALICYLATE LEVEL < 3.0 MG/DL (<30); SODIUM LEVEL 141 MMOL/L (136-145)
[2025-02-17 17:32] LABS: ETHYL ALCOHOL (ETHANOL) < 0.003 % (0.000-0.010)
[2025-02-17 17:38] LABS: BARBITURATES URINE NEGATIVE (NEGATIVE)
[2025-02-17 17:39] LABS: AMPHETAMINES LEVEL URINE NEGATIVE (NEGATIVE); BENZODIAZEPINES URINE NEGATIVE (NEGATIVE); CANNABINOIDS URINE NEGATIVE (NEGATIVE); COCAINE METABOLITE URINE NEGATIVE (NEGATIVE); METHADONE URINE NEGATIVE (NEGATIVE); OPIATES URINE NEGATIVE (NEGATIVE); PHENCYCLIDINE URINE NEGATIVE (NEGATIVE)
[2025-02-17] MEDS ORDERED: IBUPROFEN 400 MG TAB PO PRN (20:05)
[2025-02-17] MEDS ORDERED: ACETAMINOPHEN 325 MG TAB PO PRN (20:05)
[2025-02-17] MEDS ORDERED: MAALOX 30 ML SUSP *UDC PO PRN (20:05)
[2025-02-17] MEDS ORDERED: HALOPERIDOL 5 MG TAB PO PRN (20:05)
[2025-02-17] MEDS ORDERED: MOM 30 ML SUSPENSION UDC PO PRN (20:05)
[2025-02-17] MEDS ORDERED: OLANZapine 5 MG TAB PO SCH (21:00)
[2025-02-17] MEDS: GABAPENTIN 300 MG CAP PO SCH (21:00)
[2025-02-17] MEDS: OLANZapine 5 MG TAB PO SCH (21:00)
[2025-02-17] MEDS ORDERED: GABAPENTIN 300 MG CAP PO SCH (21:00)
[2025-02-17 22:45] VITALS: BP 123/77; TEMP 95.9; O2SAT 100
[2025-02-18] MEDS ORDERED: NICOTINE POLACRILEX 2 MG GUM PO PRN (15:00)
[2025-02-18] MEDS: OLANZapine 5 MG TAB PO ONE (15:37)
[2025-02-18] MEDS: NICOTINE POLACRILEX 2 MG GUM PO PRN (16:55)
[2025-02-18] MEDS: traZODone 50 MG TAB PO PRN (21:06)
[2025-02-18] MEDS: OLANZapine 5 MG TAB PO SCH (21:06)
[2025-02-19] MEDS: LORazepam 1 MG TAB PO PRN (21:05)
[2025-02-21] MEDS ORDERED: ARIP1TAB6 PO (21:23)
== END 2025-02-20 15:52 | disposition home or self-care (01) | DRG 885 ==
LOC: M ED 16:07 → M ED INP 20:04 → M PSY 22:46
PROVIDERS: ADMIT Psychiatry & Neurology Neurology; ATTEND Psychiatry & Neurology Neurology
DX: F25.0 Schizoaffective disorder, bipolar type (principal); Z59.00 Homelessness unspecified; F41.9 Anxiety disorder, unspecified; Z79.899 Other long term (current) drug therapy; Z91.148 Patient's other noncompliance with medication regimen for other reason

== ENCOUNTER 2025-02-21 18:21 | Inpatient (IN) | payer MEDICARE, MEDICAID ==
[~2025-02-21] VITALS: Ht 182.9 cm; Wt 89.4 kg
[2025-02-21 19:09] LABS: BASO # 0.0 10^3/uL (0.0-0.2); BASO % 0.5 % (0.0-1.0); EOS # 0.3 10^3/uL (0.0-0.5); EOS % 5.3 % (0.0-3.0); LYMPH # 1.5 10^3/uL (1.5-5.0); LYMPH % 25.3 % (24.0-44.0); MONO # 0.3 10^3/uL (0.0-0.8); MONO % 5.5 % (2.0-8.0); NEUTROPHILS # 3.8 10^3/uL (1.5-8.5); NEUTROPHILS % 63.1 % (36.0-66.0); PLATELET COUNT, AUTOMATED 223 10^3/uL (150-450)
[2025-02-21 19:34] LABS: BARBITURATES URINE NEGATIVE (NEGATIVE); COCAINE METABOLITE URINE NEGATIVE (NEGATIVE); METHADONE URINE NEGATIVE (NEGATIVE)
[2025-02-21 19:35] LABS: AMPHETAMINES LEVEL URINE NEGATIVE (NEGATIVE); BENZODIAZEPINES URINE NEGATIVE (NEGATIVE); CANNABINOIDS URINE NEGATIVE (NEGATIVE); OPIATES URINE NEGATIVE (NEGATIVE); PHENCYCLIDINE URINE NEGATIVE (NEGATIVE)
[2025-02-21 19:37] LABS: ETHYL ALCOHOL (ETHANOL) 0.005 % (0.000-0.010)
[2025-02-21 19:38] LABS: SALICYLATE LEVEL < 3.0 MG/DL (<30)
[2025-02-21 19:41] LABS: ALT/SGPT 18 U/L (7.0-40); AST/SGOT 18 U/L (<34); CALCIUM LEVEL 8.6 MG/DL (8.5-10.1); CARBON DIOXIDE LEVEL 25 MMOL/L (20-31); CHLORIDE LEVEL 111 MMOL/L (98-107); CREATININE FOR GFR 0.78 MG/DL (0.70-1.30); GLOMERULAR FILTRATION RATE > 90.0 (>60); POTASSIUM SERUM 4.2 MMOL/L (3.5-5.1); SODIUM LEVEL 142 MMOL/L (136-145)
[2025-02-21] MEDS: OLANZapine 5 MG TAB PO SCH (21:00)
[2025-02-21] MEDS: GABAPENTIN 300 MG CAP PO SCH (21:00)
[2025-02-21] MEDS ORDERED: ARIP1TAB6 PO (21:23)
[2025-02-21] MEDS ORDERED: MAALOX 30 ML SUSP *UDC PO PRN (21:55)
[2025-02-21] MEDS ORDERED: MOM 30 ML SUSPENSION UDC PO PRN (21:55)
[2025-02-21] MEDS ORDERED: IBUPROFEN 400 MG TAB PO PRN (21:55)
[2025-02-21] MEDS ORDERED: traZODone 50 MG TAB PO PRN (21:55)
[2025-02-21] MEDS ORDERED: ACETAMINOPHEN 325 MG TAB PO PRN (21:55)
[2025-02-21] MEDS ORDERED: HOME MED LIST COMPLETE! XX SCH (22:50)
[2025-02-22] MEDS: NICOTINE POLACRILEX 2 MG GUM PO PRN (20:23)
[2025-02-23 06:35] VITALS: BP 98/50; TEMP 97; O2SAT 97
[2025-02-24 09:00] VITALS: BP 98/50; TEMP 97; O2SAT 97
[2025-02-27] MEDS ORDERED: ARIP10TA63 PO (09:11)
== END 2025-02-27 11:23 | disposition home or self-care (01) | DRG 885 ==
LOC: M ED 18:21 → M ED INP 21:54 → M PSY 02-22 01:17
PROVIDERS: ADMIT Psychiatry & Neurology Neurology; ATTEND Psychiatry & Neurology Psychiatry
DX: F25.0 Schizoaffective disorder, bipolar type (principal); R45.851 Suicidal ideations; F84.0 Autistic disorder; R45.850 Homicidal ideations; F17.290 Nicotine dependence, other tobacco product, uncomplicated; Z79.899 Other long term (current) drug therapy; Z88.8 Allergy status to other drugs, medicaments and biological substances; Z87.820 Personal history of traumatic brain injury

== ENCOUNTER 2025-03-29 12:43 | Inpatient (IN) | payer MEDICARE, MEDICAID ==
[~2025-03-29] VITALS: Ht 182.9 cm; Wt 89.4 kg
[~2025-03-29 12:43] MED LIST changes: +ARIP10TA63 PO; +ARIP1TAB6 PO
[2025-03-29 13:51] LABS: PLATELET COUNT, AUTOMATED 202 10^3/uL (150-450)
[2025-03-29 14:24] LABS: ETHYL ALCOHOL (ETHANOL) 0.005 % (0.000-0.010)
[2025-03-29 14:26] LABS: SALICYLATE LEVEL < 3.0 MG/DL (<30)
[2025-03-29 14:33] LABS: ALT/SGPT 19 U/L (7.0-40); AST/SGOT 25 U/L (<34); CALCIUM LEVEL 9.8 MG/DL (8.5-10.1); CARBON DIOXIDE LEVEL 28 MMOL/L (20-31); CHLORIDE LEVEL 107 MMOL/L (98-107); CREATININE FOR GFR 0.87 MG/DL (0.70-1.30); GLOMERULAR FILTRATION RATE > 90.0 (>60); POTASSIUM SERUM 4.3 MMOL/L (3.5-5.1); SODIUM LEVEL 144 MMOL/L (136-145)
[2025-03-29 17:20] LABS: AMPHETAMINES LEVEL URINE NEGATIVE (NEGATIVE); BARBITURATES URINE NEGATIVE (NEGATIVE); BENZODIAZEPINES URINE NEGATIVE (NEGATIVE); CANNABINOIDS URINE NEGATIVE (NEGATIVE); COCAINE METABOLITE URINE NEGATIVE (NEGATIVE); METHADONE URINE NEGATIVE (NEGATIVE); OPIATES URINE NEGATIVE (NEGATIVE); PHENCYCLIDINE URINE NEGATIVE (NEGATIVE)
[2025-03-29] MEDS ORDERED: MAALOX 30 ML SUSP *UDC PO PRN (22:00)
[2025-03-29] MEDS ORDERED: ACETAMINOPHEN 325 MG TAB PO PRN (22:00)
[2025-03-29] MEDS ORDERED: IBUPROFEN 400 MG TAB PO PRN (22:00)
[2025-03-29] MEDS ORDERED: traZODone 50 MG TAB PO PRN (22:00)
[2025-03-29] MEDS ORDERED: MOM 30 ML SUSPENSION UDC PO PRN (22:00)
[2025-03-29 23:09] VITALS: BP 114/67; TEMP 97.3; O2SAT 98
[2025-03-29] MEDS ORDERED: RISP-105 PO (23:21)
[2025-03-29] MEDS ORDERED: LITH300C PO (23:21)
[2025-03-29] MEDS ORDERED: OXCA300T14 PO (23:21)
[2025-03-29] MEDS ORDERED: GABA-1172 PO (23:21)
[2025-03-29] MEDS ORDERED: MED REC COMMENT (23:22)
[2025-03-29] MEDS ORDERED: HOME MED LIST COMPLETE! XX SCH (23:25)
[2025-03-30] MEDS: SERTRALINE HCL 50 MG TAB PO SCH (14:04)
[2025-03-30] MEDS: GABAPENTIN 300 MG CAP PO SCH (15:43)
[2025-03-30] MEDS: LITHIUM CARBONATE 300 MG CAP PO SCH (20:16)
[2025-03-30 20:33] VITALS: BP 114/67; TEMP 97.3; O2SAT 98
[2025-03-31 20:40] VITALS: BP 114/67; TEMP 97.3; O2SAT 98
[2025-04-02] MEDS: NICOTINE POLACRILEX 2 MG GUM PO PRN (09:22)
[2025-04-04] MEDS ORDERED: SERT50TA29 PO (08:30)
[2025-04-04] MEDS ORDERED: ABIL10TA9 PO (08:30)
[2025-04-04] MEDS ORDERED: LITH300C PO (08:30)
[2025-04-04] MEDS ORDERED: HYDR-3363 PO (08:30)
[2025-04-04] MEDS ORDERED: GABA-1172 PO (08:30)
[2025-04-04 08:40] VITALS: BP 127/74; TEMP 97.5; O2SAT 100
== END 2025-04-04 09:43 | disposition home or self-care (01) | DRG 885 ==
LOC: M ED 12:43 → M ED INP 21:58 → M PSY 22:57
PROVIDERS: ADMIT Student in an Organized Health Care Education/Training Program; ATTEND General Practice
DX: F25.0 Schizoaffective disorder, bipolar type (principal); R45.851 Suicidal ideations; Z59.00 Homelessness unspecified; R45.850 Homicidal ideations; D64.9 Anemia, unspecified; F41.9 Anxiety disorder, unspecified; Z91.148 Patient's other noncompliance with medication regimen for other reason; Z79.899 Other long term (current) drug therapy; Z88.8 Allergy status to other drugs, medicaments and biological substances; Z63.8 Other specified problems related to primary support group